=== PATIENT | female | born 1980 | race Caucasian/White ===

== ENCOUNTER 2016-07-13 16:15 | Observation (INO) | payer MEDICAID ==
[2016-07-13] MEDS ORDERED: HYDROmorphone 1 MG/ML Syringe IM ONE (16:32)
[2016-07-13] MEDS ORDERED: Ondansetron 4 MG Tab.DIS PO ONE (16:33)
--- NOTE | 2016-07-13 17:36 | EDM.PDOC ---
ED HPI GENERAL MEDICAL PROBLEM - General Chief Complaint: General Stated Complaint: R) flank pain 7 out of 10 Time Seen by Provider: 07/13/16 16:24 Source of Information: Reports: Patient History Limitations: Reports: No limitations - History of Present Illness INITIAL COMMENTS - FREE TEXT/NARRATIVE: Patient complaining of right flank pain. Pending lithotripsy next week on Friday at [place]. Was seen 06/26 for left low back pain and at that time noted to have 3cm left ovarian cyst but no obvious stone on CT. She is here complaining of kidney stone like pain. Unable to take NSAIDs due to upcoming lithotripsy. Tylenol not helping. No nausea/emesis. No UTI complaints. No fevers. No other complaints. Treatments REFRIGERATION PERSON: Reports: Acetaminophen Right Flank Pain Score (Numeric/FACES): 7 - Related Data Allergies Allergy/AdvReac Type Severity Reaction Status Date / Time amoxicillin Allergy Hives Verified 07/13/16 16:21 cephalexin [From Keflex] Allergy Hives Verified 07/13/16 16:21 erythromycin base Allergy Hives Verified 07/13/16 16:21 Penicillins Allergy Hives Verified 07/13/16 16:21 Home Meds: Home Meds Hydrochlorothiazide 25 mg PO BID 01/03/16 [History] Potassium Chloride [K-Tab ER] 10 meq PO DAILY 01/03/16 [History] Cyclobenzaprine [Flexeril] 10 mg PO BEDTIME PRN #15 tablet 03/02/16 [Rx] Gabapentin [Neurontin] 200 mg PO TID 06/26/16 [History] Ibuprofen [Motrin] 600 mg PO Q6HR PRN 06/26/16 [History] Melatonin 1 tab PO BEDTIME PRN 06/26/16 [History] Ketorolac [Toradol] 10 mg PO Q6H PRN #12 tablet 06/27/16 [Rx] Past Medical History HEENT History: Reports: Impaired vision Genitourinary History: Reports: Renal calculus Psychiatric History: Reports: Addiction, Anxiety, Depression - Past Surgical History Female Surgical History: Reports: Lithotripsy/ESWL, Tubal ligation Social & Family History - Tobacco Use Smoking Status *Q: Current Every Day Smoker Years of Tobacco use: 15 Packs/Tins Daily: 0.5 Used Tobacco, but Quit: No Second Hand Smoke Exposure: No - Caffeine Use Caffeine Use: Reports: None - Recreational Drug Use Recreational Drug Use: No ED ROS GENERAL - Review of Systems Review Of Systems: ROS reveals no pertinent complaints other than HPI. ED EXAM, GENERAL - Physical Exam Exam: See Below Exam Limited By: No limitations General Appearance: alert, WD/WN, moderate distress Eye Exam: bilateral eye: EOMI, PERRL Ears: normal external exam Nose: normal inspection Throat/Mouth: Normal inspection Head: atraumatic, normocephalic Neck: normal inspection, supple Respiratory/Chest: no respiratory distress, lungs clear, normal breath sounds, no accessory muscle use, chest non-tender Cardiovascular: no murmur, tachycardia GI/Abdominal: soft, non tender (Female) Exam: Deferred Rectal (Female) Exam: Deferred Back Exam: other (No obvious CVA pain or other tenderness with palpation) Extremities: normal inspection Neurological: alert, oriented, normal cognition, normal gait Course - Vital Signs Last Recorded V/S: Last Vital Signs Temp 36.7 C 07/13/16 16:35 Pulse 109 H 07/13/16 16:35 Resp 24 H 07/13/16 16:35 BP 143/104 H 07/13/16 16:35 Pulse Ox 94 L 07/13/16 16:35 - Orders/Labs/Meds Labs: Laboratory Tests 07/13/16 Range/Units 17:40 Specimen Type Urinblad Urine Color Yellow Urine Appearance Slightly cloudy Urine pH 6.0 (5.0-9.0) Ur Specific [place] >= 1.030 (1.005-1.030) Urine Protein Trace H (NEGATIVE) mg/dL Urine Glucose (UA) Negative (NEGATIVE) mg/dL Urine Ketones Negative (NEGATIVE) mg/dL Urine Occult Blood Large H (NEGATIVE) Urine Nitrite Negative (NEGATIVE) Urine Bilirubin Negative (NEGATIVE) Urine Urobilinogen 0.2 (0.2-1.0) E.U./dL Ur Leukocyte Esterase Negative (NEGATIVE) Urine RBC 5-10 H /HPF Urine WBC 0-5 /HPF Ur Epithelial Cells Moderate H /LPF Urine Bacteria Moderate H (NONE TO FEW) /HPF Urine Mucus Moderate H (NEGATIVE) /LPF Meds: Medications Discontinued Medications Generic Name Dose Route Start Last Admin Trade Name Freq PRN Reason Stop Dose Admin Hydromorphone HCl 1 mg 07/13/16 16:32 07/13/16 16:42 Dilaudid IM 07/13/16 16:33 1 mg ONETIME ONE Administration Ondansetron HCl 4 mg 07/13/16 16:33 07/13/16 16:42 Zofran Odt PO 07/13/16 16:34 4 mg ONETIME ONE Administration - Re-Assessments/Exams Free Text/Narrative Re-Assessment/Exam: 07/13/16 17:36 Patient received Dilaudid/Zofran. Pain significantly improved. Discussed admission for IV fluids/pain control. Patient would prefer to go home and try take home medication. Able to void. Sample sent for UA. Free Text/Narrative Re-Assessment/Exam: 07/13/16 18:18 UA showed no sign of UTI. Pain however started to return. Patient was ok with being admitted on observation for both IV hydration and pain management. Departure - Departure Time of Disposition: 18:19 Disposition: Refer to Observation Condition: good Clinical Impression: Renal colic on right side Referrals: Dotty Villaseñor PA-C [Primary Care Provider] - - Problem List & Annotations (1) Renal colic on right side SNOMED Code(s): 3224962 Code(s): N23 - UNSPECIFIED RENAL COLIC Status: Acute Priority: High Current Visit: Yes Annotation/Comment:: Long history of kidney stones. Scheduled for lithotripsy this coming Friday. (2) Hypertension SNOMED Code(s): 83055641 Code(s): I10 - ESSENTIAL (PRIMARY) HYPERTENSION Status: Chronic Priority : Low Current Visit: Yes - Problem List Review Problem List Initiated/Reviewed/Updated: Yes - Assessment/Plan Admission H&P: Please use this note as an admission H&P Assessment:: Right CVA pain in patient with history of kidney stones and scheduled lithotripsy this coming week. Plan: admit for IV hydration, pain control.
[2016-07-13] MEDS ORDERED: Sodium Chloride 0.9% 1,000 ML IV ONE (18:40)
[2016-07-13] MEDS: Ondansetron 4 MG/2 ML SDV IVPUSH PRN (19:00)
[2016-07-13] MEDS ORDERED: Tamsulosin 0.4 MG Cap.ER PO ONE (19:08)
[2016-07-13] MEDS: Morphine 2 MG/ML Syringe IVPUSH PRN ×2 (19:42→22:59)
[2016-07-13] MEDS: Sodium Chloride 0.9% 10 ML Syringe FLUSH PRN ×4 (19:42→23:05)
[2016-07-13] MEDS: Sodium Chloride 0.9% 1,000 ML IV SCH (20:12)
[2016-07-14] MEDS: Sodium Chloride 0.9% 1,000 ML IV SCH ×2 (04:07→12:16)
[2016-07-14] MEDS: Morphine 2 MG/ML Syringe IVPUSH PRN ×2 (05:45→11:38)
[2016-07-14] MEDS: Ondansetron 4 MG/2 ML SDV IVPUSH PRN ×2 (09:53→19:26)
[2016-07-14] MEDS: Acetaminophen/HYDROcodone 325-5 MG Tab PO PRN ×2 (09:53→15:21)
[2016-07-14] MEDS ORDERED: Tamsulosin 0.4 MG Cap.ER PO ONE (15:43)
--- NOTE | 2016-07-14 15:43 | PCM.PN ---
- General Info Date of Service: 07/14/16 Admission Dx/Problem (Free Text): Right flank pain due to persistent kidney stone issues. Subjective Update: Pain improves with MS, not good control when trying Micro. Functional Status: Reports: pain controlled Pain Score: 4 - Review of Systems General: Reports: no symptoms HEENT: Reports: no symptoms Pulmonary: Reports: no symptoms Cardiovascular: Reports: no symptoms Gastrointestinal: Reports: Nausea Genitourinary: Reports: flank pain. Denies: dysuria, frequency, burning, urgency, incontinence, hematuria Musculoskeletal: Reports: no symptoms Skin: Reports: no symptoms Neurological: Reports: no symptoms Psychiatric: Reports: no symptoms - Patient Data Vitals - most recent: Last Vital Signs Temp 36.7 C 07/14/16 12:00 Pulse 82 07/14/16 12:00 Resp 16 07/14/16 12:00 BP 118/79 07/14/16 12:00 Pulse Ox 99 07/14/16 12:00 Weight - most recent: 104.326 kg I&O - last 24 hours: Intake & Output 07/14/16 07/14/16 07/14/16 06:59 14:59 22:59 Intake Total 1300 Output Total 300 450 Balance 1000 -450 Med Orders - Current: Current Medications Morphine Sulfate (Morphine) 2 mg IVPUSH Q1H PRN PRN Reason: Pain (moderate 4-6) Last Admin: 07/14/16 11:38 Dose: 2 mg Ondansetron HCl (Zofran) 4 mg IVPUSH Q6H PRN PRN Reason: Nausea/Vomiting Last Admin: 07/14/16 09:53 Dose: 4 mg Sodium Chloride (Saline Flush) 10 ml FLUSH ASDIRECTED PRN PRN Reason: Keep Vein Open Last Admin: 07/13/16 23:05 Dose: 10 ml Discontinued Medications Acetaminophen/Hydrocodone Bitart (Micro 325-5 Mg) 1 tab PO Q4H PRN PRN Reason: Pain Last Admin: 07/14/16 15:21 Dose: 1 tab Hydromorphone HCl (Dilaudid) 1 mg IM ONETIME ONE Stop: 07/13/16 16:33 Last Admin: 07/13/16 16:42 Dose: 1 mg Sodium Chloride (Normal Saline) 1,000 mls @ 999 mls/hr IV .BOLUS ONE Stop: 07/13/16 19:40 Last Infusion: 07/13/16 20:12 Dose: Infused Sodium Chloride (Normal Saline) 1,000 mls @ 125 mls/hr IV ASDIRECTED ALEIDA Last Admin: 07/14/16 12:16 Dose: 125 mls/hr Ondansetron HCl (Zofran Odt) 4 mg PO ONETIME ONE Stop: 07/13/16 16:34 Last Admin: 07/13/16 16:42 Dose: 4 mg Tamsulosin HCl (Flomax) 0.4 mg PO ONETIME ONE Stop: 07/13/16 19:09 Last Admin: 07/13/16 19:42 Dose: 0.4 mg - Exam General: alert, oriented, cooperative, no acute distress HEENT: Pupils equal, Pupils reactive, EOMI, Mucous membr. moist/pink Neck: supple Lungs: Clear to auscultation, Normal respiratory effort Cardiovascular: regular rate, regular rhythm Abdomen: bowel sounds present, soft, no tenderness, no distension (Female) Exam: Deferred Back Exam: CVA tenderness (R) (mild) Extremities: other (No obvious edema but patient says she feels "puffy" from IV fluid) Peripheral Pulses: 2+: radial (L), radial (R) Skin: warm, dry, intact Neurological: no new focal deficit Psy/Mental Status: alert, normal affect, normal mood - Problem List & Annotations (1) Renal colic on right side SNOMED Code(s): 9570770 Code(s): N23 - UNSPECIFIED RENAL COLIC Status: Acute Priority: High Current Visit: Yes Annotation/Comment:: Long history of kidney stones. Scheduled for lithotripsy this coming Friday. (2) Hypertension SNOMED Code(s): 54212035 Code(s): I10 - ESSENTIAL (PRIMARY) HYPERTENSION Status: Chronic Priority : Low Current Visit: Yes Annotation/Comment:: BP currently well-controlled - Problem List Review Problem List Initiated/Reviewed/Updated: Yes - My Orders Last 24 Hours: My Active Orders 07/13/16 18:38 Patient Status [ADT] Routine Ambulate [RC] ASDIRECTED Ambulate [RC] PER UNIT ROUTINE May Shower [RC] ASDIRECTED Up ad [place] [RC] ASDIRECTED Vital Signs [RC] Q4HR DVT/VTE Prophylaxis Reflex [OM.PC] Routine Resuscitation Status Routine 07/13/16 18:40 Antiembolic Devices [RC] .Routine VTE/DVT Education [RC] PER UNIT ROUTINE Sodium Chloride 0.9% [Saline Flush] 10 ml FLUSH ASDIRECTED PRN Antiembolic Hose [OM.PC] Per Unit Routine Saline Lock Insert [OM.PC] Routine 07/13/16 18:41 Ondansetron [Zofran] 4 mg IVPUSH Q6H PRN 07/13/16 19:06 Morphine 2 mg IVPUSH Q1H PRN 07/14/16 15:24 Acetaminophen/oxyCODONE [Percocet 325-5 MG] 1 tab PO Q4H PRN 07/14/16 Breakfast Heart Healthy Diet [DIET] - Assessment Assessment:: Renal colic, overall improved but constant pain in right flank area still present. - Plan Plan:: Patient would like to be able to go home but pain not controlled with Micro. Will see if Percocet is more helpful. IV fluids discontinued. MS prn if pain is persistent. Consider calling Urology tomorrow morning if pain level is still not improved. Perhaps can move patient's lithotripsy from Friday to tomorrow. If pain improves and improvement can be maintained on PO meds, consider discharge home tomorrow with planned lithotripsy Friday.
[2016-07-14] MEDS: Acetaminophen/oxyCODONE 325-5 MG Tab PO PRN ×2 (19:19→23:19)
[2016-07-14] MEDS: Sodium Chloride 0.9% 10 ML Syringe FLUSH PRN (19:51)
[2016-07-15] MEDS: Acetaminophen/oxyCODONE 325-5 MG Tab PO PRN ×2 (04:40→08:51)
[2016-07-15 08:01] VITALS: BP 119/77
[2016-07-15] MEDS: Sodium Chloride 0.9% 10 ML Syringe FLUSH PRN (08:59)
[2016-07-15] MEDS: Ondansetron 4 MG/2 ML SDV IVPUSH PRN (08:59)
[2016-07-15 09:06] LABS: CHLORIDE,CL 102 mmol/L (98-107); SODIUM,NA 137 mmol/L (136-145)
--- NOTE | 2016-07-15 09:45 | PCM.DCSUM1 ---
Discharge Summary - Hospital Course HPI Initial Comments: See admission H&P Brief History: See admission H&P - Discharge Data Discharge Date: 07/15/16 Discharge Disposition: DC/Tfer to Acute Hospital 02 Condition: Good - Discharge Diagnosis/Problem(s) (1) Renal colic on right side SNOMED Code(s): 8579836 ICD Code: N23 - UNSPECIFIED RENAL COLIC Status: Acute Priority: High Current Visit: Yes Problem Details: Refractory colic as above. Long history of kidney stones with already scheduled lithotripsy as above. Telephone consultation at 09:[address] Forde, hospitalist at [facility], who does accept the patient for further treatment and evaluation and probable lithotripsy with no further treatment recommendations given. Private automobile transfer with patient to be driven to that facility secondary to recent narcotics during this hospitalization. She will be discharged with saline lock in place. Extensive precautions were given to the patient, who is in agreement with the treatment plan. (2) Nephrolithiasis SNOMED Code(s): 74263903 ICD Code: N20.0 - CALCULUS OF KIDNEY Status: Acute Current Visit: No Onset Date: ~06/26/16 Problem Details: Suspected kidney stone based on history and symptoms. Otherwise, as above. (3) Tobacco abuse counseling SNOMED Code(s): 988465341, 452870368, 590598039 ICD Code: Z71.6 - TOBACCO ABUSE COUNSELING Status: Chronic Priority: Medium Current Visit: Yes Problem Details: Tobacco cessation strongly encouraged with information to be provided at discharge/transfer (4) Mixed anxiety and depressive disorder SNOMED Code(s): 790252802 ICD Code: F41.8 - OTHER SPECIFIED ANXIETY DISORDERS Status: Chronic Priority: Medium Current Visit: Yes Problem Details: Stable by patient history (5) Hypertension SNOMED Code(s): 27519217 ICD Code: I10 - ESSENTIAL (PRIMARY) HYPERTENSION Status: Chronic Priority : Low Current Visit: Yes Problem Details: BP currently well-controlled, although occasionally elevated during this hospitalization secondary to colic. Qualifiers: Hypertension type: essential hypertension Qualified Code(s): I10 - Essential (primary) hypertension (6) Left ovarian cyst SNOMED Code(s): 11319992 ICD Code: N83.202 - UNSPECIFIED OVARIAN CYST, LEFT SIDE Status: Acute Priority: High Current Visit: No Onset Date: ~06/26/16 Problem Details: Noted on CT on 06/26/16 as above. No surrounding fluid. (7) Anemia SNOMED Code(s): 850050344 ICD Code: D64.9 - ANEMIA, UNSPECIFIED Status: Acute Priority: Medium Current Visit: Yes Onset Date: 07/15/16 Problem Details: Mild anemia today. Further workup depending on her clinical course Qualifiers: Anemia type: unspecified type Qualified Code(s): D64.9 - Anemia, unspecified - Patient Summary/Data Operative Procedure(s) Performed: None Complications: None Consults: None Labs Pending at D/C: None Recommended Follow-up Testing/Procedures: Planned lithotripsy Planned Operative Procedure(s) after DC: None Hospital Course: Patient was admitted to inpatient/acute care for pain control of refractory colic. She apparently had a CT scan of the abdomen and pelvis in this facility on 06/26/16 with a 3 cm left-sided ovarian cyst based on radiology report from [facility], however her colic is on the right side at this time. By patient history a lithotripsy had already been scheduled at [facility] on 07/16/16. She did apparently pass 2 small stones yesterday evening, although this was not seen either by the optical laboratory mechanic or nurse in the strainer and was not sent for further analysis. The patient is continuing to have 5/10 breakthrough colic, despite both IV and oral narcotic medications, including concomitant nausea and diaphoresis, with last episode earlier this morning. No recent history of other abdominal pain, heartburn, diarrhea, melena, gross hematochezia, or any food intolerance, including fatty foods, etc.. The patient also denies any recent fever, cough, wheezing, dyspnea , etc.. - Patient Instructions Diet: NPO Activity: As Tolerated Driving: Do Not Drive Showering/Bathing: May Shower Notify Provider of: Fever, Increased Pain, Nausea and/or Vomiting Other/Special Instructions: 1. Have someone drive you to [facility] for direct admission and further treatment and evaluation of your kidney stones. 2. Stop all tobacco use [facility] as directed/per provided information and consider contacting [employer], etc.. - Discharge Plan Home Medications: Home Meds Hydrochlorothiazide 25 mg PO BID 01/03/16 [History] Potassium Chloride [K-Tab ER] 10 meq PO DAILY 01/03/16 [History] Cyclobenzaprine [Flexeril] 10 mg PO BEDTIME PRN #15 tablet 03/02/16 [Rx] Gabapentin [Neurontin] 200 mg PO TID 06/26/16 [History] Ibuprofen [Motrin] 600 mg PO Q6HR PRN 06/26/16 [History] Melatonin 1 tab PO BEDTIME PRN 06/26/16 [History] Sodium Chloride 0.9% [Saline Flush] 10 ml FLUSH ASDIRECTED PRN #0 syringe [Rx] Patient Handouts: Ondansetron injection, Kidney Stones, [id number], Flank Pain, Lithotripsy, Morphine injection solution Forms: Interfacility Transfer EMTALA Referrals: Dotty Villaseñor PA-C [Primary Care Provider] - - Discharge Summary/Plan Comment DC Time >30 min.: Yes (Coordination of patient care) Discharge Summary/Plan Comment: As above. - General Info Date of Service: 07/15/16 Admission Dx/Problem (Free Text: 1. Refractory right-sided colic Functional Status: Reports: tolerating diet, ambulating, urinating. Denies: pain controlled (Breakthrough 5/10 sharp right-sided colic as above), new symptoms, incentive spirometry Numeric/FACES Score: 5 - Review of Systems General: Reports: no symptoms. Denies: fever, weakness, fatigue, chills, night sweats, appetite (Appetite good) HEENT: Reports: no symptoms. Denies: ear pain, eye pain, headaches, sinus congestion, sore throat, rhinitis, visual changes Pulmonary: Reports: no symptoms. Denies: shortness of breath, pleuritic chest pain, cough, wheezing Cardiovascular: Reports: no symptoms. Denies: chest pain, palpitations, dyspnea on exertion, orthopnea, PND, edema, lightheadedness Gastrointestinal: Denies: Abdominal pain, Constipation, Decreased appetite, Diarrhea, Difficulty swallowing, Flatus, Hematochezia, Melena, Nausea, Vomiting Genitourinary: Reports: flank pain (Colic as above). Denies: dysuria, frequency , burning, pain, urgency, incontinence, hematuria, retention Musculoskeletal: Reports: no symptoms. Denies: neck pain, shoulder pain, arm pain, back pain, leg pain Skin: Reports: no symptoms. Denies: pallor, diaphoresis, bruising, pruritis Neurological: Denies: no symptoms, confusion, dizziness, headache, numbness, paresthesia, tingling, weakness Psychiatric: Reports: no symptoms. Denies: confusion, depression, anxiety, agitation, hallucinations - Patient Data Vitals - Most Recent: Last Vital Signs Temp 37.0 C 07/15/16 07:54 Pulse 79 07/15/16 07:54 Resp 18 07/15/16 07:54 BP 119/77 07/15/16 07:54 Pulse Ox 98 07/15/16 07:54 Weight - Most Recent: 104.326 kg I&O - Last 24 hours: Intake & Output 07/14/16 07/15/16 07/15/16 22:59 06:59 14:59 Intake Total 320 400 480 Output Total 600 Balance 320 -200 480 Imaging Impressions - Last 24 hrs: None Lab Results - Last 24 hrs: Laboratory Results - last 24 hr 07/15/16 07/15/16 07/15/16 Range/Units 08:50 08:50 08:50 WBC 4.2 (4.0-10.2) K/uL RBC 4.10 (3.77-5.09) M/uL Hgb 11.3 L (11.7-15.5) g/dL Hct 33.9 L (34.0-46.0) % MCV 82.7 L (84.0-98.0) fL MCH 27.6 L (28.2-33.3) pg MCHC 33.3 (31.7-36.0) g/dL RDW 12.6 (11.2-14.1) % Plt Count 346 (150-350) K/uL Neut % (Auto) 51.6 (45.0-80.0) % Lymph % (Auto) 39.0 (10.0-50.0) % Blount % (Auto) 8.0 (2.0-14.0) % Eos % (Auto) 1.2 (0.0-5.0) % Baso % (Auto) 0.2 (0.0-2.0) % Neut # 2.14 (1.40-7.00) K/uL Lymph # 1.62 (0.50-3.50) K/uL Blount # 0.33 (0.00-1.00) K/uL Eos # 0.05 (0.00-0.50) K/uL Baso # 0.01 (0.00-0.20) K/uL Sodium 137 (136-145) mmol/L Potassium 4.1 (3.5-5.1) mmol/L Chloride 102 (98-107) mmol/L Carbon Dioxide 24.7 (21.0-32.0) mmol/L BUN 11 (7-18) mg/dL Creatinine 0.85 (0.51-1.17) mg/dL Est Cr Clr Drug Dosing 87.30 mL/min Estimated GFR (MDRD) > 60 mL/min Glucose 90 (74-106) mg/dL Uric Acid 4.7 (2.6-7.2) mg/dL Calcium 8.6 (8.5-10.1) mg/dL Total Bilirubin 0.2 (0.2-1.0) mg/dL AST 24 (15-37) U/L ALT 34 (12-78) U/L Alkaline Phosphatase 68 (46-116) IU/L Total Protein 7.2 (6.4-8.2) g/dL Albumin 3.4 (3.4-5.0) g/dL Laboratory Tests 07/13/16 07/15/16 07/15/16 Range/Units 17:40 08:50 08:50 WBC 4.2 (4.0-10.2) K/uL RBC 4.10 (3.77-5.09) M/uL Hgb 11.3 L (11.7-15.5) g/dL Hct 33.9 L (34.0-46.0) % MCV 82.7 L (84.0-98.0) fL MCH 27.6 L (28.2-33.3) pg MCHC 33.3 (31.7-36.0) g/dL RDW 12.6 (11.2-14.1) % Plt Count 346 (150-350) K/uL Neut % (Auto) 51.6 (45.0-80.0) % Lymph % (Auto) 39.0 (10.0-50.0) % Blount % (Auto) 8.0 (2.0-14.0) % Eos % (Auto) 1.2 (0.0-5.0) % Baso % (Auto) 0.2 (0.0-2.0) % Neut # 2.14 (1.40-7.00) K/uL Lymph # 1.62 (0.50-3.50) K/uL Blount # 0.33 (0.00-1.00) K/uL Eos # 0.05 (0.00-0.50) K/uL Baso # 0.01 (0.00-0.20) K/uL Sodium 137 (136-145) mmol/L Potassium 4.1 (3.5-5.1) mmol/L Chloride 102 (98-107) mmol/L Carbon Dioxide 24.7 (21.0-32.0) mmol/L BUN 11 (7-18) mg/dL Creatinine 0.85 (0.51-1.17) mg/dL Est Cr Clr Drug Dosing 87.30 mL/min Estimated GFR (MDRD) > 60 mL/min Glucose 90 (74-106) mg/dL Uric Acid (2.6-7.2) mg/dL Calcium 8.6 (8.5-10.1) mg/dL Total Bilirubin 0.2 (0.2-1.0) mg/dL AST 24 (15-37) U/L ALT 34 (12-78) U/L Alkaline Phosphatase 68 (46-116) IU/L Total Protein 7.2 (6.4-8.2) g/dL Albumin 3.4 (3.4-5.0) g/dL Specimen Type Urinblad Urine Color Yellow Urine Appearance Slightly cloudy Urine pH 6.0 (5.0-9.0) Ur Specific [place] >= 1.030 (1.005-1.030) Urine Protein Trace H (NEGATIVE) mg/dL Urine Glucose (UA) Negative (NEGATIVE) mg/dL Urine Ketones Negative (NEGATIVE) mg/dL Urine Occult Blood Large H (NEGATIVE) Urine Nitrite Negative (NEGATIVE) Urine Bilirubin Negative (NEGATIVE) Urine Urobilinogen 0.2 (0.2-1.0) E.U./dL Ur Leukocyte Esterase Negative (NEGATIVE) Urine RBC 5-10 H /HPF Urine WBC 0-5 /HPF Ur Epithelial Cells Moderate H /LPF Urine Bacteria Moderate H (NONE TO FEW) /HPF Urine Mucus Moderate H (NEGATIVE) /LPF 07/15/16 Range/Units 08:50 WBC (4.0-10.2) K/uL RBC (3.77-5.09) M/uL Hgb (11.7-15.5) g/dL Hct (34.0-46.0) % MCV (84.0-98.0) fL MCH (28.2-33.3) pg MCHC (31.7-36.0) g/dL RDW (11.2-14.1) % Plt Count (150-350) K/uL Neut % (Auto) (45.0-80.0) % Lymph % (Auto) (10.0-50.0) % Blount % (Auto) (2.0-14.0) % Eos % (Auto) (0.0-5.0) % Baso % (Auto) (0.0-2.0) % Neut # (1.40-7.00) K/uL Lymph # (0.50-3.50) K/uL Blount # (0.00-1.00) K/uL Eos # (0.00-0.50) K/uL Baso # (0.00-0.20) K/uL Sodium (136-145) mmol/L Potassium (3.5-5.1) mmol/L Chloride (98-107) mmol/L Carbon Dioxide (21.0-32.0) mmol/L BUN (7-18) mg/dL Creatinine (0.51-1.17) mg/dL Est Cr Clr Drug Dosing mL/min Estimated GFR (MDRD) mL/min Glucose (74-106) mg/dL Uric Acid 4.7 (2.6-7.2) mg/dL Calcium (8.5-10.1) mg/dL Total Bilirubin (0.2-1.0) mg/dL AST (15-37) U/L ALT (12-78) U/L Alkaline Phosphatase (46-116) IU/L Total Protein (6.4-8.2) g/dL Albumin (3.4-5.0) g/dL Specimen Type Urine Color Urine Appearance Urine pH (5.0-9.0) Ur Specific [place] (1.005-1.030) Urine Protein (NEGATIVE) mg/dL Urine Glucose (UA) (NEGATIVE) mg/dL Urine Ketones (NEGATIVE) mg/dL Urine Occult Blood (NEGATIVE) Urine Nitrite (NEGATIVE) Urine Bilirubin (NEGATIVE) Urine Urobilinogen (0.2-1.0) E.U./dL Ur Leukocyte Esterase (NEGATIVE) Urine RBC /HPF Urine WBC /HPF Ur Epithelial Cells /LPF Urine Bacteria (NONE TO FEW) /HPF Urine Mucus (NEGATIVE) /LPF STEVE Results - Last 24 hrs: None Med Orders - Current: Current Medications Morphine Sulfate (Morphine) 2 mg IVPUSH Q1H PRN PRN Reason: Pain (moderate 4-6) Last Admin: 07/14/16 11:38 Dose: 2 mg Ondansetron HCl (Zofran) 4 mg IVPUSH Q6H PRN PRN Reason: Nausea/Vomiting Last Admin: 07/15/16 08:59 Dose: 4 mg Oxycodone/Acetaminophen (Percocet 325-5 Mg) 1 tab PO Q4H PRN PRN Reason: Pain Last Admin: 07/15/16 08:51 Dose: 1 tab Sodium Chloride (Saline Flush) 10 ml FLUSH ASDIRECTED PRN PRN Reason: Keep Vein Open Last Admin: 07/15/16 08:59 Dose: 10 ml Discontinued Medications Acetaminophen/Hydrocodone Bitart ([place] 325-5 Mg) 1 tab PO Q4H PRN PRN Reason: Pain Last Admin: 07/14/16 15:21 Dose: 1 tab Hydromorphone HCl (Dilaudid) 1 mg IM ONETIME ONE Stop: 07/13/16 16:33 Last Admin: 07/13/16 16:42 Dose: 1 mg Sodium Chloride (Normal Saline) 1,000 mls @ 999 mls/hr IV .BOLUS ONE Stop: 07/13/16 19:40 Last Infusion: 07/13/16 20:12 Dose: Infused Sodium Chloride (Normal Saline) 1,000 mls @ 125 mls/hr IV ASDIRECTED ALEIDA Last Admin: 07/14/16 12:16 Dose: 125 mls/hr Ondansetron HCl (Zofran Odt) 4 mg PO ONETIME ONE Stop: 07/13/16 16:34 Last Admin: 07/13/16 16:42 Dose: 4 mg Tamsulosin HCl (Flomax) 0.4 mg PO ONETIME ONE Stop: 07/13/16 19:09 Last Admin: 07/13/16 19:42 Dose: 0.4 mg Tamsulosin HCl (Flomax) 0.4 mg PO ONETIME ONE Stop: 07/14/16 15:44 Last Admin: 07/14/16 16:16 Dose: 0.4 mg - Exam Quality Assessment: Reports: DVT prophylaxis. Denies: supplemental oxygen, central line/PICC, urine catheter, skin breakdown, restraints General: Reports: alert, oriented, cooperative, no acute distress HEENT: Reports: Pupils equal, Pupils reactive, EOMI, Mucous membr. moist/pink Neck: Reports: supple, trachea midline, no JVD, no thyromegaly. Denies: lymphadenopathy Lungs: Reports: Clear to auscultation, Normal respiratory effort. Denies: Rub Cardiovascular: Reports: regular rate, regular rhythm. Denies: gallops, rubs Abdomen: Reports: bowel sounds present, soft, no tenderness, no distension. Denies: guarding, CVA tenderness (Female) Exam: Deferred Rectal (Female) Exam: Deferred Back Exam: Reports: normal inspection, full range of motion. Denies: CVA tenderness (L), CVA tenderness (R), muscle spasm Extremities: Reports: no edema, normal pulses, no tenderness/swelling, no calf tenderness Skin: Reports: warm, dry, intact Neurological: Reports: no new focal deficit Psy/Mental Status: Reports: alert, normal affect, normal mood *Q Meaningful Use (DIS) - VTE *Q VTE Criteria *Q: - Stroke *Q Stroke Criteria *Q: - AMI *Q AMI Criteria *Q:
--- NOTE | 2016-07-17 12:11 | PCM.SN ---
- Free Text/Narrative Note: CORRECTION: Discharge Summary-Patient was actually in Observation rather than Inpatient Status during hospitalization from 07/13/16 thru 07/15/16.
== END 2016-07-15 10:52 ==
LOC: LL.ED 16:15 → LL.MS 18:00
PROVIDERS: ADMIT Emergency Medicine; ATTEND Emergency Medicine
DX: N23 Unspecified renal colic (principal); N20.0 Calculus of kidney; Z71.6 Tobacco abuse counseling; F41.8 Other specified anxiety disorders; I10 Essential (primary) hypertension; N83.202 Unspecified ovarian cyst, left side; D64.9 Anemia, unspecified; Z88.0 Allergy status to penicillin; Z88.1 Allergy status to other antibiotic agents; Z88.8 Allergy status to other drugs, medicaments and biological substances; Z79.899 Other long term (current) drug therapy; Z98.890 Other specified postprocedural states; Z98.51 Tubal ligation status; F17.210 Nicotine dependence, cigarettes, uncomplicated
CPT/HCPCS: 36415; 80053; 81001; 84550; 85025; 96361; 96372; 96374; 96375; 96376; 99284; A9270; G0378; J1170; J2270; J2405; J7030; J7050

== ENCOUNTER 2016-11-04 17:37 | Emergency (ER) | payer MEDICAID ==
[2016-11-04] MEDS ORDERED: Ketorolac 30 MG/ML SDV IVPUSH ONE (17:51)
[2016-11-04] MEDS ORDERED: Tamsulosin 0.4 MG Cap.ER PO ONE (17:51)
[2016-11-04] MEDS ORDERED: Famotidine 20 MG/2 ML SDV IVPUSH ONE (17:51)
[2016-11-04] MEDS ORDERED: Lactated Ringers 1,000 ML IV ONE (17:51)
[2016-11-04] MEDS ORDERED: HYDROmorphone 1 MG/ML Syringe IVPUSH ONE (17:54)
[2016-11-04] MEDS ORDERED: Ondansetron 4 MG/2 ML SDV IVPUSH ONE (17:54)
--- NOTE | 2016-11-04 17:55 | EDM.PDOC ---
ED HPI GENERAL MEDICAL PROBLEM - General Chief Complaint: Flank Pain Stated Complaint: kidney stones, Right Flank Pain Time Seen by Provider: 11/04/16 17:45 Source of Information: Reports: Patient, Old Records ([facility] EMR. No paper hospital chart available.) History Limitations: Reports: No Limitations - History of Present Illness INITIAL COMMENTS - FREE TEXT/NARRATIVE: The patient was brought to the emergency room via private automobile by her mother for evaluation of severe right-sided colic with symptoms typical of her previous attacks and symptoms starting at about 15:00 hours. She has had some mild gross hematuria, right CVA colic pain, and nausea with no emesis or other abdominal pain to this point. Patient did take 600 mg of ibuprofen at 15:30 hours this afternoon. Note that she does have a history of recurrent bilateral urolithiasis as below, including recent left-sided lithotripsy in June 2016. The patient also denies any recent fever, cough, wheezing, dyspnea, etc.. She rates her discomfort at 10/10. Patient did pass a small stone immediately prior to arrival and did bring this with her to this facility. She has been compliant with her "stone" diet Onset: Today, Sudden Onset Date: 11/04/16 Onset Time: 15:00 Duration: Constant, Intermittent Location: Reports: Abdomen (right CVA colic). Denies: Neck, Chest, Back, Pelvis , Lower Extremity, Left, Lower Extremity, Right, Radiates to Quality: Reports: Same as Previous Episode, Sharp, Stabbing Severity: Severe Improves with: Reports: None Worsens with: Reports: None Context: Reports: Other (As above) Associated Symptoms: Reports: Nausea/Vomiting. 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 Right Upper Posterior Abdomen Pain Score (Numeric/FACES): 10 (Right CVA) Right Flank Pain Score (Numeric/FACES): 5 - Related Data Allergies Allergy/AdvReac Type Severity Reaction Status Date / Time amoxicillin Allergy Hives Verified 11/04/16 19:03 cephalexin [From Keflex] Allergy Hives Verified 11/04/16 19:03 erythromycin base Allergy Hives Verified 11/04/16 19:03 Penicillins Allergy Hives Verified 11/04/16 19:03 Home Meds: Home Meds Hydrochlorothiazide 25 mg PO BID 01/03/16 [History] Potassium Chloride [K-Tab ER] 10 meq PO DAILY 01/03/16 [History] Cyclobenzaprine [Flexeril] 10 mg PO BEDTIME PRN #15 tablet 03/02/16 [Rx] Gabapentin [Neurontin] 200 mg PO TID 06/26/16 [History] Ibuprofen [Motrin] 600 mg PO Q6HR PRN 06/26/16 [History] Melatonin 1 tab PO BEDTIME PRN 06/26/16 [History] LORazepam [Ativan] 0.5 mg PO BID 11/04/16 [History] busPIRone [Buspar] 7.5 mg PO TID 11/04/16 [History] Past Medical History HEENT History: Reports: Impaired Vision, Other (See Below). Denies: Allergic Rhinitis, Cataract, Glaucoma, Hard of Hearing, Macular Degeneration, Otitis Media, Retinal Detachment Other HEENT History: Wears glasses Cardiovascular History: Reports: Hypertension, Other (See Below). Denies: Afib , Aneurysm, Arrhythmia, Blood Clots/VTE/DVT, CAD, Heart Murmur, High Cholesterol , GA, Syncope Other Cardiovascular History: Patient not taking medications for her hypertension with diuretic for her recurrent urolithiasis by her history, she does not know her cholesterol status Respiratory History: Reports: None. Denies: Asthma, COPD, PE, Pneumothorax Gastrointestinal History: Reports: Chronic Constipation. Denies: Celiac Disease , Cholelithiasis, Chronic Diarrhea, Gastritis, GERD, GI Bleed, Hepatitis, Hiatal Hernia, Inflammatory Bowel Disease, Irritable Bowel Syndrome, Jaundice, Pancreatitis, PUD Genitourinary History: Reports: Renal Calculus, Other (See Below). Denies: Acute Renal Failure, Chronic Renal Insuffiency, STD Other Genitourinary History: Recurrent bilateral urolithiasis since 2005 with history of mild right-sided hydronephrosis on 03/10/16 and recurrent lithotripsies as below NOC ANALYST History: Reports: Dysfunctional Uterine Bleeding, , Spontaneous . Denies: Endometriosis, PID : 3 Para: 2 (Deliveries 2 by secondary to failure to progress with SAB at 13 weeks gestation requiring D&C as below. Otherwise no problems during pregnancies or deliveries) LMP (Approximate): 1 Week Other OB/BYN History: Recurrent left-sided ovarian cyst, fibrocystic breast disease, dysmenorrhea Musculoskeletal History: Reports: Arthritis, Back Pain, Chronic, Fracture, Osteoarthritis, Other (See Below). Denies: Gout, Neck Pain, Chronic, Osteoporosis, RA, SLE Other Musculoskeletal History: Right wrist fracture at age 15 Neurological History: Reports: Neuropathy, Peripheral, Other (See Below). Denies: Brain Injury, Cerebral Aneurysms, Concussion, CVA, Headaches, Chronic, Head Trauma, Migraines, MS, Neuropathy, Diabetic, Parkinson's, Seizure, TIA Other Neuro History: Cauda equina syndrome with neurogenic bladder Psychiatric History: Reports: Addiction, Anxiety, Depression, Other (See Below) . Denies: Abuse, Victim of, ADD, ADHD, Dementia, Psych Hospitalization(s), PTSD , Suicide Attempt, Suicidal Ideation Other Psychiatric History: Narcotic use, chronic insomnia Endocrine/Metabolic History: Reports: Obesity/BMI 30+. Denies: Diabetes, Type I , Diabetes, Type II, Hypothyroidism, IDDM Hematologic History: Reports: None. Denies: Anemia, Blood Transfusion(s), Iron Deficiency Immunologic History: Reports: None. Denies: AIDS, HIV, SLE Oncologic (Cancer) History: Reports: Cervix, Other (See Below). Denies: Basal Cell Carcinoma, Hodgkin's Lymphoma, Leukemia, Malignant Melanoma, Non-Hodgkin's Lymphoma, Squamous Cell Carcinoma, Uterine Other Oncologic History: Multiple previous abnormal Pap smears of unknown type with resolution after cryotherapy 1999 Dermatologic History: Reports: Other (See Below). Denies: Eczema, Psoriasis Other Dermatologic History: Acne - Infectious Disease History Infectious Disease History: Reports: Chicken Pox, Shingles (Right upper back at age 11). Denies: C-Difficile, Measles, Meningitis, Mononucleosis, MRSA, Mumps, Pertussis (Whooping Cough), Rheumatic Fever, Rubella, Scarlet Fever, VRE - Past Surgical History Head Surgeries/Procedures: Reports: None HEENT Surgical History: Reports: Adenoidectomy, Tonsillectomy, Other (See Below) . Denies: Eye Surgery, Laser Surgery, LASIK, Myringotomy w Tube(s), Naso-Sinus Surgery, Oral Surgery Other HEENT Surgeries/Procedures: Tonsillectomy and adenoidectomy at age 16 Cardiovascular Surgical History: Reports: None. Denies: Varicose, Vascular Surgery Respiratory Surgical History: Reports: None. Denies: Thoracentesis GI Surgical History: Reports: Appendectomy, Other (See Below). Denies: Cholecystectomy, Hernia, Abdominal, Hernia, Inguinal, Hernia Repair/Other Other GI Surgeries/Procedures: Appendectomy at age 15 Female Surgical History: Reports: Section, Cervical Cryotherapy, D&C , Lithotripsy/ESWL, Tubal Ligation, Ureteral Stent, Other (See Below). Denies: Breast Biopsy, Endometrial Ablation, Hysterectomy Other Female Surgeries/Procedures: 2 as above, D&C secondary to SAB as above, bilateral tubal ligation in 2007, recurrent lithotripsies with last left-sided lithotripsy in June 2016 with 2 previous lithotripsies on the left side and also left ureteral stent placement in 2008 with subsequent removal, cervical cryotherapy in 1999 secondary to atypical Pap smears as above Endocrine Surgical History: Reports: None. Denies: Thyroid Biopsy Neurological Surgical History: Reports: None. Denies: C-Spine, Discectomy, Laminectomy, Lumbar Spine, Spinal Fusion, Vertebroplasty Musculoskeletal Surgical History: Reports: None. Denies: Amputation, Arthroscopic Procedure, Carpal Tunnel, Ganglion Cyst, Joint Replacement, ORIF, Shoulder Surgery Oncologic Surgical History: Reports: None. Denies: Biopsy of Breast Dermatological Surgical History: Reports: None - Past Imaging History Past Imaging History: Reports: CAT Scan (CT of the abdomen and pelvis with stone protocol on 06/27/16 positive for left-sided urolithiasis, CT of the lumbar spine on 03/10/16 with right-sided urolithiasis and mild hydronephrosis with additional osteoarthritic changes), Mammogram (Last mammogram on 06/03/16), Ultrasound (Left breast ultrasound on 06/03/16, pelvic ultrasound on 07/26/16) Social & Family History - Tobacco Use Smoking Status *Q: Current Every Day Smoker Tobacco Use Within Last Twelve Months: Cigarettes Years of Tobacco use: 18 Packs/Tins Daily: 0.5 Used Tobacco, but Quit: No Smoking Cessation Information Provided To Patient: Yes Second Hand Smoke Exposure: Yes Second Hand Smoke Education Provided: Yes - Caffeine Use Caffeine Use: Reports: None. Denies: Coffee, Energy Drinks, Soda, Tea - Alcohol Use Alcohol Use History: No Days Per Week of Alcohol Use: 0 (No previous DWIs, problems with alcohol abuse, etc.) Alcohol Use in Last Twelve Months: No - Recreational Drug Use Recreational Drug Use: No Drug Use in Last 12 Months: No Recreational Drug Type: Denies: Amphetamines (Speed), Cocaine, Heroin, Inhalants (Glues, Solvents, Aerosols), Marijuana/Hashish, Methamphetamine, Morphine - Living Situation & Occupation Living situation: Reports: Single, with Significant Other (And her 2 children from previous significant other relationships). 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 Denies: Fever, Chills, Weakness, Fatigue , Night Sweats, Decreased Appetite, Weight Loss, Weight Gain HEENT: Reports: No Symptoms. Denies: Ear Pain, Rhinitis, Sinus Problem, Throat Pain, Throat Swelling, Vertigo Respiratory: Reports: No Symptoms. Denies: Shortness of Breath, Wheezing, Pleuritic Chest Pain, Cough Cardiovascular: Reports: No Symptoms. Denies: Chest Pain, Blood Pressure Problem, Dyspnea on Exertion, Edema, Lightheadedness, Orthopnea, Palpitations, Syncope Endocrine: Reports: No Symptoms. Denies: Fatigue GI/Abdominal: Reports: Abdominal Pain (Left CVA), Nausea. Denies: Anorexia, Black Stool, Bloody Stool, Constipation, Diarrhea, Decreased Appetite, Distension, Flatus, Hematemesis, Hematochezia, Melena, Mucous in Stool, Stool Incontinence, Vomiting : Reports: Flank Pain, Hematuria, Pain. Denies: Frequency, Incontinence, Urgency, Urinary Retention Musculoskeletal: Reports: No Symptoms. Denies: Neck Pain, Shoulder Pain, Arm Pain, Back Pain, Leg Pain Skin: Reports: No Symptoms. Denies: Jaundice, Pallor, Diaphoresis, Wound Neurological: Reports: No Symptoms. Denies: Confusion, Dizziness, Headache, Numbness, Paresthesia, Seizure, Syncope, Tingling, Weakness Psychiatric: Reports: No Symptoms. Denies: Agitation, Anxiety, Confusion, Depression, Hallucinations Hematologic/Lymphatic: Reports: No Symptoms Immunologic: Reports: No Symptoms ED EXAM, GENERAL - Physical Exam Exam: See Below Exam Limited By: No Limitations General Appearance: Alert, WD/WN, Anxious (Moderate), Mild Distress (Secondary to colic) Head: Atraumatic, Normocephalic. No: Facial Swelling, Facial Tenderness, Sinus Tenderness Neck: Normal Inspection, Supple, Non-Tender, Full Range of Motion. No: Lymphadenopathy (L), Lymphadenopathy (R), Thyromegaly Respiratory/Chest: No Respiratory Distress, Lungs Clear, Normal Breath Sounds, No Accessory Muscle Use, Chest Non-Tender. No: Pleural Rub, Retractions Cardiovascular: Normal Peripheral Pulses, Regular Rate, Rhythm, No Edema, No Gallop, No JVD, No Murmur, No Rub. No: Gallop/S3, Gallop/S4, Friction Rub Peripheral Pulses: 4+: Radial (L), Radial (R) GI/Abdominal: Normal Bowel Sounds, Soft, No Organomegaly, No Distention, No Abnormal Bruit, No Mass, Pelvis Stable, Tender (Mild right CVA tenderness), Other (Obese). No: Guarding, Rebound (Female) Exam: Deferred Rectal (Female) Exam: Deferred Back Exam: Full Range of Motion, CVA Tenderness (R). No: Decreased Range of Motion, Muscle Spasm, Paraspinal Tenderness Extremities: Normal Inspection, Normal Range of Motion, Non-Tender, No Pedal Edema, Normal Capillary Refill. No: Latanya's Sign Neurological: Alert, Oriented, CN II-XII Intact, Normal Cognition, Normal Gait, No Motor/Sensory Deficits Psychiatric: Anxious (Mild to moderate), Depressed Mood (Mild with adequate eye contact) Skin Exam: Warm, Dry, Intact, Normal Color, No Rash. No: Cyanosis, Diaphoretic , Jaundice, Pallor, Wound/Incision Lymphatic: No Adenopathy Course - Vital Signs Last Recorded V/S: Last Vital Signs Temp 36.4 C 11/04/16 17:38 Pulse 72 11/04/16 19:03 Resp 18 11/04/16 19:03 BP 112/76 11/04/16 19:03 Pulse Ox 98 11/04/16 19:03 Vital Signs - 24 hr 11/04/16 11/04/16 17:38 19:03 Temperature [ 36.4 C Oral] Pulse, 103 H 72 Peripheral [ Right Pulse Oximetry] Respiratory 20 18 Rate Blood Pressure 143/89 H 112/76 [Right Upper Arm] O2 Sat by Pulse 100 98 Oximetry - Orders/Labs/Meds Orders: Active Orders 24 hr Category Date Time Status Peripheral IV Care [RC] . DIRECTED Care 11/04/16 17:51 Active Nothing per Oral Now Diet [DIET] Diet 11/04/16 Breakfast Active Abdomen Pelvis wo Cont [CT] Stat Exams 11/04/16 17:47 Taken CULTURE URINE [RM] Routine Lab 11/04/16 17:44 Received STONE ANALYSIS W/O IMAGE Stat Lab 11/04/16 17:44 Received Sodium Chloride 0.9% [Saline Flush] Med 11/04/16 17:51 Active 10 ml FLUSH ASDIRECTED PRN Obtain Past Medical Record [OM.PC] Urgent Oth 11/04/16 17:55 Active Peripheral IV Insertion Adult [OM.PC] Stat Oth 11/04/16 17:50 Ordered Medication Orders Sodium Chloride (Saline Flush) 10 ml FLUSH ASDIRECTED PRN PRN Reason: Keep Vein Open Last Admin: 11/04/16 18:14 Dose: 10 ml Admin: 11/04/16 18:05 Dose: 10 ml Labs: Laboratory Tests 11/04/16 11/04/16 11/04/16 Range/Units 17:44 18:00 18:00 WBC 7.1 (4.0-10.2) K/uL RBC 4.33 (3.77-5.09) M/uL Hgb 12.0 (11.7-15.5) g/dL Hct 35.4 (34.0-46.0) % MCV 81.8 L (84.0-98.0) fL MCH 27.7 L (28.2-33.3) pg MCHC 33.9 (31.7-36.0) g/dL RDW 13.4 (11.2-14.1) % Plt Count 424 H D (150-350) K/uL Neut % (Auto) 61.3 (45.0-80.0) % Lymph % (Auto) 32.2 (10.0-50.0) % [place] % (Auto) 5.7 (2.0-14.0) % Eos % (Auto) 0.7 (0.0-5.0) % Baso % (Auto) 0.1 (0.0-2.0) % Neut # (Auto) 4.37 (1.40-7.00) K/uL Lymph # (Auto) 2.30 (0.50-3.50) K/uL [place] # (Auto) 0.41 (0.00-1.00) K/uL Eos # (Auto) 0.05 (0.00-0.50) K/uL Baso # (Auto) 0.01 (0.00-0.20) K/uL PT (9.8-11.7) SEC INR APTT (23.5-30.0) SEC Sodium 140 (136-145) mmol/L Potassium 4.0 (3.5-5.1) mmol/L Chloride 108 H (98-107) mmol/L Carbon Dioxide 22.1 (21.0-32.0) mmol/L BUN 12 (7-18) mg/dL Creatinine 0.84 (0.51-1.17) mg/dL Est Cr Clr Drug Dosing TNP Estimated GFR (MDRD) > 60 mL/min Glucose 126 H (74-106) mg/dL Lactic Acid (0.4-2.0) mmol/L Uric Acid 4.7 (2.6-7.2) mg/dL Calcium 8.0 L (8.5-10.1) mg/dL Magnesium 1.7 L (1.8-2.4) mg/dL Total Bilirubin 0.2 (0.2-1.0) mg/dL AST 25 (15-37) U/L ALT 38 (12-78) U/L Alkaline Phosphatase 95 (46-116) IU/L Total Protein 7.6 (6.4-8.2) g/dL Albumin 3.7 (3.4-5.0) g/dL Amylase 38 (25-115) U/L Lipase 200 (73-393) U/L HCG, Qual (NEGATIVE) Specimen Type Urincc Urine Color Dark yellow Urine Appearance Cloudy Urine pH 6.0 (5.0-9.0) Ur Specific [place] 1.025 (1.005-1.030) Urine Protein 30 H (NEGATIVE) mg/dL Urine Glucose (UA) Negative (NEGATIVE) mg/dL Urine Ketones Negative (NEGATIVE) mg/dL Urine Occult Blood Large H (NEGATIVE) Urine Nitrite Negative (NEGATIVE) Urine Bilirubin Negative (NEGATIVE) Urine Urobilinogen 0.2 (0.2-1.0) E.U./dL Ur Leukocyte Esterase Negative (NEGATIVE) Urine RBC >100 H /HPF Urine WBC 0-5 /HPF Ur Epithelial Cells Few /LPF Urine Bacteria Few (NONE TO FEW) /HPF 11/04/16 11/04/16 11/04/16 Range/Units 18:00 18:00 18:00 WBC (4.0-10.2) K/uL RBC (3.77-5.09) M/uL Hgb (11.7-15.5) g/dL Hct (34.0-46.0) % MCV (84.0-98.0) fL MCH (28.2-33.3) pg MCHC (31.7-36.0) g/dL RDW (11.2-14.1) % Plt Count (150-350) K/uL Neut % (Auto) (45.0-80.0) % Lymph % (Auto) (10.0-50.0) % [place] % (Auto) (2.0-14.0) % Eos % (Auto) (0.0-5.0) % Baso % (Auto) (0.0-2.0) % Neut # (Auto) (1.40-7.00) K/uL Lymph # (Auto) (0.50-3.50) K/uL [place] # (Auto) (0.00-1.00) K/uL Eos # (Auto) (0.00-0.50) K/uL Baso # (Auto) (0.00-0.20) K/uL PT 9.9 (9.8-11.7) SEC INR 0.9 APTT 28.1 (23.5-30.0) SEC Sodium (136-145) mmol/L Potassium (3.5-5.1) mmol/L Chloride (98-107) mmol/L Carbon Dioxide (21.0-32.0) mmol/L BUN (7-18) mg/dL Creatinine (0.51-1.17) mg/dL Est Cr Clr Drug Dosing Estimated GFR (MDRD) mL/min Glucose (74-106) mg/dL Lactic Acid 1.4 (0.4-2.0) mmol/L Uric Acid (2.6-7.2) mg/dL Calcium (8.5-10.1) mg/dL Magnesium (1.8-2.4) mg/dL Total Bilirubin (0.2-1.0) mg/dL AST (15-37) U/L ALT (12-78) U/L Alkaline Phosphatase (46-116) IU/L Total Protein (6.4-8.2) g/dL Albumin (3.4-5.0) g/dL Amylase (25-115) U/L Lipase (73-393) U/L HCG, Qual Negative (NEGATIVE) Specimen Type Urine Color Urine Appearance Urine pH (5.0-9.0) Ur Specific [place] (1.005-1.030) Urine Protein (NEGATIVE) mg/dL Urine Glucose (UA) (NEGATIVE) mg/dL Urine Ketones (NEGATIVE) mg/dL Urine Occult Blood (NEGATIVE) Urine Nitrite (NEGATIVE) Urine Bilirubin (NEGATIVE) Urine Urobilinogen (0.2-1.0) E.U./dL Ur Leukocyte Esterase (NEGATIVE) Urine RBC /HPF Urine WBC /HPF Ur Epithelial Cells /LPF Urine Bacteria (NONE TO FEW) /HPF Urine culture set up for culture and sensitivity Provided urinary stone will be sent for analysis Meds: Medications Generic Name Dose Route Start Last Admin Trade Name Freq PRN Reason Stop Dose Admin Sodium Chloride 10 ml 11/04/16 17:51 11/04/16 18:14 Saline Flush FLUSH 10 ml ASDIRECTED PRN Administration Keep Vein Open Discontinued Medications Generic Name Dose Route Start Last Admin Trade Name Freq PRN Reason Stop Dose Admin Famotidine 40 mg 11/04/16 17:51 11/04/16 18:14 Pepcid IVPUSH 11/04/16 17:52 40 mg ONETIME ONE Administration Hydromorphone HCl 1 mg 11/04/16 17:54 11/04/16 18:04 Dilaudid IVPUSH 11/04/16 17:55 1 mg ONETIME ONE Administration Lactated Ringer's 1,000 mls @ 999 mls/hr 11/04/16 17:51 11/04/16 18:31 Ringers, Lactated IV 11/04/16 18:51 999 mls/hr .BOLUS ONE Administration Ketorolac Tromethamine 30 mg 11/04/16 17:51 11/04/16 18:10 Toradol IVPUSH 11/04/16 17:52 Not Given ONETIME ONE Meperidine HCl 50 mg 11/04/16 19:31 11/04/16 19:37 Demerol IM 11/04/16 19:32 50 mg ONETIME ONE Administration Ondansetron HCl 4 mg 11/04/16 17:54 11/04/16 18:07 Zofran IVPUSH 11/04/16 17:55 4 mg ONETIME ONE Administration Promethazine HCl 50 mg 11/04/16 19:32 11/04/16 19:37 Phenergan IM 11/04/16 19:33 50 mg ONETIME ONE Administration Tamsulosin HCl 0.4 mg 11/04/16 17:51 11/04/16 18:06 Flomax PO 11/04/16 17:52 0.4 mg ONETIME ONE Administration - Radiology Interpretation Free Text/Narrative:: Telephone consultation at 19:45 hours with the radiology department at [facility] with preliminary verbal report of noncontrast CT scan of the abdomen and pelvis using stone protocol. No evidence of ureteral stones, hydronephrosis, etc. with stable bilateral nephrolithiasis from previous evaluations CT Results Date: 11/04/16 CT Results Time: 19:45 Departure - Departure Time of Disposition: 20:15 Disposition: Home, Self-Care 01 Condition: Good Clinical Impression: Colic, urethral, due to calculus, Urolithiasis, Tobacco abuse counseling, Mixed anxiety depressive disorder, Hypomagnesemia Hypertension Qualifiers: Hypertension type: essential hypertension Qualified Code(s): I10 - Essential ( primary) hypertension - Discharge Information Instructions: Ondansetron injection, Promethazine injection, Meperidine injection, Hydromorphone injection, Kidney Stones, [id number], Famotidine injection, Flank Pain, [id number], Tamsulosin capsules Referrals: Dotty Villaseñor PA-C [Primary Care Provider] - Forms: ED Department Discharge, Return to Work/School Form Additional Instructions: 1. Followup with your regular provider in 7 days as directed with recommended repeat CBC, basic metabolic panel, magnesium level, UA, urine culture, and possible scheduling of renal ultrasound at that time depending on your clinical course. Discuss results of today's stone analysis at that time 2. Strain all urine and bring stone to your regular provider or this facility as directed for further stone analysis. 3. [place] diet including encouragement of oral fluids such as sports drinks, etc. for 24-48 hours as directed. Advance to regular diet as tolerated thereafter. 4. Work excuse- See Form 5. Tylenol 650 mg by mouth every 4 hours and/or OTC ibuprofen 2-3 tabs by mouth every 6 hours with food as directed./needed. 6. Stop all tobacco use RAMYA as directed/per provided information and consider contacting Quit LIne, etc.. 7. Otherwise follow-up with your equipment installation professional as already scheduled in one month with further instructions for your decreased calcium and magnesium levels at that time and/or add to her previous follow-up visit in 1 week with your regular provider as above 8. Sedation precautions with no driving, etc. for 18 hours because of emergency room medications. - Problem List & Annotations (1) Colic, urethral, due to calculus SNOMED Code(s): 7730230, 34130010 Code(s): N21.1 - CALCULUS IN URETHRA Status: Acute Priority: High Current Visit: Yes Onset Date: 11/04/16 Annotation/Comment:: The stone she brought in will be sent in for analysis with continuation of straining of all urine. Note CT scan results as above with no evidence of remaining right ureteral stone at this time. Close follow-up by her regular provider and equipment installation professional as per discharge instructions. Continue previous stone/ nephrolithiasis diet as before. Work excuse provided. No evidence of UTI despite hematuria with urine specimen set up for culture and sensitivity (2) Nephrolithiasis SNOMED Code(s): 32972065 Code(s): N20.0 - CALCULUS OF KIDNEY Status: Chronic Priority: Medium Current Visit: No Onset Date: ~06/26/16 Annotation/Comment:: History of recurrent bilateral urolithiasis as above. Patient closely followed by her equipment installation professional with follow-up appointment already scheduled in about one month by patient history (3) Hypertension SNOMED Code(s): 23077157 Code(s): I10 - ESSENTIAL (PRIMARY) HYPERTENSION Status: Chronic Priority : Medium Current Visit: Yes Annotation/Comment:: Blood pressures under good control in the emergency room in spite of colic pain.. No medical therapy to this point as above Qualifiers: Hypertension type: essential hypertension Qualified Code(s): I10 - Essential (primary) hypertension (4) Hypomagnesemia SNOMED Code(s): 889347974 Code(s): E83.42 - HYPOMAGNESEMIA Status: Acute Priority: Medium Current Visit: Yes Onset Date: 11/04/16 Annotation/Comment:: Observe for now secondary to her recurrent bilateral urolithiasis with further instructions from her equipment installation professional as per discharge instructions (5) Mixed anxiety depressive disorder SNOMED Code(s): 404644071 Code(s): F41.8 - OTHER SPECIFIED ANXIETY DISORDERS Status: Chronic Priority: Medium Current Visit: Yes Annotation/Comment:: Stable by patient history. Moderate control by today's evaluation with continued close follow-up by her regular providers. No narcotic use at this time (6) Tobacco abuse counseling SNOMED Code(s): 779794076, 889678902, 059073844 Code(s): Z71.6 - TOBACCO ABUSE COUNSELING Status: Chronic Priority: Medium Current Visit: Yes Annotation/Comment:: Tobacco cessation strongly encouraged with information provided (7) Hypertension SNOMED Code(s): 67727125 Code(s): I10 - ESSENTIAL (PRIMARY) HYPERTENSION Status: Chronic Priority : Low Current Visit: No Annotation/Comment:: BP currently well-controlled, although occasionally elevated during this hospitalization secondary to colic. Qualifiers: Hypertension type: essential hypertension Qualified Code(s): I10 - Essential (primary) hypertension (8) Mixed anxiety and depressive disorder SNOMED Code(s): 077720189 Code(s): F41.8 - OTHER SPECIFIED ANXIETY DISORDERS Status: Chronic Priority: Medium Current Visit: No Annotation/Comment:: Stable by patient history (9) Tobacco abuse counseling SNOMED Code(s): 057067144, 476231311, 485249193 Code(s): Z71.6 - TOBACCO ABUSE COUNSELING Status: Chronic Priority: Medium Current Visit: No Annotation/Comment:: Tobacco cessation strongly encouraged with information to be provided at discharge - Problem List Review Problem List Initiated/Reviewed/Updated: Yes - My Orders Last 24 Hours: My Active Orders 11/04/16 17:44 CULTURE URINE [RM] Routine STONE ANALYSIS W/O IMAGE Stat 11/04/16 17:47 Abdomen Pelvis wo Cont [CT] Stat 11/04/16 17:50 Peripheral IV Insertion Adult [OM.PC] Stat 11/04/16 17:51 Peripheral IV Care [RC] . DIRECTED Sodium Chloride 0.9% [Saline Flush] 10 ml FLUSH ASDIRECTED PRN 11/04/16 17:55 Obtain Past Medical Record [OM.PC] Urgent 11/04/16 Breakfast Nothing per Oral Now Diet [DIET] - Assessment/Plan Last 24 Hours: My Active Orders 11/04/16 17:44 CULTURE URINE [RM] Routine STONE ANALYSIS W/O IMAGE Stat 11/04/16 17:47 Abdomen Pelvis wo Cont [CT] Stat 11/04/16 17:50 Peripheral IV Insertion Adult [OM.PC] Stat 11/04/16 17:51 Peripheral IV Care [RC] . DIRECTED Sodium Chloride 0.9% [Saline Flush] 10 ml FLUSH ASDIRECTED PRN 11/04/16 17:55 Obtain Past Medical Record [OM.PC] Urgent 11/04/16 Breakfast Nothing per Oral Now Diet [DIET] Assessment:: As above Plan: As above. Extensive precautions were given to the patient, who is in agreement with the treatment plan. See Patient Instructions for further treatment and plan.
[2016-11-04] MEDS: Sodium Chloride 0.9% 10 ML Syringe FLUSH PRN ×2 (18:05→18:14)
[2016-11-04 18:36] LABS: CHLORIDE,CL 108 mmol/L (98-107); SODIUM,NA 140 mmol/L (136-145)
[2016-11-04 19:04] VITALS: BP 112/76
[2016-11-04] MEDS ORDERED: Meperidine PF 50 MG/ML Syringe IM ONE (19:31)
[2016-11-04] MEDS ORDERED: Promethazine 25 MG/ML SDV IM ONE (19:32)
== END 2016-11-04 20:15 | disposition home or self-care (01) ==
LOC: LL.ED 17:37
DX: N21.1 Calculus in urethra (principal); N20.0 Calculus of kidney; F41.8 Other specified anxiety disorders; E83.42 Hypomagnesemia; I10 Essential (primary) hypertension; E66.9 Obesity, unspecified; F17.210 Nicotine dependence, cigarettes, uncomplicated; R11.2 Nausea with vomiting, unspecified; Z88.0 Allergy status to penicillin; Z88.1 Allergy status to other antibiotic agents; Z79.899 Other long term (current) drug therapy; Z68.32 Body mass index [BMI] 32.0-32.9, adult; Z98.890 Other specified postprocedural states; Z96.22 Myringotomy tube(s) status; Z90.49 Acquired absence of other specified parts of digestive tract
CPT/HCPCS: 36415; 74176; 80053; 81001; 82150; 82365; 83605; 83690; 83735; 84550; 84703; 85025; 85610; 85730; 87086; 96361; 96372; 96374; 96375; 99284; A9270; J1170; J2175; J2405; J2550; J7050; J7120; S0028

== ENCOUNTER 2016-12-09 17:49 | Emergency (ER) | payer MEDICAID ==
[2016-12-09] MEDS ORDERED: Lactated Ringers 1,000 ML IV ONE (18:03)
[2016-12-09] MEDS ORDERED: Ondansetron 4 MG/2 ML SDV IVPUSH ONE (18:03)
[2016-12-09] MEDS ORDERED: Pantoprazole 40 MG Vial IVPUSH ONE (18:03)
[2016-12-09] MEDS ORDERED: Sodium Chloride 0.9% 10 ML Syringe FLUSH PRN (18:03)
[2016-12-09] MEDS ORDERED: Famotidine 20 MG/2 ML SDV IVPUSH ONE (18:03)
--- NOTE | 2016-12-09 18:03 | EDM.PDOC ---
ED HPI GENERAL MEDICAL PROBLEM - General Chief Complaint: General Stated Complaint: Kidney Stones Time Seen by Provider: 12/09/16 17:55 Source of Information: Reports: Patient, Family (Mother), Old Records ([facility] EMR. No paper hospital chart available.) History Limitations: Reports: No Limitations - History of Present Illness INITIAL COMMENTS - FREE TEXT/NARRATIVE: The patient was brought to the emergency room via private automobile by her mother for evaluation of severe left-sided 7-8/10 sharp colic type CVA tenderness with radiation to the left inguinal region. Symptoms have been associated with some mild nausea and chills, however no emesis to this point or history of fever. She did notice some increased urinary frequency, dysuria, and mild hematuria since onset of her symptoms at about 16:15 hours at work today. The patient has a known history of bilateral nephrolithiasis as below, including recent CT scan of the abdomen and pelvis on 11/04/16 in this facility. Patient did take 200 mg of ibuprofen at about 17:30 hours this afternoon. No recent history of other abdominal pain, heartburn, nausea, diarrhea, melena, gross hematochezia, or any food intolerance, including fatty foods, etc., although mild 2-3 loose stools during the last couple of days. The patient also denies any recent cough, wheezing, dyspnea, etc... Patient has had some problems with dysmenorrhea as below with apparent planned hysterectomy scheduled on 01/02 by her history Onset: Today, Sudden Onset Date: 12/09/16 Onset Time: 16:15 Duration: Constant, Getting Worse Location: Reports: Back, Radiates to (As above) Quality: Reports: Same as Previous Episode, Sharp Severity: Moderate Improves with: Reports: None Worsens with: Reports: None Context: Reports: Other (As above) Associated Symptoms: Reports: Fever/Chills, Nausea/Vomiting (No emesis). Denies : Confusion, Chest Pain, Cough, Diaphoresis, Headaches, Loss of Appetite, Malaise, Shortness of Breath Treatments MOUNTER CLARINETS: Reports: NSAIDS Left Flank Pain Score (Numeric/FACES): 8 - Related Data Allergies Allergy/AdvReac Type Severity Reaction Status Date / Time amoxicillin Allergy Hives Verified 12/09/16 17:51 cephalexin [From Keflex] Allergy Hives Verified 07/24/17 17:51 erythromycin base Allergy Hives Verified 12/09/16 17:51 Penicillins Allergy Hives Verified 12/09/16 17:51 Home Meds: Home Meds Hydrochlorothiazide 25 mg PO BID 01/03/16 [History] Potassium Chloride [K-Tab ER] 10 meq PO DAILY 01/03/16 [History] Cyclobenzaprine [Flexeril] 10 mg PO BEDTIME PRN #15 tablet 03/02/16 [Rx] Gabapentin [Neurontin] 200 mg PO TID PRN 06/26/16 [History] Ibuprofen [Motrin] 600 mg PO Q6HR PRN 06/26/16 [History] Melatonin 1 tab PO BEDTIME PRN 06/26/16 [History] busPIRone [Buspar] 7.5 mg PO TID 11/04/16 [History] traMADol [Ultram] 50 mg PO Q6H PRN #10 tablet 12/09/16 [Rx] Past Medical History HEENT History: Reports: Impaired Vision, Other (See Below). Denies: Allergic Rhinitis, Cataract, Glaucoma, Hard of Hearing, Macular Degeneration, Otitis Media, Retinal Detachment Other HEENT History: Wears glasses Cardiovascular History: Reports: Hypertension, Other (See Below). Denies: Afib , Aneurysm, Arrhythmia, Blood Clots/VTE/DVT, CAD, Heart Murmur, High Cholesterol , [place], Syncope Other Cardiovascular History: Patient not taking medications for her hypertension with diuretic for her recurrent urolithiasis by her history, she does not know her cholesterol status Respiratory History: Reports: Intubation, Previous. Denies: Asthma, COPD, Intubation, Difficult, PE, Pneumothorax Gastrointestinal History: Reports: Chronic Constipation. Denies: Celiac Disease , Cholelithiasis, Chronic Diarrhea, Gastritis, GERD, GI Bleed, Hepatitis, Hiatal Hernia, Inflammatory Bowel Disease, Irritable Bowel Syndrome, Jaundice, Pancreatitis, PUD Genitourinary History: Reports: Renal Calculus, Other (See Below). Denies: Acute Renal Failure, Chronic Renal Insuffiency, STD Other Genitourinary History: Recurrent bilateral urolithiasis since 2005 with history of mild right-sided hydronephrosis on 03/10/16 and recurrent lithotripsies as below G[employer]OX T[employer]ER History: Reports: Dysfunctional Uterine Bleeding, , Spontaneous . Denies: Endometriosis, PID : 3 Para: 2 (C-sections 2 secondary to failure to progress with additional SAB at 13 weeks gestation requiring D&C as below, otherwise no problems during her pregnancies or deliveries) LMP (Approximate): 2 Weeks Other OB/BYN History: Recurrent left-sided ovarian cyst, fibrocystic breast disease, dysmenorrhea Musculoskeletal History: Reports: Arthritis, Back Pain, Chronic, Fracture, Osteoarthritis, Other (See Below). Denies: Gout, Neck Pain, Chronic, Osteoporosis, RA, SLE Other Musculoskeletal History: Right wrist fracture at age 15 Neurological History: Reports: Neuropathy, Peripheral, Other (See Below). Denies: Brain Injury, Cerebral Aneurysms, Concussion, CVA, Headaches, Chronic, Head Trauma, Migraines, MS, Neuropathy, Diabetic, Parkinson's, Seizure, TIA Other Neuro History: Cauda equina syndrome with neurogenic bladder Psychiatric History: Reports: Addiction, Anxiety, Depression, Other (See Below) . Denies: Abuse, Victim of, ADD, ADHD, Dementia, Psych Hospitalization(s), PTSD , Suicide Attempt, Suicidal Ideation Other Psychiatric History: Narcotic use, chronic insomnia Endocrine/Metabolic History: Reports: Obesity/BMI 30+. Denies: Diabetes, Type I , Diabetes, Type II, Hypothyroidism, IDDM Hematologic History: Reports: None. Denies: Anemia, Blood Transfusion(s), Iron Deficiency Immunologic History: Reports: None. Denies: AIDS, HIV, SLE Oncologic (Cancer) History: Reports: Cervix, Other (See Below). Denies: Basal Cell Carcinoma, Hodgkin's Lymphoma, Leukemia, Malignant Melanoma, Non-Hodgkin's Lymphoma, Squamous Cell Carcinoma, Uterine Other Oncologic History: Multiple previous abnormal Pap smears of unknown type with resolution after cryotherapy 1999 Dermatologic History: Reports: Other (See Below). Denies: Eczema, Psoriasis Other Dermatologic History: Acne - Infectious Disease History Infectious Disease History: Reports: Chicken Pox, Shingles (Right upper back at age 11). Denies: C-Difficile, Measles, Meningitis, Mononucleosis, MRSA, Mumps, Pertussis (Whooping Cough), Rheumatic Fever, Rubella, Scarlet Fever, VRE - Past Surgical History Head Surgeries/Procedures: Reports: None HEENT Surgical History: Reports: Adenoidectomy, Tonsillectomy, Other (See Below) . Denies: Eye Surgery, Laser Surgery, LASIK, Myringotomy w Tube(s), Naso-Sinus Surgery, Oral Surgery Other HEENT Surgeries/Procedures: Tonsillectomy and adenoidectomy at age 16 Cardiovascular Surgical History: Reports: None. Denies: Varicose, Vascular Surgery Respiratory Surgical History: Reports: None. Denies: Thoracentesis GI Surgical History: Reports: Appendectomy, Other (See Below). Denies: Cholecystectomy, Hernia, Abdominal, Hernia, Inguinal, Hernia Repair/Other Other GI Surgeries/Procedures: Appendectomy at age 15 Female Surgical History: Reports: Section, Cervical Cryotherapy, D&C , Lithotripsy/ESWL, Tubal Ligation, Ureteral Stent, Other (See Below). Denies: Breast Biopsy, Endometrial Ablation, Hysterectomy Other Female Surgeries/Procedures: 2 as above, D&C secondary to SAB as above, bilateral tubal ligation in 2007, recurrent lithotripsies with last left-sided lithotripsy in June 2016 with 2 previous lithotripsies on the left side and also left ureteral stent placement in 2008 with subsequent removal, cervical cryotherapy in 1999 secondary to atypical Pap smears as above Endocrine Surgical History: Reports: None. Denies: Thyroid Biopsy Neurological Surgical History: Reports: None. Denies: C-Spine, Discectomy, Laminectomy, Lumbar Spine, Spinal Fusion, Vertebroplasty Musculoskeletal Surgical History: Reports: None. Denies: Amputation, Arthroscopic Procedure, Carpal Tunnel, Ganglion Cyst, Joint Replacement, ORIF, Shoulder Surgery Oncologic Surgical History: Reports: None. Denies: Biopsy of Breast Dermatological Surgical History: Reports: None - Past Imaging History Past Imaging History: Reports: CAT Scan (Last CT of the abdomen and pelvis with stone protocol on 11/04/16 with bilateral nephrolithiasis but no evidence of urolithiasis or hydronephrosis, previous CT scan of the abdomen and pelvis on 06/27/16 positive for left-sided urolithiasis, CT of the lumbar spine on 03/10/16 with right-sided urolithiasis and mild hydronephrosis with additional osteoarthritic changes), Mammogram (Last mammogram on 06/03/16), Ultrasound ( Left breast ultrasound on 06/03/16, pelvic ultrasound on 07/26/16) Social & Family History - Tobacco Use Smoking Status *Q: Current Every Day Smoker Years of Tobacco use: 18 (Started smoking at age 18) Packs/Tins Daily: 0.1 ( maximum use of one half pack per day) Used Tobacco, but Quit: No Smoking Cessation Information Provided To Patient: Yes Smoking Cessation Information Given Comment: Significant other smokes Second Hand Smoke Exposure: Yes Second Hand Smoke Education Provided: Yes - Caffeine Use Caffeine Use: Reports: None. Denies: Coffee, Energy Drinks, Soda, Tea - Alcohol Use Alcohol Use History: No Days Per Week of Alcohol Use: 0 (No previous DWIs, problems with alcohol abuse, etc.) Alcohol Use in Last Twelve Months: No - Recreational Drug Use Recreational Drug Use: No Drug Use in Last 12 Months: No Recreational Drug Type: Denies: Amphetamines (Speed), Heroin, Inhalants (Glues, Solvents, Aerosols), LSD (Acid), Marijuana/Hashish, Methamphetamine, Morphine - Living Situation & Occupation Living situation: Reports: Single, with Significant Other (And her 1 child from previous significant other relationships with another child not currently living with her). 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 Denies: Fever, Malaise, Weakness, Fatigue, Night Sweats, Diaphoresis, Decreased Appetite, Weight Loss, Weight Gain HEENT: Reports: No Symptoms. Denies: Dental Pain, Ear Pain, Glasses, Hearing Loss, Rhinitis, Sinus Problem, Throat Pain, Throat Swelling, Vertigo Respiratory: Reports: No Symptoms. Denies: Shortness of Breath, Wheezing, Pleuritic Chest Pain, Cough Cardiovascular: Reports: Lightheadedness. Denies: Chest Pain, Blood Pressure Problem, Dyspnea on Exertion, Edema, Orthopnea, Palpitations, Syncope Endocrine: Reports: No Symptoms. Denies: Fatigue GI/Abdominal: Reports: Abdominal Pain (Left CVA area), Nausea. Denies: Anorexia , Black Stool, Bloody Stool, Constipation, Diarrhea, Decreased Appetite, Difficulty Swallowing, Distension, Flatus, Hematemesis, Hematochezia, Melena, Mucous in Stool, Stool Incontinence, Vomiting : Reports: Dysuria, Flank Pain, Frequency, Hematuria, Pain (Dysmenorrhea), Urgency. Denies: Incontinence, Irregular Menses, Urinary Retention Musculoskeletal: Reports: No Symptoms. Denies: Neck Pain, Shoulder Pain, Arm Pain, Back Pain, Leg Pain Skin: Reports: No Symptoms. Denies: Jaundice, Pallor, Diaphoresis, Bruising, Pruritis, Rash, Wound Neurological: Reports: No Symptoms. Denies: Confusion, Dizziness, Headache, Numbness, Paresthesia, Tingling, Weakness Psychiatric: Reports: Anxiety (Moderate), Depression (Mild to moderate). Denies : Agitation, Confusion, Hallucinations Hematologic/Lymphatic: Reports: No Symptoms Immunologic: Reports: No Symptoms ED EXAM, GENERAL - Physical Exam Exam: See Below Exam Limited By: No Limitations General Appearance: Alert, WD/WN, Anxious (Moderate to severe), Mild Distress ( Secondary to colic) Head: Atraumatic, Normocephalic Neck: Normal Inspection, Supple, Non-Tender, Full Range of Motion. No: Lymphadenopathy (L), Lymphadenopathy (R), Thyromegaly Respiratory/Chest: No Respiratory Distress, Lungs Clear, Normal Breath Sounds, No Accessory Muscle Use, Chest Non-Tender. No: Pleural Rub, Retractions Cardiovascular: Normal Peripheral Pulses, Regular Rate, Rhythm, No Edema, No Gallop, No JVD, No Murmur, No Rub. No: Gallop/S3, Gallop/S4, Friction Rub Peripheral Pulses: 2+: Radial (L), Radial (R), Dorsalis Pedis (L), Dorsalis Pedis (R) GI/Abdominal: Normal Bowel Sounds, Soft, Non-Tender (To palpation with discomfort simply with colic only), No Organomegaly, No Distention, No Abnormal Bruit, No Mass, Pelvis Stable, Other (obese). No: Guarding (Female) Exam: Deferred Rectal (Female) Exam: Deferred Back Exam: Full Range of Motion, CVA Tenderness (L). No: Muscle Spasm, Paraspinal Tenderness, Vertebral Tenderness Extremities: Normal Inspection, Normal Range of Motion, Non-Tender, No Pedal Edema, Normal Capillary Refill. No: Pedal Edema, Latanya's Sign Neurological: Alert, Oriented, CN II-XII Intact, Normal Cognition, Normal Gait, Normal Reflexes (Negative Babinski's), No Motor/Sensory Deficits Psychiatric: Anxious (Moderate to severe), Depressed Mood (Moderate with adequate eye contact) Skin Exam: Warm, Dry, Intact, Normal Color, No Rash. No: Cyanosis, Diaphoretic , Ecchymosis, Jaundice, Petechiae, Wound/Incision Lymphatic: No Adenopathy Course - Vital Signs Last Recorded V/S: Last Vital Signs Temp 36.8 C 12/09/16 19:35 Pulse 66 12/09/16 20:06 Resp 14 12/09/16 20:06 BP 111/60 12/09/16 20:06 Pulse Ox 96 12/09/16 20:06 Vital Signs - 24 hr 12/09/16 12/09/16 12/09/16 17:58 19:35 20:06 Temperature [ 36.8 C Temporal] Pulse, 110 H 74 66 Peripheral [ Pulse Oximetry] Respiratory 16 18 14 Rate Blood Pressure 127/86 123/85 111/60 [Left Upper Arm ] O2 Sat by Pulse 99 99 96 Oximetry - Orders/Labs/Meds Orders: Active Orders 24 hr Category Date Time Status Cooling Warming Measures [RC] ASDIRECTED Care 12/09/16 18:35 Active Peripheral IV Care [RC] . DIRECTED Care 12/09/16 18:03 Active Nothing Per Oral Diet [DIET] Diet 12/09/16 Breakfast Active CULTURE URINE [RM] Stat Lab 12/09/16 19:26 Received H PYLORI STOOL ANTIGEN [MREF] Urgent Lab 12/09/16 18:03 Uncollected OCCULT BLOOD DIAGNOSTIC [OP] Stat Lab 12/09/16 18:03 Uncollected Sodium Chloride 0.9% [Saline Flush] Med 12/09/16 18:03 Active 10 ml FLUSH ASDIRECTED PRN Heat Therapy [OM.PC] Routine Oth 12/09/16 18:35 Ordered Obtain Past Medical Record [OM.PC] Urgent Oth 12/09/16 18:03 Active Peripheral IV Insertion Adult [OM.PC] Stat Oth 12/09/16 18:03 Ordered Resuscitation Status Stat Resus Stat 12/09/16 18:03 Ordered Medication Orders Sodium Chloride (Saline Flush) 10 ml FLUSH ASDIRECTED PRN PRN Reason: Keep Vein Open Last Admin: 12/09/16 18:21 Dose: 10 ml Labs: Laboratory Tests 12/09/16 12/09/16 12/09/16 Range/Units 18:20 18:20 18:20 WBC 9.0 (4.0-10.2) K/uL RBC 4.24 (3.77-5.09) M/uL Hgb 11.7 (11.7-15.5) g/dL Hct 34.7 (34.0-46.0) % MCV 81.8 L (84.0-98.0) fL MCH 27.6 L (28.2-33.3) pg MCHC 33.7 (31.7-36.0) g/dL RDW 13.5 (11.2-14.1) % Plt Count 445 H (150-350) K/uL Neut % (Auto) 60.9 (45.0-80.0) % Lymph % (Auto) 31.8 (10.0-50.0) % [place] % (Auto) 6.5 (2.0-14.0) % Eos % (Auto) 0.7 (0.0-5.0) % Baso % (Auto) 0.1 (0.0-2.0) % Neut # (Auto) 5.46 (1.40-7.00) K/uL Lymph # (Auto) 2.85 (0.50-3.50) K/uL [place] # (Auto) 0.58 (0.00-1.00) K/uL Eos # (Auto) 0.06 (0.00-0.50) K/uL Baso # (Auto) 0.01 (0.00-0.20) K/uL PT 10.0 (9.8-11.7) SEC INR 0.9 APTT 29.7 (23.5-30.0) SEC Sodium (136-145) mmol/L Potassium (3.5-5.1) mmol/L Chloride (98-107) mmol/L Carbon Dioxide (21.0-32.0) mmol/L BUN (7-18) mg/dL Creatinine (0.51-1.17) mg/dL Est Cr Clr Drug Dosing Estimated GFR (MDRD) mL/min Glucose (74-106) mg/dL Lactic Acid (0.4-2.0) mmol/L Uric Acid (2.6-7.2) mg/dL Calcium (8.5-10.1) mg/dL Magnesium (1.8-2.4) mg/dL Total Bilirubin (0.2-1.0) mg/dL AST (15-37) U/L ALT (12-78) U/L Alkaline Phosphatase (46-116) IU/L Total Protein (6.4-8.2) g/dL Albumin (3.4-5.0) g/dL Amylase 36 (25-115) U/L Lipase (73-393) U/L HCG, Qual (NEGATIVE) Specimen Type Urine Color Urine Appearance Urine pH (5.0-9.0) Ur Specific [place] (1.005-1.030) Urine Protein (NEGATIVE) mg/dL Urine Glucose (UA) (NEGATIVE) mg/dL Urine Ketones (NEGATIVE) mg/dL Urine Occult Blood (NEGATIVE) Urine Nitrite (NEGATIVE) Urine Bilirubin (NEGATIVE) Urine Urobilinogen (0.2-1.0) E.U./dL Ur Leukocyte Esterase (NEGATIVE) Urine RBC /HPF Urine WBC /HPF Ur Epithelial Cells /LPF Urine Bacteria (NONE TO FEW) /HPF 12/09/16 12/09/16 12/09/16 Range/Units 18:20 18:20 18:20 WBC (4.0-10.2) K/uL RBC (3.77-5.09) M/uL Hgb (11.7-15.5) g/dL Hct (34.0-46.0) % MCV (84.0-98.0) fL MCH (28.2-33.3) pg MCHC (31.7-36.0) g/dL RDW (11.2-14.1) % Plt Count (150-350) K/uL Neut % (Auto) (45.0-80.0) % Lymph % (Auto) (10.0-50.0) % [place] % (Auto) (2.0-14.0) % Eos % (Auto) (0.0-5.0) % Baso % (Auto) (0.0-2.0) % Neut # (Auto) (1.40-7.00) K/uL Lymph # (Auto) (0.50-3.50) K/uL [place] # (Auto) (0.00-1.00) K/uL Eos # (Auto) (0.00-0.50) K/uL Baso # (Auto) (0.00-0.20) K/uL PT (9.8-11.7) SEC INR APTT (23.5-30.0) SEC Sodium 139 (136-145) mmol/L Potassium 4.0 (3.5-5.1) mmol/L Chloride 103 (98-107) mmol/L Carbon Dioxide 24.1 (21.0-32.0) mmol/L BUN 15 (7-18) mg/dL Creatinine 0.96 (0.51-1.17) mg/dL Est Cr Clr Drug Dosing TNP Estimated GFR (MDRD) > 60 mL/min Glucose 107 H (74-106) mg/dL Lactic Acid 1.0 (0.4-2.0) mmol/L Uric Acid 5.2 (2.6-7.2) mg/dL Calcium 9.0 (8.5-10.1) mg/dL Magnesium 1.8 (1.8-2.4) mg/dL Total Bilirubin 0.1 L (0.2-1.0) mg/dL AST 25 (15-37) U/L ALT 46 (12-78) U/L Alkaline Phosphatase 105 (46-116) IU/L Total Protein 7.9 (6.4-8.2) g/dL Albumin 3.9 (3.4-5.0) g/dL Amylase (25-115) U/L Lipase 188 (73-393) U/L HCG, Qual Negative (NEGATIVE) Specimen Type Urine Color Urine Appearance Urine pH (5.0-9.0) Ur Specific [place] (1.005-1.030) Urine Protein (NEGATIVE) mg/dL Urine Glucose (UA) (NEGATIVE) mg/dL Urine Ketones (NEGATIVE) mg/dL Urine Occult Blood (NEGATIVE) Urine Nitrite (NEGATIVE) Urine Bilirubin (NEGATIVE) Urine Urobilinogen (0.2-1.0) E.U./dL Ur Leukocyte Esterase (NEGATIVE) Urine RBC /HPF Urine WBC /HPF Ur Epithelial Cells /LPF Urine Bacteria (NONE TO FEW) /HPF 12/09/16 Range/Units 19:26 WBC (4.0-10.2) K/uL RBC (3.77-5.09) M/uL Hgb (11.7-15.5) g/dL Hct (34.0-46.0) % MCV (84.0-98.0) fL MCH (28.2-33.3) pg MCHC (31.7-36.0) g/dL RDW (11.2-14.1) % Plt Count (150-350) K/uL Neut % (Auto) (45.0-80.0) % Lymph % (Auto) (10.0-50.0) % [place] % (Auto) (2.0-14.0) % Eos % (Auto) (0.0-5.0) % Baso % (Auto) (0.0-2.0) % Neut # (Auto) (1.40-7.00) K/uL Lymph # (Auto) (0.50-3.50) K/uL [place] # (Auto) (0.00-1.00) K/uL Eos # (Auto) (0.00-0.50) K/uL Baso # (Auto) (0.00-0.20) K/uL PT (9.8-11.7) SEC INR APTT (23.5-30.0) SEC Sodium (136-145) mmol/L Potassium (3.5-5.1) mmol/L Chloride (98-107) mmol/L Carbon Dioxide (21.0-32.0) mmol/L BUN (7-18) mg/dL Creatinine (0.51-1.17) mg/dL Est Cr Clr Drug Dosing Estimated GFR (MDRD) mL/min Glucose (74-106) mg/dL Lactic Acid (0.4-2.0) mmol/L Uric Acid (2.6-7.2) mg/dL Calcium (8.5-10.1) mg/dL Magnesium (1.8-2.4) mg/dL Total Bilirubin (0.2-1.0) mg/dL AST (15-37) U/L ALT (12-78) U/L Alkaline Phosphatase (46-116) IU/L Total Protein (6.4-8.2) g/dL Albumin (3.4-5.0) g/dL Amylase (25-115) U/L Lipase (73-393) U/L HCG, Qual (NEGATIVE) Specimen Type Urincc Urine Color Yellow Urine Appearance Slightly cloudy Urine pH 5.5 (5.0-9.0) Ur Specific [place] >= 1.030 (1.005-1.030) Urine Protein Negative (NEGATIVE) mg/dL Urine Glucose (UA) Negative (NEGATIVE) mg/dL Urine Ketones Negative (NEGATIVE) mg/dL Urine Occult Blood Large H (NEGATIVE) Urine Nitrite Negative (NEGATIVE) Urine Bilirubin Negative (NEGATIVE) Urine Urobilinogen 0.2 (0.2-1.0) E.U./dL Ur Leukocyte Esterase Negative (NEGATIVE) Urine RBC 75-100 H /HPF Urine WBC 0-5 /HPF Ur Epithelial Cells Moderate H /LPF Urine Bacteria Few (NONE TO FEW) /HPF Urine specimen set up for culture and sensitivity Meds: Medications Generic Name Dose Route Start Last Admin Trade Name Freq PRN Reason Stop Dose Admin Sodium Chloride 10 ml 12/09/16 18:03 12/09/16 18:21 Saline Flush FLUSH 10 ml ASDIRECTED PRN Administration Keep Vein Open Discontinued Medications Generic Name Dose Route Start Last Admin Trade Name Freq PRN Reason Stop Dose Admin Diazepam 2.5 mg 12/09/16 18:05 12/09/16 18:14 Valium IVPUSH 12/09/16 18:06 2.5 mg ONETIME ONE Administration Famotidine 40 mg 12/09/16 18:03 12/09/16 18:27 Pepcid IVPUSH 12/09/16 18:04 40 mg ONETIME ONE Administration Hydromorphone HCl 1 mg 12/09/16 18:05 12/09/16 18:16 Dilaudid IVPUSH 12/09/16 18:06 1 mg ONETIME ONE Administration Hydromorphone HCl 1 mg 12/09/16 19:34 12/09/16 19:38 Dilaudid IVPUSH 12/09/16 19:35 1 mg ONETIME ONE Administration Lactated Ringer's 1,000 mls @ 999 mls/hr 12/09/16 18:03 12/09/16 18:32 Ringers, Lactated IV 12/09/16 19:03 999 mls/hr .BOLUS ONE Administration Ketorolac Tromethamine 30 mg 12/09/16 18:04 12/09/16 18:23 Toradol IVPUSH 12/09/16 18:05 30 mg ONETIME ONE Administration Ondansetron HCl 4 mg 12/09/16 18:03 12/09/16 18:19 Zofran IVPUSH 12/09/16 18:04 4 mg ONETIME ONE Administration Pantoprazole Sodium 40 mg 12/09/16 18:03 12/09/16 18:28 Protonix Iv IVPUSH 12/09/16 18:04 40 mg ONETIME ONE Administration Tamsulosin HCl 0.4 mg 12/09/16 18:05 12/09/16 18:30 Flomax PO 12/09/16 18:06 0.4 mg ONETIME ONE Administration - Radiology Interpretation Free Text/Narrative:: None Departure - Departure Time of Disposition: 21:35 Disposition: Home, Self-Care 01 Condition: Good Clinical Impression: Mixed anxiety and depressive disorder, Hypertension, Nephrolithiasis, Tobacco abuse counseling, Osteoarthritis, Dysmenorrhea - Discharge Information Prescriptions: traMADol [Ultram] 50 mg PO Q6H PRN #10 tablet PRN Reason: Pain (Severe 7-10) Instructions: Renal Colic, [id number] Referrals: Dotty Villaseñor PA-C [Primary Care Provider] - Forms: ED Department Discharge, ED Return to Work/School Form Additional Instructions: 1. Follow up with your regular provider in 10-14 days as needed, if symptoms persist. 2. Tylenol 650 mg by mouth every 4 hours and/or OTC ibuprofen 2-3 tabs by mouth every 6 hours with food as directed./needed. Next dose of ibuprofen and 5 hours secondary to medications given in the emergency room 3. Sedation precautions with no driving, etc. for 18 hours because of emergency room medications. 4. Use Ultram with extreme discretion as discussed with sedation, nausea, confusion, addiction, etc. precautions 5. Bring a copy of your stone analysis from 11/04/16 to your medical economics consultant at time of the next visit 6. Strain all urine and bring stone to your regular provider or this facility as directed for further stone analysis. 7. [place] diet including encouragement of oral fluids such as sports drinks, etc. for 24-48 hours as directed. Advance to regular diet as tolerated thereafter. 8. Follow-up in this facility tomorrow for scheduled complete renal ultrasound for your kidney sounds. You must speak with me prior to leaving this facility with discussion of preliminary report at that time 9. Work excuse- See Form 10. Stop all tobacco use RAMYA as directed/per provided information and consider contacting Quit LIne, etc.. - Problem List & Annotations (1) Nephrolithiasis SNOMED Code(s): 83616183 Code(s): N20.0 - CALCULUS OF KIDNEY Status: Chronic Priority: Medium Current Visit: Yes Onset Date: ~06/26/16 Annotation/Comment:: History of recurrent bilateral urolithiasis as above with left-sided colic type symptoms today. Note history of right-sided colic on 11/04/16 with no evidence of acute urolithiasis or hydronephrosis during that evaluation in this facility. She has not notified her medical economics consultant concerning that ER visit, however does have an appointment with him scheduled for next month. Patient closely followed by her medical economics consultant by patient history. Various therapeutic options were discussed with the patient and her mother, who are in agreement with my suggestion of delaying further repeat CT scans at this time secondary to recent normal evaluation one month ago as above. Patient will follow-up in this facility tomorrow for a renal ultrasound with verbal report to be given to me prior to her leaving this facility. The patient was given a copy of the stone analysis from time of last emergency room evaluation on 11/04/16. There is some hematuria likely secondary to her nephrolithiasis with urine specimen set up for culture and sensitivity. No direct evidence of an acute UTI with antibiotic therapy depending on these results. Excellent pain control with medical therapy as above (2) Mixed anxiety depressive disorder SNOMED Code(s): 952327338 Code(s): F41.8 - OTHER SPECIFIED ANXIETY DISORDERS Status: Chronic Priority: Medium Current Visit: Yes Annotation/Comment:: Stable by patient history, although moderate control by today's evaluation with continued close follow-up by her regular providers. IV diazepam given in the emergency room with good results. Limited #10 Ultram tablets/emergency room prescription provided with no further narcotic use at this time secondary to a previous history of narcotic dependency. Also note current Neurontin and Flexeril therapy (3) Tobacco abuse counseling SNOMED Code(s): 632173253, 217260927, 508553724 Code(s): Z71.6 - TOBACCO ABUSE COUNSELING Status: Chronic Priority: Medium Current Visit: No Annotation/Comment:: Tobacco cessation strongly once again encouraged with information provided at discharge (4) Dysmenorrhea SNOMED Code(s): 669689980 Code(s): N94.6 - DYSMENORRHEA, UNSPECIFIED Status: Chronic Priority: Medium Current Visit: Yes Annotation/Comment:: Normal LMP 2 weeks ago by her history. Patient apparently has a hysterectomy scheduled on 01/02 secondary to dysmenorrhea (5) Osteoarthritis SNOMED Code(s): 096071647 Code(s): M19.90 - UNSPECIFIED OSTEOARTHRITIS, UNSPECIFIED SITE Status: Chronic Priority: Medium Current Visit: Yes Annotation/Comment:: Stable by history Qualifiers: Osteoarthritis location: multiple joints Osteoarthritis type: primary Qualified Code(s): M15.0 - Primary generalized (osteo)arthritis (6) Hypertension SNOMED Code(s): 42662579 Code(s): I10 - ESSENTIAL (PRIMARY) HYPERTENSION Status: Chronic Priority : Low Current Visit: No Annotation/Comment:: BP currently well-controlled with diuretic therapy, which she takes for her urolithiasis. Continue to observe closely with her regular provider. Qualifiers: Hypertension type: essential hypertension Qualified Code(s): I10 - Essential (primary) hypertension - Problem List Review Problem List Initiated/Reviewed/Updated: Yes - My Orders Last 24 Hours: My Active Orders 12/09/16 18:03 Peripheral IV Care [RC] . DIRECTED H PYLORI STOOL ANTIGEN [MREF] Urgent OCCULT BLOOD DIAGNOSTIC [OP] Stat Sodium Chloride 0.9% [Saline Flush] 10 ml FLUSH ASDIRECTED PRN Obtain Past Medical Record [OM.PC] Urgent Peripheral IV Insertion Adult [OM.PC] Stat Resuscitation Status Stat 12/09/16 18:35 Cooling Warming Measures [RC] ASDIRECTED Heat Therapy [OM.PC] Routine 12/09/16 19:26 CULTURE URINE [RM] Stat 12/09/16 Breakfast Nothing Per Oral Diet [DIET] - Assessment/Plan Last 24 Hours: My Active Orders 12/09/16 18:03 Peripheral IV Care [RC] . DIRECTED H PYLORI STOOL ANTIGEN [MREF] Urgent OCCULT BLOOD DIAGNOSTIC [OP] Stat Sodium Chloride 0.9% [Saline Flush] 10 ml FLUSH ASDIRECTED PRN Obtain Past Medical Record [OM.PC] Urgent Peripheral IV Insertion Adult [OM.PC] Stat Resuscitation Status Stat 12/09/16 18:35 Cooling Warming Measures [RC] ASDIRECTED Heat Therapy [OM.PC] Routine 12/09/16 19:26 CULTURE URINE [RM] Stat 12/09/16 Breakfast Nothing Per Oral Diet [DIET] Assessment:: As above Plan: As above. Extensive precautions were given to the patient and her mother, who are in agreement with the treatment plan. See Patient Instructions for further treatment and plan.
[2016-12-09] MEDS ORDERED: Ketorolac 30 MG/ML SDV IVPUSH ONE (18:04)
[2016-12-09] MEDS ORDERED: Tamsulosin 0.4 MG Cap.ER PO ONE (18:05)
[2016-12-09] MEDS ORDERED: HYDROmorphone 1 MG/ML Syringe IVPUSH ONE ×2 (18:05→19:34)
[2016-12-09 18:37] LABS: CHLORIDE,CL 103 mmol/L (98-107); SODIUM,NA 139 mmol/L (136-145)
[2016-12-09 20:07] VITALS: BP 111/60
== END 2016-12-09 20:35 | disposition home or self-care (01) ==
LOC: LL.ED 17:49
DX: N20.0 Calculus of kidney (principal); I10 Essential (primary) hypertension; F41.8 Other specified anxiety disorders; N94.6 Dysmenorrhea, unspecified; M19.90 Unspecified osteoarthritis, unspecified site; M06.9 Rheumatoid arthritis, unspecified; M32.9 Systemic lupus erythematosus, unspecified; E66.9 Obesity, unspecified; F17.210 Nicotine dependence, cigarettes, uncomplicated; Z88.1 Allergy status to other antibiotic agents; Z88.0 Allergy status to penicillin; Z79.899 Other long term (current) drug therapy; Z90.89 Acquired absence of other organs; Z98.51 Tubal ligation status; Z71.6 Tobacco abuse counseling; Z68.37 Body mass index [BMI] 37.0-37.9, adult
CPT/HCPCS: 36415; 80053; 81001; 82150; 83605; 83690; 83735; 84550; 84703; 85025; 85610; 85730; 87086; 96361; 96374; 96375; 96376; 99284; A9270; C9113; J1170; J1885; J2405; J3360; J7050; J7120; S0028

== ENCOUNTER 2017-02-11 19:17 | Emergency (ER) | payer MEDICAID ==
--- NOTE | 2017-02-11 19:34 | EDM.PDOC ---
ED HPI GENERAL MEDICAL PROBLEM - General Chief Complaint: Genitourinary Problem Stated Complaint: new incontinent and pain shooting down L) leg Time Seen by Provider: 02/11/17 19:25 Source of Information: Reports: Patient, Family (Mother), Old Records ([facility] EMR. No paper hospital chart available.) History Limitations: Reports: No Limitations - History of Present Illness INITIAL COMMENTS - FREE TEXT/NARRATIVE: The patient was brought to the emergency room via private automobile by her mother for evaluation of exacerbation of her chronic low back pain, including progressive left-sided sciatica and paresthesias to the foot region since this morning with additional episode of some urinary incontinence this evening. Patient did not take any NSAIDs or topical therapy today, however she did take 100 mg of Neurontin and 10 mg of Flexeril at 16:00 hours this afternoon. Her symptoms actually started about 4 days ago at work with no history of acute fall , injury, neurological deficits, etc. She does have a previous history of right- sided sciatica with left-sided symptoms at this time. The patient denies any chest pain/pressure, heart flutter, dizziness, orthostasis, orthopnea, diaphoresis, paresthesias, recent decreased exercise tolerance, or any other anginal-type symptoms. No recent history of abdominal pain, heartburn, nausea, diarrhea, melena, gross hematochezia, or any food intolerance, including fatty foods, etc.. The patient also denies any recent fever, cough, wheezing, dyspnea , etc.. No history of recent headaches, visual changes, diplopia, change in mental status, or other change in neurological status. She denies any gross hematuria, colic, or other UTI symptoms. She did go to work today with worsening symptoms since that time. Onset: Gradual Onset Date: 02/08/17 Onset Time: 10:30 Duration: Constant, Getting Worse Location: Reports: Back, Lower Extremity, Left, Radiates to (As above). 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: Other Medication(s) (As above) Lower Back Pain Score (Numeric/FACES): 6 - Related Data Allergies Allergy/AdvReac Type Severity Reaction Status Date / Time amoxicillin Allergy Hives Verified 02/11/17 19:35 cephalexin [From Keflex] Allergy Hives Verified 02/11/17 19:35 erythromycin base Allergy Hives Verified 02/11/17 19:35 Penicillins Allergy Hives Verified 02/11/17 19:35 Home Meds: Home Meds Hydrochlorothiazide 25 mg PO BID 01/03/16 [History] Potassium Chloride [K-Tab ER] 10 meq PO DAILY 01/03/16 [History] Gabapentin [Neurontin] 200 mg PO TID PRN 06/26/16 [History] Ibuprofen [Motrin] 600 mg PO Q6HR PRN 06/26/16 [History] Melatonin 1 tab PO BEDTIME PRN 06/26/16 [History] Cyclobenzaprine [Flexeril] 10 mg PO TID PRN #30 tablet 02/11/17 [Rx] Past Medical History HEENT History: Reports: Impaired Vision, Other (See Below). Denies: Allergic Rhinitis, Cataract, Glaucoma, Hard of Hearing, Macular Degeneration, Otitis Media, Retinal Detachment Other HEENT History: Wears glasses Cardiovascular History: Reports: Hypertension, Other (See Below). Denies: Afib , Aneurysm, Arrhythmia, Blood Clots/VTE/DVT, CAD, Heart Murmur, High Cholesterol , AK, Syncope Other Cardiovascular History: Patient not taking medications for her hypertension with diuretic for her recurrent urolithiasis by her history, she does not know her cholesterol status Respiratory History: Reports: Intubation, Previous. Denies: Asthma, COPD, Intubation, Difficult, PE, Pneumothorax Gastrointestinal History: Reports: Chronic Constipation. Denies: Celiac Disease , Cholelithiasis, Chronic Diarrhea, Gastritis, GERD, GI Bleed, Hepatitis, Hiatal Hernia, Inflammatory Bowel Disease, Irritable Bowel Syndrome, Jaundice, Pancreatitis, PUD Genitourinary History: Reports: Renal Calculus, Other (See Below). Denies: Acute Renal Failure, Chronic Renal Insuffiency, STD Other Genitourinary History: Spontaneous passage of last episode of urolithiasis in November 2016 with known moderate bilateral nephrolithiasis by ultrasound on 12/09/16, Recurrent bilateral urolithiasis since 2005 with history of mild right-sided hydronephrosis on 03/10/16 and recurrent lithotripsies as below FORENSIC MEDICAL EXAMINER History: Reports: Dysfunctional Uterine Bleeding, , Spontaneous . Denies: Endometriosis, PID : 3 Para: 2 (C-sections 2 secondary to failure to progress with additional SAB at 13 weeks gestation requiring D&C as below, otherwise no problems during her pregnancies or deliveries) LMP (Approximate): Menopausal (Surgical menopause as below) Other OB/BYN History: Recurrent left-sided ovarian cyst, fibrocystic breast disease, dysmenorrhea Musculoskeletal History: Reports: Arthritis, Back Pain, Chronic, Fracture, Osteoarthritis, Other (See Below). Denies: Gout, Neck Pain, Chronic, Osteoporosis, RA, SLE Other Musculoskeletal History: Right wrist fracture at age 15 Neurological History: Reports: Neuropathy, Peripheral, Other (See Below). Denies: Brain Injury, Cerebral Aneurysms, Concussion, CVA, Headaches, Chronic, Head Trauma, Migraines, MS, Neuropathy, Diabetic, Parkinson's, Seizure, TIA Other Neuro History: Cauda equina syndrome with neurogenic bladder Psychiatric History: Reports: Addiction, Anxiety, Depression, Other (See Below) . Denies: Abuse, Victim of, ADD, ADHD, Dementia, Psych Hospitalization(s), PTSD , Suicide Attempt, Suicidal Ideation Other Psychiatric History: Narcotic use, chronic insomnia Endocrine/Metabolic History: Reports: Obesity/BMI 30+. Denies: Diabetes, Type I , Diabetes, Type II, Hypothyroidism, IDDM Hematologic History: Reports: None. Denies: Anemia, Blood Transfusion(s), Iron Deficiency Immunologic History: Reports: None. Denies: AIDS, HIV, SLE Oncologic (Cancer) History: Reports: Cervix, Other (See Below). Denies: Basal Cell Carcinoma, Hodgkin's Lymphoma, Leukemia, Malignant Melanoma, Non-Hodgkin's Lymphoma, Squamous Cell Carcinoma, Uterine Other Oncologic History: Multiple previous abnormal Pap smears of unknown type with resolution after cryotherapy 1999 Dermatologic History: Reports: Other (See Below). Denies: Eczema, Psoriasis Other Dermatologic History: Acne - Infectious Disease History Infectious Disease History: Reports: Chicken Pox, Shingles (Right upper back at age 11). Denies: C-Difficile, Measles, Meningitis, Mononucleosis, MRSA, Mumps, Pertussis (Whooping Cough), Rheumatic Fever, Rubella, Scarlet Fever, VRE - Past Surgical History Head Surgeries/Procedures: Reports: None HEENT Surgical History: Reports: Adenoidectomy, Tonsillectomy, Other (See Below) . Denies: Eye Surgery, Laser Surgery, LASIK, Myringotomy w Tube(s), Naso-Sinus Surgery, Oral Surgery Other HEENT Surgeries/Procedures: Tonsillectomy and adenoidectomy at age 16 Cardiovascular Surgical History: Reports: None. Denies: Varicose, Vascular Surgery Respiratory Surgical History: Reports: None. Denies: Thoracentesis GI Surgical History: Reports: Appendectomy, Other (See Below). Denies: Cholecystectomy, Hernia, Abdominal, Hernia, Inguinal, Hernia Repair/Other Other GI Surgeries/Procedures: Appendectomy at age 15 Female Surgical History: Reports: Section, Cervical Cryotherapy, D&C , Hysterectomy, Lithotripsy/ESWL, Tubal Ligation, Ureteral Stent, Other (See Below). Denies: Breast Biopsy, Endometrial Ablation, Salpingo-Oophorectomy Other Female Surgeries/Procedures: Hysterectomy on 01/02/17 secondary to dysfunctional uterine bleeding, 2 as above, D&C secondary to SAB as above, bilateral tubal ligation in 2007, recurrent lithotripsies with last left- sided lithotripsy in June 2016 with 2 previous lithotripsies on the left side and also left ureteral stent placement in 2008 with subsequent removal, cervical cryotherapy in 1999 secondary to atypical Pap smears as above Endocrine Surgical History: Reports: None. Denies: Thyroid Biopsy Neurological Surgical History: Reports: None. Denies: C-Spine, Discectomy, Laminectomy, Lumbar Spine, Spinal Fusion, Vertebroplasty Musculoskeletal Surgical History: Reports: None. Denies: Amputation, Arthroscopic Procedure, Carpal Tunnel, Ganglion Cyst, Joint Replacement, ORIF, Shoulder Surgery Oncologic Surgical History: Reports: None. Denies: Biopsy of Breast Dermatological Surgical History: Reports: None - Past Imaging History Past Imaging History: Reports: CAT Scan (Last CT of the abdomen and pelvis with stone protocol on 11/04/16 with bilateral nephrolithiasis but no evidence of urolithiasis or hydronephrosis, previous CT scan of the abdomen and pelvis on 06/27/16 positive for left-sided urolithiasis, CT of the lumbar spine on 03/10/16 with right-sided urolithiasis and mild hydronephrosis with additional osteoarthritic changes), Mammogram (Last mammogram on 06/03/16), Ultrasound ( Renal ultrasound on 12/09/16, Left breast ultrasound on 06/03/16, pelvic ultrasound on 07/26/16) Social & Family History - Tobacco Use Smoking Status *Q: Current Every Day Smoker Years of Tobacco use: 18 (Started smoking at age 18) Packs/Tins Daily: 0.3 ( maximum use of one half pack per day) Used Tobacco, but Quit: Yes Smoking Cessation Information Provided To Patient: Yes Second Hand Smoke Exposure: Yes Source of Second Hand Smoke Exposure: Significant other smokes Second Hand Smoke Education Provided: Yes - Caffeine Use Caffeine Use: Reports: None. Denies: Coffee, Energy Drinks, Soda, Tea - Alcohol Use Alcohol Use History: No Days Per Week of Alcohol Use: 0 (No previous DWIs, problems with alcohol abuse, etc.) Alcohol Use in Last Twelve Months: No - Recreational Drug Use Recreational Drug Use: No Drug Use in Last 12 Months: No Recreational Drug Type: Denies: Amphetamines (Speed), Cocaine, Heroin, Inhalants (Glues, Solvents, Aerosols), LSD (Acid), Marijuana/Hashish, Methamphetamine, Morphine - Living Situation & Occupation Living situation: Reports: Single, with Significant Other (And her 1 child from previous significant other relationships with another child not currently living with her). 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 No: Lymphadenopathy (L), Lymphadenopathy (R), Thyromegaly Respiratory/Chest: No Respiratory Distress, Lungs Clear, Normal Breath Sounds, No Accessory Muscle Use, Chest Non-Tender. No: Pleural Rub, Retractions Cardiovascular: Normal Peripheral Pulses, Regular Rate, Rhythm, No Edema, No Gallop, No JVD, No Murmur, No Rub. No: Gallop/S3, Gallop/S4, Friction Rub GI/Abdominal: Normal Bowel Sounds, Soft, Non-Tender, No Organomegaly, No Distention, No Abnormal Bruit, No Mass, Pelvis Stable, Other (obese). No: Guarding (Female) Exam: Deferred Rectal (Female) Exam: Deferred Back Exam: Decreased Range of Motion (Secondary to low back pain), Muscle Spasm (Moderate in left lower SI region), Paraspinal Tenderness (Moderate localized palpation pain in left lower SI region as above). No: CVA Tenderness (L), CVA Tenderness (R), Vertebral Tenderness Extremities: Normal Inspection, Normal Range of Motion, Non-Tender, No Pedal Edema, Normal Capillary Refill. No: Pedal Edema, Latanya's Sign Neurological: Alert, Normal Mood/Affect, Normal Dorsiflexion, CN II-XII Intact, Normal Plantar Flexion, Normal Gait, Normal Reflexes, No Motor/Sensory Deficits , Oriented x 3 DTR - Lower Extremities: 3+: Knee (R), Knee (L), Ankle (R), Ankle (L) Psychiatric: Anxious (Moderate), Depressed Mood (Mild to moderate with adequate eye contact) Skin Exam: Warm, Dry, Intact, Normal Color, No Rash, Tattoo(s). No: Wound/ Incision Lymphatic: No Adenopathy Course - Vital Signs Last Recorded V/S: Last Vital Signs Temp 37.4 C 02/11/17 19:18 Pulse 84 02/11/17 19:37 Resp 24 H 02/11/17 19:37 BP 141/80 H 02/11/17 19:37 Pulse Ox 95 02/11/17 19:37 Vital Signs - 24 hr 02/11/17 02/11/17 02/11/17 19:18 19:37 19:52 Temperature [ 36.4 C Oral] Temperature [ 37.4 C Temporal] Pulse, 86 84 90 Peripheral [ Left Pulse Oximetry] Respiratory 24 H 24 H 20 Rate Blood Pressure 144/97 H 141/80 H 152/90 H [Left Lower Arm ] O2 Sat by Pulse 98 95 100 Oximetry - Orders/Labs/Meds Orders: Active Orders 24 hr Category Date Time Status Obtain Past Medical Record [OM.PC] Routine Oth 02/11/17 19:36 Active Labs: None Meds: Medications Discontinued Medications Generic Name Dose Route Start Last Admin Trade Name Freq PRN Reason Stop Dose Admin Diazepam 10 mg 02/11/17 19:35 02/11/17 19:40 Valium IM 02/11/17 19:36 10 mg ONETIME ONE Administration Ketorolac Tromethamine 60 mg 02/11/17 19:35 02/11/17 19:40 Toradol IM 02/11/17 19:36 60 mg ONETIME ONE Administration Methylprednisolone Acetate 80 mg 02/11/17 19:35 02/11/17 19:40 Depo-Medrol IM 02/11/17 19:36 80 mg ONETIME ONE Administration - Radiology Interpretation Free Text/Narrative:: None Departure - Departure Time of Disposition: 20:15 Disposition: Home, Self-Care 01 Condition: Good Clinical Impression: Mixed anxiety and depressive disorder, Nephrolithiasis, Tobacco abuse counseling, Cauda equina syndrome with neurogenic bladder Hypertension Qualifiers: Hypertension type: essential hypertension Qualified Code(s): I10 - Essential ( primary) hypertension Osteoarthritis Qualifiers: Osteoarthritis location: multiple joints Osteoarthritis type: primary Qualified Code(s): M15.0 - Primary generalized (osteo)arthritis Low back pain Qualifiers: Chronicity: acute Back pain laterality: left Sciatica presence: with sciatica Sciatica laterality: sciatica of left side Qualified Code(s): M54.42 - Lumbago with sciatica, left side - Discharge Information Referrals: Dotty Villaseñor PA-C [Primary Care Provider] - Forms: ED Department Discharge, ED Return to Work/School Form Additional Instructions: 1. Follow up with your regular provider in 10-14 days as needed, if symptoms persist. 2. Tylenol 650 mg by mouth every 4 hours and/or OTC ibuprofen 2-3 tabs by mouth every 6 hours with food as directed./needed with next dose of ibuprofen in 6 hours secondary to medications given in the emergency room. 3. BenGay or equivalent, heating pad, and/or ice packs as directed. 4. Work excuse- See Form 5. Compliance with ibuprofen and gabapentin when symptomatic as discussed and note increase of your as needed Flexeril/cyclobenzaprine to a 3 times a day basis when symptomatic with additional sedation precautions with this medication. Delay next dose of Flexeril for 8 hours secondary to medications given in the emergency room 6. Continue to observe your blood pressure closely through your regular provider with somewhat elevated blood pressures in the emergency room today likely secondary to your discomfort 7. Stop all tobacco use RAMYA as directed/per provided information and consider contacting Quit LIne, etc.. 8. Sedation precautions with no driving, etc. for 18 hours because of emergency room medications. - Problem List & Annotations (1) Low back pain SNOMED Code(s): 181337477 Code(s): M54.5 - LOW BACK PAIN Status: Acute Priority: High Onset Date : 02/08/17 Annotation/Comment:: Exacerbation of her chronic low back pain at work as above with no history of acute injury. Left-sided sciatica at this time with previous history of right-sided sciatica in the past. Despite paresthesias , etc. no significant neurological deficits based on my clinical exam. Continue to observe symptoms closely with further workup, etc. as below. Work excuse provided. Aggressive therapy in the emergency room as above with symptomatic relief as per discharge instructions. Patient has an adequate apply of Flexeril at home by her history Qualifiers: Chronicity: acute Back pain laterality: left Sciatica presence: with sciatica Sciatica laterality: sciatica of left side Qualified Code(s): M54.42 - Lumbago with sciatica, left side (2) Cauda equina syndrome with neurogenic bladder SNOMED Code(s): 301200589, 535774752 Code(s): G83.4 - CAUDA EQUINA SYNDROME Status: Chronic Priority: High Annotation/Comment:: Episode of urinary incontinence today with no other UTI symptoms, colic, gross hematuria, etc.. Based on today's physical exam significant exacerbation of her cauda equina syndrome likely not an issue at this time. Continue to observe closely by her regular providers with consideration of MRI of lumbar spine depending on her clinical course (3) Hypertension SNOMED Code(s): 92537277 Code(s): I10 - ESSENTIAL (PRIMARY) HYPERTENSION Status: Chronic Priority : Medium Annotation/Comment:: BP somewhat elevated in the emergency room secondary to her discomfort. Continue to observe closely with her regular provider. Qualifiers: Hypertension type: essential hypertension Qualified Code(s): I10 - Essential (primary) hypertension (4) Mixed anxiety depressive disorder SNOMED Code(s): 427369517 Code(s): F41.8 - OTHER SPECIFIED ANXIETY DISORDERS Status: Chronic Priority: Medium Annotation/Comment:: Stable by patient history, although moderate control by today's evaluation with continued close follow-up by her regular providers. IM diazepam given in the emergency room for relief of her back spasms. No further narcotic use at this time secondary to a previous history of narcotic dependency. Also note current Neurontin and Flexeril therapy (5) Osteoarthritis SNOMED Code(s): 025237652 Code(s): M19.90 - UNSPECIFIED OSTEOARTHRITIS, UNSPECIFIED SITE Status: Chronic Priority: Medium Annotation/Comment:: Otherwise Stable by history Qualifiers: Osteoarthritis location: multiple joints Osteoarthritis type: primary Qualified Code(s): M15.0 - Primary generalized (osteo)arthritis (6) Tobacco abuse counseling SNOMED Code(s): 485980752, 519363530, 528254695 Code(s): Z71.6 - TOBACCO ABUSE COUNSELING Status: Chronic Priority: Medium Annotation/Comment:: Tobacco cessation once again strongly encouraged with information provided at discharge - Problem List Review Problem List Initiated/Reviewed/Updated: Yes - My Orders Last 24 Hours: My Active Orders 02/11/17 19:36 Obtain Past Medical Record [OM.PC] Routine - Assessment/Plan Last 24 Hours: My Active Orders 02/11/17 19:36 Obtain Past Medical Record [OM.PC] Routine Assessment:: As above Plan: As above. Extensive precautions were given to the patient and her mother, who are in agreement with the treatment plan. See Patient Instructions for further treatment and plan.
[2017-02-11] MEDS ORDERED: methylPREDNISolone Acetate 80 MG/ML SDV IM ONE (19:35)
[2017-02-11] MEDS ORDERED: Ketorolac 60 MG/2 ML SDV IM ONE (19:35)
[2017-02-11 19:53] VITALS: BP 152/90
== END 2017-02-11 20:15 | disposition home or self-care (01) ==
LOC: LL.ED 19:17
DX: M54.42 Lumbago with sciatica, left side (principal); M15.0 Primary generalized (osteo)arthritis; F41.8 Other specified anxiety disorders; G83.4 Cauda equina syndrome; N20.0 Calculus of kidney; I10 Essential (primary) hypertension; F17.210 Nicotine dependence, cigarettes, uncomplicated; Z96.0 Presence of urogenital implants; Z98.890 Other specified postprocedural states; Z90.710 Acquired absence of both cervix and uterus; Z79.899 Other long term (current) drug therapy; Z88.0 Allergy status to penicillin; Z88.1 Allergy status to other antibiotic agents; Z71.6 Tobacco abuse counseling
CPT/HCPCS: 96372; 99283; J1040; J1885; J3360

== ENCOUNTER 2017-06-09 11:55 | Emergency (ER) | payer MEDICAID ==
[2017-06-09 12:00] VITALS: BP 132/72
[2017-06-09] MEDS ORDERED: Ondansetron 4 MG/2 ML SDV IVPUSH ONE (12:15)
[2017-06-09] MEDS ORDERED: metroNIDAZOLE/Normal Saline 500 MG in Premix Bag 1 BAG IV SCH (12:15)
[2017-06-09] MEDS ORDERED: Sodium Chloride 0.9% 10 ML Syringe FLUSH PRN (12:15)
[2017-06-09] MEDS ORDERED: Pantoprazole 40 MG Vial IVPUSH ONE (12:15)
--- NOTE | 2017-06-09 12:15 | EDM.PDOC ---
ED HPI GENERAL MEDICAL PROBLEM - General Chief Complaint: Abdominal Pain Stated Complaint: right upper abd pain Time Seen by Provider: 06/09/17 12:05 Source of Information: Reports: Patient, Family (Mother), Old Records ([facility] EMR. No paper hospital chart available.) History Limitations: Reports: No Limitations - History of Present Illness INITIAL COMMENTS - FREE TEXT/NARRATIVE: The patient was brought to the emergency room via private automobile by her mother for evaluation of sharp 6/10 right upper quadrant abdominal pain with symptoms starting at about 12:30 p.m. yesterday afternoon after eating at work. Symptoms have been been refractory to OTC ibuprofen with last dose of 600 mg at 19:30 hours yesterday evening. The patient did have some intermittent nausea and one episode of emesis yesterday evening with no emesis today and no history of known exposure to infection, food poisoning, etc. Note that symptoms worsened to 8/10 at about 11 AM this morning after she ate some lasagna since onset of symptoms. Patient did not take any other medications for her symptoms. No recent history of other abdominal pain, heartburn, diarrhea, melena, gross hematochezia, or any previous known food intolerance, including fatty foods, etc. with normal bowel movement yesterday. The patient denies any chest pain/ pressure, heart flutter, dizziness, orthostasis, orthopnea, diaphoresis, paresthesias, recent decreased exercise tolerance, or any other anginal-type symptoms. She denies any gross hematuria, colic, or other UTI symptoms. The patient also denies any recent fever, cough, wheezing, dyspnea, etc.. Onset: Today, Sudden Onset Date: 06/08/17 Onset Time: 12:30 Duration: Constant, Getting Worse Location: Reports: Abdomen. Denies: Head, Face, Neck, Chest, Back, Pelvis, Upper Extremity, Left, Upper Extremity, Right, Lower Extremity, Left, Lower Extremity, Right, Generalized, Radiates to Quality: Reports: Sharp, Stabbing. Denies: Ache, Burning, Dull, Pressure, Same as Previous Episode Severity: Severe Improves with: Reports: None Worsens with: Reports: None Context: Reports: Other (As above) Associated Symptoms: Reports: Nausea/Vomiting. Denies: Confusion, Chest Pain, Cough, Diaphoresis, Fever/Chills, Headaches, Loss of Appetite, Malaise, Seizure , Shortness of Breath, Syncope, Weakness Treatments DAYCARE PROVIDER: Reports: NSAIDS (As above) Right Upper Abdomen Pain Score (Numeric/FACES): 10 (8/10 constant, 10/10 by palpation) - Related Data Allergies Allergy/AdvReac Type Severity Reaction Status Date / Time amoxicillin Allergy Hives Verified 06/09/17 12:02 cephalexin [From Keflex] Allergy Hives Verified 06/09/17 12:02 erythromycin base Allergy Hives Verified 06/09/17 12:02 Penicillins Allergy Hives Verified 06/09/17 12:02 Home Meds: Home Meds Hydrochlorothiazide 25 mg PO BID 01/03/16 [History] Potassium Chloride [K-Tab ER] 10 meq PO DAILY 01/03/16 [History] Gabapentin [Neurontin] 200 mg PO TID PRN 06/26/16 [History] Ibuprofen [Motrin] 600 mg PO Q6HR PRN 06/26/16 [History] Melatonin 1 tab PO BEDTIME PRN 06/26/16 [History] Cyclobenzaprine [Flexeril] 10 mg PO TID PRN #30 tablet 02/11/17 [Rx] Ciprofloxacin HCl [Cipro] 500 mg PO BIDMEALS #20 tablet 06/09/17 [Rx] Metronidazole [IJP: metroNIDAZOLE] 500 mg PO .EVERY 8 HOURS #30 tab 06/09/17 [Rx ] Omeprazole 20 mg PO BIDAC #20 cap.sr 06/09/17 [Rx] traMADol [Ultram] 50 mg PO Q6H PRN #10 tab 06/09/17 [Rx] Past Medical History HEENT History: Reports: Impaired Vision, Other (See Below). Denies: Allergic Rhinitis, Cataract, Glaucoma, Hard of Hearing, Macular Degeneration, Retinal Detachment Other HEENT History: Wears glasses Cardiovascular History: Reports: Hypertension, Other (See Below). Denies: Afib , Aneurysm, Arrhythmia, Blood Clots/VTE/DVT, CAD, Heart Failure, Heart Murmur, High Cholesterol, NM, PVD, Syncope Other Cardiovascular History: Patient not taking medications for her hypertension with diuretic for her recurrent urolithiasis by her history, she does not know her cholesterol status Respiratory History: Reports: Intubation, Previous. Denies: Asthma, COPD, Intubation, Difficult, PE, Pneumothorax, Sleep Apnea Gastrointestinal History: Reports: Chronic Constipation. Denies: Bowel Obstruction, Celiac Disease, Cholelithiasis, Chronic Diarrhea, Colon Polyp, Fecal Incontinence, Gastritis, GERD, GI Bleed, Hepatitis, Hiatal Hernia, Inflammatory Bowel Disease, Irritable Bowel Syndrome, Jaundice, Pancreatitis, PUD Genitourinary History: Reports: Hydronephrosis, Renal Calculus, Other (See Below ). Denies: Acute Renal Failure, Chronic Renal Insuffiency, Retention, Urinary, STD, Urinary Incontinence, UTI, Recurrent Other Genitourinary History: Spontaneous passage of urinary stones with last episode of urolithiasis in November 2016 with known moderate bilateral nephrolithiasis by ultrasound since 12/09/16, Recurrent bilateral urolithiasis since 2005 with history of mild right-sided hydronephrosis on 03/10/16 and recurrent lithotripsies as below; neurogenic bladder as below INTERNATIONAL LOGISTICS COORDINATOR History: Reports: Dysfunctional Uterine Bleeding, , Spontaneous : 3 Para: 2 (C-sections 2 secondary to failure to progress with additional SAB at 13 weeks gestation requiring D&C as below; otherwise no problems during her pregnancies or deliveries) LMP (Approximate): Other (See Below) Other OB/BYN History: Recurrent left-sided ovarian cyst, fibrocystic breast disease, dysmenorrhea: Surgical menopause as below Musculoskeletal History: Reports: Arthritis, Back Pain, Chronic, Fracture, Osteoarthritis, Other (See Below). Denies: Amputation, Fibromyalgia, Gout, Neck Pain, Chronic, RA, SLE Other Musculoskeletal History: Right wrist fracture at age 15 Neurological History: Reports: Neuropathy, Peripheral, Other (See Below). Denies: Cerebral Aneurysms, Concussion, CVA, Headaches, Chronic, Head Trauma, Migraines, MS, Parkinson's, Seizure, TIA Other Neuro History: Cauda equina syndrome with neurogenic bladder Psychiatric History: Reports: Addiction, Anxiety, Depression, Other (See Below) . Denies: Abuse, Victim of, ADD, ADHD, Psych Hospitalization(s), PTSD, Suicide Attempt, Suicidal Ideation Other Psychiatric History: Chronic Narcotic use, chronic insomnia Endocrine/Metabolic History: Reports: Obesity/BMI 30+. Denies: Diabetes, Type I , Diabetes, Type II, Hypothyroidism, IDDM Hematologic History: Reports: None. Denies: Anemia, Blood Transfusion(s), Iron Deficiency Immunologic History: Reports: None. Denies: AIDS, HIV, SLE Oncologic (Cancer) History: Reports: Cervix, Other (See Below). Denies: Basal Cell Carcinoma, Bladder, Breast, Hodgkin's Lymphoma, Leukemia, Lymphoma, Malignant Melanoma, Non-Hodgkin's Lymphoma, Ovarian, Squamous Cell Carcinoma, Uterine Other Oncologic History: Multiple previous abnormal Pap smears of unknown type with resolution after cryotherapy 1999 Dermatologic History: Reports: Other (See Below). Denies: Eczema, Psoriasis Other Dermatologic History: Acne - Infectious Disease History Infectious Disease History: Reports: Chicken Pox, Shingles (Right upper back at age 11). Denies: C-Difficile, Measles, Meningitis, Mononucleosis, MRSA, Mumps, Pertussis (Whooping Cough), Rheumatic Fever, Rubella, Scarlet Fever, TB, VRE - Past Surgical History Head Surgeries/Procedures: Reports: None HEENT Surgical History: Reports: Adenoidectomy, Tonsillectomy, Other (See Below) . Denies: Cataract Surgery, Detached Retina, Eye Surgery, Laser Surgery, LASIK , Myringotomy w Tube(s), Naso-Sinus Surgery, Oral Surgery Other HEENT Surgeries/Procedures: Tonsillectomy and adenoidectomy at age 16 Cardiovascular Surgical History: Reports: None. Denies: Varicose Respiratory Surgical History: Reports: None. Denies: Thoracentesis GI Surgical History: Reports: Appendectomy, Other (See Below). Denies: Colonoscopy, EGD, Hernia, Abdominal, Hernia, Inguinal, Hernia Repair/Other Other GI Surgeries/Procedures: Appendectomy at age 15 Female Surgical History: Reports: Section, Cervical Cryotherapy, D&C , Hysterectomy, Lithotripsy/ESWL, Tubal Ligation, Ureteral Stent, Other (See Below). Denies: Breast Biopsy, Salpingo-Oophorectomy Other Female Surgeries/Procedures: Hysterectomy on 01/02/17 secondary to dysfunctional uterine bleeding, 2 as above, D&C secondary to SAB as above, bilateral tubal ligation in 2007, recurrent lithotripsies with last left- sided lithotripsy in June 2016 with 2 previous lithotripsies on the left side and also left ureteral stent placement in 2008 with subsequent removal, cervical cryotherapy in 1999 secondary to atypical Pap smears as above Endocrine Surgical History: Reports: None. Denies: Thyroid Biopsy Neurological Surgical History: Reports: None. Denies: C-Spine, Discectomy, Laminectomy, Lumbar Spine, Sacral Spine, Spinal Fusion, Vertebroplasty Musculoskeletal Surgical History: Reports: None. Denies: Arthroscopic Procedure , Carpal Tunnel, Ganglion Cyst, Joint Replacement, ORIF, Shoulder Surgery Oncologic Surgical History: Reports: None. Denies: Biopsy of Breast Dermatological Surgical History: Reports: None - Past Imaging History Past Imaging History: Reports: CAT Scan (Last CT of the abdomen and pelvis with stone protocol on 11/04/16 with bilateral nephrolithiasis but no evidence of urolithiasis or hydronephrosis, previous CT scan of the abdomen and pelvis on 06/27/16 positive for left-sided urolithiasis, CT of the lumbar spine on 03/10/16 with right-sided urolithiasis and mild hydronephrosis with additional osteoarthritic changes), Mammogram (Last mammogram on 06/03/16), Ultrasound ( Renal ultrasound on 12/09/16, Left breast ultrasound on 06/03/16, pelvic ultrasound on 07/26/16) Social & Family History - Tobacco Use Smoking Status *Q: Current Every Day Smoker Years of Tobacco use: 18 (Started smoking at age 18) Packs/Tins Daily: 0.3 ( maximum use of one half pack per day) Used Tobacco, but Quit: Yes Smoking Cessation Information Provided To Patient: Yes Second Hand Smoke Exposure: Yes Source of Second Hand Smoke Exposure: Significant other smokes Second Hand Smoke Education Provided: Yes - Caffeine Use Caffeine Use: Reports: None. Denies: Coffee, Energy Drinks, Soda, Tea - Alcohol Use Alcohol Use History: No Days Per Week of Alcohol Use: 0 (No previous DWIs, problems with alcohol abuse, etc.) Alcohol Use in Last Twelve Months: No - Recreational Drug Use Recreational Drug Use: No Drug Use in Last 12 Months: No Recreational Drug Type: Denies: Amphetamines (Speed), Cocaine, Heroin, Inhalants (Glues, Solvents, Aerosols), LSD (Acid), Marijuana/Hashish, Methamphetamine, Morphine - Living Situation & Occupation Living situation: Reports: Single, with Significant Other (And her 1 child from previous significant other relationships with another child not currently living with her). 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 ED EXAM, GI/ABD - Physical Exam Exam: See Below Exam Limited By: No Limitations General Appearance: Alert, WD/WN, No Apparent Distress, Anxious (Moderate) Head: Atraumatic, Normocephalic. No: Facial Swelling, Facial Tenderness Neck: Normal Inspection, Supple, Non-Tender, Full Range of Motion. No: Lymphadenopathy (L), Lymphadenopathy (R), Thyromegaly Respiratory/Chest: No Respiratory Distress, Lungs Clear, Normal Breath Sounds, No Accessory Muscle Use, Chest Non-Tender. No: Pleural Rub, Retractions Cardiovascular: Normal Peripheral Pulses, Regular Rate, Rhythm, No Edema, No Gallop, No JVD, No Murmur, No Rub. No: Gallop/S3, Gallop/S4, Friction Rub GI/Abdominal Exam: Normal Bowel Sounds, No Organomegaly, No Distention, No Abnormal Bruit, No Mass, Pelvis Stable, Guarding (Right upper quadrant), Tender (Moderate to severe palpation pain in the right upper quadrant). No: Rebound (Female) Exam: Deferred Rectal (Female) Exam: Deferred Back Exam: Normal Inspection, Full Range of Motion. No: CVA Tenderness (L), CVA Tenderness (R), Muscle Spasm, Paraspinal Tenderness, Vertebral Tenderness Extremities: Normal Inspection, Normal Range of Motion, Non-Tender, No Pedal Edema, Normal Capillary Refill. No: Pedal Edema, Latanya's Sign Neurological: Alert, Oriented, CN II-XII Intact, Normal Cognition, Normal Gait, Normal Reflexes (Negative Babinski's), No Motor/Sensory Deficits Psychiatric: Anxious (Moderate), Depressed Mood (Mild with adequate eye contact) Skin Exam: Warm, Dry, Intact, Normal Color, No Rash. No: Diaphoretic, Ecchymosis, Jaundice (No scleral icterus), Pallor, Petechiae, Wound/Incision Lymphatic: No Adenopathy Course - Vital Signs Last Recorded V/S: Last Vital Signs Temp 36.7 C 06/09/17 11:56 Pulse 77 06/09/17 11:56 Resp 18 06/09/17 11:56 BP 132/72 06/09/17 11:56 Pulse Ox Vital Signs - 24 hr 06/09/17 11:56 Temperature [ 36.7 C Oral] Pulse, 77 Peripheral [ Right Pulse Oximetry] Respiratory 18 Rate Blood Pressure 132/72 [Left Upper Arm ] - Orders/Labs/Meds Orders: Active Orders 24 hr Category Date Time Status Peripheral IV Care [RC] . DIRECTED Care 06/09/17 12:15 Active Nothing Per Oral Diet [DIET] Diet 06/09/17 Breakfast Active Abdomen Comp [US] Stat Exams 06/09/17 12:17 Taken Abdomen Series w Chest 1V [CR] Stat Exams 06/09/17 12:15 Taken CULTURE BLOOD [BC] Stat Lab 06/09/17 12:29 Received CULTURE BLOOD [BC] Stat Lab 06/09/17 12:33 Received CULTURE URINE [RM] Stat Lab 06/09/17 12:15 Uncollected H PYLORI STOOL ANTIGEN [MREF] Urgent Lab 06/09/17 12:15 Uncollected OCCULT BLOOD DIAGNOSTIC [OP] Stat Lab 06/09/17 12:15 Uncollected UA W/MICROSCOPIC [URIN] Urgent Lab 06/09/17 12:15 Uncollected Sodium Chloride 0.9% [Saline Flush] Med 06/09/17 12:15 Active 10 ml FLUSH ASDIRECTED PRN metroNIDAZOLE/Normal Saline [Flagyl 500 MG in NS 100 ML Med 06/09/17 12:15 Active ] 500 mg Premix Bag 1 bag IV Q8H Blood Culture x2 Reflex Set [OM.PC] Urgent Oth 06/09/17 12:15 Ordered Obtain Past Medical Record [OM.PC] Urgent Oth 06/09/17 12:15 Active Peripheral IV Insertion Adult [OM.PC] Stat Oth 06/09/17 12:15 Ordered Resuscitation Status Stat Resus Stat 06/09/17 12:15 Ordered Medication Orders Metronidazole 500 mg/ Premix 100 mls @ 100 mls/hr IV Q8H ALEIDA Last Admin: 06/09/17 12:59 Dose: 100 mls/hr Sodium Chloride (Saline Flush) 10 ml FLUSH ASDIRECTED PRN PRN Reason: Keep Vein Open Labs: Laboratory Tests 06/09/17 06/09/17 06/09/17 Range/Units 12:20 12:20 12:20 WBC 6.2 (4.0-10.2) K/uL RBC 4.13 (3.77-5.09) M/uL Hgb 11.5 L (11.7-15.5) g/dL Hct 34.6 (34.0-46.0) % MCV 83.8 L (84.0-98.0) fL MCH 27.8 L (28.2-33.3) pg MCHC 33.2 (31.7-36.0) g/dL RDW 14.2 H (11.2-14.1) % Plt Count 355 H D (150-350) K/uL Neut % (Auto) 63.8 (45.0-80.0) % Lymph % (Auto) 28.1 (10.0-50.0) % Marin % (Auto) 7.3 (2.0-14.0) % Eos % (Auto) 0.6 (0.0-5.0) % Baso % (Auto) 0.2 (0.0-2.0) % Neut # (Auto) 3.93 (1.40-7.00) K/uL Lymph # (Auto) 1.73 (0.50-3.50) K/uL Marin # (Auto) 0.45 (0.00-1.00) K/uL Eos # (Auto) 0.04 (0.00-0.50) K/uL Baso # (Auto) 0.01 (0.00-0.20) K/uL PT (9.8-11.7) SEC INR APTT (22.1-29.8) SEC Sodium 140 (136-145) mmol/L Potassium 3.9 (3.5-5.1) mmol/L Chloride 105 (98-107) mmol/L Carbon Dioxide 26.0 (21.0-32.0) mmol/L BUN 20 H (7-18) mg/dL Creatinine 1.13 (0.51-1.17) mg/dL Est Cr Clr Drug Dosing 65.05 mL/min Estimated GFR (MDRD) 55 mL/min Glucose 97 (74-106) mg/dL Lactic Acid (0.4-2.0) mmol/L Uric Acid 3.8 (2.6-7.2) mg/dL Calcium 8.8 (8.5-10.1) mg/dL Magnesium 1.9 (1.8-2.4) mg/dL Total Bilirubin 0.2 (0.2-1.0) mg/dL AST 21 (15-37) U/L ALT 39 (12-78) U/L Alkaline Phosphatase 73 (46-116) IU/L Total Protein 6.8 (6.4-8.2) g/dL Albumin 3.4 (3.4-5.0) g/dL Amylase 28 (25-115) U/L Lipase 133 (73-393) U/L 06/09/17 06/09/17 Range/Units 12:33 12:33 WBC (4.0-10.2) K/uL RBC (3.77-5.09) M/uL Hgb (11.7-15.5) g/dL Hct (34.0-46.0) % MCV (84.0-98.0) fL MCH (28.2-33.3) pg MCHC (31.7-36.0) g/dL RDW (11.2-14.1) % Plt Count (150-350) K/uL Neut % (Auto) (45.0-80.0) % Lymph % (Auto) (10.0-50.0) % Marin % (Auto) (2.0-14.0) % Eos % (Auto) (0.0-5.0) % Baso % (Auto) (0.0-2.0) % Neut # (Auto) (1.40-7.00) K/uL Lymph # (Auto) (0.50-3.50) K/uL Marin # (Auto) (0.00-1.00) K/uL Eos # (Auto) (0.00-0.50) K/uL Baso # (Auto) (0.00-0.20) K/uL PT 10.0 (9.8-11.7) SEC INR 0.9 APTT 28.0 (22.1-29.8) SEC Sodium (136-145) mmol/L Potassium (3.5-5.1) mmol/L Chloride (98-107) mmol/L Carbon Dioxide (21.0-32.0) mmol/L BUN (7-18) mg/dL Creatinine (0.51-1.17) mg/dL Est Cr Clr Drug Dosing mL/min Estimated GFR (MDRD) mL/min Glucose (74-106) mg/dL Lactic Acid 1.3 (0.4-2.0) mmol/L Uric Acid (2.6-7.2) mg/dL Calcium (8.5-10.1) mg/dL Magnesium (1.8-2.4) mg/dL Total Bilirubin (0.2-1.0) mg/dL AST (15-37) U/L ALT (12-78) U/L Alkaline Phosphatase (46-116) IU/L Total Protein (6.4-8.2) g/dL Albumin (3.4-5.0) g/dL Amylase (25-115) U/L Lipase (73-393) U/L Blood cultures 2 collected Urine specimen could not be collected Meds: Medications Generic Name Dose Route Start Last Admin Trade Name Alfonsoq PRN Reason Stop Dose Admin Metronidazole 500 mg/ Premix 100 mls @ 100 mls/hr 06/09/17 12:15 06/09/17 12: 59 IV 100 mls/hr Q8H ALEIDA Administration Sodium Chloride 10 ml 06/09/17 12:15 Saline Flush FLUSH ASDIRECTED PRN Keep Vein Open Discontinued Medications Generic Name Dose Route Start Last Admin Trade Name Alessandro PRN Reason Stop Dose Admin Famotidine 40 mg 06/09/17 12:15 06/09/17 12:42 Pepcid IVPUSH 06/09/17 12:16 40 mg ONETIME ONE Administration Fentanyl 50 mcg 06/09/17 12:36 06/09/17 12:46 Sublimaze IVPUSH 06/09/17 12:37 50 mcg ONETIME ONE Administration Fentanyl 50 mcg 06/09/17 13:15 06/09/17 13:19 Sublimaze IVPUSH 06/09/17 13:16 50 mcg ONETIME ONE Administration Fentanyl 50 mcg 06/09/17 14:40 06/09/17 14:53 Sublimaze IVPUSH 06/09/17 14:41 50 mcg ONETIME ONE Administration Ciprofloxacin/Dextrose 200 mg/ 100 mls @ 100 mls/hr 06/09/17 20:00 Premix IV Q12HR ALEIDA Ondansetron HCl 4 mg 06/09/17 12:15 06/09/17 12:26 Zofran IVPUSH 06/09/17 12:16 4 mg ONETIME ONE Administration Pantoprazole Sodium 40 mg 06/09/17 12:15 06/09/17 12:25 Protonix Iv IVPUSH 06/09/17 12:16 40 mg ONETIME ONE Administration - Radiology Interpretation Free Text/Narrative:: Acute abdominal x-rays showed evidence of large amounts of stool with nonspecific bowel gaseous pattern but no intra-abdominal calcifications, free air, fluid levels, ileus, obstruction, pulmonary infiltrates, cardiomegaly, CHF , or pneumothorax. Moderate scoliosis noted Verbal report at 14:05 hours from lyssa Thakkar tech at [facility], of complete abdominal ultrasound conducted in this facility. Some evidence of moderate gallbladder wall inflammation, edema, and fluid, however no gallbladder sludge, cholelithiasis, or hepatic duct dilatation. Stable bilateral nephrolithiasis Departure - Departure Time of Disposition: 16:29 Disposition: DC/Tfer to Acute Hospital 02 Condition: Fair Clinical Impression: Cholecystitis, Tobacco abuse counseling, Mixed anxiety and depressive disorder Anemia Qualifiers: Anemia type: unspecified type Qualified Code(s): D64.9 - Anemia, unspecified Hypertension Qualifiers: Hypertension type: essential hypertension Qualified Code(s): I10 - Essential ( primary) hypertension Osteoarthritis Qualifiers: Osteoarthritis location: multiple joints Osteoarthritis type: primary Qualified Code(s): M15.0 - Primary generalized (osteo)arthritis - Discharge Information Prescriptions: Ciprofloxacin HCl [Cipro] 500 mg PO BIDMEALS #20 tablet Metronidazole [IJP: metroNIDAZOLE] 500 mg PO .EVERY 8 HOURS #30 tab Omeprazole 20 mg PO BIDAC #20 cap.sr traMADol [Ultram] 50 mg PO Q6H PRN #10 tab PRN Reason: Pain (Severe 7-10) Instructions: Heart-Healthy Eating Plan, [id number], Abdominal Pain, Adult, [id number], Low-Fat Diet for Pancreatitis or Gallbladder Conditions, Cholecystitis, [id number] Referrals: Dotty Villaesñor PA-C [Primary Care Provider] - Forms: ED Department Discharge, Interfacility Transfer EMTALA Additional Instructions: 1. Have someone drive you to [facility] for direct admission for evaluation of possible gallbladder surgery, etc. 2. STRICT nothing to eat or drink until otherwise directed by your [place] physicians - Problem List & Annotations (1) Cholecystitis SNOMED Code(s): 97640847 Code(s): K81.9 - CHOLECYSTITIS, UNSPECIFIED Status: Acute Priority: High Current Visit: Yes Onset Date: ~06/08/17 Annotation/Comment:: Initial significant improvement of patient's symptoms with aggressive IV fentanyl therapy as above. Telephone consultation at 15:00 hours with her regular provider, Dotty Martinez PA-C, at [facility] in [place], who agrees to follow the patient RAMYA in her office for preoperative history and physical and set up of probable surgical consultation and/or laparoscopic cholecystectomy for later this week. Secondary to recurrent abdominal complaints , however, the patient and her mother requested transfer to [facility] in [place]. Subsequent telephone consultation at 15:[address] Bynum, hospitalist at [facility] in [place], who does agree to accept the patient for direct admission, etc., with no further treatment recommendations given. He is aware of private automobile transfer. Note that high-dose IV Pepcid, IV Protonix, and additional IV Flagyl therapy were given in the emergency room. IV Cipro therapy was canceled secondary to initial plans for outpatient oral Cipro , Flagyl, etc. treatment. Note no fever, leukocytosis, etc. (2) Nephrolithiasis SNOMED Code(s): 53973015 Code(s): N20.0 - CALCULUS OF KIDNEY Status: Chronic Priority: Medium Current Visit: No Onset Date: ~06/26/16 Annotation/Comment:: Stable by history with no current colic or other UTI symptoms. Urine specimen could not be obtained. Symptoms are not typical of her previous colic attacks. Note previous history of recurrent bilateral urolithiasis as above with left-sided colic type symptoms today. Note history of right-sided colic on 11/04/16 with no evidence of acute urolithiasis or hydronephrosis during that evaluation in this facility. (3) Tobacco abuse counseling SNOMED Code(s): 800977108, 125089488 Code(s): Z71.6 - TOBACCO ABUSE COUNSELING Status: Chronic Priority: Medium Current Visit: No Annotation/Comment:: Tobacco cessation once again strongly encouraged with information provided at discharge (4) Mixed anxiety and depressive disorder SNOMED Code(s): 763267276 Code(s): F41.8 - OTHER SPECIFIED ANXIETY DISORDERS Status: Chronic Priority: Medium Current Visit: No Annotation/Comment:: Stable by patient history although under somewhat poor control today based on today's evaluation. Continue to observe closely by her regular providers (5) Anemia SNOMED Code(s): 081380027 Code(s): D64.9 - ANEMIA, UNSPECIFIED Status: Chronic Priority: Medium Current Visit: Yes Onset Date: 07/15/16 Annotation/Comment:: Mild persistent microcytic anemia today. Further workup depending on her clinical course Qualifiers: Anemia type: other cause Other causes of anemia: other cause, not classified Qualified Code(s): D64.89 - Other specified anemias (6) Hypertension SNOMED Code(s): 31325327 Code(s): I10 - ESSENTIAL (PRIMARY) HYPERTENSION Status: Chronic Priority : Medium Current Visit: Yes Annotation/Comment:: Blood pressures under good control in the emergency room in spite of abdominal pain. No medical therapy to this point as above Qualifiers: Hypertension type: essential hypertension Qualified Code(s): I10 - Essential (primary) hypertension (7) Osteoarthritis SNOMED Code(s): 479892447 Code(s): M19.90 - UNSPECIFIED OSTEOARTHRITIS, UNSPECIFIED SITE Status: Chronic Priority: Medium Current Visit: Yes Annotation/Comment:: Otherwise Stable by history Qualifiers: Osteoarthritis location: multiple joints Osteoarthritis type: primary Qualified Code(s): M15.0 - Primary generalized (osteo)arthritis - Problem List Review Problem List Initiated/Reviewed/Updated: Yes - My Orders Last 24 Hours: My Active Orders 06/09/17 12:15 Peripheral IV Care [RC] . DIRECTED Abdomen Series w Chest 1V [CR] Stat CULTURE URINE [RM] Stat H PYLORI STOOL ANTIGEN [MREF] Urgent OCCULT BLOOD DIAGNOSTIC [OP] Stat UA W/MICROSCOPIC [URIN] Urgent Sodium Chloride 0.9% [Saline Flush] 10 ml FLUSH ASDIRECTED PRN metroNIDAZOLE/Normal Saline [Flagyl 500 MG in NS 100 ML] 500 mg Premix Bag 1 bag IV Q8H Blood Culture x2 Reflex Set [OM.PC] Urgent Obtain Past Medical Record [OM.PC] Urgent Peripheral IV Insertion Adult [OM.PC] Stat Resuscitation Status Stat 06/09/17 12:17 Abdomen Comp [US] Stat 06/09/17 12:29 CULTURE BLOOD [BC] Stat 06/09/17 12:33 CULTURE BLOOD [BC] Stat 06/09/17 Breakfast Nothing Per Oral Diet [DIET] - Assessment/Plan Last 24 Hours: My Active Orders 06/09/17 12:15 Peripheral IV Care [RC] . DIRECTED Abdomen Series w Chest 1V [CR] Stat CULTURE URINE [RM] Stat H PYLORI STOOL ANTIGEN [MREF] Urgent OCCULT BLOOD DIAGNOSTIC [OP] Stat UA W/MICROSCOPIC [URIN] Urgent Sodium Chloride 0.9% [Saline Flush] 10 ml FLUSH ASDIRECTED PRN metroNIDAZOLE/Normal Saline [Flagyl 500 MG in NS 100 ML] 500 mg Premix Bag 1 bag IV Q8H Blood Culture x2 Reflex Set [OM.PC] Urgent Obtain Past Medical Record [OM.PC] Urgent Peripheral IV Insertion Adult [OM.PC] Stat Resuscitation Status Stat 06/09/17 12:17 Abdomen Comp [US] Stat 06/09/17 12:29 CULTURE BLOOD [BC] Stat 06/09/17 12:33 CULTURE BLOOD [BC] Stat 06/09/17 Breakfast Nothing Per Oral Diet [DIET] Assessment:: As above Plan: As above. Extensive precautions were given to the patient and her mother, who are in agreement with the treatment plan. See Patient Instructions for further treatment and plan.
[2017-06-09] MEDS: Famotidine 20 MG/2 ML SDV IVPUSH ONE ×2 (12:26→12:42)
[2017-06-09] MEDS ORDERED: fentaNYL 100 MCG/2 ML SDV IVPUSH ONE ×3 (12:36→14:40)
[2017-06-09] MEDS ORDERED: Ciprofloxacin in D5W 200 MG in Premix Bag 1 BAG IV SCH ×2 (20:00)
== END 2017-06-09 16:29 ==
LOC: LL.ED 11:55
DX: K81.9 Cholecystitis, unspecified (principal); F41.8 Other specified anxiety disorders; D64.9 Anemia, unspecified; M15.0 Primary generalized (osteo)arthritis; I10 Essential (primary) hypertension; F17.210 Nicotine dependence, cigarettes, uncomplicated; Z88.1 Allergy status to other antibiotic agents; Z88.0 Allergy status to penicillin; Z79.899 Other long term (current) drug therapy
CPT/HCPCS: 36415; 74022; 76700; 80053; 82150; 83605; 83690; 83735; 84550; 85025; 85610; 85730; 87040; 96365; 96375; 96376; 99285; C9113; J2405; J3010; S0028

== ENCOUNTER 2017-08-21 14:52 | Emergency (ER) | payer MEDICAID ==
[2017-08-21] MEDS: Ketorolac 60 MG/2 ML SDV IM ONE (15:24)
[2017-08-21 15:29] LABS: CHLORIDE,CL 105 mmol/L (98-107); SODIUM,NA 140 mmol/L (136-145)
[2017-08-21] MEDS ORDERED: Sodium Chloride 0.9% 10 ML Syringe FLUSH PRN (15:41)
[2017-08-21] MEDS ORDERED: Ondansetron 4 MG/2 ML SDV IVPUSH ONE (15:41)
[2017-08-21] MEDS ORDERED: Sodium Chloride 0.9% 1,000 ML IV ONE (15:42)
--- NOTE | 2017-08-21 16:01 | EDM.PDOC ---
ED HPI GENERAL MEDICAL PROBLEM - General Chief Complaint: Genitourinary Problem Stated Complaint: kidney stone Time Seen by Provider: 08/21/17 15:24 Source of Information: Reports: Patient History Limitations: Reports: No Limitations - History of Present Illness INITIAL COMMENTS - FREE TEXT/NARRATIVE: Patient brought in for evaluation of two day history right sided flank pain. Has a very long history of recurrent kidney stones. Feels this is likely a kidney stone issue. Mild nausea present, also has noted hematuria. Chilled at times but no fever. Feels constipated. No emesis. Denies other changes on ROS. Has taken Ibuprofen. Not really helpful. Multiple other chronic medical conditions including obesity, smoking, HTN, anxiety/depression, chronic back pain. Recent gallbladder removal two months ago. Has had hysterectomy. Seen at local [place] clinic yesterday. Had US study (given history of frequent bouts of stones, frequent CT scans are avoided) and was placed on Cipro "just in case" per patient, although she does not remember being diagnosed with actual UTI. Also started yesterday on an "anxiety medication" that she can take "every 6 hours if needed". States she has taken two of them so far. 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 ANALYST: Reports: Other (see below) Other 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 ANALYST: nausea medication Back Pain Score (Numeric/FACES): 10 - Related Data Allergies Allergy/AdvReac Type Severity Reaction Status Date / Time amoxicillin Allergy Hives Verified 08/21/17 15:10 cephalexin [From Keflex] Allergy Hives Verified 08/21/17 15:10 erythromycin base Allergy Hives Verified 08/21/17 15:10 Penicillins Allergy Hives Verified 08/21/17 15:10 Home Meds: Home Meds Hydrochlorothiazide 25 mg PO BID 01/03/16 [History] Potassium Chloride [K-Tab ER] 10 meq PO DAILY 01/03/16 [History] Ibuprofen [Motrin] 600 mg PO Q6HR PRN 06/26/16 [History] Melatonin 1 tab PO BEDTIME PRN 06/26/16 [History] Cyclobenzaprine [Flexeril] 10 mg PO TID PRN #30 tablet 02/11/17 [Rx] Ciprofloxacin HCl [Cipro] 500 mg PO BIDMEALS #20 tablet 06/09/17 [Rx] Acetaminophen/oxyCODONE [Percocet 325-5 MG] 1 each PO Q6H PRN #12 tab 08/21/17 [ Rx] Ketorolac Tromethamine [IMW: Ketorolac Tromethamine] 10 mg PO Q6HR PRN #12 tab 08/21/17 [Rx] LORazepam 0.5 mg PO QID PRN 08/21/17 [History] Magnesium Citrate 1 bottle PO ASDIRECTED #2 solution 08/21/17 [Rx] Past Medical History HEENT History: Reports: Impaired Vision, Other (See Below) Other HEENT History: Wears glasses Cardiovascular History: Reports: Hypertension, Other (See Below) Other Cardiovascular History: Patient not taking medications for her hypertension with diuretic for her recurrent urolithiasis by her history, she does not know her cholesterol status Respiratory History: Reports: Intubation, Previous Gastrointestinal History: Reports: Chronic Constipation Genitourinary History: Reports: Hydronephrosis, Renal Calculus, Other (See Below ) Other Genitourinary History: Spontaneous passage of urinary stones with last episode of urolithiasis in November 2016 with known moderate bilateral nephrolithiasis by ultrasound since 12/09/16, Recurrent bilateral urolithiasis since 2005 with history of mild right-sided hydronephrosis on 03/10/16 and recurrent lithotripsies as below; neurogenic bladder as below DEPORTATION OFFICER History: Reports: Dysfunctional Uterine Bleeding, , Spontaneous Other OB/BYN History: Recurrent left-sided ovarian cyst, fibrocystic breast disease, dysmenorrhea: Surgical menopause as below Musculoskeletal History: Reports: Arthritis, Back Pain, Chronic, Fracture, Osteoarthritis, Other (See Below) Other Musculoskeletal History: Right wrist fracture at age 15 Neurological History: Reports: Neuropathy, Peripheral, Other (See Below) Other Neuro History: Cauda equina syndrome with neurogenic bladder Psychiatric History: Reports: Addiction, Anxiety, Depression, Other (See Below) Other Psychiatric History: Chronic Narcotic use, chronic insomnia Endocrine/Metabolic History: Reports: Obesity/BMI 30+ Hematologic History: Reports: None Immunologic History: Reports: None Oncologic (Cancer) History: Reports: Cervix, Other (See Below) Other Oncologic History: Multiple previous abnormal Pap smears of unknown type with resolution after cryotherapy 1999 Dermatologic History: Reports: Other (See Below) Other Dermatologic History: Acne - Infectious Disease History Infectious Disease History: Reports: Chicken Pox, Shingles - Past Surgical History Head Surgeries/Procedures: Reports: None HEENT Surgical History: Reports: Adenoidectomy, Tonsillectomy, Other (See Below) Other HEENT Surgeries/Procedures: Tonsillectomy and adenoidectomy at age 16 Cardiovascular Surgical History: Reports: None Respiratory Surgical History: Reports: None GI Surgical History: Reports: Appendectomy, Cholecystectomy, Other (See Below) Other GI Surgeries/Procedures: Appendectomy at age 15, Female Surgical History: Reports: Section, Cervical Cryotherapy, D&C , Hysterectomy, Lithotripsy/ESWL, Tubal Ligation, Ureteral Stent, Other (See Below) Other Female Surgeries/Procedures: Hysterectomy on 01/02/17 secondary to dysfunctional uterine bleeding, 2 as above, D&C secondary to SAB as above, bilateral tubal ligation in 2007, recurrent lithotripsies with last left- sided lithotripsy in June 2016 with 2 previous lithotripsies on the left side and also left ureteral stent placement in 2008 with subsequent removal, cervical cryotherapy in 1999 secondary to atypical Pap smears as above Endocrine Surgical History: Reports: None Neurological Surgical History: Reports: None Musculoskeletal Surgical History: Reports: None Oncologic Surgical History: Reports: None Dermatological Surgical History: Reports: None - Past Imaging History Past Imaging History: Reports: CAT Scan (Last CT of the abdomen and pelvis with stone protocol on 11/04/16 with bilateral nephrolithiasis but no evidence of urolithiasis or hydronephrosis, previous CT scan of the abdomen and pelvis on 06/27/16 positive for left-sided urolithiasis, CT of the lumbar spine on 03/10/16 with right-sided urolithiasis and mild hydronephrosis with additional osteoarthritic changes), Mammogram (Last mammogram on 06/03/16), Ultrasound ( Renal ultrasound on 12/09/16, Left breast ultrasound on 06/03/16, pelvic ultrasound on 07/26/16) Social & Family History - Tobacco Use Smoking Status *Q: Current Every Day Smoker Years of Tobacco use: 18 Packs/Tins Daily: 0.3 Used Tobacco, but Quit: No Second Hand Smoke Exposure: Yes - Caffeine Use Caffeine Use: Reports: None - Alcohol Use Days Per Week of Alcohol Use: 0 (No previous DWIs, problems with alcohol abuse, etc.) - Recreational Drug Use Recreational Drug Use: No Drug Use in Last 12 Months: No - Living Situation & Occupation Living situation: Reports: Single, with Significant Other (And her 1 child from previous significant other relationships with another child not currently living with her). 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 Denies: Fever, Weakness, Fatigue, Diaphoresis , Decreased Appetite, Weight Loss, Weight Gain HEENT: Reports: No Symptoms Respiratory: Reports: No Symptoms Cardiovascular: Reports: No Symptoms GI/Abdominal: Reports: Abdominal Pain (right sided), Constipation, Nausea. Denies: Diarrhea, Hematemesis, Hematochezia, Vomiting : Reports: Flank Pain, Hematuria. Denies: Incontinence Musculoskeletal: Reports: No Symptoms (no acute changes in chronic baseline pain ) Skin: Reports: No Symptoms Neurological: Reports: No Symptoms Psychiatric: Reports: No Symptoms Hematologic/Lymphatic: Reports: No Symptoms ED EXAM, RENAL/ - Physical Exam Exam: See Below Exam Limited By: No Limitations General Appearance: Alert, Anxious, Mild Distress, Obese Eye Exam: Bilateral Eye: EOMI, PERRL Ears: Normal External Exam Nose: No: Nasal Deformity, Nasal Swelling, Nasal Drainage Throat/Mouth: Normal Inspection, Normal Lips, Normal Voice, No Airway Compromise Head: Atraumatic, Normocephalic Neck: Normal Inspection, Supple, Non-Tender, Full Range of Motion Respiratory/Chest: No Respiratory Distress, Lungs Clear, Normal Breath Sounds, No Accessory Muscle Use, Chest Non-Tender Cardiovascular: Normal Peripheral Pulses, Regular Rate, Rhythm, No Edema, No Murmur GI/Abdominal: Soft (obese), No Distention, Tender (mild tenderness right mid abdomen). No: Guarding, Rigid, Rebound (Female) Exam: Deferred Rectal (Female) Exam: Deferred Back Exam: CVA Tenderness (R). No: CVA Tenderness (L) Extremities: Normal Inspection, Non-Tender, No Pedal Edema, Normal Capillary Refill Neurological: Alert, Oriented, Normal Cognition, No Motor/Sensory Deficits Psychiatric: Anxious Skin Exam: Warm, Dry, Intact, Normal Color Course - Vital Signs Last Recorded V/S: Last Vital Signs Temp 36.7 C 08/21/17 15:03 Pulse 76 08/21/17 16:00 Resp 18 08/21/17 16:00 BP 135/76 08/21/17 16:00 Pulse Ox 98 08/21/17 16:00 - Orders/Labs/Meds Orders: Active Orders 24 hr Category Date Time Status Abdomen Pelvis wo Cont [CT] Stat Exams 08/21/17 15:40 Taken UA W/MICROSCOPIC [URIN] Stat Lab 08/21/17 15:03 Ordered Sodium Chloride 0.9% [Saline Flush] Med 08/21/17 15:41 Active 10 ml FLUSH ASDIRECTED PRN Saline Lock Insert [OM.PC] Routine Oth 08/21/17 15:41 Ordered Medication Orders Sodium Chloride (Saline Flush) 10 ml FLUSH ASDIRECTED PRN PRN Reason: Keep Vein Open Labs: Laboratory Tests 08/21/17 08/21/17 08/21/17 Range/Units 15:03 15:15 15:15 WBC 5.5 (4.0-10.2) K/uL RBC 4.18 (3.77-5.09) M/uL Hgb 11.8 (11.7-15.5) g/dL Hct 34.9 (34.0-46.0) % MCV 83.5 L (84.0-98.0) fL MCH 28.2 (28.2-33.3) pg MCHC 33.8 (31.7-36.0) g/dL RDW 13.9 (11.2-14.1) % Plt Count 399 H (150-350) K/uL Neut % (Auto) 56.0 (45.0-80.0) % Lymph % (Auto) 36.2 (10.0-50.0) % [place] % (Auto) 6.7 (2.0-14.0) % Eos % (Auto) 0.9 (0.0-5.0) % Baso % (Auto) 0.2 (0.0-2.0) % Neut # (Auto) 3.08 (1.40-7.00) K/uL Lymph # (Auto) 1.99 (0.50-3.50) K/uL [place] # (Auto) 0.37 (0.00-1.00) K/uL Eos # (Auto) 0.05 (0.00-0.50) K/uL Baso # (Auto) 0.01 (0.00-0.20) K/uL Sodium 140 (136-145) mmol/L Potassium 3.9 (3.5-5.1) mmol/L Chloride 105 (98-107) mmol/L Carbon Dioxide 24.6 (21.0-32.0) mmol/L BUN 16 (7-18) mg/dL Creatinine 0.93 (0.51-1.17) mg/dL Est Cr Clr Drug Dosing TNP Estimated GFR (MDRD) > 60 mL/min Glucose 96 (74-106) mg/dL Calcium 8.6 (8.5-10.1) mg/dL Specimen Type Urincc Urine Color [place] Urine Appearance Clear Urine pH 6.5 (5.0-9.0) Ur Specific [place] 1.025 (1.005-1.030) Urine Protein 30 H (NEGATIVE) mg/dL Urine Glucose (UA) Negative (NEGATIVE) mg/dL Urine Ketones Negative (NEGATIVE) mg/dL Urine Occult Blood Large H (NEGATIVE) Urine Nitrite Negative (NEGATIVE) Urine Bilirubin Negative (NEGATIVE) Urine Urobilinogen 0.2 (0.2-1.0) E.U./dL Ur Leukocyte Esterase Negative (NEGATIVE) Urine RBC >100 H /HPF Urine WBC 0-5 /HPF Ur Epithelial Cells Moderate H /LPF Urine Bacteria Few (NONE TO FEW) /HPF Meds: Medications Generic Name Dose Route Start Last Admin Trade Name Freq PRN Reason Stop Dose Admin Sodium Chloride 10 ml 08/21/17 15:41 Saline Flush FLUSH ASDIRECTED PRN Keep Vein Open Discontinued Medications Generic Name Dose Route Start Last Admin Trade Name Freq PRN Reason Stop Dose Admin Sodium Chloride 1,000 mls @ 999 mls/hr 08/21/17 15:42 Normal Saline IV 08/21/17 16:42 .BOLUS ONE Ketorolac Tromethamine 60 mg 08/21/17 15:10 08/21/17 15:24 Toradol IM 08/21/17 15:11 60 mg ONETIME ONE Administration Ondansetron HCl 4 mg 08/21/17 15:41 Zofran IVPUSH 08/21/17 15:42 ONETIME ONE Oxycodone/Acetaminophen 2 tab 08/21/17 16:06 08/21/17 16:17 Percocet 325-5 Mg PO 08/21/17 16:07 2 tab ONETIME ONE Administration Tamsulosin HCl 0.4 mg 08/21/17 15:33 08/21/17 16:18 Flomax PO 08/21/17 15:34 0.4 mg ONETIME ONE Administration - Radiology Interpretation Free Text/Narrative:: No obvious stones noted in ureter. Patient does have stones noted within both kidneys. No hydro. No evidence of acute abdomen. Does have stool throughout the colon. CT Results Date: 08/21/17 CT Results Time: 05:25 - Re-Assessments/Exams Free Text/Narrative Re-Assessment/Exam: Patient given Toradol IM in ER. CT ordered to look for stones or other abnormalities given her recent surgery. Patient has not had a scan since last October. Pain improved with Toradol. She did however request additional pain medication. PO Percocet ordered. Patient has history of narcotic abuse/dependency. IV and IM narcotics were avoided due to this and fact that pain had improved with Toradol. Possible admission to observation for IV fluids and pain management discussed. Patient wanted to think about that as she wished to go home. Flomax given after UA confirmed hematuria. Patient recognized that medication and volunteered info that she had a "bunch" of that at home from her other doctors and was told to take it for a week if she had stone symptoms. She had not, however, taken any during the last two days when she developed stone symptoms. CBC/Chem overall unremarkable. Suspect constipation present given CT scan and patient self-report of constipation and this may be contributing to abdominal pain complaint. CT scan did not show obvious stone in ureter. However given the hematuria, cannot rule out small stone in ureter that could be missed by scan. Patient decided that she wished to go home. She would like to work tomorrow. Small Rx for Toradol as well as Percocet given. Patient made aware that avoidance of excess narcotics is important given her history and she appeared agreeable. Will have her continue to see if she passes a stone. Will also have her treat with Mag Citrate to help with constipation and see if promoting a bowel movement will improve her pain. She is to follow up with [facility] and is to follow up at the ER if she has sudden worsening problems. Departure - Departure Time of Disposition: 16:55 Disposition: Home, Self-Care 01 Condition: Good Clinical Impression: Nephrolithiasis, Right flank pain Constipation Qualifiers: Constipation type: unspecified constipation type Qualified Code(s): K59.00 - Constipation, unspecified Hematuria Qualifiers: Hematuria type: unspecified type Qualified Code(s): R31.9 - Hematuria, unspecified - Discharge Information Prescriptions: Ketorolac Tromethamine [IMW: Ketorolac Tromethamine] 10 mg PO Q6HR PRN #12 tab PRN Reason: Pain Acetaminophen/oxyCODONE [Percocet 325-5 MG] 1 each PO Q6H PRN #12 tab PRN Reason: Pain Magnesium Citrate 1 bottle PO ASDIRECTED #2 solution Instructions: Constipation, Adult, [id number] Referrals: PCP,Unknown [Primary Care Provider] - Forms: ED Department Discharge Additional Instructions: Take medications as prescribed, including your Flomax that you have at home. Drink plenty of water. Staff will contact you once we have official Radiology report concerning if stones are present and size of stones. You may need to be referred to Urology if you have a large stone that is not likely to pass on its own. Otherwise you are to follow up as needed with [facility]. Follow up in ER as needed if you have more severe problems. - My Orders Last 24 Hours: My Active Orders 08/21/17 15:03 UA W/MICROSCOPIC [URIN] Stat 08/21/17 15:40 Abdomen Pelvis wo Cont [CT] Stat 08/21/17 15:41 Sodium Chloride 0.9% [Saline Flush] 10 ml FLUSH ASDIRECTED PRN Saline Lock Insert [OM.PC] Routine - Assessment/Plan Last 24 Hours: My Active Orders 08/21/17 15:03 UA W/MICROSCOPIC [URIN] Stat 08/21/17 15:40 Abdomen Pelvis wo Cont [CT] Stat 08/21/17 15:41 Sodium Chloride 0.9% [Saline Flush] 10 ml FLUSH ASDIRECTED PRN Saline Lock Insert [OM.PC] Routine
[2017-08-21 16:03] VITALS: BP 135/76
[2017-08-21] MEDS: Acetaminophen/oxyCODONE 325-5 MG Tab PO ONE (16:17)
[2017-08-21] MEDS: Tamsulosin 0.4 MG Cap.ER PO ONE (16:18)
== END 2017-08-21 17:20 | disposition home or self-care (01) ==
LOC: LL.ED 14:52
DX: N20.0 Calculus of kidney (principal); K59.00 Constipation, unspecified; R31.9 Hematuria, unspecified; E66.9 Obesity, unspecified; I10 Essential (primary) hypertension; F17.210 Nicotine dependence, cigarettes, uncomplicated; Z88.1 Allergy status to other antibiotic agents; Z88.0 Allergy status to penicillin; Z88.8 Allergy status to other drugs, medicaments and biological substances; Z79.899 Other long term (current) drug therapy
CPT/HCPCS: 36415; 74176; 80048; 81001; 85025; 96372; 99284; A9270-GY; J1885

== ENCOUNTER 2017-10-25 15:52 | Emergency (ER) | payer MEDICAID ==
[2017-10-25] MEDS: Ketorolac 60 MG/2 ML SDV IM ONE (16:02)
[2017-10-25] MEDS ORDERED: Sodium Chloride 0.9% 10 ML Syringe FLUSH PRN (16:18)
[2017-10-25] MEDS: Tamsulosin 0.4 MG Cap.ER PO ONE (16:18)
--- NOTE | 2017-10-25 16:18 | EDM.PDOC ---
ED HPI GENERAL MEDICAL PROBLEM - General Chief Complaint: General Stated Complaint: R FLANK PAIN Time Seen by Provider: 10/25/17 16:00 Source of Information: Reports: Patient History Limitations: Reports: No Limitations - History of Present Illness INITIAL COMMENTS - FREE TEXT/NARRATIVE: patient is a 37-year-old female with long history of multiple nephrlithiasis has had multiple Scan. Patientpresentsright flank painrating radiating down just a similar episodes in the past at this time her urine is positive for RBCs and gross blood Onset: Today Duration: Hour(s):, Intermittent Location: Reports: Abdomen Quality: Reports: Burning (with urination and sharp) Severity: Severe Improves with: Reports: Movement Worsens with: Reports: Rest Right Flank Pain Score (Numeric/FACES): 7 - Related Data Allergies Allergy/AdvReac Type Severity Reaction Status Date / Time amoxicillin Allergy Hives Verified 10/25/17 15:59 cephalexin [From Keflex] Allergy Hives Verified 10/25/17 15:59 erythromycin base Allergy Hives Verified 10/25/17 15:59 Penicillins Allergy Hives Verified 10/25/17 15:59 Home Meds: Home Meds Hydrochlorothiazide 25 mg PO BID 01/03/16 [History] Potassium Chloride [K-Tab ER] 10 meq PO DAILY 01/03/16 [History] Ibuprofen [Motrin] 600 mg PO Q6HR PRN 06/26/16 [History] Melatonin 2 tab PO BEDTIME PRN 06/26/16 [History] Past Medical History HEENT History: Reports: Impaired Vision, Other (See Below) Other HEENT History: Wears glasses Cardiovascular History: Reports: Hypertension, Other (See Below) Other Cardiovascular History: Patient not taking medications for her hypertension with diuretic for her recurrent urolithiasis by her history, she does not know her cholesterol status Respiratory History: Reports: Intubation, Previous Gastrointestinal History: Reports: Chronic Constipation Genitourinary History: Reports: Hydronephrosis, Renal Calculus, Other (See Below ) Other Genitourinary History: Spontaneous passage of urinary stones with last episode of urolithiasis in November 2016 with known moderate bilateral nephrolithiasis by ultrasound since 12/09/16, Recurrent bilateral urolithiasis since 2005 with history of mild right-sided hydronephrosis on 03/10/16 and recurrent lithotripsies as below; neurogenic bladder as below ELDERLY COMPANION History: Reports: Dysfunctional Uterine Bleeding, , Spontaneous Other OB/BYN History: Recurrent left-sided ovarian cyst, fibrocystic breast disease, dysmenorrhea: Surgical menopause as below Musculoskeletal History: Reports: Arthritis, Back Pain, Chronic, Fracture, Osteoarthritis, Other (See Below) Other Musculoskeletal History: Right wrist fracture at age 15 Neurological History: Reports: Neuropathy, Peripheral, Other (See Below) Other Neuro History: Cauda equina syndrome with neurogenic bladder Psychiatric History: Reports: Addiction, Anxiety, Depression, Other (See Below) Other Psychiatric History: Chronic Narcotic use, chronic insomnia Endocrine/Metabolic History: Reports: Obesity/BMI 30+ Hematologic History: Reports: None Immunologic History: Reports: None Oncologic (Cancer) History: Reports: Cervix, Other (See Below) Other Oncologic History: Multiple previous abnormal Pap smears of unknown type with resolution after cryotherapy 1999 Dermatologic History: Reports: Other (See Below) Other Dermatologic History: Acne - Infectious Disease History Infectious Disease History: Reports: Chicken Pox, Shingles - Past Surgical History Head Surgeries/Procedures: Reports: None HEENT Surgical History: Reports: Adenoidectomy, Tonsillectomy, Other (See Below) Other HEENT Surgeries/Procedures: Tonsillectomy and adenoidectomy at age 16 Cardiovascular Surgical History: Reports: None Respiratory Surgical History: Reports: None GI Surgical History: Reports: Appendectomy, Cholecystectomy, Other (See Below) Other GI Surgeries/Procedures: Appendectomy at age 15, Female Surgical History: Reports: Section, Cervical Cryotherapy, D&C , Hysterectomy, Lithotripsy/ESWL, Tubal Ligation, Ureteral Stent, Other (See Below) Other Female Surgeries/Procedures: Hysterectomy on 01/02/17 secondary to dysfunctional uterine bleeding, 2 as above, D&C secondary to SAB as above, bilateral tubal ligation in 2007, recurrent lithotripsies with last left- sided lithotripsy in June 2016 with 2 previous lithotripsies on the left side and also left ureteral stent placement in 2008 with subsequent removal, cervical cryotherapy in 1999 secondary to atypical Pap smears as above Endocrine Surgical History: Reports: None Neurological Surgical History: Reports: None Musculoskeletal Surgical History: Reports: None Oncologic Surgical History: Reports: None Dermatological Surgical History: Reports: None - Past Imaging History Past Imaging History: Reports: CAT Scan (Last CT of the abdomen and pelvis with stone protocol on 11/04/16 with bilateral nephrolithiasis but no evidence of urolithiasis or hydronephrosis, previous CT scan of the abdomen and pelvis on 06/27/16 positive for left-sided urolithiasis, CT of the lumbar spine on 03/10/16 with right-sided urolithiasis and mild hydronephrosis with additional osteoarthritic changes), Mammogram (Last mammogram on 06/03/16), Ultrasound ( Renal ultrasound on 12/09/16, Left breast ultrasound on 06/03/16, pelvic ultrasound on 07/26/16) Social & Family History - Caffeine Use Caffeine Use: Reports: None - Living Situation & Occupation Living situation: Reports: Single, with Significant Other (And her 1 child from previous significant other relationships with another child not currently living with her). 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[place]) ED ROS GENERAL - Review of Systems Review Of Systems: See Below ED EXAM, GENERAL - Physical Exam Exam: See Below Exam Limited By: No Limitations General Appearance: Alert, WD/WN, Severe Distress Ears: Normal External Exam, Normal Canal, Hearing Grossly Normal, Normal TMs Nose: Normal Inspection, Normal Mucosa, No Blood Throat/Mouth: Normal Inspection, Normal Lips, Normal Teeth, Normal Gums, Normal Oropharynx, Normal Voice, No Airway Compromise Head: Atraumatic, Normocephalic Neck: Normal Inspection, Supple, Non-Tender, Full Range of Motion Respiratory/Chest: No Respiratory Distress, Lungs Clear, Normal Breath Sounds, No Accessory Muscle Use, Chest Non-Tender Cardiovascular: Normal Peripheral Pulses, Regular Rate, Rhythm, No Edema, No Gallop, No JVD, No Murmur, No Rub GI/Abdominal: Normal Bowel Sounds, Soft, Non-Tender, No Organomegaly, No Distention, No Abnormal Bruit, No Mass, Tender, Other (right flank pain CVA tenderness to palpation) (Female) Exam: Deferred Rectal (Female) Exam: Deferred Back Exam: Normal Inspection, Full Range of Motion, NT Extremities: Normal Inspection, Normal Range of Motion, Non-Tender, Normal Capillary Refill, No Pedal Edema Neurological: Alert Psychiatric: Normal Affect, Normal Mood Skin Exam: Warm, Dry, Intact, Normal Color, No Rash Course - Vital Signs Last Recorded V/S: Last Vital Signs Temp 97.6 F 10/25/17 15:53 Pulse 68 10/25/17 16:51 Resp 16 10/25/17 16:51 BP 133/92 H 10/25/17 16:51 Pulse Ox 100 10/25/17 16:51 - Orders/Labs/Meds Orders: Active Orders 24 hr Category Date Time Status Abdomen 1V Upright [CR] Stat Exams 10/25/17 16:24 Taken UA W/MICROSCOPIC [URIN] Stat Lab 10/25/17 16:08 Ordered Sodium Chloride 0.9% [Saline Flush] Med 10/25/17 16:18 Active 10 ml FLUSH ASDIRECTED PRN Saline Lock Insert [OM.PC] Stat Oth 10/25/17 16:18 Ordered Medication Orders Sodium Chloride (Saline Flush) 10 ml FLUSH ASDIRECTED PRN PRN Reason: Keep Vein Open Labs: Laboratory Tests 10/25/17 Range/Units 16:08 Specimen Type Urincc Urine Color [place] Urine Appearance Slightly cloudy Urine pH 7.0 (5.0-9.0) Ur Specific [place] 1.015 (1.005-1.030) Urine Protein Negative (NEGATIVE) mg/dL Urine Glucose (UA) Negative (NEGATIVE) mg/dL Urine Ketones Negative (NEGATIVE) mg/dL Urine Occult Blood Large H (NEGATIVE) Urine Nitrite Negative (NEGATIVE) Urine Bilirubin Negative (NEGATIVE) Urine Urobilinogen 0.2 (0.2-1.0) E.U./dL Ur Leukocyte Esterase Negative (NEGATIVE) Urine RBC >100 H /HPF Urine WBC 0-5 /HPF Ur Epithelial Cells Moderate H /LPF Urine Bacteria Rare (NONE TO FEW) /HPF Meds: Medications Generic Name Dose Route Start Last Admin Trade Name Freq PRN Reason Stop Dose Admin Sodium Chloride 10 ml 10/25/17 16:18 Saline Flush FLUSH ASDIRECTED PRN Keep Vein Open Discontinued Medications Generic Name Dose Route Start Last Admin Trade Name Freq PRN Reason Stop Dose Admin Hydromorphone HCl 1 mg 10/25/17 16:19 10/25/17 16:27 Dilaudid IVPUSH 10/25/17 16:20 1 mg ONETIME ONE Administration Ketorolac Tromethamine 60 mg 10/25/17 15:59 10/25/17 16:02 Toradol IM 10/25/17 16:00 60 mg ONETIME ONE Administration Ondansetron HCl 4 mg 10/25/17 16:25 Zofran IVPUSH 10/25/17 16:26 ONETIME ONE Promethazine HCl 25 mg 10/25/17 16:32 10/25/17 16:35 Phenergan IM 10/25/17 16:33 25 mg ONETIME ONE Administration Tamsulosin HCl 0.4 mg 10/25/17 16:13 10/25/17 16:18 Flomax PO 10/25/17 16:14 0.4 mg ONETIME ONE Administration Departure - Departure Time of Disposition: 16:53 Disposition: Home, Self-Care 01 Condition: Fair Clinical Impression: Nephrolithiasis, Renal colic on right side, Right flank pain - Discharge Information Instructions: Kidney Stones, [id number] Referrals: Dotty Villaseñor PA-C [Primary Care Provider] - Forms: ED Department Discharge Care Plan Goals: atient given Toradol IV with very little in improvement within half an houra second dose ofDilaudid was givenpatient was given Flomax 0.4 by mouth stat a KUB will be obtained patient will be sent home on Toradol by mouth and Flomax which she already has at home follow up with primary if no improvement CAT scan was not obtained secondary to mono exposure from previous CAT scan and the fact that symptoms are consistent with previous CAT scans and findings - My Orders Last 24 Hours: My Active Orders 10/25/17 16:08 UA W/MICROSCOPIC [URIN] Stat 10/25/17 16:18 Sodium Chloride 0.9% [Saline Flush] 10 ml FLUSH ASDIRECTED PRN Saline Lock Insert [OM.PC] Stat 10/25/17 16:24 Abdomen 1V Upright [CR] Stat - Assessment/Plan Last 24 Hours: My Active Orders 10/25/17 16:08 UA W/MICROSCOPIC [URIN] Stat 10/25/17 16:18 Sodium Chloride 0.9% [Saline Flush] 10 ml FLUSH ASDIRECTED PRN Saline Lock Insert [OM.PC] Stat 10/25/17 16:24 Abdomen 1V Upright [CR] Stat
[2017-10-25] MEDS: HYDROmorphone 1 MG/ML Syringe IVPUSH ONE (16:27)
[2017-10-25] MEDS: Promethazine 25 MG/ML SDV IM ONE (16:35)
[2017-10-25 17:02] VITALS: BP 129/91
[2017-10-25] MEDS: Ondansetron 4 MG/2 ML SDV IVPUSH ONE (17:36)
== END 2017-10-25 17:17 | disposition home or self-care (01) ==
LOC: LL.ED 15:52
DX: N20.0 Calculus of kidney (principal); I10 Essential (primary) hypertension; F41.9 Anxiety disorder, unspecified; F32.9 Major depressive disorder, single episode, unspecified; Z88.0 Allergy status to penicillin; Z88.1 Allergy status to other antibiotic agents; Z79.899 Other long term (current) drug therapy; E66.9 Obesity, unspecified
CPT/HCPCS: 74018; 81001; 96372; 96374; 99284; A9270-GY; J1170; J1885; J2550

== ENCOUNTER 2018-10-08 10:45 | Observation (INO) | payer SELFPAY ==
[2018-10-08] MEDS ORDERED: Metoprolol Tartrate 5 MG/5 ML SDV IVPUSH ONE (10:54)
[2018-10-08] MEDS ORDERED: Famotidine 20 MG/2 ML SDV IVPUSH ONE (10:54)
[2018-10-08] MEDS ORDERED: Ticagrelor 90 MG Tab PO ONE (10:54)
[2018-10-08] MEDS ORDERED: Aspirin 81 MG Tab.Chew CHEW ONE (10:54)
--- NOTE | 2018-10-08 10:54 | EDM.PDOC ---
ED HPI GENERAL MEDICAL PROBLEM - General Chief Complaint: Chest Pain Stated Complaint: chest pain Time Seen by Provider: 10/08/18 10:53 Source of Information: Reports: Patient, Family (Mother), Old Records ([facility] EMR. No paper hospital chart available.) History Limitations: Reports: No Limitations - History of Present Illness INITIAL COMMENTS - FREE TEXT/NARRATIVE: The patient was brought to the emergency room via private automobile by her mother for evaluation of 4r/10 retrosternal chest pressure with radiation to her left neck, and left arm with left arm paresthesias, dizziness, and near syncope. Her symptoms did start at about 20:00 hours yesterday evening with patient taking 400 mg of Advil, one baby aspirin, 3 Rolaid tablets, and 5 mg of melatonin at 21:00 hours. She was climbing the steps at the [employer] in [place] at about 10:45 AM this morning with sudden return of the above symptoms. She has not taken any further medications today for her above symptoms. The patient denies any heart flutter, orthopnea, diaphoresis, recent decreased exercise tolerance, or any other anginal-type symptoms. No recent history of abdominal pain,nausea, diarrhea, melena, gross hematochezia, or any food intolerance, including fatty foods, etc. although she did have some mild heartburn type symptoms with her above symptoms yesterday evening as above. Note that the patient did have a normal bowel movement yesterday. She denies any gross hematuria, colic, or other UTI symptoms. The patient also denies any recent fever, cough, wheezing, dyspnea, etc.. She also complains of some radiation into the interscapular region bilaterally at this time. Onset: Gradual Onset Date: 10/07/18 Onset Time: 20:00 Duration: Getting Worse, Intermittent Location: Reports: Neck, Chest, Back, Upper Extremity, Left, Radiates to (As above). Denies: Head, Face, Abdomen, Upper Extremity, Right Quality: Reports: Pressure. Denies: Same as Previous Episode Severity: Moderate Improves with: Reports: None Worsens with: Reports: None Context: Reports: Other (As above). Denies: Sick Contact, Trauma Associated Symptoms: Reports: Cough, Syncope (Near-syncope as above). 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: Other Medication(s) (As above) Middle Chest Pain Score (Numeric/FACES): 4 - Related Data Allergies Allergy/AdvReac Type Severity Reaction Status Date / Time amoxicillin Allergy Hives Verified 10/08/18 10:52 cephalexin [From Keflex] Allergy Hives Verified 10/08/18 10:52 erythromycin base Allergy Hives Verified 10/08/18 10:52 Penicillins Allergy Hives Verified 10/08/18 10:52 Home Meds: Home Meds Hydrochlorothiazide 25 mg PO BID 01/03/16 [History] Potassium Chloride [K-Tab ER] 10 meq PO DAILY 01/03/16 [History] Ibuprofen [Motrin] 600 mg PO Q6HR PRN 06/26/16 [History] Tamsulosin HCl [Flomax] 1 tab PO ASDIRECTED PRN 03/04/18 [History] Melatonin 5 mg PO BEDTIME 06/20/18 [History] Aspirin 81 mg PO ONETIME 10/08/18 [History] Calcium Carb/Magnesium Hydrox [Rolaids Chewable Tablet] 3 tab PO ONETIME [History] Past Medical History HEENT History: Reports: Impaired Vision, Macular Degeneration, Otitis Media, Other (See Below). Denies: Allergic Rhinitis, Cataract, Glaucoma, Hard of Hearing, Retinal Detachment Other HEENT History: Wears glasses. History of recurrent bilateral otitis media. Cardiovascular History: Reports: Hypertension, Other (See Below). Denies: Afib , Aneurysm, Arrhythmia, Blood Clots/VTE/DVT, CAD, Heart Failure, Heart Murmur, GA, PVD, Syncope Other Cardiovascular History: Patient not taking medications for her hypertension with diuretic for her recurrent urolithiasis by her history, she does not know her cholesterol status Respiratory History: Reports: Intubation, Previous. Denies: Asthma, Bronchitis , Recurrent, COPD, Intubation, Difficult, PE, Pneumonia, Recurrent, Pneumothorax , Sleep Apnea, TB Gastrointestinal History: Reports: Cholelithiasis, Chronic Constipation, GERD. Denies: Celiac Disease, Chronic Diarrhea, Colon Polyp, Fecal Incontinence, Gastritis, GI Bleed, Hepatitis, Irritable Bowel Syndrome, Jaundice, Pancreatitis , PUD Genitourinary History: Reports: Hydronephrosis, Renal Calculus, Other (See Below ). Denies: STD, Urinary Incontinence, UTI, Recurrent Other Genitourinary History: Known moderate bilateral nephrolithiasis and recurrent urolithiasis by CT scans and ultrasounds as below. Spontaneous passage of multiple urinary stones with previous left-sided episodes on 06/20/18 and 03/04/18 with right-sided colic on 10/25/17 and 08/21/17. Recurrent bilateral urolithiasis since 2005 with history of mild right-sided hydronephrosis on 03/10 and recurrent lithotripsies as below; neurogenic bladder as below PAIN MANAGEMENT NURSE History: Reports: Dysfunctional Uterine Bleeding, Fibroids, , Spontaneous : 3 Para: 2 LMP (Approximate): Other (See Below) Other PAIN MANAGEMENT NURSE History: Recurrent left-sided ovarian cyst, fibrocystic breast disease, dysmenorrhea: Surgical menopause as below. Musculoskeletal History: Reports: Arthritis, Back Pain, Chronic, Fracture, Osteoarthritis, Other (See Below). Denies: Gout, Neck Pain, Chronic, RA, SLE Other Musculoskeletal History: Right wrist fracture at age 15 Neurological History: Reports: Neuropathy, Peripheral, Other (See Below). Denies: Cerebral Aneurysms, CVA, Headaches, Chronic, Head Trauma, Migraines, MS , Parkinson's, Seizure, TIA, Vertigo Other Neuro History: Cauda equina syndrome with neurogenic bladder Psychiatric History: Reports: Addiction, Anxiety, Depression, Other (See Below) . Denies: Abuse, Victim of, ADD, ADHD, Psych Hospitalization(s), Suicide Attempt, Suicidal Ideation Other Psychiatric History: Chronic Narcotic use, chronic insomnia Endocrine/Metabolic History: Reports: Obesity/BMI 30+, Other (See Below). Denies: Diabetes, Gestational, Diabetes, Type I, Diabetes, Type II, Diabetes Mellitus, Type 3c, Hypothyroidism, IDDM Other Endocrine/Metabolic History: Hypomagnesemia. Hematologic History: Reports: None. Denies: Anemia, Blood Transfusion(s), Iron Deficiency Immunologic History: Reports: None. Denies: AIDS, HIV, SLE Oncologic (Cancer) History: Reports: Cervix, Other (See Below). Denies: Basal Cell Carcinoma, Breast, Hodgkin's Lymphoma, Leukemia, Lymphoma, Non-Hodgkin's Lymphoma, Ovarian, Squamous Cell Carcinoma, Uterine Other Oncologic History: Multiple previous abnormal Pap smears of unknown type with resolution after cryotherapy 1999 Dermatologic History: Reports: Other (See Below). Denies: Eczema, Psoriasis Other Dermatologic History: Acne - Infectious Disease History Infectious Disease History: Reports: Chicken Pox, Shingles (Right Upper back at age 11.). Denies: C-Difficile, Measles, Meningitis, Mononucleosis, MRSA, Mumps, Pertussis (Whooping Cough), Rubella, Scarlet Fever, TB, VRE - Past Surgical History Head Surgeries/Procedures: Reports: None HEENT Surgical History: Reports: Adenoidectomy, Myringotomy w Tube(s), Oral Surgery, Tonsillectomy, Other (See Below). Denies: Cataract Surgery, Eye Surgery, Laser Surgery, LASIK, Naso-Sinus Surgery Other HEENT Surgeries/Procedures: Tonsillectomy and adenoidectomy at age 16. My wisdom 2 additional teeth extractions. Bilateral PE tubes child. Cardiovascular Surgical History: Reports: None. Denies: Varicose Respiratory Surgical History: Reports: None. Denies: Thoracentesis GI Surgical History: Reports: Appendectomy, Cholecystectomy, Other (See Below). Denies: Colonoscopy, EGD, Hernia, Inguinal, Hernia Repair/Other, Polypectomy Other GI Surgeries/Procedures: Laparoscopic cholecystectomy on 06/10/17. Appendectomy at age 15. Female Surgical History: Reports: Section, Cervical Cryotherapy, Cystoscopy, D&C, Hysterectomy, Lithotripsy/ESWL, Tubal Ligation, Ureteral Stent , Other (See Below). Denies: Breast Biopsy, Oophorectomy, Salpingo-Oophorectomy Other Female Surgeries/Procedures: Hysterectomy on 01/02/17 secondary to dysfunctional uterine bleeding, 2 at full-term secondary to failure to progress. D&C secondary to SAB in first trimester. bilateral tubal ligation in 2007, recurrent lithotripsies with last left-sided lithotripsy in June 2016 with 2 previous lithotripsies on the left side and also left ureteral stent placement in 2008 with subsequent removal, cervical cryotherapy in 1999 secondary to atypical Pap smears as above Endocrine Surgical History: Reports: None. Denies: Thyroid Biopsy Neurological Surgical History: Reports: None. Denies: C-Spine, Discectomy, Laminectomy, Lumbar Spine, Sacral Spine, Scoliosis, Thoracic Spine, Vertebroplasty Musculoskeletal Surgical History: Reports: None. Denies: Carpal Tunnel, Ganglion Cyst, Joint Replacement, ORIF, Shoulder Surgery Oncologic Surgical History: Reports: None Dermatological Surgical History: Reports: None - Past Imaging History Past Imaging History: Reports: CAT Scan (Last CT of the abdomen and pelvis with contrast on 08/21/[address] scan of the abdomen and pelvis stone protocol on 11/04/16 with bilateral nephrolithiasis but no evidence of urolithiasis or hydronephrosis, previous CT scan of the abdomen and pelvis on 06/27/16 positive for left-sided urolithiasis, CT of the lumbar spine on 03/10/16 with right-sided urolithiasis and mild hydronephrosis with additional osteoarthritic changes), HIDA Scan (06/09/17), Mammogram (Last mammogram on ), Ultrasound (Abdominal ultrasound on 06/09/17. Renal ultrasound 12/09/16, Left breast ultrasound on 06/03/16, pelvic ultrasound on 07/26/16) Social & Family History - Family History HEENT: Reports: Macular Degeneration, Other (See Below). Denies: Glaucoma, Retinal Detachment Other HEENT Family History: Macular Degeneration in mother, maternal aunt, and maternal grandmother. Cardiac: Reports: Afib, Other (See Below). Denies: Aneurysm, Blood Clots/VTE/ DVT, CAD, Heart Failure, Heart Murmur, High Cholesterol, Hypertension, GA, Syncope Other Cardiac Family History: Maternal aunt with atrial fibrillation. Paternal grandfather, mother, and maternal aunt with hypertension. Maternal grandfather with hyperlipidemia. Respiratory: Reports: COPD, Other (See Below). Denies: Asthma, PE, Pneumothorax , Sleep Apnea Other Respiratory Family Hisory: Maternal grandfather with COPD and history of tobacco use and well-being. GI: Reports: GERD, Hepatitis, Other (See Below). Denies: Celiac Disease, Cholelithiasis, Colon Polyps, GI bleed, Irritable Bowel Syndrome, Pancreatitis, PUD Other GI Family History: Father with hepatitis C as below. Paternal uncle with H. pylori infection. : Reports: Renal Calculus, Other (See Below). Denies: Renal Disease/ Insufficiency Other Family History: Father and brother with urolithiasis. OBGYN: Reports: None. Denies: Endometriosis, Recurrent Spontaneous Musculoskeletal: Reports: Arthritis, RA, Other (See Below). Denies: Gout, SLE Other Musculoskeletal Family History: Maternal aunt with rheumatoid arthritis. Neurological: Reports: CVA, MS, Other (See Below). Denies: Alzheimers Disease, Cerebral Aneurysms, Dementia, Migraines, Parkinson's, Seizure, TIA Other Neurological Family History: Paternal Grandfather with fatal CVA in his early 60s. Paternal aunts 2 with MS. Psychiatric: Reports: Anxiety, Depression, Other (See Below). Denies: Abuse, Victim of, ADD, ADHD, Psych Hospitalization(s), PTSD, Suicide Attempt Other Psychiatric Family History: Father with anxiety depression disorder and alcohol abuse. Mother with anxiety depression disorder. Endocrine/Metabolic: Reports: Diabetes, type II, IDDM, Other (See Below). Denies: Diabetes, Gestational, Diabetes, Type I, Hypothyroidism Other Endocrine/Metabolic Family History: Maternal grandmother with IDDM. Parents with AODM. Hematologic: Reports: None. Denies: Anemia, SLE Immunologic: Reports: None. Denies: AIDS, HIV, SLE Dermatologic: Reports: None. Denies: Eczema, Psoriasis Oncologic: Reports: Liver, Lung, Metastatic, Other (See Below). Denies: Breast , Cervix, Colon, Lymphoma, Non-Hodgkin's Lymphoma, Skin, Uterine Other Oncologic Family History: Father with fatal liver cancer hepatitis C likely secondary to alcohol abuse at age 53. Maternal grandmother with fatal pancreatic cancer at age 63. Paternal grandmother fatal lung cancer at age 66 with history of tobacco use. Metastatic disease in all the above cancers. Maternal aunt with unknown type of bone marrow cancer at age 57. - Tobacco Use Smoking Status *Q: Current Every Day Smoker Tobacco Use Within Last Twelve Months: Cigarettes Years of Tobacco use: 20 Packs/Tins Daily: 0.4 Packs/Tins Daily Comment: Started smoking at age 20 with maximum use of one half pack per day. Used Tobacco, but Quit: No Smoking Cessation Information Provided To Patient: Yes Second Hand Smoke Exposure: Yes Source of Second Hand Smoke Exposure: Significant other Second Hand Smoke Education Provided: Yes - Caffeine Use Caffeine Use: Reports: None. Denies: Coffee, Energy Drinks, Soda, Tea - Alcohol Use Alcohol Use History: No Days Per Week of Alcohol Use: 0 Number of Drinks Per Day: 0 Number of Drinks Per Day Comment: No previous DWIs, problems with alcohol abuse , etc. Total Drinks Per Week: 0 Alcohol Use in Last Twelve Months: No - Recreational Drug Use Recreational Drug Use: No Drug Use in Last 12 Months: No Recreational Drug Type: Denies: Amphetamines (Speed), Cocaine, Heroin, Inhalants (Glues, Solvents, Aerosols), LSD (Acid), Marijuana/Hashish, Methamphetamine, Morphine, Oxycodone - Living Situation & Occupation Living situation: Reports: Single, with Significant Other (And her 1 child from previous significant other relationships with another child not currently living with her). 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 ED EXAM, GENERAL - Physical Exam Exam: See Below Exam Limited By: No Limitations General Appearance: Alert, WD/WN, No Apparent Distress, Anxious (Moderate) Eye Exam: Bilateral Eye: EOMI, Normal Inspection (No nystagmus. Patient wearing glasses.), PERRL Ears: Normal External Exam, Normal Canal, Hearing Grossly Normal, Normal TMs ( Although moderate bilateral scarring consistent with previous recurrent otitis media.) Nose: Normal Inspection, Normal Mucosa, No Blood Throat/Mouth: Normal Lips, Normal Gums, Normal Oropharynx, Normal Voice, No Airway Compromise. No: Normal Teeth (Multiple missing teeth and caries with no acute drainage or abscesses), Dysphagia, Perioral Cyanosis Head: Atraumatic, Normocephalic. No: Facial Swelling, Facial Tenderness, Sinus Tenderness Neck: Normal Inspection, Supple, Non-Tender, Full Range of Motion. No: Carotid Bruit, Lymphadenopathy (L), Lymphadenopathy (R), Thyromegaly Respiratory/Chest: No Respiratory Distress, Lungs Clear, Normal Breath Sounds, No Accessory Muscle Use, Chest Non-Tender. No: Pleural Rub, Retractions Cardiovascular: Normal Peripheral Pulses, Regular Rate, Rhythm, No Edema, No Gallop, No JVD, No Murmur, No Rub. No: Gallop/S3, Gallop/S4, Friction Rub Peripheral Pulses: 2+: Radial (L), Radial (R), Dorsalis Pedis (L), Dorsalis Pedis (R) GI/Abdominal: Normal Bowel Sounds, Soft, Non-Tender, No Organomegaly, No Distention, No Abnormal Bruit, No Mass, Other (obese). No: Guarding (Female) Exam: Deferred Rectal (Female) Exam: Deferred Back Exam: Normal Inspection, Full Range of Motion. No: CVA Tenderness (L), CVA Tenderness (R), Muscle Spasm Extremities: Normal Inspection, Normal Range of Motion, Non-Tender, No Pedal Edema, Normal Capillary Refill. No: Latanya's Sign Neurological: Alert, Oriented, CN II-XII Intact, Normal Cognition, Normal Gait, Normal Reflexes, No Motor/Sensory Deficits Psychiatric: Anxious (Moderate), Depressed Mood (Mild) Skin Exam: Warm, Dry, Intact, Normal Color, No Rash. No: Diaphoretic, Ecchymosis, Petechiae, Wound/Incision Lymphatic: No Adenopathy EKG INTERPRETATION EKG Date: 10/08/18 Time: 11:00 Rhythm: NSR Rate (Beats/Min): 71 [place]: Normal (Neutral cardiac axis) P-Wave: Present QRS: Normal (0.08 seconds) ST-T: Normal QT: Normal SC/PQ Interval: 0.15 seconds with pulmonary hypertension by EKG Comparison: NA - No Prior EKG EKG Interpretation Comments: 1. No acute ischemic changes 2. Pulmonary hypertension by EKG Course - Vital Signs Last Recorded V/S: Last Vital Signs Temp 36.4 C 10/08/18 10:45 Pulse 65 10/08/18 11:50 Resp 17 10/08/18 11:50 BP 115/73 10/08/18 11:50 Pulse Ox 100 10/08/18 11:50 Vital Signs - 24 hr 10/08/18 10/08/18 10/08/18 10:45 10:54 11:05 Temperature [ 36.4 C Temporal] Pulse, 79 Peripheral Pulse, 78 68 77 Peripheral [ Pulse Oximetry] Respiratory 14 16 19 Rate Blood Pressure 131/75 Blood Pressure 131/75 127/70 134/86 [Right Upper Arm] O2 Sat by Pulse 100 100 100 Oximetry 10/08/18 10/08/18 11:20 11:50 Temperature [ Temporal] Pulse, Peripheral Pulse, 64 65 Peripheral [ Pulse Oximetry] Respiratory 15 17 Rate Blood Pressure Blood Pressure 122/67 115/73 [Right Upper Arm] O2 Sat by Pulse 100 100 Oximetry - Orders/Labs/Meds Orders: Active Orders 24 hr Category Date Time Status Cardiac Monitoring [RC] . DIRECTED Care 10/08/18 10:54 Active EKG Documentation Completion [RC] ASDIRECTED Care 10/08/18 10:54 Active Oxygen Therapy, ED [RC] PRN Care 10/08/18 10:54 Active Peripheral IV Care [RC] . DIRECTED Care 10/08/18 10:54 Active Pulse Oximetry [RC] CONTINUOUS Care 10/08/18 10:54 Active Up With Assistance [RC] PFP Care 10/08/18 10:54 Active Vital Signs [RC] PFP Care 10/08/18 10:54 Active Nothing per Oral Now Diet [DIET] Diet 10/08/18 Breakfast Active Chest 1V Frontal [CR] Stat Exams 10/08/18 10:54 Taken Sodium Chloride 0.9% [Saline Flush] Med 10/08/18 10:54 Active 10 ml FLUSH ASDIRECTED PRN Obtain Past Medical Record [OM.PC] Urgent Oth 10/08/18 10:54 Active Peripheral IV Insertion Adult [OM.PC] Stat Oth 10/08/18 10:54 Ordered Resuscitation Status Stat Resus Stat 10/08/18 10:54 Ordered Medication Orders Sodium Chloride (Saline Flush) 10 ml FLUSH ASDIRECTED PRN PRN Reason: Keep Vein Open Last Admin: 10/08/18 11:06 Dose: 10 ml Labs: Laboratory Tests 10/08/18 10/08/18 10/08/18 Range/Units 11:00 11:00 11:00 WBC 7.1 (4.0-10.2) K/uL RBC 4.28 (3.77-5.09) M/uL Hgb 12.6 (11.7-15.5) g/dL Hct 36.7 (34.0-46.0) % MCV 85.7 (84.0-98.0) fL MCH 29.4 (28.2-33.3) pg MCHC 34.3 (31.7-36.0) g/dL RDW 12.8 (11.2-14.1) % Plt Count 399 H (150-350) K/uL Neut % (Auto) 57.3 (45.0-80.0) % Lymph % (Auto) 34.6 (10.0-50.0) % [place] % (Auto) 7.2 (2.0-14.0) % Eos % (Auto) 0.8 (0.0-5.0) % Baso % (Auto) 0.1 (0.0-2.0) % Neut # (Auto) 4.06 (1.40-7.00) K/uL Lymph # (Auto) 2.46 (0.50-3.50) K/uL [place] # (Auto) 0.51 (0.00-1.00) K/uL Eos # (Auto) 0.06 (0.00-0.50) K/uL Baso # (Auto) 0.01 (0.00-0.20) K/uL PT 9.8 (9.5-12.0) SEC INR 0.9 APTT 30.6 (21.0-31.3) SEC D-Dimer, Quantitative 106 (0-400) ng/mL Sodium (136-145) mmol/L Potassium (3.5-5.1) mmol/L Chloride (98-107) mmol/L Carbon Dioxide (21.0-32.0) mmol/L BUN (7-18) mg/dL Creatinine (0.51-1.17) mg/dL Est Cr Clr Drug Dosing mL/min Estimated GFR (MDRD) mL/min Glucose (74-106) mg/dL Lactic Acid (0.4-2.0) mmol/L Uric Acid (2.6-7.2) mg/dL Calcium (8.5-10.1) mg/dL Magnesium (1.8-2.4) mg/dL Total Bilirubin (0.2-1.0) mg/dL AST (15-37) U/L ALT (12-78) U/L Alkaline Phosphatase (46-116) IU/L Creatine Kinase (26-308) U/L Creatine Kinase Index (0.0-2.5) % CK-MB (CK-2) (0.00-3.60) ng/mL Troponin I (0.000-0.056) ng/mL NT-Pro-B Natriuret Pep (0-125) pg/mL Total Protein (6.4-8.2) g/dL Albumin (3.4-5.0) g/dL TSH, Ultra Sensitive (0.358-3.740) mIU/mL 10/08/18 10/08/18 Range/Units 11:00 11:00 WBC (4.0-10.2) K/uL RBC (3.77-5.09) M/uL Hgb (11.7-15.5) g/dL Hct (34.0-46.0) % MCV (84.0-98.0) fL MCH (28.2-33.3) pg MCHC (31.7-36.0) g/dL RDW (11.2-14.1) % Plt Count (150-350) K/uL Neut % (Auto) (45.0-80.0) % Lymph % (Auto) (10.0-50.0) % [place] % (Auto) (2.0-14.0) % Eos % (Auto) (0.0-5.0) % Baso % (Auto) (0.0-2.0) % Neut # (Auto) (1.40-7.00) K/uL Lymph # (Auto) (0.50-3.50) K/uL [place] # (Auto) (0.00-1.00) K/uL Eos # (Auto) (0.00-0.50) K/uL Baso # (Auto) (0.00-0.20) K/uL PT (9.5-12.0) SEC INR APTT (21.0-31.3) SEC D-Dimer, Quantitative (0-400) ng/mL Sodium 138 (136-145) mmol/L Potassium 4.0 (3.5-5.1) mmol/L Chloride 106 (98-107) mmol/L Carbon Dioxide 19.8 L (21.0-32.0) mmol/L BUN 11 (7-18) mg/dL Creatinine 0.83 (0.51-1.17) mg/dL Est Cr Clr Drug Dosing 87.72 mL/min Estimated GFR (MDRD) > 60 mL/min Glucose 120 H (74-106) mg/dL Lactic Acid 1.3 (0.4-2.0) mmol/L Uric Acid 4.6 (2.6-7.2) mg/dL Calcium 8.3 L (8.5-10.1) mg/dL Magnesium 1.6 L (1.8-2.4) mg/dL Total Bilirubin 0.2 (0.2-1.0) mg/dL AST 18 (15-37) U/L ALT 40 (12-78) U/L Alkaline Phosphatase 68 (46-116) IU/L Creatine Kinase 77 (26-308) U/L Creatine Kinase Index 1.2 (0.0-2.5) % CK-MB (CK-2) 0.90 (0.00-3.60) ng/mL Troponin I 0.000 (0.000-0.056) ng/mL NT-Pro-B Natriuret Pep 229 H (0-125) pg/mL Total Protein 6.8 (6.4-8.2) g/dL Albumin 3.4 (3.4-5.0) g/dL TSH, Ultra Sensitive 0.867 (0.358-3.740) mIU/mL Meds: Medications Generic Name Dose Route Start Last Admin Trade Name Freq PRN Reason Stop Dose Admin Sodium Chloride 10 ml 10/08/18 10:54 10/08/18 11:06 Saline Flush FLUSH 10 ml ASDIRECTED PRN Administration Keep Vein Open Discontinued Medications Generic Name Dose Route Start Last Admin Trade Name Freq PRN Reason Stop Dose Admin Al Hydroxide/Mg Hydroxide 30 ml 10/08/18 11:53 10/08/18 12:00 Gi Cocktail PO 10/08/18 11:54 30 ml ONETIME ONE Administration Aspirin 324 mg 10/08/18 10:54 10/08/18 11:01 Aspirin CHEW 10/08/18 10:55 324 mg ONETIME ONE Administration Famotidine 40 mg 10/08/18 10:54 10/08/18 11:01 Pepcid IVPUSH 10/08/18 10:55 40 mg ONETIME ONE Administration Lorazepam 1 mg 10/08/18 11:52 10/08/18 12:00 Ativan IVPUSH 10/08/18 11:53 1 mg ONETIME ONE Administration Metoprolol Tartrate 2.5 mg 10/08/18 10:54 10/08/18 11:05 Lopressor IVPUSH 10/08/18 10:55 2.5 mg ONETIME ONE Administration Ticagrelor 180 mg 10/08/18 10:54 10/08/18 11:04 Brilinta PO 10/08/18 10:55 180 mg ONETIME ONE Administration - Radiology Interpretation Free Text/Narrative:: court recording monitor shows normal sinus rhythm with heart rate in the 60s to 70s with no ectopy or arrhythmia. Chest x-ray, portable, shows evidence of borderline left atrial enlargement with no significant cardiomegaly, CHF, pulmonary infiltrates, pneumothorax, etc. Borderline pulmonary obstructive disease. Departure - Departure Time of Disposition: 12:05 Disposition: Refer to Observation Condition: Good Clinical Impression: Peptic reflux disease, Hypomagnesemia, Mixed anxiety and depressive disorder, Recurrent kidney stones, Tobacco abuse counseling, Caries Chest pain Qualifiers: Chest pain type: unspecified Qualified Code(s): R07.9 - Chest pain, unspecified Hypertension Qualifiers: Hypertension type: essential hypertension Qualified Code(s): I10 - Essential ( primary) hypertension Osteoarthritis Qualifiers: Osteoarthritis location: multiple joints Osteoarthritis type: primary Qualified Code(s): M15.0 - Primary generalized (osteo)arthritis - Problem List & Annotations (1) Chest pain SNOMED Code(s): 49630235 Code(s): R07.9 - CHEST PAIN, UNSPECIFIED Status: Acute Priority: High Current Visit: Yes Onset Date: 10/07/18 Annotation/Comment:: Chest pain initiated immediately upon patient's arrival to the emergency room. Aggressive treatment as above. Cardiology consultation depending on her clinical course. Initiate standard rule out GA orders. Cardiolite stress test should be conducted with me next week with results to be provided to her regular provider , Dotty Martinez PA-C, at [facility] in [place]. Maida banks physician assumes care in the a.m. Qualifiers: Chest pain type: unspecified Qualified Code(s): R07.9 - Chest pain, unspecified (2) Caries SNOMED Code(s): 79538993 Code(s): K02.9 - DENTAL CARIES, UNSPECIFIED Status: Chronic Priority: Medium Current Visit: Yes Annotation/Comment:: She should follow-up with her dentist RAMYA once her cardiac status has stabilized and has been determined. (3) Hypomagnesemia SNOMED Code(s): 514319152 Code(s): E83.42 - HYPOMAGNESEMIA Status: Chronic Priority: Medium Current Visit: Yes Onset Date: 11/04/16 Annotation/Comment:: Initiate magnesium oxide therapy with close follow-up by her regular provider at discharge (4) Peptic reflux disease SNOMED Code(s): 593609769 Code(s): K21.9 - GASTRO-ESOPHAGEAL REFLUX DISEASE WITHOUT ESOPHAGITIS Status: Chronic Priority: Medium Current Visit: Yes Annotation/Comment:: High-dose IV Pepcid given in the emergency room. Further GI workup depending on her clinical course once her cardiac status has been determined. Patient may benefit from EGD. Attempt to obtain stool specimen for H. pylori antigen. (5) Hypertension SNOMED Code(s): 53335783 Code(s): I10 - ESSENTIAL (PRIMARY) HYPERTENSION Status: Chronic Priority : Medium Current Visit: Yes Annotation/Comment:: Blood pressures under good control in the emergency room with continued close observation at discharge. Qualifiers: Hypertension type: essential hypertension Qualified Code(s): I10 - Essential (primary) hypertension (6) Mixed anxiety depressive disorder SNOMED Code(s): 354277498 Code(s): F41.8 - OTHER SPECIFIED ANXIETY DISORDERS Status: Chronic Priority: Medium Current Visit: Yes Annotation/Comment:: Strong anxiety component to patient's symptoms. Stable by patient history, although moderate control by today's evaluation with continued close follow-up by her regular providers. IV Ativan given in the emergency room for relief of her symptoms. No further narcotic use at this time secondary to a previous history of narcotic dependency. (7) Osteoarthritis SNOMED Code(s): 804004168 Code(s): M19.90 - UNSPECIFIED OSTEOARTHRITIS, UNSPECIFIED SITE Status: Chronic Priority: Medium Current Visit: Yes Annotation/Comment:: Otherwise Stable by history Qualifiers: Osteoarthritis location: multiple joints Osteoarthritis type: primary Qualified Code(s): M15.0 - Primary generalized (osteo)arthritis (8) Recurrent kidney stones SNOMED Code(s): 32260641, 12117369 Code(s): N20.0 - CALCULUS OF KIDNEY Status: Chronic Priority: High Current Visit: Yes Annotation/Comment:: History of multiple stones over patient's lifetime as above with no current UTI or colic type symptoms. (9) Tobacco abuse counseling SNOMED Code(s): 161447452, 706018361, 586833845 Code(s): Z71.6 - TOBACCO ABUSE COUNSELING Status: Chronic Priority: Medium Current Visit: Yes Annotation/Comment:: Tobacco cessation once again strongly encouraged with information provided to be once again provided at discharge - Problem List Review Problem List Initiated/Reviewed/Updated: Yes - My Orders Last 24 Hours: My Active Orders 10/08/18 10:54 Cardiac Monitoring [RC] . DIRECTED EKG Documentation Completion [RC] ASDIRECTED Oxygen Therapy, ED [RC] PRN Peripheral IV Care [RC] . DIRECTED Pulse Oximetry [RC] CONTINUOUS Up With Assistance [RC] PFP Vital Signs [RC] PFP Chest 1V Frontal [CR] Stat Sodium Chloride 0.9% [Saline Flush] 10 ml FLUSH ASDIRECTED PRN Obtain Past Medical Record [OM.PC] Urgent Peripheral IV Insertion Adult [OM.PC] Stat Resuscitation Status Stat 10/08/18 Breakfast Nothing per Oral Now Diet [DIET] - Assessment/Plan Admission H&P: Please use this note as an admission H&P Last 24 Hours: My Active Orders 10/08/18 10:54 Cardiac Monitoring [RC] . DIRECTED EKG Documentation Completion [RC] ASDIRECTED Oxygen Therapy, ED [RC] PRN Peripheral IV Care [RC] . DIRECTED Pulse Oximetry [RC] CONTINUOUS Up With Assistance [RC] PFP Vital Signs [RC] PFP Chest 1V Frontal [CR] Stat Sodium Chloride 0.9% [Saline Flush] 10 ml FLUSH ASDIRECTED PRN Obtain Past Medical Record [OM.PC] Urgent Peripheral IV Insertion Adult [OM.PC] Stat Resuscitation Status Stat 10/08/18 Breakfast Nothing per Oral Now Diet [DIET] Assessment:: As above Plan: As above. Extensive precautions were given to the patient and her mother, who are in agreement with the treatment plan. The patient's condition is stable enough for observation status and general supervision.
[2018-10-08] MEDS: Sodium Chloride 0.9% 10 ML Syringe FLUSH PRN ×2 (11:06→16:20)
[2018-10-08 11:28] LABS: CHLORIDE,CL 106 mmol/L (98-107); SODIUM,NA 138 mmol/L (136-145)
[2018-10-08] MEDS ORDERED: LORazepam 2 MG/ML SDV IVPUSH ONE (11:52)
[2018-10-08] MEDS ORDERED: GI Cocktail Oral Solution 30 ML PO ONE (11:53)
[2018-10-08] MEDS ORDERED: Temazepam 15 MG Cap PO PRN (12:39)
[2018-10-08] MEDS ORDERED: Sodium Chloride 0.9% 10 ML Syringe FLUSH PRN (12:39)
[2018-10-08] MEDS ORDERED: Promethazine 25 MG/ML SDV IM ONE (12:42)
[2018-10-08] MEDS ORDERED: Meperidine PF 50 MG/ML Amp IM ONE (12:43)
[2018-10-08] MEDS ORDERED: Acetaminophen 325 MG Tab PO PRN (13:00)
[2018-10-08] MEDS: Metoclopramide 10 MG/2 ML SDV IVPUSH SCH ×3 (13:09→20:53)
[2018-10-08] MEDS: Hydrochlorothiazide 25 MG Tab PO SCH (17:21)
[2018-10-08] MEDS ORDERED: Melatonin 3 MG Tab PO SCH (20:00)
[2018-10-09 06:31] VITALS: BP 100/62
[2018-10-09 07:34] LABS: HEMOGLOBIN A1C 5.5 % (4.3-5.7)
[2018-10-09 07:41] LABS: CHLORIDE,CL 104 mmol/L (98-107); SODIUM,NA 138 mmol/L (136-145)
[2018-10-09] MEDS ORDERED: Potassium Chloride 10 MEQ Tab.ER PO SCH (08:00)
[2018-10-09] MEDS ORDERED: Magnesium Oxide 400 MG Tab PO SCH (08:00)
[2018-10-09] MEDS: Hydrochlorothiazide 25 MG Tab PO SCH (08:33)
[2018-10-09] MEDS: Metoclopramide 10 MG/2 ML SDV IVPUSH SCH (08:33)
--- NOTE | 2018-10-09 11:27 | PCM.DCSUM1 ---
Discharge Summary - Hospital Course Brief History: Admitted for further evaluation of chest pain/serial labs. Diagnosis: Stroke: No - Discharge Data Discharge Date: 10/09/18 Discharge Disposition: Home, Self-Care 01 Condition: Good - Discharge Diagnosis/Problem(s) (1) Chest pain SNOMED Code(s): 02087481 ICD Code: R07.9 - CHEST PAIN, UNSPECIFIED Status: Acute Priority: High Current Visit: Yes Onset Date: 10/07/18 Problem Details: Chest pain initiated immediately upon patient's arrival to the emergency room. Chest pain resolved. Unremarkable telemetry and serial troponins. Suspect pain likley GI in nature. Cardiolite stress recommended for next week with results to be provided to her regular provider, HONG Hughes. This will allow to more fully rule out cardiac component to initial pain complaint. Qualifiers: Chest pain type: unspecified Qualified Code(s): R07.9 - Chest pain, unspecified (2) Peptic reflux disease SNOMED Code(s): 558711592 ICD Code: K21.9 - GASTRO-ESOPHAGEAL REFLUX DISEASE WITHOUT ESOPHAGITIS Status: Chronic Priority: Medium Current Visit: Yes Problem Details: High- dose IV Pepcid given in the emergency room. Further GI workup may be useful as suspect initial pain complaint likely had GI component. Patient may benefit from EGD. Order for stool specimen for H. pylori antigen. (3) Caries SNOMED Code(s): 89306061 ICD Code: K02.9 - DENTAL CARIES, UNSPECIFIED Status: Chronic Priority: Medium Current Visit: Yes Problem Details: She should follow-up with her dentist RAMYA (4) Hypertension SNOMED Code(s): 09609455 ICD Code: I10 - ESSENTIAL (PRIMARY) HYPERTENSION Status: Chronic Priority : Medium Current Visit: Yes Problem Details: Blood pressures under good control in the emergency room with continued close observation at discharge. Qualifiers: Hypertension type: essential hypertension Qualified Code(s): I10 - Essential (primary) hypertension (5) Hypomagnesemia SNOMED Code(s): 510125743 ICD Code: E83.42 - HYPOMAGNESEMIA Status: Chronic Priority: Medium Current Visit: Yes Onset Date: 11/04/16 Problem Details: Initiate magnesium oxide therapy with close follow-up by her regular provider at discharge (6) Mixed anxiety depressive disorder SNOMED Code(s): 690644875 ICD Code: F41.8 - OTHER SPECIFIED ANXIETY DISORDERS Status: Chronic Priority: Medium Current Visit: Yes Problem Details: Strong anxiety component to patient's symptoms. Stable by patient history, although moderate control by today's evaluation with continued close follow-up by her regular providers. IV Ativan given in the emergency room for relief of her symptoms. No further narcotic use at this time secondary to a previous history of narcotic dependency. (7) Osteoarthritis SNOMED Code(s): 702466247 ICD Code: M19.90 - UNSPECIFIED OSTEOARTHRITIS, UNSPECIFIED SITE Status: Chronic Priority: Medium Current Visit: Yes Problem Details: Otherwise Stable by history Qualifiers: Osteoarthritis location: multiple joints Osteoarthritis type: primary Qualified Code(s): M15.0 - Primary generalized (osteo)arthritis (8) Recurrent kidney stones SNOMED Code(s): 84816450, 60583257 ICD Code: N20.0 - CALCULUS OF KIDNEY Status: Chronic Priority: High Current Visit: Yes Problem Details: History of multiple stones over patient's lifetime as above with no current UTI or colic type symptoms. (9) Tobacco abuse counseling SNOMED Code(s): 337816462, 772701782, 712734681 ICD Code: Z71.6 - TOBACCO ABUSE COUNSELING Status: Chronic Priority: Medium Current Visit: Yes Problem Details: Tobacco cessation once again strongly encouraged with information provided to be once again provided at discharge - Patient Summary/Data Recommended Follow-up Testing/Procedures: Cardiolite stress test next week. Follow up with your clinic for full results. Recheck Magnesium in 2-3 weeks at your clinic Hospital Course: Unremarkable hospital course. Pain pain-free. Serial labs/telemetry/EKG unremarkable for cardiac component to presenting complaint. Would like to be discharged home. Discussed differential diagnosis during rounding. Suspect GI cause of initial pain complaint, with anxiety contributing. May need further GI evaluation. Recommend Cardiolite stress test to be conducted next week to further rule out cardiac disease. Lifestyle changes for diet/smoking also discussed. To follow up for magnesium recheck in several weeks. - Patient Instructions Diet: Heart Healthy Diet (Recommend dietary changes as discussed during discharge. ) Activity: As Tolerated Driving: May Drive Today Showering/Bathing: May Shower Other/Special Instructions: Dietary changes as discussed strongly recommended. Follow up with your primary clinic in several weeks for recheck of magnesium. You can also discuss your stress test results if you are able to complete that. Take your Magnesium daily! Follow up as needed if you re-develop problems. - Discharge Plan *PRESCRIPTION DRUG MONITORING PROGRAM REVIEWED*: Not Applicable *COPY OF PRESCRIPTION DRUG MONITORING REPORT IN PATIENT BERYL: Not Applicable Prescriptions/Med Rec: Magnesium Oxide 400 mg PO DAILY #90 tablet Home Medications: Home Meds Hydrochlorothiazide 25 mg PO BID 01/03/16 [History] Potassium Chloride [K-Tab ER] 10 meq PO DAILY 01/03/16 [History] Ibuprofen [Motrin] 600 mg PO Q6HR PRN 06/26/16 [History] Tamsulosin HCl [Flomax] 1 tab PO ASDIRECTED PRN 03/04/18 [History] Melatonin 5 mg PO BEDTIME 06/20/18 [History] Aspirin 81 mg PO ONETIME 10/08/18 [History] Calcium Carb/Magnesium Hydrox [Rolaids Chewable Tablet] 3 tab PO ONETIME [History] Magnesium Oxide 400 mg PO DAILY #90 tablet 10/09/18 [Rx] Patient Handouts: Hypomagnesemia, Nonspecific Chest Pain, Fvmn-[id number], Steps to Quit Smoking Forms: ED Department Discharge Referrals: Dtoty Villaseñor PA-C [Primary Care Provider] - - Discharge Summary/Plan Comment DC Time >30 min.: No - General Info Date of Service: 10/09/18 Admission Dx/Problem (Free Text: chest pain Subjective Update: Patient feels like usual self today. Pain-free. Functional Status: Reports: Pain Controlled, Tolerating Diet, Ambulating, Urinating. Denies: New Symptoms - Review of Systems General: Reports: No Symptoms HEENT: Reports: No Symptoms Pulmonary: Reports: No Symptoms Cardiovascular: Reports: No Symptoms. Denies: Chest Pain Gastrointestinal: Reports: No Symptoms Genitourinary: Reports: No Symptoms Musculoskeletal: Reports: No Symptoms Skin: Reports: No Symptoms Neurological: Reports: No Symptoms Psychiatric: Reports: No Symptoms - Patient Data Vitals - Most Recent: Last Vital Signs Temp 36.7 C 10/09/18 06:30 Pulse 62 10/09/18 04:00 Resp 15 10/09/18 06:30 BP 100/62 10/09/18 06:30 Pulse Ox 99 10/09/18 06:30 Weight - Most Recent: 98.248 kg I&O - Last 24 hours: Intake & Output 10/08/18 10/09/18 10/09/18 22:59 06:59 14:59 Intake Total 720 Output Total 400 900 Balance 320 -900 Lab Results - Last 24 hrs: Laboratory Results - last 24 hr 10/08/18 10/08/18 10/08/18 Range/Units 11:00 11:00 11:00 WBC (4.0-10.2) K/uL RBC (3.77-5.09) M/uL Hgb (11.7-15.5) g/dL Hct (34.0-46.0) % MCV (84.0-98.0) fL MCH (28.2-33.3) pg MCHC (31.7-36.0) g/dL RDW (11.2-14.1) % Plt Count (150-350) K/uL Neut % (Auto) (45.0-80.0) % Lymph % (Auto) (10.0-50.0) % Ritchie % (Auto) (2.0-14.0) % Eos % (Auto) (0.0-5.0) % Baso % (Auto) (0.0-2.0) % Neut # (Auto) (1.40-7.00) K/uL Lymph # (Auto) (0.50-3.50) K/uL Ritchie # (Auto) (0.00-1.00) K/uL Eos # (Auto) (0.00-0.50) K/uL Baso # (Auto) (0.00-0.20) K/uL D-Dimer, Quantitative 106 (0-400) ng/mL Sodium 138 (136-145) mmol/L Potassium 4.0 (3.5-5.1) mmol/L Chloride 106 (98-107) mmol/L Carbon Dioxide 19.8 L (21.0-32.0) mmol/L BUN 11 (7-18) mg/dL Creatinine 0.83 (0.51-1.17) mg/dL Est Cr Clr Drug Dosing 87.72 mL/min Estimated GFR (MDRD) > 60 mL/min Glucose 120 H (74-106) mg/dL Hemoglobin A1c (4.3-5.7) % Lactic Acid 1.3 (0.4-2.0) mmol/L Uric Acid 4.6 (2.6-7.2) mg/dL Calcium 8.3 L (8.5-10.1) mg/dL Magnesium 1.6 L (1.8-2.4) mg/dL Total Bilirubin 0.2 (0.2-1.0) mg/dL AST 18 (15-37) U/L ALT 40 (12-78) U/L Alkaline Phosphatase 68 (46-116) IU/L Creatine Kinase 77 (26-308) U/L Creatine Kinase Index 1.2 (0.0-2.5) % CK-MB (CK-2) 0.90 (0.00-3.60) ng/mL Troponin I 0.000 (0.000-0.056) ng/mL NT-Pro-B Natriuret Pep 229 H (0-125) pg/mL Total Protein 6.8 (6.4-8.2) g/dL Albumin 3.4 (3.4-5.0) g/dL Triglycerides (30-150) mg/dL Cholesterol (100-200) mg/dL LDL Cholesterol, Calc (0-100) mg/dL HDL Cholesterol (40-60) mg/dL TSH, Ultra Sensitive 0.867 (0.358-3.740) mIU/mL 10/08/18 10/08/18 10/09/18 Range/Units 15:28 21:40 07:00 WBC 6.1 (4.0-10.2) K/uL RBC 4.31 (3.77-5.09) M/uL Hgb 12.5 (11.7-15.5) g/dL Hct 36.9 (34.0-46.0) % MCV 85.6 (84.0-98.0) fL MCH 29.0 (28.2-33.3) pg MCHC 33.9 (31.7-36.0) g/dL RDW 12.6 (11.2-14.1) % Plt Count 371 H (150-350) K/uL Neut % (Auto) 58.3 (45.0-80.0) % Lymph % (Auto) 32.7 (10.0-50.0) % Ritchie % (Auto) 7.8 (2.0-14.0) % Eos % (Auto) 1.0 (0.0-5.0) % Baso % (Auto) 0.2 (0.0-2.0) % Neut # (Auto) 3.53 (1.40-7.00) K/uL Lymph # (Auto) 1.98 (0.50-3.50) K/uL Ritchie # (Auto) 0.47 (0.00-1.00) K/uL Eos # (Auto) 0.06 (0.00-0.50) K/uL Baso # (Auto) 0.01 (0.00-0.20) K/uL D-Dimer, Quantitative (0-400) ng/mL Sodium (136-145) mmol/L Potassium (3.5-5.1) mmol/L Chloride (98-107) mmol/L Carbon Dioxide (21.0-32.0) mmol/L BUN (7-18) mg/dL Creatinine (0.51-1.17) mg/dL Est Cr Clr Drug Dosing mL/min Estimated GFR (MDRD) mL/min Glucose (74-106) mg/dL Hemoglobin A1c (4.3-5.7) % Lactic Acid (0.4-2.0) mmol/L Uric Acid (2.6-7.2) mg/dL Calcium (8.5-10.1) mg/dL Magnesium (1.8-2.4) mg/dL Total Bilirubin (0.2-1.0) mg/dL AST (15-37) U/L ALT (12-78) U/L Alkaline Phosphatase (46-116) IU/L Creatine Kinase 74 67 (26-308) U/L Creatine Kinase Index 1.1 1.0 (0.0-2.5) % CK-MB (CK-2) 0.80 0.70 (0.00-3.60) ng/mL Troponin I 0.000 0.000 (0.000-0.056) ng/mL NT-Pro-B Natriuret Pep (0-125) pg/mL Total Protein (6.4-8.2) g/dL Albumin (3.4-5.0) g/dL Triglycerides (30-150) mg/dL Cholesterol (100-200) mg/dL LDL Cholesterol, Calc (0-100) mg/dL HDL Cholesterol (40-60) mg/dL TSH, Ultra Sensitive (0.358-3.740) mIU/mL 10/09/18 10/09/18 Range/Units 07:00 07:00 WBC (4.0-10.2) K/uL RBC (3.77-5.09) M/uL Hgb (11.7-15.5) g/dL Hct (34.0-46.0) % MCV (84.0-98.0) fL MCH (28.2-33.3) pg MCHC (31.7-36.0) g/dL RDW (11.2-14.1) % Plt Count (150-350) K/uL Neut % (Auto) (45.0-80.0) % Lymph % (Auto) (10.0-50.0) % Ritchie % (Auto) (2.0-14.0) % Eos % (Auto) (0.0-5.0) % Baso % (Auto) (0.0-2.0) % Neut # (Auto) (1.40-7.00) K/uL Lymph # (Auto) (0.50-3.50) K/uL Ritchie # (Auto) (0.00-1.00) K/uL Eos # (Auto) (0.00-0.50) K/uL Baso # (Auto) (0.00-0.20) K/uL D-Dimer, Quantitative (0-400) ng/mL Sodium 138 (136-145) mmol/L Potassium 4.3 (3.5-5.1) mmol/L Chloride 104 (98-107) mmol/L Carbon Dioxide 24.4 (21.0-32.0) mmol/L BUN 15 (7-18) mg/dL Creatinine 0.91 (0.51-1.17) mg/dL Est Cr Clr Drug Dosing 80.01 mL/min Estimated GFR (MDRD) > 60 mL/min Glucose 97 (74-106) mg/dL Hemoglobin A1c 5.5 (4.3-5.7) % Lactic Acid (0.4-2.0) mmol/L Uric Acid (2.6-7.2) mg/dL Calcium 8.6 (8.5-10.1) mg/dL Magnesium (1.8-2.4) mg/dL Total Bilirubin 0.2 (0.2-1.0) mg/dL AST 14 L (15-37) U/L ALT 36 (12-78) U/L Alkaline Phosphatase 65 (46-116) IU/L Creatine Kinase 57 (26-308) U/L Creatine Kinase Index 0.9 (0.0-2.5) % CK-MB (CK-2) 0.50 (0.00-3.60) ng/mL Troponin I 0.000 (0.000-0.056) ng/mL NT-Pro-B Natriuret Pep (0-125) pg/mL Total Protein 6.8 (6.4-8.2) g/dL Albumin 3.2 L (3.4-5.0) g/dL Triglycerides 94 (30-150) mg/dL Cholesterol 137 (100-200) mg/dL LDL Cholesterol, Calc 85 (0-100) mg/dL HDL Cholesterol 33 L (40-60) mg/dL TSH, Ultra Sensitive (0.358-3.740) mIU/mL Med Orders - Current: Current Medications Acetaminophen (Tylenol) 650 mg PO Q4H PRN PRN Reason: Pain Last Admin: 10/09/18 06:24 Dose: 650 mg Hydrochlorothiazide (Hydrochlorothiazide) 25 mg PO BID [facility] Last Admin: 10/09/18 08:33 Dose: 25 mg Magnesium Oxide (Magnesium Oxide) 400 mg PO DAILY [facility] Last Admin: 10/09/18 08:33 Dose: 400 mg Melatonin (Melatonin) 6 mg PO BEDTIME [facility] Last Admin: 10/08/18 20:53 Dose: 6 mg Potassium Chloride (Klor-Con 10) 10 meq PO DAILY [facility] Last Admin: 10/09/18 08:33 Dose: 10 meq Sodium Chloride (Saline Flush) 10 ml FLUSH ASDIRECTED PRN PRN Reason: Keep Vein Open Last Admin: 10/08/18 16:20 Dose: 10 ml Sodium Chloride (Saline Flush) 10 ml FLUSH Q12HR PRN PRN Reason: Keep Vein Open Last Admin: 10/08/18 20:54 Dose: 10 ml Temazepam (Restoril) 15 mg PO BEDTIME PRN PRN Reason: Insomnia Discontinued Medications Al Hydroxide/Mg Hydroxide (Gi Cocktail) 30 ml PO ONETIME ONE Stop: 10/08/18 11:54 Last Admin: 10/08/18 12:00 Dose: 30 ml Aspirin (Aspirin) 324 mg CHEW ONETIME ONE Stop: 10/08/18 10:55 Last Admin: 10/08/18 11:01 Dose: 324 mg Famotidine (Pepcid) 40 mg IVPUSH ONETIME ONE Stop: 10/08/18 10:55 Last Admin: 10/08/18 11:01 Dose: 40 mg Magnesium Sulfate/Dextrose (Magnesium Sulfate In D5w 100 Premix) 100 mls @ 100 mls/hr IV ONETIME ONE Stop: 10/08/18 13:44 Last Admin: 10/08/18 13:09 Dose: 100 mls/hr Lorazepam (Ativan) 1 mg IVPUSH ONETIME ONE Stop: 10/08/18 11:53 Last Admin: 10/08/18 12:00 Dose: 1 mg Meperidine HCl (Demerol) 50 mg IM ONETIME ONE Stop: 10/08/18 12:44 Last Admin: 10/08/18 13:02 Dose: 50 mg Metoclopramide HCl (Reglan) 10 mg IVPUSH QID ALEIDA Last Admin: 10/09/18 08:33 Dose: 10 mg Metoprolol Tartrate (Lopressor) 2.5 mg IVPUSH ONETIME ONE Stop: 10/08/18 10:55 Last Admin: 10/08/18 11:05 Dose: 2.5 mg Promethazine HCl (Phenergan) 50 mg IM ONETIME ONE Stop: 10/08/18 12:43 Last Admin: 10/08/18 13:03 Dose: 50 mg Ticagrelor (Brilinta) 180 mg PO ONETIME ONE Stop: 10/08/18 10:55 Last Admin: 10/08/18 11:04 Dose: 180 mg - Exam General: Reports: Alert, Oriented, Cooperative, No Acute Distress HEENT: Reports: Pupils Equal, Pupils Reactive, EOMI, Mucous Membr. Moist/[place] Neck: Reports: Supple Lungs: Reports: Clear to Auscultation, Normal Respiratory Effort Cardiovascular: Reports: Regular Rate, Regular Rhythm GI/Abdominal Exam: Soft, Non-Tender (Female) Exam: Deferred Rectal (Female) Exam: Deferred Back Exam: Denies: CVA Tenderness (L), CVA Tenderness (R), Muscle Spasm Extremities: Non-Tender, Normal Capillary Refill Skin: Reports: Warm, Dry Neurological: Reports: No New Focal Deficit Psy/Mental Status: Reports: Alert, Normal Affect, Normal Mood EKG INTERPRETATION EKG Date: 10/09/18 Time: 07:21 Rhythm: NSR Rate (Beats/Min): 61 [place]: Normal P-Wave: Present QRS: Normal ST-T: Normal QT: Normal Comparison: No Change
== END 2018-10-09 13:02 | disposition home or self-care (01) ==
LOC: LL.ED 10:45 → LL.MS 12:00
PROVIDERS: ADMIT Family Medicine; ATTEND Emergency Medicine
DX: R07.9 Chest pain, unspecified (principal); K21.9 Gastro-esophageal reflux disease without esophagitis; I10 Essential (primary) hypertension; E83.42 Hypomagnesemia; F41.8 Other specified anxiety disorders; M15.0 Primary generalized (osteo)arthritis; N20.0 Calculus of kidney; K02.9 Dental caries, unspecified; F17.210 Nicotine dependence, cigarettes, uncomplicated; E66.9 Obesity, unspecified; Z68.34 Body mass index [BMI] 34.0-34.9, adult; Z88.1 Allergy status to other antibiotic agents; Z88.0 Allergy status to penicillin; Z79.82 Long term (current) use of aspirin; Z79.899 Other long term (current) drug therapy; Z98.890 Other specified postprocedural states
CPT/HCPCS: 36415; 71045; 80053; 80061; 82550; 82553; 83036; 83605; 83735; 83880; 84443; 84484; 84550; 85025; 85379; 85610; 85730; 93005; 96365; 96372; 96374; 96375; 96376; 99285-25; A9270-GY; G0378; J2060; J2175; J2550; J2765; J3475; J3490

== ENCOUNTER 2019-07-09 15:41 | Emergency (ER) | payer SELFPAY ==
[2019-07-09 15:49] VITALS: BP 140/81; PULSE 88
[2019-07-09] MEDS ORDERED: Ketorolac 30 MG/ML SDV IVPUSH ONE (15:58)
[2019-07-09] MEDS ORDERED: Sodium Chloride 0.9% 10 ML Syringe FLUSH PRN (15:58)
[2019-07-09] MEDS ORDERED: Sodium Chloride 0.9% 1,000 ML IV ONE (15:58)
[2019-07-09 16:22] LABS: CHLORIDE,CL 107 mmol/L (98-107); SODIUM,NA 142 mmol/L (136-145)
[2019-07-09] MEDS ORDERED: Tamsulosin 0.4 MG Cap.ER PO ONE (16:27)
--- NOTE | 2019-07-09 16:31 | EDM.PDOC ---
ED HPI GENERAL MEDICAL PROBLEM - General Chief Complaint: General Stated Complaint: right flank pain Time Seen by Provider: 07/09/19 15:46 Source of Information: Reports: Patient History Limitations: Reports: No Limitations - History of Present Illness INITIAL COMMENTS - FREE TEXT/NARRATIVE: 5 day history of right sided flank pain. Long history of kidney stones. Hot/ cold sensation today. Few times with nausea/emesis. No bowel changes. No other pain complaints. Some hematuria yesterday and day before. Feels like her usual kidney stone pain. No new changes. Has been using OTC ibuprofen/tylenol. right flank Pain Score (Numeric/FACES): 7 - Related Data Allergies Allergy/AdvReac Type Severity Reaction Status Date / Time amoxicillin Allergy Hives Verified 07/09/19 15:49 cephalexin [From Keflex] Allergy Hives Verified 07/09/19 15:49 erythromycin base Allergy Hives Verified 07/09/19 15:49 Penicillins Allergy Hives Verified 07/09/19 15:49 Home Meds: Home Meds Hydrochlorothiazide 25 mg PO BID 01/03/16 [History] Potassium Chloride [K-Tab ER] 10 meq PO DAILY 01/03/16 [History] Ibuprofen [Motrin] 600 mg PO Q6HR PRN 06/26/16 [History] Magnesium Oxide 400 mg PO DAILY #90 tablet 10/09/18 [Rx] Acetaminophen [Tylenol] 650 mg PO Q6HR PRN 07/09/19 [History] Ketorolac [Toradol] 10 mg PO Q6H PRN #26 tab 07/09/19 [Rx] Ondansetron [Zofran ODT] 4 mg PO Q6H PRN #10 tab.dis 07/09/19 [Rx] Tamsulosin HCl [Flomax] 0.4 mg PO BID PRN #20 cap.er.24h 07/09/19 [Rx] oxyCODONE HCl/Acetaminophen [Oxycodone-Acetaminophen 5-325] 1 each PO Q6H PRN # 10 tablet 07/09/19 [Rx] Past Medical History HEENT History: Reports: Impaired Vision, Macular Degeneration, Otitis Media, Other (See Below). Denies: Allergic Rhinitis, Cataract, Glaucoma, Hard of Hearing, Retinal Detachment Other HEENT History: Wears glasses. History of recurrent bilateral otitis media. Cardiovascular History: Reports: Hypertension, Other (See Below). Denies: Afib , Aneurysm, Arrhythmia, Blood Clots/VTE/DVT, CAD, Heart Failure, Heart Murmur, NE, PVD, Syncope Other Cardiovascular History: Patient not taking medications for her hypertension with diuretic for her recurrent urolithiasis by her history, she does not know her cholesterol status Respiratory History: Reports: Intubation, Previous. Denies: Asthma, Bronchitis , Recurrent, COPD, Intubation, Difficult, PE, Pneumonia, Recurrent, Pneumothorax , Sleep Apnea, TB Gastrointestinal History: Reports: Cholelithiasis, Chronic Constipation, GERD. Denies: Celiac Disease, Chronic Diarrhea, Colon Polyp, Fecal Incontinence, Gastritis, GI Bleed, Hepatitis, Irritable Bowel Syndrome, Jaundice, Pancreatitis , PUD Genitourinary History: Reports: Hydronephrosis, Renal Calculus, Other (See Below ). Denies: STD, Urinary Incontinence, UTI, Recurrent Other Genitourinary History: Known moderate bilateral nephrolithiasis and recurrent urolithiasis by CT scans and ultrasounds as below. Spontaneous passage of multiple urinary stones with previous left-sided episodes on 06/20/18 and 03/04/18 with right-sided colic on 10/25/17 and 08/21/17. Recurrent bilateral urolithiasis since 2005 with history of mild right-sided hydronephrosis on 03/10 and recurrent lithotripsies as below; neurogenic bladder as below STREET ENGINEER History: Reports: Dysfunctional Uterine Bleeding, Fibroids, , Spontaneous Other STREET ENGINEER History: Recurrent left-sided ovarian cyst, fibrocystic breast disease, dysmenorrhea: Surgical menopause as below. Musculoskeletal History: Reports: Arthritis, Back Pain, Chronic, Fracture, Osteoarthritis, Other (See Below). Denies: Gout, Neck Pain, Chronic, RA, SLE Other Musculoskeletal History: Right wrist fracture at age 15 Neurological History: Reports: Neuropathy, Peripheral, Other (See Below). Denies: Cerebral Aneurysms, CVA, Headaches, Chronic, Head Trauma, Migraines, MS , Parkinson's, Seizure, TIA, Vertigo Other Neuro History: Cauda equina syndrome with neurogenic bladder Psychiatric History: Reports: Addiction, Anxiety, Depression, Other (See Below) . Denies: Abuse, Victim of, ADD, ADHD, Psych Hospitalization(s), Suicide Attempt, Suicidal Ideation Other Psychiatric History: Chronic Narcotic use, chronic insomnia Endocrine/Metabolic History: Reports: Obesity/BMI 30+, Other (See Below). Denies: Diabetes, Gestational, Diabetes, Type I, Diabetes, Type II, Diabetes Mellitus, Type 3c, Hypothyroidism, IDDM Other Endocrine/Metabolic History: Hypomagnesemia. Hematologic History: Reports: None. Denies: Anemia, Blood Transfusion(s), Iron Deficiency Immunologic History: Reports: None. Denies: AIDS, HIV, SLE Oncologic (Cancer) History: Reports: Cervix, Other (See Below). Denies: Basal Cell Carcinoma, Breast, Hodgkin's Lymphoma, Leukemia, Lymphoma, Non-Hodgkin's Lymphoma, Ovarian, Squamous Cell Carcinoma, Uterine Other Oncologic History: Multiple previous abnormal Pap smears of unknown type with resolution after cryotherapy 1999 Dermatologic History: Reports: Other (See Below). Denies: Eczema, Psoriasis Other Dermatologic History: Acne - Infectious Disease History Infectious Disease History: Reports: Chicken Pox, Shingles (Right Upper back at age 11.). Denies: C-Difficile, Measles, Meningitis, Mononucleosis, MRSA, Mumps, Pertussis (Whooping Cough), Rubella, Scarlet Fever, TB, VRE - Past Surgical History Head Surgeries/Procedures: Reports: None HEENT Surgical History: Reports: Adenoidectomy, Myringotomy w Tube(s), Oral Surgery, Tonsillectomy, Other (See Below). Denies: Cataract Surgery, Eye Surgery, Laser Surgery, LASIK, Naso-Sinus Surgery Other HEENT Surgeries/Procedures: Tonsillectomy and adenoidectomy at age 16. My wisdom 2 additional teeth extractions. Bilateral PE tubes child. Cardiovascular Surgical History: Reports: None. Denies: Varicose Respiratory Surgical History: Reports: None. Denies: Thoracentesis GI Surgical History: Reports: Appendectomy, Cholecystectomy, Other (See Below). Denies: Colonoscopy, EGD, Hernia, Inguinal, Hernia Repair/Other, Polypectomy Other GI Surgeries/Procedures: Laparoscopic cholecystectomy on 06/10/17. Appendectomy at age 15. Female Surgical History: Reports: Section, Cervical Cryotherapy, Cystoscopy, D&C, Hysterectomy, Lithotripsy/ESWL, Tubal Ligation, Ureteral Stent , Other (See Below). Denies: Breast Biopsy, Oophorectomy, Salpingo-Oophorectomy Other Female Surgeries/Procedures: Hysterectomy on 01/02/17 secondary to dysfunctional uterine bleeding, 2 at full-term secondary to failure to progress. D&C secondary to SAB in first trimester. bilateral tubal ligation in 2007, recurrent lithotripsies with last left-sided lithotripsy in June 2016 with 2 previous lithotripsies on the left side and also left ureteral stent placement in 2008 with subsequent removal, cervical cryotherapy in 1999 secondary to atypical Pap smears as above Endocrine Surgical History: Reports: None. Denies: Thyroid Biopsy Neurological Surgical History: Reports: None. Denies: C-Spine, Discectomy, Laminectomy, Lumbar Spine, Sacral Spine, Scoliosis, Thoracic Spine, Vertebroplasty Musculoskeletal Surgical History: Reports: None. Denies: Carpal Tunnel, Ganglion Cyst, Joint Replacement, ORIF, Shoulder Surgery Oncologic Surgical History: Reports: None Dermatological Surgical History: Reports: None - Past Imaging History Past Imaging History: Reports: CAT Scan (Last CT of the abdomen and pelvis with contrast on 08/21/[address] scan of the abdomen and pelvis stone protocol on 11/04/16 with bilateral nephrolithiasis but no evidence of urolithiasis or hydronephrosis, previous CT scan of the abdomen and pelvis on 06/27/16 positive for left-sided urolithiasis, CT of the lumbar spine on 03/10/16 with right-sided urolithiasis and mild hydronephrosis with additional osteoarthritic changes), HIDA Scan (06/09/17), Mammogram (Last mammogram on ), Ultrasound (Abdominal ultrasound on 06/09/17. Renal ultrasound 12/09/16, Left breast ultrasound on 06/03/16, pelvic ultrasound on 07/26/16) Social & Family History - Family History HEENT: Reports: Macular Degeneration, Other (See Below). Denies: Glaucoma, Retinal Detachment Other HEENT Family History: Macular Degeneration in mother, maternal aunt, and maternal grandmother. Cardiac: Reports: Afib, Other (See Below). Denies: Aneurysm, Blood Clots/VTE/ DVT, CAD, Heart Failure, Heart Murmur, High Cholesterol, Hypertension, NE, Syncope Other Cardiac Family History: Maternal aunt with atrial fibrillation. Paternal grandfather, mother, and maternal aunt with hypertension. Maternal grandfather with hyperlipidemia. Respiratory: Reports: COPD, Other (See Below). Denies: Asthma, PE, Pneumothorax , Sleep Apnea Other Respiratory Family Hisory: Maternal grandfather with COPD and history of tobacco use and well-being. GI: Reports: GERD, Hepatitis, Other (See Below). Denies: Celiac Disease, Cholelithiasis, Colon Polyps, GI bleed, Irritable Bowel Syndrome, Pancreatitis, PUD Other GI Family History: Father with hepatitis C as below. Paternal uncle with H. pylori infection. : Reports: Renal Calculus, Other (See Below). Denies: Renal Disease/ Insufficiency Other Family History: Father and brother with urolithiasis. OBGYN: Reports: None. Denies: Endometriosis, Recurrent Spontaneous Musculoskeletal: Reports: Arthritis, RA, Other (See Below). Denies: Gout, SLE Other Musculoskeletal Family History: Maternal aunt with rheumatoid arthritis. Neurological: Reports: CVA, MS, Other (See Below). Denies: Alzheimers Disease, Cerebral Aneurysms, Dementia, Migraines, Parkinson's, Seizure, TIA Other Neurological Family History: Paternal Grandfather with fatal CVA in his early 60s. Paternal aunts 2 with MS. Psychiatric: Reports: Anxiety, Depression, Other (See Below). Denies: Abuse, Victim of, ADD, ADHD, Psych Hospitalization(s), PTSD, Suicide Attempt Other Psychiatric Family History: Father with anxiety depression disorder and alcohol abuse. Mother with anxiety depression disorder. Endocrine/Metabolic: Reports: Diabetes, type II, IDDM, Other (See Below). Denies: Diabetes, Gestational, Diabetes, Type I, Hypothyroidism Other Endocrine/Metabolic Family History: Maternal grandmother with IDDM. Parents with AODM. Hematologic: Reports: None. Denies: Anemia, SLE Immunologic: Reports: None. Denies: AIDS, HIV, SLE Dermatologic: Reports: None. Denies: Eczema, Psoriasis Oncologic: Reports: Liver, Lung, Metastatic, Other (See Below). Denies: Breast , Cervix, Colon, Lymphoma, Non-Hodgkin's Lymphoma, Skin, Uterine Other Oncologic Family History: Father with fatal liver cancer hepatitis C likely secondary to alcohol abuse at age 53. Maternal grandmother with fatal pancreatic cancer at age 63. Paternal grandmother fatal lung cancer at age 66 with history of tobacco use. Metastatic disease in all the above cancers. Maternal aunt with unknown type of bone marrow cancer at age 57. - Tobacco Use Smoking Status *Q: Current Every Day Smoker - Caffeine Use Caffeine Use: Reports: None. Denies: Coffee, Energy Drinks, Soda, Tea - Living Situation & Occupation Living situation: Reports: Single, with Significant Other (And her 1 child from previous significant other relationships with another child not currently living with her). 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 Denies: Fever (no measured fever), Malaise, Night Sweats, Diaphoresis, Weight Loss, Weight Gain HEENT: Reports: Glasses, Other (left upper tooth is painful at times/sees dentist next week) Respiratory: Reports: No Symptoms Cardiovascular: Reports: No Symptoms GI/Abdominal: Reports: Nausea, Vomiting. Denies: Abdominal Pain, Constipation, Diarrhea, Hematemesis : Reports: Flank Pain, Hematuria. Denies: Urinary Retention Musculoskeletal: Reports: No Symptoms Skin: Reports: No Symptoms Neurological: Reports: No Symptoms Psychiatric: Reports: No Symptoms Hematologic/Lymphatic: Reports: No Symptoms ED EXAM, GENERAL - Physical Exam Exam: See Below Exam Limited By: No Limitations General Appearance: Alert, Mild Distress, Obese Eye Exam: Bilateral Eye: EOMI, PERRL Ears: Hearing Grossly Normal Throat/Mouth: Normal Voice, No Airway Compromise, Other (poor dentition, some missing teeth. No swelling of gums/drainage noted. ) Head: Atraumatic, Normocephalic Neck: Supple, Non-Tender, Full Range of Motion Respiratory/Chest: No Respiratory Distress, Lungs Clear, Normal Breath Sounds, No Accessory Muscle Use Cardiovascular: Regular Rate, Rhythm, No Murmur GI/Abdominal: Normal Bowel Sounds, Soft, Non-Tender, No Distention (Female) Exam: Deferred Rectal (Female) Exam: Deferred Back Exam: CVA Tenderness (R). No: CVA Tenderness (L) Extremities: Normal Range of Motion, Normal Capillary Refill Neurological: Alert, Oriented, Normal Cognition, Normal Gait, No Motor/Sensory Deficits Psychiatric: Normal Affect, Normal Mood Skin Exam: Warm, Dry, Intact, Normal Color Course - Vital Signs Last Recorded V/S: Last Vital Signs Temp 2.4 C L 07/09/19 15:43 Pulse 88 07/09/19 15:43 Resp 20 07/09/19 15:43 BP 140/81 07/09/19 15:43 Pulse Ox 100 07/09/19 15:43 - Orders/Labs/Meds Orders: Active Orders 24 hr Category Date Time Status Sodium Chloride 0.9% [Saline Flush] Med 07/09/19 15:58 Ordered 10 ml FLUSH ASDIRECTED PRN Saline Lock Insert [OM.PC] Routine Oth 07/09/19 15:58 Ordered Medication Orders Sodium Chloride (Saline Flush) 10 ml FLUSH ASDIRECTED PRN PRN Reason: Keep Vein Open Labs: Laboratory Tests 07/09/19 07/09/19 07/09/19 Range/Units 15:54 15:54 16:00 WBC 6.4 (4.0-10.2) K/uL RBC 4.18 (3.77-5.09) M/uL Hgb 12.2 (11.7-15.5) g/dL Hct 35.5 (34.0-46.0) % MCV 84.9 (84.0-98.0) fL MCH 29.2 (28.2-33.3) pg MCHC 34.4 (31.7-36.0) g/dL RDW 13.5 (11.2-14.1) % Plt Count 375 H (150-350) K/uL Neut % (Auto) 64.3 (45.0-80.0) % Lymph % (Auto) 28.1 (10.0-50.0) % Park % (Auto) 6.6 (2.0-14.0) % Eos % (Auto) 0.8 (0.0-5.0) % Baso % (Auto) 0.2 (0.0-2.0) % Neut # (Auto) 4.12 (1.40-7.00) K/uL Lymph # (Auto) 1.80 (0.50-3.50) K/uL Park # (Auto) 0.42 (0.00-1.00) K/uL Eos # (Auto) 0.05 (0.00-0.50) K/uL Baso # (Auto) 0.01 (0.00-0.20) K/uL Sodium (136-145) mmol/L Potassium (3.5-5.1) mmol/L Chloride (98-107) mmol/L Carbon Dioxide (21.0-32.0) mmol/L BUN (7-18) mg/dL Creatinine (0.51-1.17) mg/dL Est Cr Clr Drug Dosing mL/min Estimated GFR (MDRD) mL/min Glucose (74-106) mg/dL Lactic Acid (0.4-2.0) mmol/L Calcium (8.5-10.1) mg/dL Total Bilirubin (0.2-1.0) mg/dL AST (15-37) U/L ALT (12-78) U/L Alkaline Phosphatase (46-116) IU/L Total Protein (6.4-8.2) g/dL Albumin (3.4-5.0) g/dL Specimen Type Urinblad Urine Color Yellow Urine Appearance Clear Urine pH 6.0 (5.0-9.0) Ur Specific [place] 1.020 (1.005-1.030) Urine Protein Negative (NEGATIVE) mg/dL Urine Glucose (UA) Negative (NEGATIVE) mg/dL Urine Ketones Negative (NEGATIVE) mg/dL Urine Occult Blood Moderate H (NEGATIVE) Urine Nitrite Negative (NEGATIVE) Urine Bilirubin Negative (NEGATIVE) Urine Urobilinogen 0.2 (0.2-1.0) E.U./dL Ur Leukocyte Esterase Negative (NEGATIVE) Urine RBC 10-20 H /HPF Urine WBC 0-5 /HPF Ur Epithelial Cells Many H /LPF Urine Bacteria Moderate H (NONE TO FEW) /HPF Urinalysis Comment Urine HCG, Qual Negative 07/09/19 07/09/19 Range/Units 16:00 16:00 WBC (4.0-10.2) K/uL RBC (3.77-5.09) M/uL Hgb (11.7-15.5) g/dL Hct (34.0-46.0) % MCV (84.0-98.0) fL MCH (28.2-33.3) pg MCHC (31.7-36.0) g/dL RDW (11.2-14.1) % Plt Count (150-350) K/uL Neut % (Auto) (45.0-80.0) % Lymph % (Auto) (10.0-50.0) % Park % (Auto) (2.0-14.0) % Eos % (Auto) (0.0-5.0) % Baso % (Auto) (0.0-2.0) % Neut # (Auto) (1.40-7.00) K/uL Lymph # (Auto) (0.50-3.50) K/uL Park # (Auto) (0.00-1.00) K/uL Eos # (Auto) (0.00-0.50) K/uL Baso # (Auto) (0.00-0.20) K/uL Sodium 142 (136-145) mmol/L Potassium 3.7 (3.5-5.1) mmol/L Chloride 107 (98-107) mmol/L Carbon Dioxide 22.3 (21.0-32.0) mmol/L BUN 14 (7-18) mg/dL Creatinine 0.74 (0.51-1.17) mg/dL Est Cr Clr Drug Dosing 97.44 mL/min Estimated GFR (MDRD) > 60 mL/min Glucose 116 H (74-106) mg/dL Lactic Acid 1.4 (0.4-2.0) mmol/L Calcium 8.3 L (8.5-10.1) mg/dL Total Bilirubin 0.2 (0.2-1.0) mg/dL AST 78 H (15-37) U/L ALT 145 H (12-78) U/L Alkaline Phosphatase 96 (46-116) IU/L Total Protein 6.8 (6.4-8.2) g/dL Albumin 3.4 (3.4-5.0) g/dL Specimen Type Urine Color Urine Appearance Urine pH (5.0-9.0) Ur Specific [place] (1.005-1.030) Urine Protein (NEGATIVE) mg/dL Urine Glucose (UA) (NEGATIVE) mg/dL Urine Ketones (NEGATIVE) mg/dL Urine Occult Blood (NEGATIVE) Urine Nitrite (NEGATIVE) Urine Bilirubin (NEGATIVE) Urine Urobilinogen (0.2-1.0) E.U./dL Ur Leukocyte Esterase (NEGATIVE) Urine RBC /HPF Urine WBC /HPF Ur Epithelial Cells /LPF Urine Bacteria (NONE TO FEW) /HPF Urinalysis Comment Urine HCG, Qual Meds: Medications Generic Name Dose Route Start Last Admin Trade Name Alessandro PRN Reason Stop Dose Admin Sodium Chloride 10 ml 07/09/19 15:58 Saline Flush FLUSH ASDIRECTED PRN Keep Vein Open Discontinued Medications Generic Name Dose Route Start Last Admin Trade Name Alessandro PRN Reason Stop Dose Admin Sodium Chloride 1,000 mls @ 999 mls/hr 07/09/19 15:58 07/09/19 16:10 Normal Saline IV 07/09/19 16:58 999 mls/hr .BOLUS ONE Administration Ketorolac Tromethamine 30 mg 07/09/19 15:58 07/09/19 16:07 Toradol IVPUSH 07/09/19 15:59 30 mg ONETIME ONE Administration Tamsulosin HCl 0.4 mg 07/09/19 16:27 07/09/19 16:34 Flomax PO 07/09/19 16:28 0.4 mg ONETIME ONE Administration - Re-Assessments/Exams Free Text/Narrative Re-Assessment/Exam: 07/09/19 17:16 Patient declined xray/CT due to cost. Also declined hepatitis panel when enzyme elevation discussed. Did receive one liter of NS IV and had good pain relief with Toradol IV. Flomax given. UA showed small amount RBC. No evidence of UTI. WBC normal. Conservative treatment per patient's request. Rx for 10 Tylenol/Oxy, 16 Toradol, in addition to Flomax and Zofran sent to [facility]. Precautions reviewed. To follow up as needed if symptoms worsen. To follow up and consider CT if has not passed a stone/had pain resolve within next week. Departure - Departure Time of Disposition: 17:15 Disposition: Home, Self-Care 01 Condition: Good Clinical Impression: Right flank pain, History of renal stone, Elevated LFTs - Discharge Information *PRESCRIPTION DRUG MONITORING PROGRAM REVIEWED*: Yes *COPY OF PRESCRIPTION DRUG MONITORING REPORT IN PATIENT BERYL: No (No narcotics since 2017) Prescriptions: Ketorolac [Toradol] 10 mg PO Q6H PRN #26 tab PRN Reason: Pain oxyCODONE HCl/Acetaminophen [Oxycodone-Acetaminophen 5-325] 1 each PO Q6H PRN # 10 tablet PRN Reason: Pain Tamsulosin HCl [Flomax] 0.4 mg PO BID PRN #20 cap.er.24h PRN Reason: Kidney stone symptoms Referrals: PCP,None [Primary Care Provider] - Forms: ED Department Discharge Additional Instructions: Take Toradol tabs one every 6-8 hours to help with pain. Do not take ibuprofen or Aleve while using Toradol. Take 1 of the pain pills every 6 hours as needed to help with increased pain. OK to take one regular Tylenol with these pills. Otherwise avoid using extra Tylenol. Take the Flomax one every 12 hours to help with urination If you cannot pass the stone by the end of next week it is highly recommended to get a CT as discussed to make sure your kidneys look ok and that stone is not stuck. Follow up for recheck if you have sudden worsening. Follow up with your clinic to recheck your liver and see if the AST and ALT improved. Sepsis Event Note - Evaluation Sepsis Screening Result: No Definite Risk - Focused Exam Vital Signs: Vital Signs Temp Pulse Resp BP Pulse Ox 07/09/19 15:43 2.4 C L 88 20 140/81 100 Date Exam was Performed: 07/09/19 Time Exam was Performed: 17:03 - My Orders Last 24 Hours: My Active Orders 07/09/19 15:58 Sodium Chloride 0.9% [Saline Flush] 10 ml FLUSH ASDIRECTED PRN Saline Lock Insert [OM.PC] Routine - Assessment/Plan Last 24 Hours: My Active Orders 07/09/19 15:58 Sodium Chloride 0.9% [Saline Flush] 10 ml FLUSH ASDIRECTED PRN Saline Lock Insert [OM.PC] Routine
== END 2019-07-09 17:10 | disposition home or self-care (01) ==
LOC: LL.ED 15:41
DX: R10.9 Unspecified abdominal pain (principal); R79.89 Other specified abnormal findings of blood chemistry; I10 Essential (primary) hypertension; I25.2 Old myocardial infarction; E11.9 Type 2 diabetes mellitus without complications; F17.200 Nicotine dependence, unspecified, uncomplicated; Z88.1 Allergy status to other antibiotic agents; Z88.0 Allergy status to penicillin; Z79.899 Other long term (current) drug therapy
CPT/HCPCS: 36415; 80053; 81001; 81025; 83605; 85025; 96361; 96374; 99284-25; A9270-GY; J1885; J7030

== ENCOUNTER 2019-11-12 08:34 | Emergency (ER) | payer OTHER, MEDICAID ==
[2019-11-12] MEDS ORDERED: Sodium Chloride 0.9% 10 ML Syringe FLUSH PRN ×2 (08:48→09:05)
--- NOTE | 2019-11-12 08:48 | EDM.PDOC ---
ED HPI GENERAL MEDICAL PROBLEM - General Chief Complaint: Chest Pain Stated Complaint: chest pain Time Seen by Provider: 11/12/19 08:48 Source of Information: Reports: Patient, Old Records ([facility] EMR. No paper hospital chart available.) History Limitations: Reports: No Limitations - History of Present Illness INITIAL COMMENTS - FREE TEXT/NARRATIVE: The patient was brought to the emergency room via private automobile by her mother for evaluation of 12/26 retrosternal and left-sided chest pressure with radiation to the left shoulder and left arm with symptoms associated with some moderate dyspnea and diaphoresis with these symptoms waking her up at about 07:30 a.m. this morning. The patient did take 325 mg of uncoated aspirin at that time with no improvement of her symptoms. Her symptoms are similar to previous episode and evaluation this facility on 10/08/18. The patient denies any heart flutter, dizziness, orthostasis, orthopnea, paresthesias, recent decreased exercise tolerance, or any other anginal-type symptoms. Note, however, the patient has had intermittent episodes of some nonspecific chest pain with activity during the last few months. No recent history of abdominal pain, heartburn, nausea, diarrhea, melena, gross hematochezia, or any food intolerance, including fatty foods, etc.. She denies any gross hematuria, colic, or other UTI symptoms. The patient also denies any recent fever, cough, wheezing, etc.. Onset: Today, Sudden Onset Date: 11/12/19 Onset Time: 07:30 Duration: Constant, Getting Worse Location: Reports: Chest, Upper Extremity, Left, Radiates to (As above). Denies: Head, Face, Neck, Abdomen, Back, Pelvis, Upper Extremity, Right Quality: Reports: Pressure, Same as Previous Episode Severity: Moderate Improves with: Reports: None Worsens with: Reports: None Context: Reports: Other (As above). Denies: Sick Contact, Trauma Associated Symptoms: Reports: Shortness of Breath. 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 Left Chest Pain Score (Numeric/FACES): 8 - Related Data Allergies Allergy/AdvReac Type Severity Reaction Status Date / Time amoxicillin Allergy Hives Verified 11/12/19 08:41 cephalexin [From Keflex] Allergy Hives Verified 11/12/19 08:41 erythromycin base Allergy Hives Verified 11/12/19 08:41 morphine Allergy Hives Verified 11/12/19 08:41 Penicillins Allergy Hives Verified 11/12/19 08:41 Home Meds: Home Meds Hydrochlorothiazide 25 mg PO BID 01/03/16 [History] Potassium Chloride [K-Tab ER] 10 meq PO DAILY 01/03/16 [History] Ibuprofen [Motrin] 600 mg PO Q6HR PRN 06/26/16 [History] Magnesium Oxide 400 mg PO DAILY #90 tablet 10/09/18 [Rx] Acetaminophen [Tylenol] 650 mg PO Q6HR PRN 07/09/19 [History] Tamsulosin HCl [Flomax] 0.4 mg PO BID PRN #20 cap.er.24h 07/09/19 [Rx] Past Medical History HEENT History: Reports: Impaired Vision, Macular Degeneration, Otitis Media, Other (See Below). Denies: Allergic Rhinitis, Cataract, Glaucoma, Hard of Hearing, Retinal Detachment Other HEENT History: Wears glasses. History of recurrent bilateral otitis media. Cardiovascular History: Reports: High Cholesterol, Hypertension, Other (See Below). Denies: Afib, Aneurysm, Arrhythmia, Blood Clots/VTE/DVT, CAD, Cardiomyopathy, Heart Failure, Heart Murmur, DC, PVD, Syncope Other Cardiovascular History: Dyslipidemia currently diet controlled. Respiratory History: Reports: Intubation, Previous. Denies: Asthma, Bronchitis, Recurrent, COPD, Intubation, Difficult, PE, Pneumonia, Recurrent, Pneumothorax, Sleep Apnea, TB Gastrointestinal History: Reports: Cholelithiasis, Chronic Constipation, GERD. Denies: Celiac Disease, Chronic Diarrhea, Fecal Incontinence, Gastritis, GI Bleed, Hepatitis, Hiatal Hernia, Irritable Bowel Syndrome, Jaundice, Pancreatitis, PUD Genitourinary History: Reports: Hydronephrosis, Renal Calculus, Other (See Below). Denies: Acute Renal Failure, Chronic Renal Insuffiency, Pyelonephritis, Retention, Urinary, STD, Urinary Incontinence, UTI, Recurrent Other Genitourinary History: Known moderate bilateral nephrolithiasis and recurrent urolithiasis by CT scans and ultrasounds as below. Spontaneous passage of multiple urinary stones with previous left-sided episodes on 06/20/18 and 03/04/18 with right-sided colic on 10/25/17 and 08/21/17. Recurrent bilateral urolithiasis since 2005 with history of mild right-sided hydronephrosis on 07/12/19, 03/10/16 and recurrent lithotripsies as below; neurogenic bladder as below CASE LINER History: Reports: Dysfunctional Uterine Bleeding, Fibroids, Polycystic Ovaries, , Spontaneous . Denies: Endometriosis, Prolapsed Uterus, Therapeutic : 3 Para: 2 LMP (Approximate): Other (See Below) Other CASE LINER History: Recurrent left-sided ovarian cyst, fibrocystic breast disease, dysmenorrhea: Surgical menopause as below. Musculoskeletal History: Reports: Arthritis, Back Pain, Chronic, Fracture, O steoarthritis, Other (See Below). Denies: Amputation, Gout, Neck Pain, Chronic, Osteoporosis, RA, SLE Other Musculoskeletal History: Right wrist fracture at age 15 Neurological History: Reports: Neuropathy, Peripheral, Other (See Below). Denies: Cerebral Aneurysms, Concussion, CVA, Headaches, Chronic, Head Trauma, Migraines, MS, Parkinson's, Seizure, TIA Other Neuro History: Cauda equina syndrome with neurogenic bladder Psychiatric History: Reports: Addiction, Anxiety, Depression, Other (See Below). Denies: Abuse, Victim of, ADD, ADHD, Psych Hospitalization(s), PTSD, Suicide Attempt, Suicidal Ideation Other Psychiatric History: Chronic Narcotic use, chronic insomnia Endocrine/Metabolic History: Reports: Obesity/BMI 30+, Other (See Below). Denies: Diabetes, Gestational, Diabetes, Type I, Diabetes, Type II, Diabetes Mellitus, Type 3c, Hypothyroidism, IDDM Other Endocrine/Metabolic History: Hypomagnesemia. Hematologic History: Reports: Other (See Below). Denies: Anemia, Blood Transfu gamaliel(s) Other Hematologic History: Mild thrombocytosis. Immunologic History: Reports: None. Denies: AIDS, HIV, SLE Oncologic (Cancer) History: Reports: Cervix, Other (See Below). Denies: Basal Cell Carcinoma, Breast, Colon, Hodgkin's Lymphoma, Leukemia, Lymphoma, Malignant Melanoma, Non-Hodgkin's Lymphoma, Ovarian, Squamous Cell Carcinoma, Uterine Other Oncologic History: Multiple previous abnormal Pap smears of unknown type with resolution after cryotherapy 1999 Dermatologic History: Reports: Other (See Below). Denies: Eczema, Psoriasis Other Dermatologic History: Acne - Infectious Disease History Infectious Disease History: Reports: Chicken Pox, Shingles (Right upper back at age 11). Denies: C-Difficile, Measles, Meningitis, Mononucleosis, MRSA, Mumps, Pertussis (Whooping Cough), Rheumatic Fever, Rubella, Scarlet Fever, TB, VRE - Past Surgical History Head Surgeries/Procedures: Reports: None HEENT Surgical History: Reports: Adenoidectomy, Myringotomy w Tube(s), Oral Surgery, Tonsillectomy, Other (See Below). Denies: Cataract Surgery, Eye Surgery, Laser Surgery, LASIK, Naso-Sinus Surgery Other HEENT Surgeries/Procedures: Tonsillectomy and adenoidectomy at age 16. [place] teeth extraction 2 with additional teeth extractions. Bilateral PE tubes child. Cardiovascular Surgical History: Reports: None. Denies: Varicose Respiratory Surgical History: Reports: None. Denies: Thoracentesis GI Surgical History: Reports: Appendectomy, Cholecystectomy, Other (See Below). Denies: Colonoscopy, EGD, Hernia, Abdominal, Hernia, Inguinal, Hernia Repair/Other Other GI Surgeries/Procedures: Laparoscopic cholecystectomy on 06/10/17. Appendectomy at age 15. Female Surgical History: Reports: Section, Cervical Cryotherapy, Cystoscopy, D&C, Hysterectomy, Lithotripsy/ESWL, Tubal Ligation, Ureteral Stent, Other (See Below) Other Female Surgeries/Procedures: Hysterectomy on 01/02/17 secondary to dysfunctional uterine bleeding, 2 at full-term secondary to failure to progress. D&C secondary to SAB in first trimester. bilateral tubal ligation in 2007, recurrent lithotripsies with last left-sided lithotripsy in June 2016 with 2 previous lithotripsies on the left side and also left ureteral stent placement in 2008 with subsequent removal, cervical cryotherapy in 1999 secondary to atypical Pap smears as above Endocrine Surgical History: Reports: None. Denies: Thyroid Biopsy Neurological Surgical History: Reports: None. Denies: C-Spine, Discectomy, Laminectomy, Lumbar Spine, Sacral Spine, Spinal Fusion, Thoracic Spine, Vertebroplasty Musculoskeletal Surgical History: Reports: None. Denies: Arthroscopic Procedure, Carpal Tunnel, Ganglion Cyst, Joint Replacement, ORIF, Shoulder Surgery Oncologic Surgical History: Reports: None Dermatological Surgical History: Reports: None - Past Imaging History Past Imaging History: Reports: CAT Scan (Last CT of the abdomen and pelvis with contrast on 07/12/19 with previous evaluations on 08/21/17, CT scan of the abdomen and pelvis stone protocol on 11/04/16 with bilateral nephrolithiasis but no evidence of urolithiasis or hydronephrosis, previous CT scan of the abdomen and pelvis on 06/27/16 positive for left-sided urolithiasis, CT of the lumbar spine on 03/10/16 with right-sided urolithiasis and mild hydronephrosis with additional osteoarthritic changes), HIDA Scan (06/09/17), Mammogram (Last mammogram on 06/03/16), Ultrasound (Abdominal ultrasound on 06/09/17. Renal ultrasound 12/09/16, Left breast ultrasound on 06/03/16, pelvic ultrasound on 07/26/16) Social & Family History - Family History HEENT: Reports: Macular Degeneration, Other (See Below). Denies: Glaucoma Other HEENT Family History: Macular Degeneration in mother, maternal aunt, and maternal grandmother. Cardiac: Reports: Afib, High Cholesterol, Hypertension, Other (See Below). Denies: Aneurysm, Arrhythmia, Blood Clots/VTE/DVT, Bypass, CAD, Cardiomyopathy, Heart Failure, Heart Murmur, DC, PVD/COD, Syncope Other Cardiac Family History: Maternal aunt with atrial fibrillation. Paternal grandfather, mother, and maternal aunt with hypertension. Maternal grandfather with hyperlipidemia. Respiratory: Reports: COPD, Other (See Below). Denies: Asthma, PE, Pneumothorax, Sleep Apnea Other Respiratory Family Hisory: Maternal grandfather with COPD and history of tobacco use GI: Reports: GERD, Hepatitis, Other (See Below). Denies: Celiac Disease, Cholelithiasis, Colon Polyps, GI bleed, Inflammatory Bowel Disease, Irritable Bowel Syndrome, PUD Other GI Family History: Father with hepatitis C as below. Paternal uncle with H. pylori infection. : Reports: Renal Calculus, Other (See Below). Denies: Renal Disease/Insufficiency Other Family History: Father and brother with urolithiasis. OBGYN: Reports: None. Denies: Endometriosis, Recurrent Spontaneous Musculoskeletal: Reports: Arthritis, RA, Other (See Below). Denies: Gout Other Musculoskeletal Family History: Maternal aunt with rheumatoid arthritis. Neurological: Reports: CVA, MS, Other (See Below). Denies: Alzheimers Disease, Cerebral Aneurysms, Dementia, Migraines, Parkinson's, Seizure, TIA Other Neurological Family History: Paternal Grandfather with fatal CVA in his early 60s. Paternal aunts 2 with MS. Psychiatric: Reports: Anxiety, Depression, Other (See Below). Denies: Abuse, Victim of, ADD, ADHD, Psych Hospitalization(s), PTSD, Suicide Attempt Other Psychiatric Family History: Father with anxiety depression disorder and alcohol abuse. Mother with anxiety depression disorder. Endocrine/Metabolic: Reports: Diabetes, type II, IDDM, Other (See Below). Denies: Diabetes, Gestational, Diabetes, Type I, Diabetes Mellitus, Type 3c, Hypothyroidism Other Endocrine/Metabolic Family History: Maternal grandmother with IDDM. Parents with AODM. Hematologic: Reports: None. Denies: Anemia, SLE Immunologic: Reports: None. Denies: AIDS, HIV, SLE Dermatologic: Reports: None. Denies: Eczema, Psoriasis Oncologic: Reports: Liver, Lung, Metastatic, Pancreatic, Other (See Below). Denies: Breast, Cervix, Colon, Hodgkin's Lymphoma, Leukemia, Lymphoma, Non- Hodgkin's Lymphoma, Ovarian, Uterine Other Oncologic Family History: Father with fatal liver cancer hepatitis C likely secondary to alcohol abuse at age 53. Maternal grandmother with fatal pancreatic cancer at age 63. Paternal grandmother fatal lung cancer at age 66 with history of tobacco use. Metastatic disease in all the above cancers. Maternal aunt with unknown type of bone marrow cancer at age 57. - Tobacco Use Smoking Status *Q: Current Every Day Smoker Tobacco Use Within Last Twelve Months: Cigarettes Years of Tobacco use: 19 Packs/Tins Daily: 0.5 Packs/Tins Daily Comment: Started smoking at age 20 Used Tobacco, but Quit: No Smoking Cessation Information Provided To Patient: Yes (By accepting providers) Second Hand Smoke Exposure: Yes Source of Second Hand Smoke Exposure: Significant other Second Hand Smoke Education Provided: No - Caffeine Use Caffeine Use: Reports: None. Denies: Coffee, Energy Drinks, Soda, Tea Other Caffeine Use: very rarely - Alcohol Use Alcohol Use History: No Days Per Week of Alcohol Use: 0 Number of Drinks Per Day: 0 Number of Drinks Per Day Comment: No previous DWIs, problems with alcohol abuse, etc. Total Drinks Per Week: 0 Alcohol Use in Last Twelve Months: No - Recreational Drug Use Recreational Drug Use: No Drug Use in Last 12 Months: No Recreational Drug Type: Denies: Amphetamines (Speed), Cocaine, Fentanyl, Heroin, Inhalants (Glues, Solvents, Aerosols), LSD (Acid), Marijuana/Hashish, Methamphetamine, Morphine, Oxycodone - Living Situation & Occupation Living situation: Reports: Single, with Significant Other (And her 1 child from previous significant other relationships with another child not currently living with her). 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 ED EXAM, GENERAL - Physical Exam Exam: See Below Exam Limited By: No Limitations General Appearance: Alert, WD/WN, No Apparent Distress, Anxious (Mild) Eye Exam: Bilateral Eye: EOMI, Normal Inspection (No nystagmus. Patient is wearing glasses.), PERRL Ears: Normal External Exam, Normal Canal, Hearing Grossly Normal, Normal TMs Nose: Normal Inspection, Normal Mucosa, No Blood Throat/Mouth: Normal Lips, Normal Gums, Normal Oropharynx, Normal Voice, No Airway Compromise. No: Normal Teeth (Multiple missing teeth and caries uppers and lowers), Dysphagia, Perioral Cyanosis Head: Atraumatic, Normocephalic. No: Facial Swelling, Facial Tenderness, Sinus Tenderness Neck: Normal Inspection, Supple, Non-Tender, Full Range of Motion. No: Carotid Bruit, Lymphadenopathy (L), Lymphadenopathy (R), Thyromegaly Respiratory/Chest: No Respiratory Distress, Lungs Clear, Normal Breath Sounds, No Accessory Muscle Use, Chest Non-Tender. No: Pleural Rub, Retractions Cardiovascular: Normal Peripheral Pulses, Regular Rate, Rhythm, No Edema, No Gallop, No JVD, No Murmur, No Rub. No: Gallop/S3, Gallop/S4, Friction Rub Peripheral Pulses: 2+: Radial (L), Radial (R), Dorsalis Pedis (L), Dorsalis Pedis (R) GI/Abdominal: Normal Bowel Sounds, Soft, Non-Tender, No Organomegaly, No Distention, No Abnormal Bruit, No Mass, Pelvis Stable. No: Guarding (Female) Exam: Deferred Rectal (Female) Exam: Deferred Back Exam: Normal Inspection, Full Range of Motion. No: CVA Tenderness (L), CVA Tenderness (R), Muscle Spasm Extremities: Normal Inspection, Normal Range of Motion, Non-Tender, No Pedal Edema, Normal Capillary Refill. No: Latanya's Sign Neurological: Alert, Oriented, CN II-XII Intact, Normal Cognition, Normal Gait, Normal Reflexes (Negative Babinski's), No Motor/Sensory Deficits Psychiatric: Anxious (Mild). No: Depressed Mood Skin Exam: Warm, Dry, Intact, Normal Color, No Rash, Stud(s), Tattoo(s). No: Diaphoretic, Wound/Incision Lymphatic: No Adenopathy EKG INTERPRETATION EKG Date: 11/12/19 Time: 08:38 Rhythm: NSR Rate (Beats/Min): 64 [place]: Normal (Neutral, which is a change from previous left cardiac axis) P-Wave: Present QRS: Normal (0.09 seconds with mild repolarization changes) ST-T: Other (New T wave inversions in leads 3 and aVF with additional nonspecific ST changes in leads V1V3) QT: Prolonged (466/480 ms) IA/PQ Interval: 0.16 seconds with mild poor R-wave progression Comparison: Change From Previous EKG (As above since 10/08/18) EKG Interpretation Comments: 1. Inferior wall cardiac ischemia with possible developing anterior wall component 2. Prolonged QT Note repeat EKG at 10:04 hour showed resolution of previous ST changes with no evidence of acute ischemia. Course - Vital Signs Last Recorded V/S: Last Vital Signs Temp 35.7 C L 11/12/19 08:38 Pulse 69 11/12/19 10:13 Resp 18 11/12/19 10:13 BP 141/94 H 11/12/19 10:13 Pulse Ox 100 11/12/19 10:13 Vital Signs - 24 hr 11/12/19 11/12/19 11/12/19 08:38 08:43 08:53 Temperature [ 35.7 C L Temporal] Pulse, 65 Peripheral Pulse, 68 65 Peripheral [ Pulse Oximetry] Respiratory 16 16 Rate Blood Pressure 140/49 L Blood Pressure 134/85 140/94 H [Right Arm] O2 Sat by Pulse 100 100 Oximetry 11/12/19 11/12/19 11/12/19 08:58 09:01 09:06 Temperature [ Temporal] Pulse, 78 Peripheral Pulse, 72 69 Peripheral [ Pulse Oximetry] Respiratory 20 16 Rate Blood Pressure 140/90 129/77 Blood Pressure 129/77 112/69 [Right Arm] O2 Sat by Pulse 100 100 Oximetry 11/12/19 11/12/19 11/12/19 09:30 09:43 09:58 Temperature [ Temporal] Pulse, Peripheral Pulse, 70 72 69 Peripheral [ Pulse Oximetry] Respiratory 16 14 18 Rate Blood Pressure Blood Pressure 137/101 H 132/97 H 138/98 H [Right Arm] O2 Sat by Pulse 100 100 100 Oximetry 11/12/19 10:13 Temperature [ Temporal] Pulse, Peripheral Pulse, 69 Peripheral [ Pulse Oximetry] Respiratory 18 Rate Blood Pressure Blood Pressure 141/94 H [Right Arm] O2 Sat by Pulse 100 Oximetry - Orders/Labs/Meds Orders: Active Orders 24 hr Category Date Time Status Cardiac Monitoring [RC] . DIRECTED Care 11/12/19 08:48 Active EKG Documentation Completion [RC] ASDIRECTED Care 11/12/19 08:48 Active EKG Documentation Completion [RC] ASDIRECTED Care 11/12/19 10:01 Ordered Oxygen Therapy, ED [RC] PRN Care 11/12/19 08:48 Active Peripheral IV Care [RC] . DIRECTED Care 11/12/19 08:48 Active Peripheral IV Care [RC] . DIRECTED Care 11/12/19 09:05 Ordered Pulse Oximetry [RC] CONTINUOUS Care 11/12/19 08:48 Active Up With Assistance [RC] PFP Care 11/12/19 08:48 Active Vital Signs [RC] PFP Care 11/12/19 08:48 Active Nothing per Oral Now Diet [DIET] Diet 11/12/19 Breakfast Active Chest 1V Frontal [CR] Stat Exams 11/12/19 08:48 Ordered Heparin Sodium/0.45% NaCl [Heparin 25,000 Units in 1/2 Med 11/12/19 09:15 Ordered NS 500 ML] 500 ml IV TITRATE Sodium Chloride 0.9% [Normal Saline] 1,000 ml Med 11/12/19 09:15 Ordered IV ASDIRECTED Sodium Chloride 0.9% [Saline Flush] Med 11/12/19 08:48 Active 10 ml FLUSH ASDIRECTED PRN Sodium Chloride 0.9% [Saline Flush] Med 11/12/19 09:05 Ordered 10 ml FLUSH ASDIRECTED PRN Obtain Past Medical Record [OM.PC] Urgent Oth 11/12/19 08:48 Active Peripheral IV Insertion Adult [OM.PC] Stat Oth 11/12/19 08:48 Ordered Peripheral IV Insertion Adult [OM.PC] Stat Oth 11/12/19 09:05 Ordered Resuscitation Status Stat Resus Stat 11/12/19 08:48 Ordered Medication Orders Heparin Sodium/Sodium Chloride (Heparin 25,000 Units In 1/2 Ns 500 Ml) 500 mls @ 19.051 mls/hr IV TITRATE ALEIDA; Protocol Last Admin: 11/12/19 09:24 Dose: 10 units/kg/hr, 19.051 mls/hr Documented by: KP Cosigned by: CRISTINO Sodium Chloride (Normal Saline) 1,000 mls @ 30 mls/hr IV ASDIRECTED ALEIDA Last Admin: 11/12/19 09:24 Dose: 30 mls/hr Documented by: KP Sodium Chloride (Saline Flush) 10 ml FLUSH ASDIRECTED PRN PRN Reason: Keep Vein Open Sodium Chloride (Saline Flush) 10 ml FLUSH ASDIRECTED PRN PRN Reason: Keep Vein Open Labs: Laboratory Tests 11/12/19 11/12/19 11/12/19 Range/Units 08:53 08:53 08:53 WBC 5.8 (4.0-10.2) K/uL RBC 4.23 (3.77-5.09) M/uL Hgb 12.1 (11.7-15.5) g/dL Hct 35.9 (34.0-46.0) % MCV 84.9 (84.0-98.0) fL MCH 28.6 (28.2-33.3) pg MCHC 33.7 (31.7-36.0) g/dL RDW 12.9 (11.2-14.1) % Plt Count 393 H (150-350) K/uL Neut % (Auto) 54.0 (45.0-80.0) % Lymph % (Auto) 35.8 (10.0-50.0) % [place] % (Auto) 9.0 (2.0-14.0) % Eos % (Auto) 0.9 (0.0-5.0) % Baso % (Auto) 0.3 (0.0-2.0) % Neut # (Auto) 3.14 (1.40-7.00) K/uL Lymph # (Auto) 2.08 (0.50-3.50) K/uL [place] # (Auto) 0.52 (0.00-1.00) K/uL Eos # (Auto) 0.05 (0.00-0.50) K/uL Baso # (Auto) 0.02 (0.00-0.20) K/uL PT 9.7 (9.5-12.0) SEC INR 1.0 APTT 26.9 (24.5-32.8) SEC D-Dimer, Quantitative < 100 (0-400) ng/mL Sodium (136-145) mmol/L Potassium (3.5-5.1) mmol/L Chloride (98-107) mmol/L Carbon Dioxide (21.0-32.0) mmol/L BUN (7-18) mg/dL Creatinine (0.51-1.17) mg/dL Est Cr Clr Drug Dosing mL/min Estimated GFR (MDRD) mL/min Glucose (74-106) mg/dL Lactic Acid (0.4-2.0) mmol/L Uric Acid (2.6-7.2) mg/dL Calcium (8.5-10.1) mg/dL Magnesium (1.8-2.4) mg/dL Total Bilirubin (0.2-1.0) mg/dL AST (15-37) U/L ALT (12-78) U/L Alkaline Phosphatase (46-116) IU/L Creatine Kinase (26-308) U/L Creatine Kinase Index (0.0-2.5) % CK-MB (CK-2) (0.00-3.60) ng/mL Troponin I (0.000-0.056) ng/mL NT-Pro-B Natriuret Pep (0-125) pg/mL Total Protein (6.4-8.2) g/dL Albumin (3.4-5.0) g/dL TSH, Ultra Sensitive (0.358-3.740) mIU/mL 11/12/19 11/12/19 Range/Units 08:53 08:53 WBC (4.0-10.2) K/uL RBC (3.77-5.09) M/uL Hgb (11.7-15.5) g/dL Hct (34.0-46.0) % MCV (84.0-98.0) fL MCH (28.2-33.3) pg MCHC (31.7-36.0) g/dL RDW (11.2-14.1) % Plt Count (150-350) K/uL Neut % (Auto) (45.0-80.0) % Lymph % (Auto) (10.0-50.0) % [place] % (Auto) (2.0-14.0) % Eos % (Auto) (0.0-5.0) % Baso % (Auto) (0.0-2.0) % Neut # (Auto) (1.40-7.00) K/uL Lymph # (Auto) (0.50-3.50) K/uL [place] # (Auto) (0.00-1.00) K/uL Eos # (Auto) (0.00-0.50) K/uL Baso # (Auto) (0.00-0.20) K/uL PT (9.5-12.0) SEC INR APTT (24.5-32.8) SEC D-Dimer, Quantitative (0-400) ng/mL Sodium 139 (136-145) mmol/L Potassium 3.8 (3.5-5.1) mmol/L Chloride 104 (98-107) mmol/L Carbon Dioxide 25.2 (21.0-32.0) mmol/L BUN 20 H (7-18) mg/dL Creatinine 0.98 (0.51-1.17) mg/dL Est Cr Clr Drug Dosing 73.58 mL/min Estimated GFR (MDRD) > 60 mL/min Glucose 97 (74-106) mg/dL Lactic Acid 0.8 (0.4-2.0) mmol/L Uric Acid 4.7 (2.6-7.2) mg/dL Calcium 8.7 (8.5-10.1) mg/dL Magnesium 1.9 (1.8-2.4) mg/dL Total Bilirubin 0.3 (0.2-1.0) mg/dL AST 23 (15-37) U/L ALT 44 (12-78) U/L Alkaline Phosphatase 66 (46-116) IU/L Creatine Kinase 157 (26-308) U/L Creatine Kinase Index 1.1 (0.0-2.5) % CK-MB (CK-2) 1.80 (0.00-3.60) ng/mL Troponin I 0.003 (0.000-0.056) ng/mL NT-Pro-B Natriuret Pep 24 (0-125) pg/mL Total Protein 7.0 (6.4-8.2) g/dL Albumin 3.5 (3.4-5.0) g/dL TSH, Ultra Sensitive 1.706 (0.358-3.740) mIU/mL Meds: Medications Generic Name Dose Route Start Last Admin Trade Name Freq PRN Reason Stop Dose Admin Heparin Sodium/Sodium Chloride 500 mls @ 19.051 mls/hr 11/12/19 09:15 11/12/19 09:24 Heparin 25,000 Units In /2 Ns 500 Ml IV 10 units/kg/hr TITRATE ALEIDA 19.051 mls/hr Administration Protocol 10 UNITS/KG/HR Sodium Chloride 1,000 mls @ 30 mls/hr 11/12/19 09:15 11/12/19 09:24 Normal Saline IV 30 mls/hr ASDIRECTED ALEIDA Administration Sodium Chloride 10 ml 11/12/19 08:48 Saline Flush FLUSH ASDIRECTED PRN Keep Vein Open Sodium Chloride 10 ml 11/12/19 09:05 Saline Flush FLUSH ASDIRECTED PRN Keep Vein Open Discontinued Medications Generic Name Dose Route Start Last Admin Trade Name Freq PRN Reason Stop Dose Admin Famotidine 40 mg 11/12/19 08:48 11/12/19 08:52 Pepcid IVPUSH 11/12/19 08:49 40 mg ONETIME ONE Administration Heparin Sodium (Porcine) 4,000 units 11/12/19 09:05 11/12/19 09:15 Heparin Sodium IVPUSH 11/12/19 09:06 4,000 units ONETIME ONE Administration Lorazepam 0.5 mg 11/12/19 09:54 11/12/19 10:00 Ativan IVPUSH 11/12/19 09:55 0.5 mg ONETIME ONE Administration Metoprolol Tartrate 2.5 mg 11/12/19 08:48 11/12/19 08:53 Lopressor IVPUSH 11/12/19 08:49 Not Given ONETIME ONE Metoprolol Tartrate 2.5 mg 11/12/19 09:03 11/12/19 09:06 Lopressor IVPUSH 11/12/19 09:04 2.5 mg ONETIME ONE Administration Morphine Sulfate 2 mg 11/12/19 09:54 11/12/19 10:02 Morphine IVPUSH 11/12/19 09:55 2 mg ONETIME ONE Administration Morphine Sulfate 2 mg 11/12/19 10:18 Morphine IVPUSH 11/12/19 10:19 ONETIME ONE Nitroglycerin 0.4 mg 11/12/19 08:54 11/12/19 09:01 Nitrostat SL 11/12/19 08:55 0.4 mg ONETIME ONE Administration Nitroglycerin 0.5 gm 11/12/19 10:03 11/12/19 10:11 Nitro-Bid 2% TOP 11/12/19 10:04 0.5 gm ONETIME ONE Administration Ondansetron HCl 4 mg 11/12/19 09:54 11/12/19 10:00 Zofran IVPUSH 11/12/19 09:55 4 mg ONETIME ONE Administration Ticagrelor 180 mg 11/12/19 08:48 11/12/19 08:56 Brilinta PO 11/12/19 08:49 180 mg ONETIME ONE Administration - Radiology Interpretation Free Text/Narrative:: threat monitoring analyst initially showed normal sinus rhythm in the 60s with subsequent development of recurrent ventricular tachycardia with maximum 17 beat run and possible threatening torsades. Maximum brief tachycardia in the 160s by monitor, which was observed by this provider. Subsequent improvement to heart rate in the 60-70s with no further additional arrhythmia noted. Chest X-ray, portable, shows moderate cardiomegaly with possible mild centralized CHF with no pulmonary infiltrates, pneumothorax, etc.. Departure - Departure Time of Disposition: 10:25 Disposition: DC/Tfer to [facility] 02 Reason for Transfer *Q: Other (Cardiology consultation) Condition: Fair Clinical Impression: Chest pain, Tobacco abuse counseling, Hypertension, Hypomagnesemia, Caries, Peptic reflux disease, Mixed anxiety depressive disorder, Ventricular tachycardia (paroxysmal) Referrals: Dotty Villaseñor PA-C [Primary Care Provider] - Forms: ED Department Discharge, Interfacility Transfer [facility] Sepsis Event Note (ED) - Evaluation Sepsis Screening Result: No Definite Risk - Focused Exam Vital Signs: Vital Signs Temp Pulse Pulse Resp BP BP Pulse Ox 11/12/19 10:13 69 18 141/94 H 100 11/12/19 09:58 69 18 138/98 H 100 11/12/19 09:43 72 14 132/97 H 100 11/12/19 09:30 70 16 137/101 H 100 11/12/19 09:06 78 69 16 129/77 112/69 100 11/12/19 09:01 140/90 11/12/19 08:58 72 20 129/77 100 11/12/19 08:53 65 140/49 L 11/12/19 08:43 65 16 140/94 H 100 11/12/19 08:38 35.7 C L 68 16 134/85 100 - Problem List & Annotations (1) Chest pain SNOMED Code(s): 82607090 Code(s): R07.9 - CHEST PAIN, UNSPECIFIED Status: Acute Priority: High Onset Date: 10/07/18 Annotation/Comment:: Telephone consultation at 09:31 hours with [facility] in [place] and then again at 09:[address] Cyr, hospitalist, and Dr. Magaña, boiler house operator at [facility], who are requesting that the patient be initially evaluated in the emergency room with cardiology consultation at that time. No further treatment recommendations given, including no further antiarrhythmic medication such as amiodarone at this time. They did agree to contact the emergency room for me with Dr. Smith , ER physician, apparently accepting the patient. Chest pain protocol initiated immediately upon patient's arrival to the emergency room. Chest pain resolved after aggressive medical therapy, including Brilinta, sodium heparin per non-STEMI protocol, and low-dose IV Lopressor. She did already take aspirin shortly prior to arrival to this facility as above. Note that the patient never did have the recommended follow-up cardiac workup after her similar episode last year with negative workup for acute DC in this facility on . Chest pain did recur with 34/10 retrosternal chest pressure with IV morphine and IV Zofran given. Secondary to unstable angina initial plans to start a nitroglycerin infusion, however difficulty getting IV access. Nitro- paste therapy was started. EKG was repeated prior to patient's transfer and showed resolution of previous ischemic changes. Clinical exam and vital signs were stable at time of transfer, however she still complained of variable retrosternal chest pressure. Strong anxiety component. Ambulance transfer with under trimmer accompaniment with the under trimmer counseled on additional medications in route, including possible repeat sublingual nitroglycerin tablet, IV morphine and/or IV Ativan, low-dose IV Lopressor, etc. depending on her clinical course. Last oral intake was 23:30 hours this past evening. Note that patient has tolerated IV morphine in the past with only minimal nonspecific local reaction. No complications from IV morphine administration today. Qualifiers: Chest pain type: unspecified Qualified Code(s): R07.9 - Chest pain, unspecified (2) Ventricular tachycardia (paroxysmal) SNOMED Code(s): 97699246 Code(s): I47.2 - VENTRICULAR TACHYCARDIA Status: Acute Priority: High Onset Date: 11/12/19 Annotation/Comment:: Overall good response to IV Lopressor and questionable threatening torsades, however note normal magnesium level today despite previous history of hypomagnesemia. Note despite significant runs and tachycardia as above no loss of consciousness, etc. with the above episodes. (3) Caries SNOMED Code(s): 02342277 Code(s): K02.9 - DENTAL CARIES, UNSPECIFIED Status: Chronic Priority: Medium Annotation/Comment:: She was once again advised to follow-up with her dentist RAMYA after her cardiac status has stabilized. (4) Hypertension SNOMED Code(s): 65358736 Code(s): I10 - ESSENTIAL (PRIMARY) HYPERTENSION Status: Chronic Priority: Medium Annotation/Comment:: Blood pressures under good control in the emergency room with continued close observation by accepting and regular providers. Qualifiers: Hypertension type: essential hypertension Qualified Code(s): I10 - Essential (primary) hypertension (5) Mixed anxiety depressive disorder SNOMED Code(s): 798197738 Code(s): F41.8 - OTHER SPECIFIED ANXIETY DISORDERS Status: Chronic Priority: Medium Annotation/Comment:: Stable by patient history in the recent past, however low-dose IV Ativan was required in the emergency room. (6) Peptic reflux disease SNOMED Code(s): 188203992 Code(s): K21.9 - GASTRO-ESOPHAGEAL REFLUX DISEASE WITHOUT ESOPHAGITIS Status: Chronic Priority: Medium Annotation/Comment:: High-dose IV Pepcid given in the emergency room as GI prophylaxis. Otherwise previously stable by history. (7) Tobacco abuse counseling SNOMED Code(s): 550570568, 382540355, 808831608 Code(s): Z71.6 - TOBACCO ABUSE COUNSELING Status: Chronic Priority: Medium Annotation/Comment:: Tobacco cessation once again strongly encouraged with information to be provided once again at discharge by accepting providers. - Problem List Review Problem List Initiated/Reviewed/Updated: Yes - My Orders Last 24 Hours: My Active Orders 11/12/19 Breakfast Nothing per Oral Now Diet [DIET] 11/12/19 08:48 Cardiac Monitoring [RC] . DIRECTED EKG Documentation Completion [RC] ASDIRECTED Oxygen Therapy, ED [RC] PRN Peripheral IV Care [RC] . DIRECTED Pulse Oximetry [RC] CONTINUOUS Up With Assistance [RC] PFP Vital Signs [RC] PFP Chest 1V Frontal [CR] Stat Sodium Chloride 0.9% [Saline Flush] 10 ml FLUSH ASDIRECTED PRN Obtain Past Medical Record [OM.PC] Urgent Peripheral IV Insertion Adult [OM.PC] Stat Resuscitation Status Stat 11/12/19 09:05 Peripheral IV Care [RC] . DIRECTED Sodium Chloride 0.9% [Saline Flush] 10 ml FLUSH ASDIRECTED PRN Peripheral IV Insertion Adult [OM.PC] Stat 11/12/19 09:15 Heparin Sodium/0.45% NaCl [Heparin 25,000 Units in 1/2 NS 500 ML] 500 ml IV TITRATE Sodium Chloride 0.9% [Normal Saline] 1,000 ml IV ASDIRECTED 11/12/19 10:01 EKG Documentation Completion [RC] ASDIRECTED - Assessment/Plan Last 24 Hours: My Active Orders 11/12/19 Breakfast Nothing per Oral Now Diet [DIET] 11/12/19 08:48 Cardiac Monitoring [RC] . DIRECTED EKG Documentation Completion [RC] ASDIRECTED Oxygen Therapy, ED [RC] PRN Peripheral IV Care [RC] . DIRECTED Pulse Oximetry [RC] CONTINUOUS Up With Assistance [RC] PFP Vital Signs [RC] PFP Chest 1V Frontal [CR] Stat Sodium Chloride 0.9% [Saline Flush] 10 ml FLUSH ASDIRECTED PRN Obtain Past Medical Record [OM.PC] Urgent Peripheral IV Insertion Adult [OM.PC] Stat Resuscitation Status Stat 11/12/19 09:05 Peripheral IV Care [RC] . DIRECTED Sodium Chloride 0.9% [Saline Flush] 10 ml FLUSH ASDIRECTED PRN Peripheral IV Insertion Adult [OM.PC] Stat 11/12/19 09:15 Heparin Sodium/0.45% NaCl [Heparin 25,000 Units in 1/2 NS 500 ML] 500 ml IV TITRATE Sodium Chloride 0.9% [Normal Saline] 1,000 ml IV ASDIRECTED 11/12/19 10:01 EKG Documentation Completion [RC] ASDIRECTED Assessment:: As above Plan: As above. Extensive precautions were given to the patient, mother, and significant other who are in agreement with the treatment plan. Ambulance transfer to [facility] in [place] with under trimmer accompaniment as above.
[2019-11-12] MEDS: Famotidine 20 MG/2 ML SDV IVPUSH ONE (08:52)
[2019-11-12] MEDS: Metoprolol Tartrate 5 MG/5 ML SDV IVPUSH ONE ×2 (08:53→09:06)
[2019-11-12] MEDS: Ticagrelor 90 MG Tab PO ONE (08:56)
[2019-11-12] MEDS: Nitroglycerin 0.4 MG Tab.SL SL ONE (09:01)
[2019-11-12] MEDS: Heparin Sodium 5,000 Units/ML Vial IVPUSH ONE (09:15)
[2019-11-12 09:18] LABS: CHLORIDE,CL 104 mmol/L (98-107); SODIUM,NA 139 mmol/L (136-145)
[2019-11-12 09:19] LABS: PTT,PARTIAL THROMBOPLSTIN TIME 26.9 SEC (24.5-32.8)
[2019-11-12] MEDS: Sodium Chloride 0.9% 1,000 ML IV SCH (09:24)
[2019-11-12] MEDS: Heparin Sodium/0.45% NaCl 500 ML IV SCH (09:24)
[2019-11-12] MEDS: Ondansetron 4 MG/2 ML SDV IVPUSH ONE (10:00)
[2019-11-12] MEDS: LORazepam 2 MG/ML SDV IVPUSH ONE (10:00)
[2019-11-12] MEDS: Morphine 2 MG/ML Syringe IVPUSH ONE ×2 (10:00→10:02)
[2019-11-12] MEDS: Nitroglycerin 2% Oint 1 GM UD Packet TOP ONE (10:11)
[2019-11-12 10:57] VITALS: BP 141/94; PULSE 69
== END 2019-11-12 10:20 ==
LOC: LL.ED 08:34
DX: F41.8 Other specified anxiety disorders (principal); I47.2 Ventricular tachycardia; K21.9 Gastro-esophageal reflux disease without esophagitis; E83.42 Hypomagnesemia; Z71.6 Tobacco abuse counseling; K02.9 Dental caries, unspecified; I10 Essential (primary) hypertension; E66.9 Obesity, unspecified; F17.210 Nicotine dependence, cigarettes, uncomplicated; Z68.33 Body mass index [BMI] 33.0-33.9, adult; Z88.1 Allergy status to other antibiotic agents; Z88.0 Allergy status to penicillin; Z88.5 Allergy status to narcotic agent; Z79.899 Other long term (current) drug therapy
CPT/HCPCS: 36415; 71045; 80053; 82550; 82553; 83605; 83735; 83880; 84443; 84484; 84550; 85025; 85379; 85610; 85730; 93005; 93010; 96365; 96375; 99284; 99285-25; A9270-GY; J1644; J2060; J2270; J2405; J3490; J7030

== ENCOUNTER 2019-11-14 16:32 | Emergency (ER) | payer OTHER, SELFPAY ==
[2019-11-14] MEDS ORDERED: Nitroglycerin 0.4 MG Tab.SL ONE (16:50)
[2019-11-14] MEDS ORDERED: Sodium Chloride 0.9% 10 ML Syringe FLUSH PRN (16:51)
[2019-11-14] MEDS ORDERED: Nitroglycerin 0.4 MG Tab.SL SL PRN (16:52)
[2019-11-14] MEDS ORDERED: LORazepam 2 MG/ML SDV IVPUSH ONE (17:09)
[2019-11-14] MEDS ORDERED: Ondansetron 4 MG/2 ML SDV IVPUSH ONE (17:09)
[2019-11-14] MEDS ORDERED: Morphine 2 MG/ML SYRINGE IVPUSH ONE (17:15)
--- NOTE | 2019-11-14 17:25 | EDM.PDOC ---
ED HPI GENERAL MEDICAL PROBLEM - General Chief Complaint: Chest Pain Stated Complaint: chest pain Time Seen by Provider: 11/14/19 16:51 Source of Information: Reports: Patient, EMS, Family History Limitations: Reports: No Limitations - History of Present Illness INITIAL COMMENTS - FREE TEXT/NARRATIVE: Patient comes to ER after having episode at home where she became dizzy walking down stairs. Ultimately laid down on floor. Reports central/left sided chest pain, SOB, diaphoresis. EMS dispatched. Given one nitro by EMS which helped improve pain. Unable to get IV access. Also reports an earlier episode of similar chest pain around 9-9:30 this morning which resolved after she took a nitro. Was seen here 11/11 and felt to have a non-stemi, transferred to [facility] where she had stent placed. Discharged home yesterday. Reports this is first day she has tried to quit smoking. Has been having anxiety issues since admission to [facility]. Her mother gave her one Clonazepam last night for the anxiety. Patient denies taking any more today. Patient is acting unusual compared to normal baseline. Acting/speaking like she is under the influence of some sort of substance. De nies ETOH or other drug use. - Related Data Allergies Allergy/AdvReac Type Severity Reaction Status Date / Time amoxicillin Allergy Hives Verified 11/14/19 17:57 cephalexin [From Keflex] Allergy Hives Verified 11/14/19 17:57 erythromycin base Allergy Hives Verified 11/14/19 17:57 fluoxetine [From Prozac] Allergy Dizziness Verified 11/14/19 17:57 Penicillins Allergy Hives Verified 11/14/19 17:57 Home Meds: Home Meds Hydrochlorothiazide 25 mg PO BID 01/03/16 [History] Potassium Chloride [K-Tab ER] 10 meq PO DAILY 01/03/16 [History] Acetaminophen [Tylenol] 650 mg PO Q6HR PRN 07/09/19 [History] Aspirin 81 mg PO DAILY 11/14/19 [History] Melatonin 6 mg PO BEDTIME PRN 11/14/19 [History] Nitroglycerin [Nitrostat] 0.4 mg SL ASDIRECTED PRN 11/14/19 [History] Ticagrelor [Brilinta] 90 mg PO BID 11/14/19 [History] atorvaSTATin [Lipitor] 40 mg PO DAILY 11/14/19 [History] Past Medical History HEENT History: Reports: Impaired Vision, Macular Degeneration, Otitis Media, Other (See Below). Denies: Allergic Rhinitis, Cataract, Glaucoma, Hard of Hearing, Retinal Detachment Other HEENT History: Wears glasses. History of recurrent bilateral otitis media. Cardiovascular History: Reports: High Cholesterol, Hypertension, Other (See Below). Denies: Afib, Aneurysm, Arrhythmia, Blood Clots/VTE/DVT, CAD, Cardiomyopathy, Heart Failure, Heart Murmur, VA, PVD, Syncope Other Cardiovascular History: Dyslipidemia currently diet controlled. Respiratory History: Reports: Intubation, Previous. Denies: Asthma, Bronchitis, Recurrent, COPD, Intubation, Difficult, PE, Pneumonia, Recurrent, Pneumothorax, Sleep Apnea, TB Gastrointestinal History: Reports: Cholelithiasis, Chronic Constipation, GERD. Denies: Celiac Disease, Chronic Diarrhea, Fecal Incontinence, Gastritis, GI Bleed, Hepatitis, Hiatal Hernia, Irritable Bowel Syndrome, Jaundice, Pancreatitis, PUD Genitourinary History: Reports: Hydronephrosis, Renal Calculus, Other (See Below). Denies: Acute Renal Failure, Chronic Renal Insuffiency, Pyelonephritis, Retention, Urinary, STD, Urinary Incontinence, UTI, Recurrent Other Genitourinary History: Known moderate bilateral nephrolithiasis and recurrent urolithiasis by CT scans and ultrasounds as below. Spontaneous passage of multiple urinary stones with previous left-sided episodes on 06/20/18 and 03/04/18 with right-sided colic on 10/25/17 and 08/21/17. Recurrent bilateral urolithiasis since 2005 with history of mild right-sided hydronephrosis on 07/12/19, 03/10/16 and recurrent lithotripsies as below; neurogenic bladder as below CARDIO TECH History: Reports: Dysfunctional Uterine Bleeding, Fibroids, Polycystic Ovaries, , Spontaneous . Denies: Endometriosis, Prolapsed Uterus, Therapeutic Other CARDIO TECH History: Recurrent left-sided ovarian cyst, fibrocystic breast disease, dysmenorrhea: Surgical menopause as below. Musculoskeletal History: Reports: Arthritis, Back Pain, Chronic, Fracture, Osteoarthritis, Other (See Below). Denies: Amputation, Gout, Neck Pain, Chronic, Osteoporosis, RA, SLE Other Musculoskeletal History: Right wrist fracture at age 15 Neurological History: Reports: Neuropathy, Peripheral, Other (See Below). Denies: Cerebral Aneurysms, Concussion, CVA, Headaches, Chronic, Head Trauma, Migraines, MS, Parkinson's, Seizure, TIA Other Neuro History: Cauda equina syndrome with neurogenic bladder Psychiatric History: Reports: Addiction, Anxiety, Depression, Other (See Below). Denies: Abuse, Victim of, ADD, ADHD, Psych Hospitalization(s), PTSD, Suicide Attempt, Suicidal Ideation Other Psychiatric History: Chronic Narcotic use, chronic insomnia Endocrine/Metabolic History: Reports: Obesity/BMI 30+, Other (See Below). Denies: Diabetes, Gestational, Diabetes, Type I, Diabetes, Type II, Diabetes Mellitus, Type 3c, Hypothyroidism, IDDM Other Endocrine/Metabolic History: Hypomagnesemia. Hematologic History: Reports: Other (See Below). Denies: Anemia, Blood Transfusion(s) Other Hematologic History: Mild thrombocytosis. Immunologic History: Reports: None. Denies: AIDS, HIV, SLE Oncologic (Cancer) History: Reports: Cervix, Other (See Below). Denies: Basal Cell Carcinoma, Breast, Colon, Hodgkin's Lymphoma, Leukemia, Lymphoma, Malignant Melanoma, Non-Hodgkin's Lymphoma, Ovarian, Squamous Cell Carcinoma, Uterine Other Oncologic History: Multiple previous abnormal Pap smears of unknown type with resolution after cryotherapy 1999 Dermatologic History: Reports: Other (See Below). Denies: Eczema, Psoriasis Other Dermatologic History: Acne - Infectious Disease History Infectious Disease History: Reports: Chicken Pox, Shingles (Right upper back at age 11). Denies: C-Difficile, Measles, Meningitis, Mononucleosis, MRSA, Mumps, Pertussis (Whooping Cough), Rheumatic Fever, Rubella, Scarlet Fever, TB, VRE - Past Surgical History Head Surgeries/Procedures: Reports: None HEENT Surgical History: Reports: Adenoidectomy, Myringotomy w Tube(s), Oral Surgery, Tonsillectomy, Other (See Below). Denies: Cataract Surgery, Eye Surgery, Laser Surgery, LASIK, Naso-Sinus Surgery Other HEENT Surgeries/Procedures: Tonsillectomy and adenoidectomy at age 16. [place] teeth extraction 2 with additional teeth extractions. Bilateral PE tubes child. Cardiovascular Surgical History: Reports: None. Denies: Varicose Respiratory Surgical History: Reports: None. Denies: Thoracentesis GI Surgical History: Reports: Appendectomy, Cholecystectomy, Other (See Below). Denies: Colonoscopy, EGD, Hernia, Abdominal, Hernia, Inguinal, Hernia Repair/Other Other GI Surgeries/Procedures: Laparoscopic cholecystectomy on 06/10/17. Appendectomy at age 15. Female Surgical History: Reports: Section, Cervical Cryotherapy, Cystoscopy, D&C, Hysterectomy, Lithotripsy/ESWL, Tubal Ligation, Ureteral Stent, Other (See Below) Other Female Surgeries/Procedures: Hysterectomy on 01/02/17 secondary to dysfunctional uterine bleeding, 2 at full-term secondary to failure to progress. D&C secondary to SAB in first trimester. bilateral tubal ligation in 2007, recurrent lithotripsies with last left-sided lithotripsy in June 2016 with 2 previous lithotripsies on the left side and also left ureteral stent placement in 2008 with subsequent removal, cervical cryotherapy in 1999 secondary to atypical Pap smears as above Endocrine Surgical History: Reports: None. Denies: Thyroid Biopsy Neurological Surgical History: Reports: None. Denies: C-Spine, Discectomy, Laminectomy, Lumbar Spine, Sacral Spine, Spinal Fusion, Thoracic Spine, Vertebroplasty Musculoskeletal Surgical History: Reports: None. Denies: Arthroscopic Procedure, Carpal Tunnel, Ganglion Cyst, Joint Replacement, ORIF, Shoulder Surgery Oncologic Surgical History: Reports: None Dermatological Surgical History: Reports: None - Past Imaging History Past Imaging History: Reports: CAT Scan (Last CT of the abdomen and pelvis with contrast on 07/12/19 with previous evaluations on 08/21/17, CT scan of the abdomen and pelvis stone protocol on 11/04/16 with bilateral nephrolithiasis but no evidence of urolithiasis or hydronephrosis, previous CT scan of the abdomen and pelvis on 06/27/16 positive for left-sided urolithiasis, CT of the lumbar spine on 03/10/16 with right-sided urolithiasis and mild hydronephrosis with additional osteoarthritic changes), HIDA Scan (06/09/17), Mammogram (Last mammogram on 06/03/16), Ultrasound (Abdominal ultrasound on 06/09/17. Renal ultrasound 12/09/16, Left breast ultrasound on 06/03/16, pelvic ultrasound on 07/26/16) Social & Family History - Family History HEENT: Reports: Macular Degeneration, Other (See Below). Denies: Glaucoma Other HEENT Family History: Macular Degeneration in mother, maternal aunt, and maternal grandmother. Cardiac: Reports: Afib, High Cholesterol, Hypertension, Other (See Below). Denies: Aneurysm, Arrhythmia, Blood Clots/VTE/DVT, Bypass, CAD, Cardiomyopathy, Heart Failure, Heart Murmur, VA, PVD/COD, Syncope Other Cardiac Family History: Maternal aunt with atrial fibrillation. Paternal grandfather, mother, and maternal aunt with hypertension. Maternal grandfather with hyperlipidemia. Respiratory: Reports: COPD, Other (See Below). Denies: Asthma, PE, Pneumothorax, Sleep Apnea Other Respiratory Family Hisory: Maternal grandfather with COPD and history of tobacco use GI: Reports: GERD, Hepatitis, Other (See Below). Denies: Celiac Disease, Cholelithiasis, Colon Polyps, GI bleed, Inflammatory Bowel Disease, Irritable Bowel Syndrome, PUD Other GI Family History: Father with hepatitis C as below. Paternal uncle with H. pylori infection. : Reports: Renal Calculus, Other (See Below). Denies: Renal Disease/Insufficiency Other Family History: Father and brother with urolithiasis. OBGYN: Reports: None. Denies: Endometriosis, Recurrent Spontaneous Musculoskeletal: Reports: Arthritis, RA, Other (See Below). Denies: Gout Other Musculoskeletal Family History: Maternal aunt with rheumatoid arthritis. Neurological: Reports: CVA, MS, Other (See Below). Denies: Alzheimers Disease, Cerebral Aneurysms, Dementia, Migraines, Parkinson's, Seizure, TIA Other Neurological Family History: Paternal Grandfather with fatal CVA in his early 60s. Paternal aunts 2 with MS. Psychiatric: Reports: Anxiety, Depression, Other (See Below). Denies: Abuse, Victim of, ADD, ADHD, Psych Hospitalization(s), PTSD, Suicide Attempt Other Psychiatric Family History: Father with anxiety depression disorder and alcohol abuse. Mother with anxiety depression disorder. Endocrine/Metabolic: Reports: Diabetes, type II, IDDM, Other (See Below). Denies: Diabetes, Gestational, Diabetes, Type I, Diabetes Mellitus, Type 3c, Hypothyroidism Other Endocrine/Metabolic Family History: Maternal grandmother with IDDM. Parents with AODM. Hematologic: Reports: None. Denies: Anemia, SLE Immunologic: Reports: None. Denies: AIDS, HIV, SLE Dermatologic: Reports: None. Denies: Eczema, Psoriasis Oncologic: Reports: Liver, Lung, Metastatic, Pancreatic, Other (See Below). Denies: Breast, Cervix, Colon, Hodgkin's Lymphoma, Leukemia, Lymphoma, Non- Hodgkin's Lymphoma, Ovarian, Uterine Other Oncologic Family History: Father with fatal liver cancer hepatitis C likely secondary to alcohol abuse at age 53. Maternal grandmother with fatal pancreatic cancer at age 63. Paternal grandmother fatal lung cancer at age 66 with history of tobacco use. Metastatic disease in all the above cancers. Maternal aunt with unknown type of bone marrow cancer at age 57. - Tobacco Use Smoking Status *Q: Current Every Day Smoker (trying to stop smoking starting today) - Caffeine Use Caffeine Use: Reports: None. Denies: Coffee, Energy Drinks, Soda, Tea Other Caffeine Use: very rarely - Recreational Drug Use Recreational Drug Use: Yes Drug Use in Last 12 Months: Yes Recreational Drug Type: Reports: Marijuana/Hashish, Methamphetamine Recreational Drug Use Comment: Says she has used meth only "a couple of times" recently after being clean for unknown amount of time. Patient's mom reports that patient lost custody of her children in the past and did spend time in [facility] due to meth use. - Living Situation & Occupation Living situation: Reports: Single, with Significant Other (And her 1 child from previous significant other relationships with another child not currently living with her). 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 Denies: Wheezing, Pleuritic Chest Pain, Cough, Sputum, Hemoptysis Cardiovascular: Reports: Chest Pain, Lightheadedness. Denies: Blood Pressure Problem, Dyspnea on Exertion, Edema, Palpitations, Syncope GI/Abdominal: Reports: Nausea. Denies: Abdominal Pain, Constipation, Diarrhea, Hematochezia, Melena, Vomiting : Reports: No Symptoms Musculoskeletal: Reports: No Symptoms Skin: Reports: No Symptoms Neurological: Reports: Dizziness Psychiatric: Reports: No Symptoms ED EXAM, GENERAL - Physical Exam Exam: See Below Exam Limited By: No Limitations General Appearance: Alert, Anxious, Obese Eye Exam: Bilateral Eye: EOMI, PERRL Ears: Normal External Exam, Hearing Grossly Normal Nose: No: Nasal Deformity, Nasal Swelling, Nasal Drainage Throat/Mouth: Normal Lips, Normal Voice, No Airway Compromise Head: Atraumatic, Normocephalic Neck: Supple, Non-Tender, Full Range of Motion Respiratory/Chest: No Respiratory Distress, Lungs Clear, Normal Breath Sounds, No Accessory Muscle Use, Chest Non-Tender Cardiovascular: Normal Peripheral Pulses, Regular Rate, Rhythm, No Edema, No Murmur GI/Abdominal: Normal Bowel Sounds, Soft, Non-Tender, No Distention (Female) Exam: Deferred Rectal (Female) Exam: Deferred Back Exam: No: CVA Tenderness (L), CVA Tenderness (R), Muscle Spasm Extremities: Normal Range of Motion, Non-Tender, No Pedal Edema, Normal Capillary Refill Neurological: Alert, Oriented, CN II-XII Intact, Inattentive, Slow to Respond. No: Sensory/Motor Deficit Psychiatric: Anxious, Tearful Skin Exam: Warm, Dry, Intact, Normal Color EKG INTERPRETATION EKG Date: 11/14/19 Time: 16:39 Rhythm: NSR Rate (Beats/Min): 66 Erick: Normal P-Wave: Present QRS: Normal ST-T: Normal QT: Normal Comparison: No Change (Overall similar to last EKG performed 4 days ago in ER) Course - Orders/Labs/Meds Orders: Active Orders 24 hr Category Date Time Status EKG Documentation Completion [RC] ASDIRECTED Care 11/14/19 16:52 Ordered Chest 1V Frontal [CR] Stat Exams 11/14/19 16:51 Ordered Nitroglycerin [Nitrostat] Med 11/14/19 16:52 Ordered 0.4 mg SL Q5M PRN Sodium Chloride 0.9% [Normal Saline] 1,000 ml Med 11/14/19 17:30 Active IV ASDIRECTED Sodium Chloride 0.9% [Saline Flush] Med 11/14/19 16:51 Ordered 10 ml FLUSH ASDIRECTED PRN Saline Lock Insert [OM.PC] Stat Oth 11/14/19 16:51 Ordered Medication Orders Sodium Chloride (Normal Saline) 1,000 mls @ 999 mls/hr IV ASDIRECTED ALEIDA Nitroglycerin (Nitrostat) 0.4 mg SL Q5M PRN PRN Reason: Chest Pain Sodium Chloride (Saline Flush) 10 ml FLUSH ASDIRECTED PRN PRN Reason: Keep Vein Open Labs: Laboratory Tests 11/14/19 11/14/19 11/14/19 Range/Units 16:55 16:55 16:55 WBC (4.0-10.2) K/uL RBC (3.77-5.09) M/uL Hgb (11.7-15.5) g/dL Hct (34.0-46.0) % MCV (84.0-98.0) fL MCH (28.2-33.3) pg MCHC (31.7-36.0) g/dL RDW (11.2-14.1) % Plt Count (150-350) K/uL Neut % (Auto) (45.0-80.0) % Lymph % (Auto) (10.0-50.0) % [place] % (Auto) (2.0-14.0) % Eos % (Auto) (0.0-5.0) % Baso % (Auto) (0.0-2.0) % Neut # (Auto) (1.40-7.00) K/uL Lymph # (Auto) (0.50-3.50) K/uL [place] # (Auto) (0.00-1.00) K/uL Eos # (Auto) (0.00-0.50) K/uL Baso # (Auto) (0.00-0.20) K/uL PT 9.4 L (9.5-12.0) SEC INR 0.9 D-Dimer, Quantitative < 100 (0-400) ng/mL Sodium (136-145) mmol/L Potassium (3.5-5.1) mmol/L Chloride (98-107) mmol/L Carbon Dioxide (21.0-32.0) mmol/L BUN (7-18) mg/dL Creatinine (0.51-1.17) mg/dL Est Cr Clr Drug Dosing Estimated GFR (MDRD) mL/min Glucose (74-106) mg/dL Lactic Acid (0.4-2.0) mmol/L Calcium (8.5-10.1) mg/dL Magnesium 2.0 (1.8-2.4) mg/dL Total Bilirubin (0.2-1.0) mg/dL AST (15-37) U/L ALT (12-78) U/L Alkaline Phosphatase (46-116) IU/L Troponin I 0.700 H* (0.000-0.056) ng/mL NT-Pro-B Natriuret Pep 383 H (0-125) pg/mL Total Protein (6.4-8.2) g/dL Albumin (3.4-5.0) g/dL Specimen Type Urine Color Urine Appearance Urine pH (5.0-9.0) Ur Specific [place] (1.005-1.030) Urine Protein (NEGATIVE) mg/dL Urine Glucose (UA) (NEGATIVE) mg/dL Urine Ketones (NEGATIVE) mg/dL Urine Occult Blood (NEGATIVE) Urine Nitrite (NEGATIVE) Urine Bilirubin (NEGATIVE) Urine Urobilinogen (0.2-1.0) E.U./dL Ur Leukocyte Esterase (NEGATIVE) Urine RBC /HPF Urine WBC /HPF Urine Bacteria (NONE TO FEW) /HPF Urine Opiates Screen (NEGATIVE) Ur Buprenorphine Scrn (NEGATIVE) Ur Oxycodone Screen (NEGATIVE) Ur EDDP (Meth Metab) (NEGATIVE) Ur Barbiturates Screen (NEGATIVE) Ur Tricyclics Screen (NEGATIVE) Ur Amphetamine Screen (NEGATIVE) U Methamphetamines Scrn (NEGATIVE) Urine MDMA Screen (NEGATIVE) U Benzodiazepines Scrn (NEGATIVE) U Cocaine Metab Screen (NEGATIVE) U Marijuana (THC) Screen (NEGATIVE) Ethyl Alcohol 0.003 (0.000-0.080) g/dL 11/14/19 11/14/19 11/14/19 Range/Units 16:55 16:55 16:55 WBC 6.0 (4.0-10.2) K/uL RBC 4.14 (3.77-5.09) M/uL Hgb 12.0 (11.7-15.5) g/dL Hct 35.4 (34.0-46.0) % MCV 85.5 (84.0-98.0) fL MCH 29.0 (28.2-33.3) pg MCHC 33.9 (31.7-36.0) g/dL RDW 12.4 (11.2-14.1) % Plt Count 358 H (150-350) K/uL Neut % (Auto) 65.0 (45.0-80.0) % Lymph % (Auto) 28.5 (10.0-50.0) % [place] % (Auto) 5.8 (2.0-14.0) % Eos % (Auto) 0.5 (0.0-5.0) % Baso % (Auto) 0.2 (0.0-2.0) % Neut # (Auto) 3.89 (1.40-7.00) K/uL Lymph # (Auto) 1.71 (0.50-3.50) K/uL [place] # (Auto) 0.35 (0.00-1.00) K/uL Eos # (Auto) 0.03 (0.00-0.50) K/uL Baso # (Auto) 0.01 (0.00-0.20) K/uL PT (9.5-12.0) SEC INR D-Dimer, Quantitative (0-400) ng/mL Sodium 139 (136-145) mmol/L Potassium 4.2 (3.5-5.1) mmol/L Chloride 106 (98-107) mmol/L Carbon Dioxide 24.3 (21.0-32.0) mmol/L BUN 18 (7-18) mg/dL Creatinine 0.93 (0.51-1.17) mg/dL Est Cr Clr Drug Dosing TNP Estimated GFR (MDRD) > 60 mL/min Glucose 100 (74-106) mg/dL Lactic Acid 1.0 (0.4-2.0) mmol/L Calcium 8.7 (8.5-10.1) mg/dL Magnesium (1.8-2.4) mg/dL Total Bilirubin 0.2 (0.2-1.0) mg/dL AST 39 H (15-37) U/L ALT 56 (12-78) U/L Alkaline Phosphatase 100 (46-116) IU/L Troponin I (0.000-0.056) ng/mL NT-Pro-B Natriuret Pep (0-125) pg/mL Total Protein 7.0 (6.4-8.2) g/dL Albumin 3.3 L (3.4-5.0) g/dL Specimen Type Urine Color Urine Appearance Urine pH (5.0-9.0) Ur Specific [place] (1.005-1.030) Urine Protein (NEGATIVE) mg/dL Urine Glucose (UA) (NEGATIVE) mg/dL Urine Ketones (NEGATIVE) mg/dL Urine Occult Blood (NEGATIVE) Urine Nitrite (NEGATIVE) Urine Bilirubin (NEGATIVE) Urine Urobilinogen (0.2-1.0) E.U./dL Ur Leukocyte Esterase (NEGATIVE) Urine RBC /HPF Urine WBC /HPF Urine Bacteria (NONE TO FEW) /HPF Urine Opiates Screen (NEGATIVE) Ur Buprenorphine Scrn (NEGATIVE) Ur Oxycodone Screen (NEGATIVE) Ur EDDP (Meth Metab) (NEGATIVE) Ur Barbiturates Screen (NEGATIVE) Ur Tricyclics Screen (NEGATIVE) Ur Amphetamine Screen (NEGATIVE) U Methamphetamines Scrn (NEGATIVE) Urine MDMA Screen (NEGATIVE) U Benzodiazepines Scrn (NEGATIVE) U Cocaine Metab Screen (NEGATIVE) U Marijuana (THC) Screen (NEGATIVE) Ethyl Alcohol (0.000-0.080) g/dL 11/14/19 11/14/19 Range/Units 17:14 17:14 WBC (4.0-10.2) K/uL RBC (3.77-5.09) M/uL Hgb (11.7-15.5) g/dL Hct (34.0-46.0) % MCV (84.0-98.0) fL MCH (28.2-33.3) pg MCHC (31.7-36.0) g/dL RDW (11.2-14.1) % Plt Count (150-350) K/uL Neut % (Auto) (45.0-80.0) % Lymph % (Auto) (10.0-50.0) % [place] % (Auto) (2.0-14.0) % Eos % (Auto) (0.0-5.0) % Baso % (Auto) (0.0-2.0) % Neut # (Auto) (1.40-7.00) K/uL Lymph # (Auto) (0.50-3.50) K/uL [place] # (Auto) (0.00-1.00) K/uL Eos # (Auto) (0.00-0.50) K/uL Baso # (Auto) (0.00-0.20) K/uL PT (9.5-12.0) SEC INR D-Dimer, Quantitative (0-400) ng/mL Sodium (136-145) mmol/L Potassium (3.5-5.1) mmol/L Chloride (98-107) mmol/L Carbon Dioxide (21.0-32.0) mmol/L BUN (7-18) mg/dL Creatinine (0.51-1.17) mg/dL Est Cr Clr Drug Dosing Estimated GFR (MDRD) mL/min Glucose (74-106) mg/dL Lactic Acid (0.4-2.0) mmol/L Calcium (8.5-10.1) mg/dL Magnesium (1.8-2.4) mg/dL Total Bilirubin (0.2-1.0) mg/dL AST (15-37) U/L ALT (12-78) U/L Alkaline Phosphatase (46-116) IU/L Troponin I (0.000-0.056) ng/mL NT-Pro-B Natriuret Pep (0-125) pg/mL Total Protein (6.4-8.2) g/dL Albumin (3.4-5.0) g/dL Specimen Type Urinfol Urine Color Yellow Urine Appearance Slightly cloudy Urine pH 7.0 (5.0-9.0) Ur Specific [place] 1.025 (1.005-1.030) Urine Protein Negative (NEGATIVE) mg/dL Urine Glucose (UA) Negative (NEGATIVE) mg/dL Urine Ketones Negative (NEGATIVE) mg/dL Urine Occult Blood Large H (NEGATIVE) Urine Nitrite Negative (NEGATIVE) Urine Bilirubin Negative (NEGATIVE) Urine Urobilinogen 0.2 (0.2-1.0) E.U./dL Ur Leukocyte Esterase Negative (NEGATIVE) Urine RBC 10-20 H /HPF Urine WBC Not seen /HPF Urine Bacteria Not seen (NONE TO FEW) /HPF Urine Opiates Screen Negative (NEGATIVE) Ur Buprenorphine Scrn Negative (NEGATIVE) Ur Oxycodone Screen Negative (NEGATIVE) Ur EDDP (Meth Metab) Negative (NEGATIVE) Ur Barbiturates Screen Negative (NEGATIVE) Ur Tricyclics Screen Negative (NEGATIVE) Ur Amphetamine Screen Positive H (NEGATIVE) U Methamphetamines Scrn Positive H (NEGATIVE) Urine MDMA Screen Negative (NEGATIVE) U Benzodiazepines Scrn Positive H (NEGATIVE) U Cocaine Metab Screen Negative (NEGATIVE) U Marijuana (THC) Screen Negative (NEGATIVE) Ethyl Alcohol (0.000-0.080) g/dL Meds: Medications Generic Name Dose Route Start Last Admin Trade Name Freq PRN Reason Stop Dose Admin Sodium Chloride 1,000 mls @ 999 mls/hr 11/14/19 17:30 Normal Saline IV ASDIRECTED ALEIDA Nitroglycerin 0.4 mg 11/14/19 16:52 Nitrostat SL Q5M PRN Chest Pain Sodium Chloride 10 ml 11/14/19 16:51 Saline Flush FLUSH ASDIRECTED PRN Keep Vein Open Discontinued Medications Generic Name Dose Route Start Last Admin Trade Name Freq PRN Reason Stop Dose Admin Lorazepam 0.5 mg 11/14/19 17:09 11/14/19 18:10 Ativan IVPUSH 11/14/19 17:10 Not Given ONETIME ONE Morphine Sulfate 2 mg 11/14/19 17:15 11/14/19 18:09 Morphine IVPUSH 11/14/19 17:16 Not Given ONETIME ONE Nitroglycerin Confirm 11/14/19 16:50 11/14/19 18:09 Nitrostat Administered 11/14/19 16:51 Not Given Dose 0.4 mg .ROUTE .STK-MED ONE Nitroglycerin 0.4 mg 11/14/19 18:09 Nitrostat SL 11/14/19 18:10 ONETIME ONE Ondansetron HCl 4 mg 11/14/19 17:09 11/14/19 18:10 Zofran IVPUSH 11/14/19 17:10 Not Given ONETIME ONE - Radiology Interpretation Free Text/Narrative:: Chest xray compared to one from 4 days ago. No acute changes noted. Poor inspiration. - Re-Assessments/Exams Free Text/Narrative Re-Assessment/Exam: 11/14/19 18:16 Patient's pain down to a 5 upon arrival after Nitro. EKG/Chest film overall unremarkable. Patient is well known to ER. Not quite acting like usual self as noted in HPI. Noted to be slow to respond to voice, not make eye contact during conversation, slurring words a bit. Her mother says patient was not acting like this last night. Difficult IV start. Multiple potential sites already used during recent hospitalization. Able to obtain lab samples once IV established. IV NS started after mild hypotension after an additional Nitro given to patient. Pain came down to a 4. Once urine obtained for drug screen, dose of MS given for pain. Pain level decreased to a 2. Troponin elevated at 0.7 Drug screen + for Benzos and Meth. Patient did get a Clonazepam from her mother last night. She did admit to using meth a few times recently. Call placed to [facility] to review patient and arrange transfer given her recent stent/nonstemi. Both from Cardiology and , Hospitalist were in on phone call. did not recommend any additional intervention/medications. Patient is on Eliquis. accepted patient for transfer to [facility] for further monitoring. Possible repeat angiography in AM. They did say that pt was + for Meth and THC when drug screen performed there on . Patient will be transferred by EMS to their facility. Suspect based on behavior that patient used Meth again today. She remained stable and overall comfortable during stay in ER. Departure - Departure Time of Disposition: 18:24 Disposition: DC/Tfer to Acute Hospital 02 Condition: Good Clinical Impression: Methamphetamine abuse Chest pain Qualifiers: Chest pain type: unspecified Qualified Code(s): R07.9 - Chest pain, unspecified - Discharge Information *PRESCRIPTION DRUG MONITORING PROGRAM REVIEWED*: Not Applicable *COPY OF PRESCRIPTION DRUG MONITORING REPORT IN PATIENT BERYL: Not Applicable Referrals: Dotty Villaseñor PA-C [Primary Care Provider] - Forms: ED Department Discharge - My Orders Last 24 Hours: My Active Orders 11/14/19 16:51 Chest 1V Frontal [CR] Stat Sodium Chloride 0.9% [Saline Flush] 10 ml FLUSH ASDIRECTED PRN Saline Lock Insert [OM.PC] Stat 11/14/19 16:52 EKG Documentation Completion [RC] ASDIRECTED Nitroglycerin [Nitrostat] 0.4 mg SL Q5M PRN 11/14/19 17:30 Sodium Chloride 0.9% [Normal Saline] 1,000 ml IV ASDIRECTED - Assessment/Plan Last 24 Hours: My Active Orders 11/14/19 16:51 Chest 1V Frontal [CR] Stat Sodium Chloride 0.9% [Saline Flush] 10 ml FLUSH ASDIRECTED PRN Saline Lock Insert [OM.PC] Stat 11/14/19 16:52 EKG Documentation Completion [RC] ASDIRECTED Nitroglycerin [Nitrostat] 0.4 mg SL Q5M PRN 11/14/19 17:30 Sodium Chloride 0.9% [Normal Saline] 1,000 ml IV ASDIRECTED
[2019-11-14] MEDS ORDERED: Sodium Chloride 0.9% 1,000 ML IV SCH (17:30)
[2019-11-14 17:32] LABS: BARBITURATE SCREEN,URINE NEGATIVE (NEGATIVE); EDDP,URINE SCREEN NEGATIVE (NEGATIVE); TCA SCREEN,URINE NEGATIVE (NEGATIVE); THC SCREEN,URINE 50 NG/ML NEGATIVE (NEGATIVE)
[2019-11-14 17:41] LABS: CHLORIDE,CL 106 mmol/L (98-107); SODIUM,NA 139 mmol/L (136-145)
[2019-11-14 17:46] LABS: BENZODIAZEPINES SCREEN,URINE POSITIVE (NEGATIVE)
[2019-11-14] MEDS ORDERED: Nitroglycerin 0.4 MG Tab.SL SL ONE (18:09)
[2019-11-14] MEDS ORDERED: Sodium Chloride 0.9% 500 ML IV SCH (18:30)
[2019-11-14 18:49] VITALS: BP 114/58; PULSE 55
== END 2019-11-14 18:40 ==
LOC: LL.ED 16:32
DX: R07.9 Chest pain, unspecified (principal); F15.10 Other stimulant abuse, uncomplicated; I10 Essential (primary) hypertension; E78.5 Hyperlipidemia, unspecified; M19.90 Unspecified osteoarthritis, unspecified site; F41.9 Anxiety disorder, unspecified; E66.9 Obesity, unspecified; F17.200 Nicotine dependence, unspecified, uncomplicated; Z88.1 Allergy status to other antibiotic agents; Z88.0 Allergy status to penicillin; Z88.8 Allergy status to other drugs, medicaments and biological substances; Z79.82 Long term (current) use of aspirin; Z79.899 Other long term (current) drug therapy
CPT/HCPCS: 36415; 51702; 71045; 80053; 80305; 80307; 81001; 83605; 83735; 83880; 84484; 85025; 85379; 85610; 93005; 93010; 99284; 99285; A9270; J2270; J2405; J7030; J7040

== ENCOUNTER 2019-11-26 12:14 | Emergency (ER) | payer MEDICAID, OTHER ==
--- NOTE | 2019-11-26 12:29 | EDM.PDOC ---
ED HPI GENERAL MEDICAL PROBLEM - General Chief Complaint: Chest Pain Stated Complaint: CP Time Seen by Provider: 11/26/19 12:25 Source of Information: Reports: Patient, Family (Mother), Old Records ([facility] EMR. No paper hospital chart available.), Other ([facility]) History Limitations: Reports: No Limitations - History of Present Illness INITIAL COMMENTS - FREE TEXT/NARRATIVE: The patient was brought to the emergency room via private automobile for evaluation of 11/25 sharp left-sided chest pain with radiation to the left shoulder and left arm similar to previous symptoms prior to her OK. Note that patient was sitting down at home with sudden onset of the symptoms at 10:30 a.m. this morning. The patient did take 2 sublingual nitroglycerin tablets with no improvement of her symptoms with that therapy. The patient denies any chest pressure, heart flutter, orthostasis, orthopnea, diaphoresis, paresthesias, recent decreased exercise tolerance, or any other anginal-type symptoms, although some mild dizziness with onset of the above symptoms. No recent history of abdominal pain, heartburn, nausea, diarrhea, melena, gross hematochezia, or any food intolerance, including fatty foods, etc. with normal bowel movement at 9:30 a.m. She denies any gross hematuria, colic, or other UTI symptoms. The patient also denies any recent fever, cough, wheezing, dyspnea, etc.. The patient did take her morning medications including a baby aspirin and 90 mg of Brilinta at 8 AM this morning. Onset: Today, Sudden Onset Date: 11/26/19 Onset Time: 10:30 Duration: Constant Location: Reports: Chest, Upper Extremity, Left, Radiates to (As above). Denies: Head, Face, Neck, Abdomen, Back, Pelvis, Upper Extremity, Right Quality: Reports: Same as Previous Episode, Sharp Severity: Moderate Improves with: Reports: None Worsens with: Reports: None Context: Reports: Other (As above). Denies: Sick Contact, Trauma Associated Symptoms: Reports: Chest Pain. 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: Nitroglycerin, Other Medication(s) (As above) Chest Pain Score (Numeric/FACES): 7 - Related Data Allergies Allergy/AdvReac Type Severity Reaction Status Date / Time amoxicillin Allergy Hives Verified 11/26/19 12:22 cephalexin [From Keflex] Allergy Hives Verified 11/26/19 12:22 erythromycin base Allergy Hives Verified 11/26/19 12:22 fluoxetine [From Prozac] Allergy Dizziness Verified 11/26/19 12:22 Penicillins Allergy Hives Verified 11/26/19 12:22 Home Meds: Home Meds Hydrochlorothiazide 25 mg PO BID 01/03/16 [History] Potassium Chloride [K-Tab ER] 10 meq PO DAILY 01/03/16 [History] Acetaminophen [Tylenol] 650 mg PO Q6HR PRN 07/09/19 [History] Aspirin 81 mg PO DAILY 11/14/19 [History] Melatonin 6 mg PO BEDTIME PRN 11/14/19 [History] Nitroglycerin [Nitrostat] 0.4 mg SL ASDIRECTED PRN 11/14/19 [History] Ticagrelor [Brilinta] 90 mg PO BID 11/14/19 [History] atorvaSTATin [Lipitor] 40 mg PO DAILY 11/14/19 [History] Escitalopram Oxalate [Lexapro] 10 mg PO DAILY 11/26/19 [History] Famotidine [Pepcid] 20 mg PO BID #60 tab 11/26/19 [Rx] LORazepam [Ativan] 0.5 mg PO BID PRN 11/26/19 [History] Past Medical History HEENT History: Reports: Impaired Vision, Macular Degeneration, Otitis Media, Other (See Below). Denies: Allergic Rhinitis, Cataract, Glaucoma, Hard of Hearing, Retinal Detachment Other HEENT History: Wears glasses. History of recurrent bilateral otitis media. Cardiovascular History: Reports: Arrhythmia, CAD, High Cholesterol, Hypertension, OK, PTCA, Stents, Other (See Below). Denies: Afib, Aneurysm, Blood Clots/VTE/DVT, Cardiomyopathy, Heart Failure, Heart Murmur, Pacemaker, PVD, Syncope Other Cardiovascular History: Acute non-STEMI on 11/12/19 with secondary brief runs of ventricular tachycardia. 90% stenosis of the diagonal of the LAD with 30% stenosis of the right coronary artery by heart catheterization. Short IL interval. Dyslipidemia currently diet controlled. Respiratory History: Reports: Intubation, Previous, Pulmonary Fibrosis, Other (See Below). Denies: Asthma, Bronchitis, Recurrent, COPD, Intubation, Difficult, PE, Pneumonia, Recurrent, Pneumothorax, Sleep Apnea, TB Other Respiratory History: Possible pulmonary fibrosis by chest x-ray with no current therapy. Gastrointestinal History: Reports: Cholelithiasis, Chronic Constipation, GERD. Denies: Celiac Disease, Chronic Diarrhea, Fecal Incontinence, Gastritis, GI Bleed, Hepatitis, Hiatal Hernia, Irritable Bowel Syndrome, Jaundice, Pancreatitis, PUD Genitourinary History: Reports: Hydronephrosis, Renal Calculus, Other (See Below). Denies: Acute Renal Failure, Chronic Renal Insuffiency, Pyelonephritis, Retention, Urinary, STD, Urinary Incontinence, UTI, Recurrent Other Genitourinary History: Known moderate bilateral nephrolithiasis and recurrent urolithiasis by CT scans and ultrasounds as below. Spontaneous passage of multiple urinary stones with previous left-sided episodes on 11/15/19, 06/20/18 and 03/04/18 with right-sided colic on 10/25/17 and 08/21/17. Recurrent b ilateral urolithiasis since 2005 with history of mild right-sided hydronephrosis on 07/12/19, 03/10/16 and recurrent lithotripsies as below; neurogenic bladder as below; CRITICAL CARE NURSE SPECIALIST History: Reports: Dysfunctional Uterine Bleeding, Fibroids, Polycystic Ovaries, , Spontaneous . Denies: Endometriosis, Prolapsed Uterus, Therapeutic : 3 Para: 2 LMP (Approximate): Other (See Below) Other CRITICAL CARE NURSE SPECIALIST History: Recurrent left-sided ovarian cyst, fibrocystic breast disease, dysmenorrhea: Surgical menopause as below. Full term without complications during pregnancies or deliveries. SAB in first trimester requiring D&C as below. Musculoskeletal History: Reports: Arthritis, Back Pain, Chronic, Fracture, Osteoarthritis, Other (See Below). Denies: Amputation, Gout, Neck Pain, Chronic, Osteoporosis, RA, SLE Other Musculoskeletal History: Right wrist fracture at age 15 Neurological History: Reports: Neuropathy, Peripheral, Other (See Below). Denies: Cerebral Aneurysms, Concussion, CVA, Headaches, Chronic, Head Trauma, Migraines, MS, Parkinson's, Seizure, TIA Other Neuro History: Cauda equina syndrome with neurogenic bladder Psychiatric History: Reports: Addiction, Anxiety, Depression, Other (See Below). Denies: Abuse, Victim of, ADD, ADHD, Psych Hospitalization(s), PTSD, Suicide Attempt, Suicidal Ideation Other Psychiatric History: Illicit drug use as below. Chronic Narcotic use, chronic insomnia. Endocrine/Metabolic History: Reports: Obesity/BMI 30+, Other (See Below). Denies: Diabetes, Gestational, Diabetes, Type I, Diabetes, Type II, Diabetes Mellitus, Type 3c, Hypothyroidism, IDDM Other Endocrine/Metabolic History: Hypomagnesemia. Hematologic History: Reports: Other (See Below). Denies: Anemia, Blood Transfusion(s) Other Hematologic History: Mild thrombocytosis. Immunologic History: Reports: None. Denies: AIDS, HIV, SLE Oncologic (Cancer) History: Reports: Cervix, Other (See Below). Denies: Basal Cell Carcinoma, Breast, Colon, Hodgkin's Lymphoma, Leukemia, Lymphoma, Malignant Melanoma, Non-Hodgkin's Lymphoma, Ovarian, Squamous Cell Carcinoma, Uterine Other Oncologic History: Multiple previous abnormal Pap smears of unknown type with resolution after cryotherapy 1999 Dermatologic History: Reports: Other (See Below). Denies: Eczema, Psoriasis Other Dermatologic History: Acne - Infectious Disease History Infectious Disease History: Reports: Chicken Pox, Shingles (Right upper back at age 11). Denies: C-Difficile, Measles, Meningitis, Mononucleosis, MRSA, Mumps, Pertussis (Whooping Cough), Rheumatic Fever, Rubella, Scarlet Fever, TB, VRE - Past Surgical History Head Surgeries/Procedures: Reports: None HEENT Surgical History: Reports: Adenoidectomy, Myringotomy w Tube(s), Oral Surgery, Tonsillectomy, Other (See Below). Denies: Cataract Surgery, Eye Surgery, Laser Surgery, LASIK, Naso-Sinus Surgery Other HEENT Surgeries/Procedures: Tonsillectomy and adenoidectomy at age 16. Temple teeth extraction 2 with additional teeth extractions. Bilateral PE tubes child. Cardiovascular Surgical History: Reports: None, Coronary Artery Stent, Percutaneous Transluminal Angioplasty, Other (See Below). Denies: Varicose Other Cardiovascular Surgeries/Procedures: PTCA/stent 1 of the first agonal of the LAD on 11/12/19. Respiratory Surgical History: Reports: None. Denies: Thoracentesis GI Surgical History: Reports: Appendectomy, Cholecystectomy, Other (See Below). Denies: Colonoscopy, EGD, Hernia, Abdominal, Hernia, Inguinal, Hernia Repair/Other Other GI Surgeries/Procedures: Laparoscopic cholecystectomy on 06/10/17. Appendectomy at age 15. Female Surgical History: Reports: Section, Cervical Cryotherapy, Cystoscopy, D&C, Hysterectomy, Lithotripsy/ESWL, Tubal Ligation, Ureteral Stent, Other (See Below) Other Female Surgeries/Procedures: Hysterectomy on 01/02/17 secondary to dysfunctional uterine bleeding, 2 at full-term secondary to failure to progress. D&C secondary to SAB in first trimester. bilateral tubal ligation in 2007, recurrent lithotripsies with last left-sided lithotripsy in June 2016 with 2 previous lithotripsies on the left side and also left ureteral stent placement in 2008 with subsequent removal, cervical cryotherapy in 1999 secondary to atypical Pap smears as above Endocrine Surgical History: Reports: None. Denies: Thyroid Biopsy Neurological Surgical History: Reports: None. Denies: C-Spine, Discectomy, Laminectomy, Lumbar Spine, Sacral Spine, Spinal Fusion, Thoracic Spine, Vertebroplasty Musculoskeletal Surgical History: Reports: None. Denies: Arthroscopic Procedure, Carpal Tunnel, Ganglion Cyst, Joint Replacement, ORIF, Shoulder Surgery Oncologic Surgical History: Reports: None Dermatological Surgical History: Reports: None - Past Imaging History Past Imaging History: Reports: Angiography (Heart catheterization on 11/12/19 with ejection fraction of 55% and findings as above.), Cardiac Echo (11/12/19), CAT Scan (Last CT of the abdomen and pelvis with contrast on 07/12/19 with previous evaluations on 08/21/17, and 06/27/16. CT scan of the abdomen and pelvis stone protocol on 11/14/19, 11/04/16 and 03/10/16 with bilateral nephrolithiasis but no evidence of urolithiasis or hydronephrosis, previous CT scan of the abdomen and pelvis on 06/27/16 positive for left-sided urolithiasis, CT of the lumbar spine on 03/10/16 with right-sided urolithiasis and mild hydronephrosis with additional osteoarthritic changes), HIDA Scan (06/09/17), Mammogram (Last mammogram on 06/03/16), MRI (MRI of the lumbar spine on 02/12/17 and 03/10/16.), Ultrasound (Abdominal ultrasound on 06/09/17. Renal ultrasound on 08/20/17 and 12/09/16. Left Renal ultrasound on 10/27/17. Left breast ultrasound on 06/03/16, pelvic ultrasound on 07/26/16) Social & Family History - Family History HEENT: Reports: Macular Degeneration, Other (See Below). Denies: Glaucoma Other HEENT Family History: Macular Degeneration in mother, maternal aunt, and m aternal grandmother. Cardiac: Reports: Afib, High Cholesterol, Hypertension, Other (See Below). Denies: Aneurysm, Arrhythmia, Blood Clots/VTE/DVT, Bypass, CAD, Cardiomyopathy, Heart Failure, Heart Murmur, OK, PVD/COD, Syncope Other Cardiac Family History: Maternal aunt with atrial fibrillation. Paternal grandfather, mother, and maternal aunt with hypertension. Maternal grandfather with hyperlipidemia. Respiratory: Reports: COPD, Other (See Below). Denies: Asthma, PE, Pneumothorax, Sleep Apnea Other Respiratory Family Hisory: Maternal grandfather with COPD and history of tobacco use GI: Reports: GERD, Hepatitis, Other (See Below). Denies: Celiac Disease, Cholelithiasis, Colon Polyps, GI bleed, Inflammatory Bowel Disease, Irritable Bowel Syndrome, PUD Other GI Family History: Father with hepatitis C as below. Paternal uncle with H. pylori infection. : Reports: Renal Calculus, Other (See Below). Denies: Renal Disease/Insufficiency Other Family History: Father and brother with urolithiasis. OBGYN: Reports: None. Denies: Endometriosis, Recurrent Spontaneous Musculoskeletal: Reports: Arthritis, RA, Other (See Below). Denies: Gout Other Musculoskeletal Family History: Maternal aunt with rheumatoid arthritis. Neurological: Reports: CVA, MS, Other (See Below). Denies: Alzheimers Disease, Cerebral Aneurysms, Dementia, Migraines, Parkinson's, Seizure, TIA Other Neurological Family History: Paternal Grandfather with fatal CVA in his early 60s. Paternal aunts 2 with MS. Psychiatric: Reports: Anxiety, Depression, Other (See Below). Denies: Abuse, Victim of, ADD, ADHD, Psych Hospitalization(s), PTSD, Suicide Attempt Other Psychiatric Family History: Father with anxiety depression disorder and alcohol abuse. Mother with anxiety depression disorder. Endocrine/Metabolic: Reports: Diabetes, type II, IDDM, Other (See Below). Denies: Diabetes, Gestational, Diabetes, Type I, Diabetes Mellitus, Type 3c, Hypothyroidism Other Endocrine/Metabolic Family History: Maternal grandmother with IDDM. Parents with AODM. Hematologic: Reports: None. Denies: Anemia, SLE Immunologic: Reports: None. Denies: AIDS, HIV, SLE Dermatologic: Reports: None. Denies: Eczema, Psoriasis Oncologic: Reports: Liver, Lung, Metastatic, Pancreatic, Other (See Below). Denies: Breast, Cervix, Colon, Hodgkin's Lymphoma, Leukemia, Lymphoma, Non- Hodgkin's Lymphoma, Ovarian, Uterine Other Oncologic Family History: Father with fatal liver cancer and hepatitis C likely secondary to alcohol abuse at age 53. Maternal grandmother with fatal pancreatic cancer at age 63. Paternal grandmother fatal lung cancer at age 66 with history of tobacco use. Metastatic disease in all the above cancers. Maternal aunt with unknown type of bone marrow cancer at age 57. - Tobacco Use Smoking Status *Q: Former Smoker Tobacco Use Within Last Twelve Months: Cigarettes Years of Tobacco use: 19 Packs/Tins Daily: 0.5 Used Tobacco, but Quit: Yes Month/Year Tobacco Last Used: 11/12/19 after OK. Started smoking at age 20 Smoking Cessation Information Provided To Patient: No Second Hand Smoke Exposure: Yes Source of Second Hand Smoke Exposure: Significant other Second Hand Smoke Education Provided: No (Recently given) - Caffeine Use Caffeine Use: Reports: None. Denies: Coffee, Energy Drinks, Soda, Tea Other Caffeine Use: very rarely - Alcohol Use Alcohol Use History: No Days Per Week of Alcohol Use: 0 Number of Drinks Per Day: 0 Total Drinks Per Week: 0 Alcohol Use in Last Twelve Months: No - Recreational Drug Use Recreational Drug Use: Yes Drug Use in Last 12 Months: Yes Recreational Drug Type: Reports: Amphetamines (Speed) (Last use 3 weeks ago), Methamphetamine (As above). Denies: Heroin, Inhalants (Glues, Solvents, Aerosols), LSD (Acid), Marijuana/Hashish, Oxycodone - Living Situation & Occupation Living situation: Reports: Single, with Significant Other (And her 1 child from previous significant other relationships with another child not currently living with her). 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 ED EXAM, GENERAL - Physical Exam Exam: See Below Exam Limited By: No Limitations General Appearance: Alert, WD/WN, No Apparent Distress, Anxious (Mild) Eye Exam: Bilateral Eye: EOMI, Normal Inspection (No nystagmus. Patient wearing glasses.), PERRL Ears: Normal External Exam, Normal Canal, Hearing Grossly Normal, Normal TMs Nose: Normal Inspection, Normal Mucosa, No Blood Throat/Mouth: Normal Lips, Normal Gums, Normal Oropharynx, Normal Voice, No Airway Compromise. No: Normal Teeth (Multiple missing teeth. Caries with broken teeth into the gumline 2 in the left lower premolar region and 1 in the right upper premolar region), Dysphagia, Inflammation, Perioral Cyanosis Head: Atraumatic, Normocephalic. No: Facial Swelling, Facial Tenderness, Sinus Tenderness Neck: Normal Inspection, Supple, Non-Tender, Full Range of Motion. No: Carotid Bruit, Lymphadenopathy (L), Lymphadenopathy (R), Thyromegaly Respiratory/Chest: No Respiratory Distress, Lungs Clear, Normal Breath Sounds, No Accessory Muscle Use, Chest Non-Tender. No: Pleural Rub, Retractions Cardiovascular: Normal Peripheral Pulses, Regular Rate, Rhythm, No Edema, No Gallop, No JVD, No Murmur, No Rub. No: Gallop/S3, Gallop/S4, Friction Rub Peripheral Pulses: 2+: Radial (L), Radial (R), Dorsalis Pedis (L), Dorsalis Pedis (R) GI/Abdominal: Normal Bowel Sounds, Soft, Non-Tender, No Organomegaly, No Distention, No Abnormal Bruit, No Mass, Pelvis Stable, Other (obese). No: Guarding (Female) Exam: Deferred Rectal (Female) Exam: Deferred Back Exam: Normal Inspection, Full Range of Motion. No: CVA Tenderness (L), CVA Tenderness (R), Muscle Spasm Extremities: Normal Inspection, Normal Range of Motion, Non-Tender, No Pedal Edema, Normal Capillary Refill. No: Latanya's Sign Neurological: Alert, Oriented, CN II-XII Intact, Normal Cognition, Normal Gait, Normal Reflexes (Negative Babinski's), No Motor/Sensory Deficits Psychiatric: Anxious (Mild), Depressed Mood (Mild) Skin Exam: Warm, Dry, Intact, Normal Color, No Rash, Tattoo(s) (Multiple). No: Diaphoretic, Wound/Incision Lymphatic: No Adenopathy EKG INTERPRETATION EKG Date: 11/26/19 Time: 12:16 Rhythm: NSR Rate (Beats/Min): 71 [place]: Normal (Neutral) P-Wave: Present QRS: Normal (0.08 seconds with repolarization changes) ST-T: Other (Stable ST depression in lead aVL.) QT: Normal IL/PQ Interval: 0.15 seconds representing a stable borderline short IL interval with pulmonary hypertension by EKG Comparison: No Change (Last EKG at [facility] on 11/15/19 and EKG in this facility on 11/14/19.) EKG Interpretation Comments: 1. No acute ischemic changes 2. Borderline short IL interval 3. Repolarization changes 4. Pulmonary hypertension by EKG Course - Vital Signs Last Recorded V/S: Last Vital Signs Temp 36.3 C 11/26/19 12:15 Pulse 73 11/26/19 13:26 Resp 20 11/26/19 13:26 BP 119/72 11/26/19 13:26 Pulse Ox 99 11/26/19 13:26 Vital Signs - 24 hr 11/26/19 11/26/19 11/26/19 12:15 12:29 12:40 Temperature [ 36.3 C Temporal] Pulse, 77 74 72 Peripheral [ Left Pulse Oximetry] Respiratory 20 16 20 Rate Blood Pressure 115/60 114/64 114/64 [Left Upper Arm ] O2 Sat by Pulse 98 100 99 Oximetry O2 Sat by Pulse 100 Oximetry [Room Air] 11/26/19 11/26/19 11/26/19 12:56 13:11 13:26 Temperature [ Temporal] Pulse, 71 73 73 Peripheral [ Left Pulse Oximetry] Respiratory 23 H 20 20 Rate Blood Pressure 116/70 124/78 119/72 [Left Upper Arm ] O2 Sat by Pulse 99 100 99 Oximetry O2 Sat by Pulse Oximetry [Room Air] - Orders/Labs/Meds Orders: Active Orders 24 hr Category Date Time Status Chest 1V Frontal [CR] Stat Exams 11/26/19 12:29 Taken Obtain Past Medical Record [OM.PC] Urgent Oth 11/26/19 12:29 Active Peripheral IV Insertion Adult [OM.PC] Stat Oth 11/26/19 12:29 Ordered Resuscitation Status Stat Resus Stat 11/26/19 12:29 Ordered Labs: Laboratory Tests 11/26/19 11/26/19 11/26/19 Range/Units 12:25 12:25 12:25 WBC 5.7 (4.0-10.2) K/uL RBC 4.31 (3.77-5.09) M/uL Hgb 12.2 (11.7-15.5) g/dL Hct 37.1 (34.0-46.0) % MCV 86.1 (84.0-98.0) fL MCH 28.3 (28.2-33.3) pg MCHC 32.9 (31.7-36.0) g/dL RDW 12.8 (11.2-14.1) % Plt Count 376 H (150-350) K/uL Neut % (Auto) 59.2 (45.0-80.0) % Lymph % (Auto) 31.2 (10.0-50.0) % [place] % (Auto) 8.3 (2.0-14.0) % Eos % (Auto) 1.1 (0.0-5.0) % Baso % (Auto) 0.2 (0.0-2.0) % Neut # (Auto) 3.37 (1.40-7.00) K/uL Lymph # (Auto) 1.77 (0.50-3.50) K/uL [place] # (Auto) 0.47 (0.00-1.00) K/uL Eos # (Auto) 0.06 (0.00-0.50) K/uL Baso # (Auto) 0.01 (0.00-0.20) K/uL PT 9.5 (9.5-12.0) SEC INR 0.9 APTT 26.8 (24.5-32.8) SEC D-Dimer, Quantitative < 100 (0-400) ng/mL Sodium (136-145) mmol/L Potassium (3.5-5.1) mmol/L Chloride (98-107) mmol/L Carbon Dioxide (21.0-32.0) mmol/L BUN (7-18) mg/dL Creatinine (0.51-1.17) mg/dL Est Cr Clr Drug Dosing mL/min Estimated GFR (MDRD) mL/min Glucose (74-106) mg/dL Lactic Acid (0.4-2.0) mmol/L Uric Acid (2.6-7.2) mg/dL Calcium (8.5-10.1) mg/dL Magnesium (1.8-2.4) mg/dL Total Bilirubin (0.2-1.0) mg/dL AST (15-37) U/L ALT (12-78) U/L Alkaline Phosphatase (46-116) IU/L Creatine Kinase (26-308) U/L Creatine Kinase Index (0.0-2.5) % CK-MB (CK-2) (0.00-3.60) ng/mL Troponin I (0.000-0.056) ng/mL NT-Pro-B Natriuret Pep (0-125) pg/mL Total Protein (6.4-8.2) g/dL Albumin (3.4-5.0) g/dL TSH, Ultra Sensitive (0.358-3.740) mIU/mL 11/26/19 11/26/19 Range/Units 12:25 12:25 WBC (4.0-10.2) K/uL RBC (3.77-5.09) M/uL Hgb (11.7-15.5) g/dL Hct (34.0-46.0) % MCV (84.0-98.0) fL MCH (28.2-33.3) pg MCHC (31.7-36.0) g/dL RDW (11.2-14.1) % Plt Count (150-350) K/uL Neut % (Auto) (45.0-80.0) % Lymph % (Auto) (10.0-50.0) % [place] % (Auto) (2.0-14.0) % Eos % (Auto) (0.0-5.0) % Baso % (Auto) (0.0-2.0) % Neut # (Auto) (1.40-7.00) K/uL Lymph # (Auto) (0.50-3.50) K/uL [place] # (Auto) (0.00-1.00) K/uL Eos # (Auto) (0.00-0.50) K/uL Baso # (Auto) (0.00-0.20) K/uL PT (9.5-12.0) SEC INR APTT (24.5-32.8) SEC D-Dimer, Quantitative (0-400) ng/mL Sodium 139 (136-145) mmol/L Potassium 4.2 (3.5-5.1) mmol/L Chloride 107 (98-107) mmol/L Carbon Dioxide 24.1 (21.0-32.0) mmol/L BUN 12 (7-18) mg/dL Creatinine 0.94 (0.51-1.17) mg/dL Est Cr Clr Drug Dosing 76.71 mL/min Estimated GFR (MDRD) > 60 mL/min Glucose 97 (74-106) mg/dL Lactic Acid 2.0 (0.4-2.0) mmol/L Uric Acid 4.3 (2.6-7.2) mg/dL Calcium 8.3 L (8.5-10.1) mg/dL Magnesium 2.0 (1.8-2.4) mg/dL Total Bilirubin 0.1 L (0.2-1.0) mg/dL AST 29 (15-37) U/L ALT 46 (12-78) U/L Alkaline Phosphatase 86 (46-116) IU/L Creatine Kinase 61 (26-308) U/L Creatine Kinase Index 1.0 (0.0-2.5) % CK-MB (CK-2) 0.60 (0.00-3.60) ng/mL Troponin I 0.000 (0.000-0.056) ng/mL NT-Pro-B Natriuret Pep 260 H (0-125) pg/mL Total Protein 7.0 (6.4-8.2) g/dL Albumin 3.4 (3.4-5.0) g/dL TSH, Ultra Sensitive 1.435 (0.358-3.740) mIU/mL Meds: Medications Discontinued Medications Generic Name Dose Route Start Last Admin Trade Name Freq PRN Reason Stop Dose Admin Aspirin 243 mg 11/26/19 12:29 11/26/19 12:49 Aspirin CHEW 11/26/19 12:30 243 mg ONETIME ONE Administration Famotidine 40 mg 11/26/19 12:29 11/26/19 12:49 Pepcid IVPUSH 11/26/19 12:30 40 mg ONETIME ONE Administration Sodium Chloride 10 ml 11/26/19 12:29 11/26/19 12:49 Saline Flush FLUSH 10 ml ASDIRECTED PRN Administration Keep Vein Open Ticagrelor 90 mg 11/26/19 12:29 11/26/19 12:49 Brilinta PO 11/26/19 12:30 90 mg ONETIME ONE Administration - Radiology Interpretation Free Text/Narrative:: desk monitor shows normal sinus rhythm with heart rate in the 60-70s with no ectopy or arrhythmia Chest x-ray, portable, shows evidence of borderline cardiomegaly with possible mild pulmonary obstructive disease and pulmonary fibrosis with additional questionable granulomatosis but no CHF, pulmonary infiltrates, pneumothorax, etc. Departure - Departure Time of Disposition: 13:51 Disposition: Home, Self-Care 01 Condition: Good Clinical Impression: Caries, Peptic reflux disease, Tobacco abuse counseling, Mixed anxiety depressive disorder, Hypocalcemia, Thrombocytosis, Illicit drug use, continuous Chest pain Qualifiers: Chest pain type: unspecified Qualified Code(s): R07.9 - Chest pain, unspecified Osteoarthritis Qualifiers: Osteoarthritis location: multiple joints Osteoarthritis type: primary Qualified Code(s): M15.0 - Primary generalized (osteo)arthritis Hypertension Qualifiers: Hypertension type: essential hypertension Qualified Code(s): I10 - Essential (primary) hypertension Prescriptions: Famotidine [Pepcid] 20 mg PO BID #60 tab Instructions: Heartburn, [id number], Diet and Dental Disease Referrals: Biju Luo MD [Primary Care Provider] - Forms: ED Department Discharge, ED Return to Work/School Form Additional Instructions: 1. Follow-up with your regular provider in 3 days for reevaluation and recommended PT CBC, comprehensive metabolic panel, CK, CK-MB, troponin I, BNP, and EKG 2. At the above follow-up visit scheduled collection of stool specimens for Hemoccult 3 and H. pylori stool antigen with consideration of further workup including possible EGD, etc. once your heart status has stabilized. 3. 50% maximum exercise restriction until your cardiac status has been clarified. Have your regular provider attempt to admit you into our cardiac rehabilitation program RAMYA as discussed. 4. Work excuse- See Form 5. [place] diet including encouragement of oral fluids such as sports drinks, etc. for 24-48 hours as directed. Advance to heart healthy diet as tolerated thereafter. 6. Congratulations about stopping smoking, alcohol use, and methamphetamine use 7. Immediately after this visit verify that your cellular telephone's voicemail has been activated and is empty. Also verify that your home telephone's answering machine is operating properly and has space to receive messages. Note that it is sometimes necessary for us to be able to contact you at a later date to discuss your medical care. 8. Please remember that we are ALWAYS here for you and want to answer any questions you may have. Feel free to call the hospital any time and we call you back RAMYA. Sepsis Event Note (ED) - Evaluation Sepsis Screening Result: No Definite Risk - Focused Exam Vital Signs: Vital Signs Temp Pulse Resp BP Pulse Ox Pulse Ox 11/26/19 13:26 73 20 119/72 99 11/26/19 13:11 73 20 124/78 100 11/26/19 12:56 71 23 H 116/70 99 11/26/19 12:40 72 20 114/64 99 11/26/19 12:29 74 16 114/64 100 100 11/26/19 12:15 36.3 C 77 20 115/60 98 - Problem List & Annotations (1) Chest pain SNOMED Code(s): 43898033 Code(s): R07.9 - CHEST PAIN, UNSPECIFIED Status: Acute Priority: High Onset Date: 10/07/18 Annotation/Comment:: Symptoms related to her GERD with symptoms resolved at time of discharge with medical therapy as above. Note similar symptoms to her previous PTCA/stent on 11/13 with no further workup necessary per podiatrist assistant at [facility] after transfer to their facility at that time. She was strongly advised to begin cardiac rehabilitation program in this facility. Qualifiers: Chest pain type: unspecified Qualified Code(s): R07.9 - Chest pain, unspecified (2) Peptic reflux disease SNOMED Code(s): 841657139 Code(s): K21.9 - GASTRO-ESOPHAGEAL REFLUX DISEASE WITHOUT ESOPHAGITIS Status: Chronic Priority: Medium Annotation/Comment:: High-dose IV Pepcid given in the emergency room excellent results as above. Consider further GI workup depending on her clinical course. (3) Hypertension SNOMED Code(s): 53753651 Code(s): I10 - ESSENTIAL (PRIMARY) HYPERTENSION Status: Chronic Priority: Medium Annotation/Comment:: Blood pressures under good control in the emergency room with continued close observation by regular providers. Qualifiers: Hypertension type: essential hypertension Qualified Code(s): I10 - Essential (primary) hypertension (4) Mixed anxiety depressive disorder SNOMED Code(s): 089687063 Code(s): F41.8 - OTHER SPECIFIED ANXIETY DISORDERS Status: Chronic Priority: Medium Annotation/Comment:: Stable by patient history in the recent past, however moderate control based on today's exam. Note history of methamphetamine use. (5) Osteoarthritis SNOMED Code(s): 971528874 Code(s): M19.90 - UNSPECIFIED OSTEOARTHRITIS, UNSPECIFIED SITE Status: Chronic Priority: Medium Annotation/Comment:: Otherwise Stable by history Qualifiers: Osteoarthritis location: multiple joints Osteoarthritis type: primary (6) Illicit drug use, continuous SNOMED Code(s): 729972899 Code(s): F19.90 - OTHER PSYCHOACTIVE SUBSTANCE USE, UNSPECIFIED, UNCOMPLICATED Status: Chronic Priority: High Annotation/Comment:: Cessation of illicit drug use strongly encouraged. She was congratulated about stopping smoking. (7) Caries SNOMED Code(s): 41216674 Code(s): K02.9 - DENTAL CARIES, UNSPECIFIED Status: Chronic Priority: Medium Annotation/Comment:: She was once again advised to follow-up with her dentist RAMYA after her cardiac status has stabilized. - Problem List Review Problem List Initiated/Reviewed/Updated: Yes - My Orders Last 24 Hours: My Active Orders 11/26/19 12:29 Chest 1V Frontal [CR] Stat Obtain Past Medical Record [OM.PC] Urgent Peripheral IV Insertion Adult [OM.PC] Stat Resuscitation Status Stat - Assessment/Plan Last 24 Hours: My Active Orders 11/26/19 12:29 Chest 1V Frontal [CR] Stat Obtain Past Medical Record [OM.PC] Urgent Peripheral IV Insertion Adult [OM.PC] Stat Resuscitation Status Stat Assessment:: As above Plan: As above. Extensive precautions were given to the patient and her mother, who are in agreement with the treatment plan. See Patient Instructions for further treatment and plan.
[2019-11-26] MEDS: Famotidine 20 MG/2 ML SDV IVPUSH ONE (12:49)
[2019-11-26] MEDS: Sodium Chloride 0.9% 10 ML Syringe FLUSH PRN (12:49)
[2019-11-26] MEDS: Ticagrelor 90 MG Tab PO ONE (12:49)
[2019-11-26] MEDS: Aspirin 81 MG Tab.Chew CHEW ONE (12:49)
[2019-11-26 12:50] LABS: PTT,PARTIAL THROMBOPLSTIN TIME 26.8 SEC (24.5-32.8)
[2019-11-26 13:13] LABS: CHLORIDE,CL 107 mmol/L (98-107); SODIUM,NA 139 mmol/L (136-145)
[2019-11-26 17:55] VITALS: BP 119/72; PULSE 73
== END 2019-11-26 13:54 | disposition home or self-care (01) ==
LOC: LL.ED 12:14
DX: R07.9 Chest pain, unspecified (principal); K02.9 Dental caries, unspecified; K27.9 Peptic ulcer, site unspecified, unspecified as acute or chronic, without hemorrhage or perforation; F41.8 Other specified anxiety disorders; M89.49 Other hypertrophic osteoarthropathy, multiple sites; I10 Essential (primary) hypertension; E83.51 Hypocalcemia; D47.3 Essential (hemorrhagic) thrombocythemia; F19.90 Other psychoactive substance use, unspecified, uncomplicated; I25.10 Atherosclerotic heart disease of native coronary artery without angina pectoris; E78.00 Pure hypercholesterolemia, unspecified; I25.2 Old myocardial infarction; Z87.891 Personal history of nicotine dependence; E66.9 Obesity, unspecified; Z71.6 Tobacco abuse counseling; Z68.32 Body mass index [BMI] 32.0-32.9, adult; Z88.1 Allergy status to other antibiotic agents; Z88.0 Allergy status to penicillin; Z88.8 Allergy status to other drugs, medicaments and biological substances; Z79.82 Long term (current) use of aspirin; Z79.899 Other long term (current) drug therapy
CPT/HCPCS: 36415; 71045; 80053; 82550; 82553; 83605; 83735; 83880; 84443; 84484; 84550; 85025; 85379; 85610; 85730; 93005; 96374; 99285; A9270; J3490

== ENCOUNTER 2020-04-12 11:50 | Emergency (ER) | payer MEDICAID ==
[2020-04-12] MEDS: Aspirin 81 MG Tab.Chew PO ONE (12:10)
[2020-04-12] MEDS: Nitroglycerin 0.4 MG Tab.SL SL ONE (12:11)
[2020-04-12 12:23] LABS: CHLORIDE,CL 102 mmol/L (98-107); SODIUM,NA 137 mmol/L (136-145)
[2020-04-12] MEDS: Ondansetron 4 MG/2 ML SDV IVPUSH ONE (12:30)
[2020-04-12] MEDS: Sodium Chloride 0.9% 10 ML Syringe FLUSH PRN (12:31)
[2020-04-12] MEDS: Nitroglycerin/D5W 25 MG/250 ML BOTTLE IV SCH (12:36)
[2020-04-12] MEDS: Ondansetron 4 MG/2 ML SDV ONE (12:55)
[2020-04-12] MEDS: Morphine 2 MG/ML SYRINGE IVPUSH ONE (13:17)
--- NOTE | 2020-04-12 13:27 | EDM.PDOC ---
ED HPI GENERAL MEDICAL PROBLEM - General Chief Complaint: Chest Pain Stated Complaint: chest pain Time Seen by Provider: 04/12/20 11:53 Source of Information: Reports: Patient History Limitations: Reports: No Limitations - History of Present Illness INITIAL COMMENTS - FREE TEXT/NARRATIVE: Pt with 4 day hx/o of left chest pain Pain extends out left arm and into shoulder Has not taken any NTG Has been intermittent for past 7-10 days but continuous now Pain began at rest Has hx/o CAD with stent and TX in 11/05 Onset: Gradual Duration: Day(s):, Getting Worse Location: Reports: Chest Quality: Reports: Ache Context: Reports: Other (CAD) Treatments EMERGENCY NURSE: Reports: EKG Left Chest Pain Score (Numeric/FACES): 5 - Related Data Allergies Allergy/AdvReac Type Severity Reaction Status Date / Time amoxicillin Allergy Hives Verified 04/12/20 11:51 cephalexin [From Keflex] Allergy Hives Verified 04/12/20 11:51 erythromycin base Allergy Hives Verified 04/12/20 11:51 fluoxetine [From Prozac] Allergy Dizziness Verified 04/12/20 11:51 Penicillins Allergy Hives Verified 04/12/20 11:51 Home Meds: Home Meds Hydrochlorothiazide 25 mg PO BID 01/03/16 [History] Potassium Chloride [K-Tab ER] 10 meq PO DAILY 01/03/16 [History] Acetaminophen [Tylenol] 650 mg PO Q6HR PRN 07/09/19 [History] Aspirin 81 mg PO DAILY 11/14/19 [History] Melatonin 6 mg PO BEDTIME PRN 11/14/19 [History] Nitroglycerin [Nitrostat] 0.4 mg SL ASDIRECTED PRN 11/14/19 [History] Ticagrelor [Brilinta] 90 mg PO BID 11/14/19 [History] atorvaSTATin [Lipitor] 40 mg PO DAILY 11/14/19 [History] Escitalopram Oxalate [Lexapro] 10 mg PO DAILY 11/26/19 [History] Famotidine [Pepcid] 20 mg PO BID #60 tab 11/26/19 [Rx] LORazepam [Ativan] 0.5 mg PO BID PRN 11/26/19 [History] Past Medical History HEENT History: Reports: Impaired Vision, Macular Degeneration, Otitis Media, Other (See Below) Other HEENT History: Wears glasses. History of recurrent bilateral otitis media. Cardiovascular History: Reports: Arrhythmia, CAD, High Cholesterol, Hypertension, [place], PTCA, Stents, Other (See Below) Other Cardiovascular History: Acute non-STEMI on 11/12/19 with secondary brief runs of ventricular tachycardia. 90% stenosis of the diagonal of the LAD with 30% stenosis of the right coronary artery by heart catheterization. Short MT interval. Dyslipidemia currently diet controlled. Respiratory History: Reports: Intubation, Previous, Pulmonary Fibrosis, Other (See Below) Other Respiratory History: Possible pulmonary fibrosis by chest x-ray with no current therapy. Gastrointestinal History: Reports: Cholelithiasis, Chronic Constipation, GERD Genitourinary History: Reports: Hydronephrosis, Renal Calculus, Other (See Below) Other Genitourinary History: Known moderate bilateral nephrolithiasis and recurrent urolithiasis by CT scans and ultrasounds as below. Spontaneous passage of multiple urinary stones with previous left-sided episodes on 11/15/19, 06/20/18 and 03/04/18 with right-sided colic on 10/25/17 and 08/21/17. 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 Full term without co mplications during pregnancies or deliveries. SAB in first trimester requiring D&C as below. Musculoskeletal History: Reports: Arthritis, Back Pain, Chronic, Fracture, Osteoarthritis, Other (See Below) Other Musculoskeletal History: Right wrist fracture at age 15 Neurological History: Reports: Neuropathy, Peripheral, Other (See Below) Other Neuro History: Cauda equina syndrome with neurogenic bladder Psychiatric History: Reports: Addiction, Anxiety, Depression, Other (See Below) Other Psychiatric History: Illicit drug use as below. Chronic Narcotic use, chronic insomnia. Endocrine/Metabolic History: Reports: Obesity/BMI 30+, Other (See Below) Other Endocrine/Metabolic History: Hypomagnesemia. Hematologic History: Reports: Other (See Below) Other Hematologic History: Mild thrombocytosis. Immunologic History: Reports: None Oncologic (Cancer) History: Reports: Cervix, Other (See Below) Other Oncologic History: Multiple previous abnormal Pap smears of unknown type with resolution after cryotherapy 1999 Dermatologic History: Reports: Other (See Below) Other Dermatologic History: Acne - Infectious Disease History Infectious Disease History: Reports: Chicken Pox, Shingles - Past Surgical History Head Surgeries/Procedures: Reports: None HEENT Surgical History: Reports: Adenoidectomy, Myringotomy w Tube(s), Oral Surgery, Tonsillectomy, Other (See Below) Other HEENT Surgeries/Procedures: Tonsillectomy and adenoidectomy at age 16. [place] teeth extraction 2 with additional teeth extractions. Bilateral PE tubes child. Cardiovascular Surgical History: Reports: None, Coronary Artery Stent, Percutaneous Transluminal Angioplasty, Other (See Below) Other Cardiovascular Surgeries/Procedures: PTCA/stent 1 of the first agonal of the LAD on 11/12/19. Respiratory Surgical History: Reports: None GI Surgical History: Reports: Appendectomy, Cholecystectomy, Other (See Below) Other GI Surgeries/Procedures: Laparoscopic cholecystectomy on 06/10/17. Appendectomy at age 15. Female Surgical History: Reports: Section, Cervical Cryotherapy, Cystoscopy, D&C, Hysterectomy, Lithotripsy/ESWL, Tubal Ligation, Ureteral Stent, Other (See Below) Other Female Surgeries/Procedures: Hysterectomy on 01/02/17 secondary to dysfunctional uterine bleeding, 2 at full-term secondary to failure to progress. D&C secondary to SAB in first trimester. bilateral tubal ligation in 2007, recurrent lithotripsies with last left-sided lithotripsy in June 2016 with 2 previous lithotripsies on the left side and also left ureteral stent placement in 2008 with subsequent removal, cervical cryotherapy in 1999 secondary to atypical Pap smears as above Endocrine Surgical History: Reports: None Neurological Surgical History: Reports: None Musculoskeletal Surgical History: Reports: None Oncologic Surgical History: Reports: None Dermatological Surgical History: Reports: None - Past Imaging History Past Imaging History: Reports: Angiography (Heart catheterization on 11/12/19 with ejection fraction of 55% and findings as above.), Cardiac Echo (11/12/19), CAT Scan (Last CT of the abdomen and pelvis with contrast on 07/12/19 with previous evaluations on 08/21/17, and 06/27/16. CT scan of the abdomen and pelvis stone protocol on 11/14/19, 11/04/16 and 03/10/16 with bilateral nephrolithiasis but no evidence of urolithiasis or hydronephrosis, previous CT scan of the abdomen and pelvis on 06/27/16 positive for left-sided urolithiasis, CT of the lumbar spine on 03/10/16 with right-sided urolithiasis and mild hydronephrosis with additional osteoarthritic changes), HIDA Scan (06/09/17), Mammogram (Last mammogram on 06/03/16), MRI (MRI of the lumbar spine on 02/12/17 and 03/10/16.), Ultrasound (Abdominal ultrasound on 06/09/17. Renal ultrasound on 08/20/17 and 12/09/16. Left Renal ultrasound on 10/27/17. Left breast ultrasound on 06/03/16, pelvic ultrasound on 07/26/16) Social & Family History - Family History HEENT: Reports: Macular Degeneration, Other (See Below) Other HEENT Family History: Macular Degeneration in mother, maternal aunt, and maternal grandmother. Cardiac: Reports: Afib, High Cholesterol, Hypertension, Other (See Below) Other Cardiac Family History: Maternal aunt with atrial fibrillation. Paternal grandfather, mother, and maternal aunt with hypertension. Maternal grandfather with hyperlipidemia. Respiratory: Reports: COPD, Other (See Below) Other Respiratory Family Hisory: Maternal grandfather with COPD and history of tobacco use GI: Reports: GERD, Hepatitis, Other (See Below) Other GI Family History: Father with hepatitis C as below. Paternal uncle with H. pylori infection. : Reports: Renal Calculus, Other (See Below) Other Family History: Father and brother with urolithiasis. OBGYN: Reports: None Musculoskeletal: Reports: Arthritis, RA, Other (See Below) Other Musculoskeletal Family History: Maternal aunt with rheumatoid arthritis. Neurological: Reports: CVA, MS, Other (See Below) Other Neurological Family History: Paternal Grandfather with fatal CVA in his early 60s. Paternal aunts 2 with MS. Psychiatric: Reports: Anxiety, Depression, Other (See Below) Other Psychiatric Family History: Father with anxiety depression disorder and alcohol abuse. Mother with anxiety depression disorder. Endocrine/Metabolic: Reports: Diabetes, type II, IDDM, Other (See Below) Other Endocrine/Metabolic Family History: Maternal grandmother with IDDM. Parents with AODM. Hematologic: Reports: None Immunologic: Reports: None Dermatologic: Reports: None Oncologic: Reports: Liver, Lung, Metastatic, Pancreatic, Other (See Below) Other Oncologic Family History: Father with fatal liver cancer and hepatitis C likely secondary to alcohol abuse at age 53. Maternal grandmother with fatal pancreatic cancer at age 63. Paternal grandmother fatal lung cancer at age 66 with history of tobacco use. Metastatic disease in all the above cancers. Maternal aunt with unknown type of bone marrow cancer at age 57. - Tobacco Use Tobacco Use Status *Q: Current Every Day Tobacco User Years of Tobacco use: 22 Packs/Tins Daily: 0.2 Used Tobacco, but Quit: No - Caffeine Use Caffeine Use: Reports: None Other Caffeine Use: very rarely - Recreational Drug Use Recreational Drug Use: Yes Drug Use in Last 12 Months: Yes Recreational Drug Type: Reports: Methamphetamine Recreational Drug Use Frequency: Rarely - Living Situation & Occupation Living situation: Reports: Single, with Significant Other (And her 1 child from previous significant other relationships with another child not currently living with her). 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[place]) ED ROS GENERAL - Review of Systems Review Of Systems: See Below Constitutional: Reports: No Symptoms HEENT: Reports: No Symptoms Respiratory: Reports: No Symptoms Cardiovascular: Reports: Chest Pain GI/Abdominal: Reports: No Symptoms Musculoskeletal: Reports: No Symptoms Neurological: Reports: No Symptoms Psychiatric: Reports: No Symptoms ED EXAM, GENERAL - Physical Exam Exam: See Below Exam Limited By: No Limitations General Appearance: Moderate Distress Throat/Mouth: Normal Oropharynx Neck: Supple Respiratory/Chest: Lungs Clear Cardiovascular: Regular Rate, Rhythm GI/Abdominal: Soft, Non-Tender Extremities: Normal Inspection Neurological: Alert, Oriented Psychiatric: Normal Affect, Normal Mood Course - Vital Signs Last Recorded V/S: Last Vital Signs Temp 98.5 F 04/12/20 11:50 Pulse 92 04/12/20 11:50 Resp 18 04/12/20 11:50 BP 141/87 H 04/12/20 12:11 Pulse Ox 100 04/12/20 11:50 - Orders/Labs/Meds Orders: Active Orders 24 hr Category Date Time Status EKG Documentation Completion [RC] ASDIRECTED Care 04/12/20 11:56 Active Chest 1V Frontal [CR] Stat Exams 04/12/20 11:57 Taken Nitroglycerin/D5W [Nitroglycerin 25 MG/D5W 250 ML] Med 04/12/20 12:30 Active 25 mg in 250 ml IV TITRATE Sodium Chloride 0.9% [Saline Flush] Med 04/12/20 11:55 Active 10 ml FLUSH ASDIRECTED PRN Saline Lock Insert [OM.PC] Routine Oth 04/12/20 11:55 Ordered Medication Orders Nitroglycerin/Dextrose (Nitroglycerin 25 Mg/D5w 250 Ml) 25 mg in 250 mls @ 1.2 mls/hr IV TITRATE ALEIDA; Protocol Last Admin: 04/12/20 12:36 Dose: 2 mcg/min, 1.2 mls/hr Documented by: PETEY Sodium Chloride (Saline Flush) 10 ml FLUSH ASDIRECTED PRN PRN Reason: Keep Vein Open Last Admin: 04/12/20 12:31 Dose: 10 ml Documented by: PETEY Labs: Laboratory Tests 04/12/20 04/12/20 Range/Units 11:55 11:55 WBC 7.6 (4.0-10.2) K/uL RBC 4.16 (3.77-5.09) M/uL Hgb 11.9 (11.7-15.5) g/dL Hct 36.3 (34.0-46.0) % MCV 87.3 (84.0-98.0) fL MCH 28.6 (28.2-33.3) pg MCHC 32.8 (31.7-36.0) g/dL RDW 13.3 (11.2-14.1) % Plt Count 413 H (150-350) K/uL Neut % (Auto) 73.0 (45.0-80.0) % Lymph % (Auto) 19.4 (10.0-50.0) % [place] % (Auto) 7.2 (2.0-14.0) % Eos % (Auto) 0.3 (0.0-5.0) % Baso % (Auto) 0.1 (0.0-2.0) % Neut # (Auto) 5.56 (1.40-7.00) K/uL Lymph # (Auto) 1.48 (0.50-3.50) K/uL [place] # (Auto) 0.55 (0.00-1.00) K/uL Eos # (Auto) 0.02 (0.00-0.50) K/uL Baso # (Auto) 0.01 (0.00-0.20) K/uL Sodium 137 (136-145) mmol/L Potassium 4.2 (3.5-5.1) mmol/L Chloride 102 (98-107) mmol/L Carbon Dioxide 24.6 (21.0-32.0) mmol/L BUN 12 (7-18) mg/dL Creatinine 0.94 (0.51-1.17) mg/dL Est Cr Clr Drug Dosing TNP Estimated GFR (MDRD) > 60 mL/min Glucose 85 (74-106) mg/dL Calcium 9.1 (8.5-10.1) mg/dL Total Bilirubin 0.2 (0.2-1.0) mg/dL AST 28 (15-37) U/L ALT 43 (12-78) U/L Alkaline Phosphatase 87 (46-116) IU/L Troponin I 0.000 (0.000-0.056) ng/mL Total Protein 8.1 (6.4-8.2) g/dL Albumin 3.8 (3.4-5.0) g/dL Meds: Medications Generic Name Dose Route Start Last Admin Trade Name Freq PRN Reason Stop Dose Admin Nitroglycerin/Dextrose 25 mg in 250 mls @ 1.2 mls/hr 04/12/20 12:30 04/12/20 12:36 Nitroglycerin 25 Mg/D5w 250 Ml IV 2 mcg/min TITRATE ALEIDA 1.2 mls/hr Administration Protocol 2 MCG/MIN Sodium Chloride 10 ml 04/12/20 11:55 04/12/20 12:31 Saline Flush FLUSH 10 ml ASDIRECTED PRN Administration Keep Vein Open Discontinued Medications Generic Name Dose Route Start Last Admin Trade Name Freq PRN Reason Stop Dose Admin Aspirin 324 mg 04/12/20 12:07 04/12/20 12:10 Aspirin PO 04/12/20 12:08 324 mg ONETIME ONE Administration Morphine Sulfate 2 mg 04/12/20 13:12 04/12/20 13:17 Morphine IVPUSH 04/12/20 13:13 2 mg ONETIME ONE Administration Nitroglycerin 0.4 mg 04/12/20 12:08 04/12/20 12:11 Nitrostat SL 04/12/20 12:09 0.4 mg ONETIME ONE Administration Ondansetron HCl 8 mg 04/12/20 12:25 04/12/20 12:30 Zofran IVPUSH 04/12/20 12:26 8 mg ONETIME ONE Administration Ondansetron HCl Confirm 04/12/20 12:31 04/12/20 12:55 Zofran Administered 04/12/20 12:32 Not Given Dose 4 mg .ROUTE .[facility] - Re-Assessments/Exams Free Text/Narrative Re-Assessment/Exam: 04/12/20 13:24 See lab Lab and EKG without acute findings Pt given ASA and NTG Sl X 1 and pain resolved Pain recurred and pt given 2 nd NTG and pain resolved Pain recurred and pt started on NTG drip Pain resolved at NTG titrated to 5 D/W Dr Funes On-call hospitalist [facility] Will accept int transfer Transfer via EMS Departure - Departure Time of Disposition: 13:30 Disposition: DC/Tfer to Acute Hospital 02 Reason for Transfer *Q: Primary PCI Indicated Clinical Impression: Unstable angina Referrals: Dotty Villaseñor PA-C [Primary Care Provider] - Sepsis Event Note (ED) - Evaluation Sepsis Screening Result: No Definite Risk - Focused Exam Vital Signs: Vital Signs Temp Pulse Resp BP Pulse Ox 04/12/20 12:11 141/87 H 04/12/20 11:50 98.5 F 92 18 100 - My Orders Last 24 Hours: My Active Orders 04/12/20 11:55 Sodium Chloride 0.9% [Saline Flush] 10 ml FLUSH ASDIRECTED PRN Saline Lock Insert [OM.PC] Routine 04/12/20 11:56 EKG Documentation Completion [RC] ASDIRECTED 04/12/20 11:57 Chest 1V Frontal [CR] Stat 04/12/20 12:30 Nitroglycerin/D5W [Nitroglycerin 25 MG/D5W 250 ML] 25 mg in 250 ml IV TITRATE - Assessment/Plan Last 24 Hours: My Active Orders 04/12/20 11:55 Sodium Chloride 0.9% [Saline Flush] 10 ml FLUSH ASDIRECTED PRN Saline Lock Insert [OM.PC] Routine 04/12/20 11:56 EKG Documentation Completion [RC] ASDIRECTED 04/12/20 11:57 Chest 1V Frontal [CR] Stat 04/12/20 12:30 Nitroglycerin/D5W [Nitroglycerin 25 MG/D5W 250 ML] 25 mg in 250 ml IV TITRATE
[2020-04-12 13:50] VITALS: BP 131/76; PULSE 85
== END 2020-04-12 14:20 ==
LOC: LL.ED 11:50
DX: I20.0 Unstable angina (principal); I25.10 Atherosclerotic heart disease of native coronary artery without angina pectoris; I10 Essential (primary) hypertension; F41.9 Anxiety disorder, unspecified; F32.9 Major depressive disorder, single episode, unspecified; M19.90 Unspecified osteoarthritis, unspecified site; K21.9 Gastro-esophageal reflux disease without esophagitis; I25.2 Old myocardial infarction; E78.00 Pure hypercholesterolemia, unspecified; F17.210 Nicotine dependence, cigarettes, uncomplicated; Z79.82 Long term (current) use of aspirin; Z79.899 Other long term (current) drug therapy; Z88.0 Allergy status to penicillin; Z88.8 Allergy status to other drugs, medicaments and biological substances; Z88.1 Allergy status to other antibiotic agents
CPT/HCPCS: 36415; 71045; 80053; 84484; 85025; 93005; 96365; 96375; 99285-25; A9270-GY; J2270; J2405; J3490

== ENCOUNTER 2020-11-22 10:30 | Emergency (ER) | payer MEDICAID ==
[2020-11-22] MEDS ORDERED: Nitroglycerin 0.4 MG Tab.SL SL ONE (11:06)
[2020-11-22] MEDS ORDERED: Aspirin 81 MG Tab.Chew PO ONE (11:08)
[2020-11-22 11:20] LABS: CHLORIDE,CL 105 mmol/L (98-107); SODIUM,NA 143 mmol/L (136-145)
--- NOTE | 2020-11-22 11:46 | EDM.PDOC ---
ED HPI GENERAL MEDICAL PROBLEM - General Chief Complaint: Chest Pain Stated Complaint: Chest Pain Time Seen by Provider: 11/22/20 10:48 Source of Information: Reports: Patient - History of Present Illness INITIAL COMMENTS - FREE TEXT/NARRATIVE: Ines is a 40 y/o female who presents to the ER with chest pain. 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 She rated that pain 6/10 and took a Nitro that she had and the pain resolved. She reported the pain with midsternal and did not radiate. On arrival to the ER she reports the pain is back and she rates it 3/10. She thinks that some of this is due to the fact that there are only 2 employees at the [employer] where she works and she has been working 60 hours+ per week. She thinks she is just tried. She did have PTCA with stents x 1 placed in October 2019 and then a had another admit for chest pain in March 2020. She is sis supposed to she her Cna Gna tomorrow for a clinic appt. - Related Data Allergies Allergy/AdvReac Type Severity Reaction Status Date / Time amoxicillin Allergy Hives Verified 04/12/20 11:51 cephalexin [From Keflex] Allergy Hives Verified 04/12/20 11:51 erythromycin base Allergy Hives Verified 04/12/20 11:51 fluoxetine [From Prozac] Allergy Dizziness Verified 04/12/20 11:51 Penicillins Allergy Hives Verified 04/12/20 11:51 Home Meds: Home Meds Hydrochlorothiazide 25 mg PO BID 01/03/16 [History] Acetaminophen [Tylenol] 650 mg PO Q6HR PRN 07/09/19 [History] Aspirin 81 mg PO DAILY 11/14/19 [History] Nitroglycerin [Nitrostat] 0.4 mg SL ASDIRECTED PRN 11/14/19 [History] atorvaSTATin [Lipitor] 40 mg PO DAILY 11/14/19 [History] LORazepam [Ativan] 0.5 mg PO DAILY PRN 11/26/19 [History] Clopidogrel Bisulfate [Plavix] 1 tab PO DAILY 04/12/20 [History] Metoprolol Succinate [Toprol XL] 0.5 tab PO DAILY 04/12/20 [History] Montelukast [Singulair] 1 tab PO QPM 04/12/20 [History] Potassium Citrate [Potassium Citrate ER] 1 tab PO DAILY 04/12/20 [History] Past Medical History HEENT History: Reports: Impaired Vision, Macular Degeneration, Otitis Media, Other (See Below) Other HEENT History: Wears glasses. History of recurrent bilateral otitis media. Cardiovascular History: Reports: Arrhythmia, CAD, High Cholesterol, Hypertension, RI, PTCA, Stents, Other (See Below) Other Cardiovascular History: Acute non-STEMI on 11/12/19 with secondary brief runs of ventricular tachycardia. 90% stenosis of the diagonal of the LAD with 30% stenosis of the right coronary artery by heart catheterization. Short UT interval. Dyslipidemia currently diet controlled. Respiratory History: Reports: Intubation, Previous, Pulmonary Fibrosis, Other (See Below) Other Respiratory History: Possible pulmonary fibrosis by chest x-ray with no current therapy. Gastrointestinal History: Reports: Cholelithiasis, Chronic Constipation, GERD Genitourinary History: Reports: Hydronephrosis, Renal Calculus, Other (See Below) Other Genitourinary History: Known moderate bilateral nephrolithiasis and recurrent urolithiasis by CT scans and ultrasounds as below. Spontaneous passage of multiple urinary stones with previous left-sided episodes on 11/15/19, 06/20/18 and 03/04/18 with right-sided colic on 10/25/17 and 08/21/17. 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 Full term without complications during pregnancies or deliveries. SAB in first trimester requiring D&C as below. Musculoskeletal History: Reports: Arthritis, Back Pain, Chronic, Fracture, Osteoarthritis, Other (See Below) Other Musculoskeletal History: Right wrist fracture at age 15 Neurological History: Reports: Neuropathy, Peripheral, Other (See Below) Other Neuro History: Cauda equina syndrome with neurogenic bladder Psychiatric History: Reports: Addiction, Anxiety, Depression, Other (See Below) Other Psychiatric History: Illicit drug use as below. Chronic Narcotic use, chronic insomnia. Endocrine/Metabolic History: Reports: Obesity/BMI 30+, Other (See Below) Other Endocrine/Metabolic History: Hypomagnesemia. Hematologic History: Reports: Other (See Below) Other Hematologic History: Mild thrombocytosis. Immunologic History: Reports: None Oncologic (Cancer) History: Reports: Cervix, Other (See Below) Other Oncologic History: Multiple previous abnormal Pap smears of unknown type with resolution after cryotherapy 1999 Dermatologic History: Reports: Other (See Below) Other Dermatologic History: Acne - Infectious Disease History Infectious Disease History: Reports: Chicken Pox, Shingles - Past Surgical History Head Surgeries/Procedures: Reports: None HEENT Surgical History: Reports: Adenoidectomy, Myringotomy w Tube(s), Oral Surgery, Tonsillectomy, Other (See Below) Other HEENT Surgeries/Procedures: Tonsillectomy and adenoidectomy at age 16. Healy teeth extraction 2 with additional teeth extractions. Bilateral PE tubes child. Cardiovascular Surgical History: Reports: None, Coronary Artery Stent, Percutaneous Transluminal Angioplasty, Other (See Below) Other Cardiovascular Surgeries/Procedures: PTCA/stent 1 of the first agonal of the LAD on 11/12/19. Respiratory Surgical History: Reports: None GI Surgical History: Reports: Appendectomy, Cholecystectomy, Other (See Below) Other GI Surgeries/Procedures: Laparoscopic cholecystectomy on 06/10/17. Appendectomy at age 15. Female Surgical History: Reports: Section, Cervical Cryotherapy, Cystoscopy, D&C, Hysterectomy, Lithotripsy/ESWL, Tubal Ligation, Ureteral Stent, Other (See Below) Other Female Surgeries/Procedures: Hysterectomy on 01/02/17 secondary to dysfunctional uterine bleeding, 2 at full-term secondary to failure to progress. D&C secondary to SAB in first trimester. bilateral tubal ligation in 2007, recurrent lithotripsies with last left-sided lithotripsy in June 2016 with 2 previous lithotripsies on the left side and also left ureteral stent placement in 2008 with subsequent removal, cervical cryotherapy in 1999 secondary to atypical Pap smears as above Endocrine Surgical History: Reports: None Neurological Surgical History: Reports: None Musculoskeletal Surgical History: Reports: None Oncologic Surgical History: Reports: None Dermatological Surgical History: Reports: None - Past Imaging History Past Imaging History: Reports: Angiography (Heart catheterization on 11/12/19 with ejection fraction of 55% and findings as above.), Cardiac Echo (11/12/19), CAT Scan (Last CT of the abdomen and pelvis with contrast on 07/12/19 with previous evaluations on 08/21/17, and 06/27/16. CT scan of the abdomen and pelvis stone protocol on 11/14/19, 11/04/16 and 03/10/16 with bilateral nephrolithiasis but no evidence of urolithiasis or hydronephrosis, previous CT scan of the abdomen and pelvis on 06/27/16 positive for left-sided urolithiasis, CT of the lumbar spine on 03/10/16 with right-sided urolithiasis and mild hydronephrosis with additional osteoarthritic changes), HIDA Scan (06/09/17), Mammogram (Last mammogram on 06/03/16), MRI (MRI of the lumbar spine on 02/12/17 and 03/10/16.), Ultrasound (Abdominal ultrasound on 06/09/17. Renal ultrasound on 08/20/17 and 12/09/16. Left Renal ultrasound on 10/27/17. Left breast ultrasound on 06/03/16, pelvic ultrasound on 07/26/16) Social & Family History - Family History HEENT: Reports: Macular Degeneration, Other (See Below) Other HEENT Family History: Macular Degeneration in mother, maternal aunt, and maternal grandmother. Cardiac: Reports: Afib, High Cholesterol, Hypertension, Other (See Below) Other Cardiac Family History: Maternal aunt with atrial fibrillation. Paternal grandfather, mother, and maternal aunt with hypertension. Maternal grandfather with hyperlipidemia. Respiratory: Reports: COPD, Other (See Below) Other Respiratory Family Hisory: Maternal grandfather with COPD and history of tobacco use GI: Reports: GERD, Hepatitis, Other (See Below) Other GI Family History: Father with hepatitis C as below. Paternal uncle with H. pylori infection. : Reports: Renal Calculus, Other (See Below) Other Family History: Father and brother with urolithiasis. OBGYN: Reports: None Musculoskeletal: Reports: Arthritis, RA, Other (See Below) Other Musculoskeletal Family History: Maternal aunt with rheumatoid arthritis. Neurological: Reports: CVA, MS, Other (See Below) Other Neurological Family History: Paternal Grandfather with fatal CVA in his early 60s. Paternal aunts 2 with MS. Psychiatric: Reports: Anxiety, Depression, Other (See Below) Other Psychiatric Family History: Father with anxiety depression disorder and alcohol abuse. Mother with anxiety depression disorder. Endocrine/Metabolic: Reports: Diabetes, type II, IDDM, Other (See Below) Other Endocrine/Metabolic Family History: Maternal grandmother with IDDM. Parents with AODM. Hematologic: Reports: None Immunologic: Reports: None Dermatologic: Reports: None Oncologic: Reports: Liver, Lung, Metastatic, Pancreatic, Other (See Below) Other Oncologic Family History: Father with fatal liver cancer and hepatitis C likely secondary to alcohol abuse at age 53. Maternal grandmother with fatal pancreatic cancer at age 63. Paternal grandmother fatal lung cancer at age 66 with history of tobacco use. Metastatic disease in all the above cancers. Maternal aunt with unknown type of bone marrow cancer at age 57. - Caffeine Use Caffeine Use: Reports: None Other Caffeine Use: very rarely - Living Situation & Occupation Living situation: Reports: Single, with Significant Other (And her 1 child from previous significant other relationships with another child not currently living with her). 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[place]) Review of Systems - Review of Systems Review Of Systems: See Below Constitutional: Reports: No Symptoms Eyes: Reports: No Symptoms Ears: Reports: No Symptoms Nose: Reports: No Symptoms Mouth/Throat: Reports: No Symptoms Respiratory: Reports: No Symptoms Cardiovascular: Reports: Chest Pain GI/Abdominal: Reports: No Symptoms Genitourinary: Reports: No Symptoms Musculoskeletal: Reports: No Symptoms Skin: Reports: No Symptoms Neurological: Reports: No Symptoms Psychiatric: Reports: No Symptoms ED EXAM, GENERAL - Physical Exam Exam: See Below General Appearance: Alert, WD/WN, No Apparent Distress (Adult female) Eye Exam: Bilateral Eye: PERRL Ears: Normal External Exam, Normal Canal, Hearing Grossly Normal, Normal TMs Nose: Normal Inspection, Normal Mucosa, No Blood Throat/Mouth: Normal Inspection, Normal Lips, Normal Voice Head: Atraumatic, Normocephalic Neck: Normal Inspection, Supple, Non-Tender Respiratory/Chest: No Respiratory Distress, Lungs Clear, Chest Non-Tender Cardiovascular: Normal Peripheral Pulses, Regular Rate, Rhythm, No Edema, No JVD, No Murmur GI/Abdominal: Normal Bowel Sounds, Soft (Female) Exam: Deferred Rectal (Female) Exam: Deferred Back Exam: Normal Inspection, Full Range of Motion Extremities: Normal Inspection, Normal Range of Motion, No Pedal Edema, Normal Capillary Refill Neurological: Alert, Oriented, CN II-XII Intact, Normal Cognition, No Motor/Sensory Deficits Psychiatric: Normal Affect, Normal Mood Skin Exam: Warm, Dry, Intact, Normal Color, No Rash #1 Interpretation EKG Date: 11/22/20 Time: 10:42 Rhythm: NSR Rate (Beats/Min): 76 [place]: Normal P-Wave: Present QRS: Normal ST-T: Normal QT: Normal Comparison: No Change EKG Interpretation Comments: Normal Sinus Rhythm Course - Vital Signs Text/Narrative:: 1049 The patient was seen by the TABLE GAMES MANAGER. Labs, EKG done. She was given a Nitro 0.4ml SL for the 3/10 chest pain. Also given ASA 81mg po x 3 since she had one today. Will await labs. 1140 Reports pain is gone and now resting. Labs reviewed. Note Troponin=0.00, CBC neg, CMP Ygmyoa=022 otherwise all neg. Will allow patient to rest and then recheck Troponin in 3 hours. Advised to let staff know of nay recurring chest pain. 1415 3 hour troponin level=0.00. Patient remains pain free. JHONATAN discussed with patient the need fro serial troponin levels. She is not wanting to stay for observation. Will consult Cardiology. [address] [facility] contacted. Dr Jaquez, drier transfer car operator manager of exhibitions and collections, was consulted and case presented. She advised serial Troponins and further cardiology workup. Advised Dr Jaquez that patient is not wanting to stay for further care. She advises if we do a 6 hour Troponin and it is negative, we can send the patient home and then have her keep her follow up appt tomorrow with Cardiology in [place]. Discussed cardiology recommendations with the patient. She was still anxious to leave without further labs. JHONATAN advised would need to send her with signing out AMA. Reviewed risks, benefits, and alternative to current care with the patient. Her questions were answered and then she still wanted to sign out AMA. AMA This patient has elected to leave against medical advice. In my opinion, the patient has capacity to leave AMA. The patient is clinically sober, free from distracting injury, appears to have intact insight and judgment and reason, and in my opinion has capacity to make decisions. I explained to the patient that her symptoms may represent a myocardial infarction or unstable angina and the patient verbalized understanding of my concerns. I had a discussion with the patient about their workup and results, and that they may still have an RI or myocardial ischemia despite labs and EKGs being negative so far. I informed the patient that the next step in diagnosis and treatment would be observation for further troponin levels and a formal cardiology consult, and they verbalized understanding of this as well. I explained the risks of leaving without further workup or treatment, which included reasonably foreseeable complications such as , serious injury, permanent disability. I also offered alternatives to departing AMA such as assigning the patient a different provider or an alternate workup pathway. The patient is refusing any further care and is leaving against medical advice. I am unable to convince the patient to stay. I have asked them to return as soon as possible to complete their evaluation, and also explained that they were welcome to return to the ER for further evaluation whenever they choose. I have asked the patient to follow up with their primary doctor as soon as possible. I have answered all her questions. Patient signed AMA paperwork. Last Recorded V/S: Last Vital Signs Temp 36.6 C 11/22/20 10:30 Pulse 78 11/22/20 12:00 Resp 18 11/22/20 12:00 BP 115/68 11/22/20 12:00 Pulse Ox 100 11/22/20 12:00 - Orders/Labs/Meds Orders: Active Orders 24 hr Category Date Time Status EKG Documentation Completion [RC] ASDIRECTED Care 11/22/20 10:36 Active Labs: Laboratory Tests 11/22/20 11/22/20 11/22/20 Range/Units 10:55 10:55 13:40 WBC 5.2 (4.0-10.2) K/uL RBC 4.11 (3.77-5.09) M/uL Hgb 12.0 (11.7-15.5) g/dL Hct 35.6 (34.0-46.0) % MCV 86.6 (84.0-98.0) fL MCH 29.2 (28.2-33.3) pg MCHC 33.7 (31.7-36.0) g/dL RDW 12.5 (11.2-14.1) % Plt Count 416 H (150-350) K/uL Neut % (Auto) 61.1 (45.0-80.0) % Lymph % (Auto) 31.7 (10.0-50.0) % Saunders % (Auto) 6.0 (2.0-14.0) % Eos % (Auto) 1.0 (0.0-5.0) % Baso % (Auto) 0.2 (0.0-2.0) % Neut # (Auto) 3.15 (1.40-7.00) K/uL Lymph # (Auto) 1.63 (0.50-3.50) K/uL Saunders # (Auto) 0.31 (0.00-1.00) K/uL Eos # (Auto) 0.05 (0.00-0.50) K/uL Baso # (Auto) 0.01 (0.00-0.20) K/uL Sodium 143 (136-145) mmol/L Potassium 3.5 (3.5-5.1) mmol/L Chloride 105 (98-107) mmol/L Carbon Dioxide 26.6 (21.0-32.0) mmol/L BUN 16 (7-18) mg/dL Creatinine 0.91 (0.51-1.17) mg/dL Est Cr Clr Drug Dosing TNP Estimated GFR (MDRD) > 60 mL/min Glucose 116 H (70-99) mg/dL Calcium 8.5 (8.5-10.1) mg/dL Magnesium 1.8 (1.8-2.4) mg/dL Total Bilirubin 0.1 L (0.2-1.0) mg/dL AST 19 (15-37) U/L ALT 38 (12-78) U/L Alkaline Phosphatase 82 (46-116) IU/L Troponin I 0.000 0.000 (0.000-0.056) ng/mL Total Protein 7.0 (6.4-8.2) g/dL Albumin 3.8 (3.4-5.0) g/dL Meds: Medications Discontinued Medications Generic Name Dose Route Start Last Admin Trade Name Freq PRN Reason Stop Dose Admin Aspirin 243 mg 11/22/20 11:08 11/22/20 11:18 Aspirin 81 Mg Tab.Chew PO 11/22/20 11:09 243 mg ONETIME ONE Administration Nitroglycerin 0.4 mg 11/22/20 11:06 11/22/20 11:18 Nitroglycerin 0.4 Mg Tab.Sl SL 11/22/20 11:07 0.4 mg ONETIME ONE Administration Departure - Departure Time of Disposition: 14:56 Disposition: Against Medical Advice 07 Condition: Good Clinical Impression: Hx of myocardial infarction Chest pain Qualifiers: Chest pain type: unspecified Qualified Code(s): R07.9 - Chest pain, unspecified - Discharge Information Referrals: Dotty Villaseñor PA-C [Primary Care Provider] - Forms: ED Department Discharge, Refusal of Care AMA Additional Instructions: -Pt left AMA and signed forms -Keep your previously scheduled cardiology appt that is tomorrow -Return to the ER with any chest pain or any other concerns Sepsis Event Note (ED) - Focused Exam Vital Signs: Vital Signs Temp Pulse Resp BP BP Pulse Ox 11/22/20 12:00 78 18 115/68 100 11/22/20 11:45 76 17 108/72 100 11/22/20 11:30 72 18 109/65 100 11/22/20 11:18 117/72 11/22/20 11:15 69 16 117/72 100 11/22/20 11:00 74 16 110/68 100 11/22/20 10:45 78 17 119/68 100 11/22/20 10:30 36.6 C 82 18 121/71 100 - My Orders Last 24 Hours: My Active Orders 11/22/20 10:36 EKG Documentation Completion [RC] ASDIRECTED - Assessment/Plan Last 24 Hours: My Active Orders 11/22/20 10:36 EKG Documentation Completion [RC] ASDIRECTED
[2020-11-22 15:24] VITALS: BP 104/69; PULSE 75
== END 2020-11-22 15:00 | disposition left against medical advice (07) ==
LOC: LL.ED 10:30
DX: R07.2 Precordial pain (principal); R07.89 Other chest pain; I25.2 Old myocardial infarction; I25.10 Atherosclerotic heart disease of native coronary artery without angina pectoris; E78.00 Pure hypercholesterolemia, unspecified; I10 Essential (primary) hypertension; E66.9 Obesity, unspecified; Z68.30 Body mass index [BMI] 30.0-30.9, adult; Z88.0 Allergy status to penicillin; Z88.1 Allergy status to other antibiotic agents; Z79.82 Long term (current) use of aspirin; Z79.02 Long term (current) use of antithrombotics/antiplatelets; Z79.899 Other long term (current) drug therapy
CPT/HCPCS: 36415; 80053; 83735; 84484; 85025; 93005; 93010; 99284; 99285-25; A9270-GY

== ENCOUNTER 2020-11-25 06:52 | Emergency (ER) | payer MEDICAID ==
[2020-11-25] MEDS ORDERED: Nitroglycerin 0.4 MG Tab.SL SL ONE (07:00)
[2020-11-25] MEDS ORDERED: Aspirin 81 MG Tab.Chew PO ONE (07:02)
[2020-11-25] MEDS ORDERED: Morphine 2 MG/ML SYRINGE IVPUSH ONE ×2 (07:35→08:02)
--- NOTE | 2020-11-25 07:35 | EDM.PDOC ---
ED HPI GENERAL MEDICAL PROBLEM - General Chief Complaint: Chest Pain Stated Complaint: Chest Pain Time Seen by Provider: 11/25/20 07:22 Source of Information: Reports: Patient History Limitations: Reports: No Limitations - History of Present Illness INITIAL COMMENTS - FREE TEXT/NARRATIVE: Patient comes to ER with chest pain. Left sided. Radiates to left neck and left arm. Present since around 4:30am. Improved with Nitro but did not resolve. Has had several Nitro prior to arrival. Was here a few days ago with chest pain and had negative initial Troponins. Refused to stay for a 6 hour draw and left AMA. Was seen by Cardiology the next day. Started on Imdur. Patient has also been having issues with dizziness that has been worked up at [facility]/unknown cause. Is currently dizzy now. No report of new injury/illness/fever. No other acute pain complaint. No SOB. Very anxious. No diaphoresis. Denies other HEENT/Resp/CV/GI//Neuro changes. - Related Data Allergies Allergy/AdvReac Type Severity Reaction Status Date / Time amoxicillin Allergy Hives Verified 11/25/20 06:54 cephalexin [From Keflex] Allergy Hives Verified 11/25/20 06:54 erythromycin base Allergy Hives Verified 11/25/20 06:54 fluoxetine [From Prozac] Allergy Dizziness Verified 11/25/20 06:54 Penicillins Allergy Hives Verified 11/25/20 06:54 Home Meds: Home Meds Hydrochlorothiazide 25 mg PO Q12HR 01/03/16 [History] Acetaminophen [Tylenol] 650 mg PO Q6HR PRN 07/09/19 [History] Aspirin 81 mg PO DAILY 11/14/19 [History] Nitroglycerin [Nitrostat] 0.4 mg SL ASDIRECTED PRN 11/14/19 [History] atorvaSTATin [Lipitor] 40 mg PO DAILY 11/14/19 [History] LORazepam [Ativan] 0.5 mg PO DAILY PRN 11/26/19 [History] Metoprolol Succinate [Toprol XL] 12.5 mg PO DAILY 04/12/20 [History] Montelukast [Singulair] 1 tab PO BEDTIME 04/12/20 [History] Potassium Citrate [Potassium Citrate ER] 2 tab PO DAILY 04/12/20 [History] Isosorbide Mononitrate [Isosorbide Mononitrate ER] 30 mg PO DAILY 11/25/20 [History] Mv-Min/Iron/Folic/Calcium/Vitk [Women's Daily Formula Tablet] 1 tab PO DAILY 11/25/20 [History] Past Medical History HEENT History: Reports: Impaired Vision, Macular Degeneration, Otitis Media, Other (See Below) Other HEENT History: Wears glasses. History of recurrent bilateral otitis media. Cardiovascular History: Reports: Arrhythmia, CAD, High Cholesterol, Hypertension, NV, PTCA, Stents, Other (See Below) Other Cardiovascular History: Acute non-STEMI on 11/12/19 with secondary brief runs of ventricular tachycardia. 90% stenosis of the diagonal of the LAD with 30% stenosis of the right coronary artery by heart catheterization. Short LA interval. Dyslipidemia currently diet controlled. Respiratory History: Reports: Intubation, Previous, Pulmonary Fibrosis, Other (See Below) Other Respiratory History: Possible pulmonary fibrosis by chest x-ray with no current therapy. Gastrointestinal History: Reports: Cholelithiasis, Chronic Constipation, GERD Genitourinary History: Reports: Hydronephrosis, Renal Calculus, Other (See Below) Other Genitourinary History: Known moderate bilateral nephrolithiasis and recurrent urolithiasis by CT scans and ultrasounds as below. Spontaneous passage of multiple urinary stones with previous left-sided episodes on 11/15/19, 06/20 and 03/04/18 with right-sided colic on 10/25/17 and 08/21/17. Recurrent bilateral urolithiasis since 2005 with history of mild right-sided hydronephrosis on 07/12/19, 03/10/16 and recurrent lithotripsies as below; neurogenic bladder as below; CART PUSHER History: Reports: Dysfunctional Uterine Bleeding, Fibroids, Polycystic Ovaries, , Spontaneous Other CART PUSHER History: Recurrent left-sided ovarian cyst, fibrocystic breast disease, dysmenorrhea: Surgical menopause as below. Full term without complications during pregnancies or deliveries. SAB in first trimester requiring D&C as below. Musculoskeletal History: Reports: Arthritis, Back Pain, Chronic, Fracture, Osteoarthritis, Other (See Below) Other Musculoskeletal History: Right wrist fracture at age 15 Neurological History: Reports: Neuropathy, Peripheral, Other (See Below) Other Neuro History: Cauda equina syndrome with neurogenic bladder Psychiatric History: Reports: Addiction, Anxiety, Depression, Other (See Below) Other Psychiatric History: Illicit drug use as below. Chronic Narcotic use, chronic insomnia. Endocrine/Metabolic History: Reports: Obesity/BMI 30+, Other (See Below) Other Endocrine/Metabolic History: Hypomagnesemia. Hematologic History: Reports: Other (See Below) Other Hematologic History: Mild thrombocytosis. Immunologic History: Reports: None Oncologic (Cancer) History: Reports: Cervix, Other (See Below) Other Oncologic History: Multiple previous abnormal Pap smears of unknown type with resolution after cryotherapy 1999 Dermatologic History: Reports: Other (See Below) Other Dermatologic History: Acne - Infectious Disease History Infectious Disease History: Reports: Chicken Pox, Shingles - Past Surgical History Head Surgeries/Procedures: Reports: None HEENT Surgical History: Reports: Adenoidectomy, Myringotomy w Tube(s), Oral Surgery, Tonsillectomy, Other (See Below) Other HEENT Surgeries/Procedures: Tonsillectomy and adenoidectomy at age 16. [place] teeth extraction 2 with additional teeth extractions. Bilateral PE tubes child. Cardiovascular Surgical History: Reports: None, Coronary Artery Stent, Percutaneous Transluminal Angioplasty, Other (See Below) Other Cardiovascular Surgeries/Procedures: PTCA/stent 1 of the first agonal of the LAD on 11/12/19. Respiratory Surgical History: Reports: None GI Surgical History: Reports: Appendectomy, Cholecystectomy, Other (See Below) Other GI Surgeries/Procedures: Laparoscopic cholecystectomy on 06/10/17. Appendectomy at age 15. Female Surgical History: Reports: Section, Cervical Cryotherapy, Cystoscopy, D&C, Hysterectomy, Lithotripsy/ESWL, Tubal Ligation, Ureteral Stent, Other (See Below) Other Female Surgeries/Procedures: Hysterectomy on 01/02/17 secondary to dysfunctional uterine bleeding, 2 at full-term secondary to failure to progress. D&C secondary to SAB in first trimester. bilateral tubal ligation in 2007, recurrent lithotripsies with last left-sided lithotripsy in June 2016 with 2 previous lithotripsies on the left side and also left ureteral stent placement in 2008 with subsequent removal, cervical cryotherapy in 1999 secondary to atypical Pap smears as above Endocrine Surgical History: Reports: None Neurological Surgical History: Reports: None Musculoskeletal Surgical History: Reports: None Oncologic Surgical History: Reports: None Dermatological Surgical History: Reports: None - Past Imaging History Past Imaging History: Reports: Angiography (Heart catheterization on 11/12/19 with ejection fraction of 55% and findings as above.), Cardiac Echo (11/12/19), CAT Scan (Last CT of the abdomen and pelvis with contrast on 07/12/19 with previous evaluations on 08/21/17, and 06/27/16. CT scan of the abdomen and pelvis stone protocol on 11/14/19, 11/04/16 and 03/10/16 with bilateral nephrolithiasis but no evidence of urolithiasis or hydronephrosis, previous CT scan of the abdomen and pelvis on 06/27/16 positive for left-sided urolithiasis, CT of the lumbar spine on 03/10/16 with right-sided urolithiasis and mild hydronephrosis with additional osteoarthritic changes), HIDA Scan (06/09/17), Mammogram (Last mammogram on 06/03/16), MRI (MRI of the lumbar spine on 02/12/17 and 03/10/16.), Ultrasound (Abdominal ultrasound on 06/09/17. Renal ultrasound on 08/20/17 and 12/09/16. Left Renal ultrasound on 10/27/17. Left breast ultrasound on 06/03/16, pelvic ultrasound on 07/26/16) Social & Family History - Family History HEENT: Reports: Macular Degeneration, Other (See Below) Other HEENT Family History: Macular Degeneration in mother, maternal aunt, and maternal grandmother. Cardiac: Reports: Afib, High Cholesterol, Hypertension, Other (See Below) Other Cardiac Family History: Maternal aunt with atrial fibrillation. Paternal grandfather, mother, and maternal aunt with hypertension. Maternal grandfather with hyperlipidemia. Respiratory: Reports: COPD, Other (See Below) Other Respiratory Family Hisory: Maternal grandfather with COPD and history of tobacco use GI: Reports: GERD, Hepatitis, Other (See Below) Other GI Family History: Father with hepatitis C as below. Paternal uncle with H. pylori infection. : Reports: Renal Calculus, Other (See Below) Other Family History: Father and brother with urolithiasis. OBGYN: Reports: None Musculoskeletal: Reports: Arthritis, RA, Other (See Below) Other Musculoskeletal Family History: Maternal aunt with rheumatoid arthritis. Neurological: Reports: CVA, MS, Other (See Below) Other Neurological Family History: Paternal Grandfather with fatal CVA in his early 60s. Paternal aunts 2 with MS. Psychiatric: Reports: Anxiety, Depression, Other (See Below) Other Psychiatric Family History: Father with anxiety depression disorder and alcohol abuse. Mother with anxiety depression disorder. Endocrine/Metabolic: Reports: Diabetes, type II, IDDM, Other (See Below) Other Endocrine/Metabolic Family History: Maternal grandmother with IDDM. Parents with AODM. Hematologic: Reports: None Immunologic: Reports: None Dermatologic: Reports: None Oncologic: Reports: Liver, Lung, Metastatic, Pancreatic, Other (See Below) Other Oncologic Family History: Father with fatal liver cancer and hepatitis C likely secondary to alcohol abuse at age 53. Maternal grandmother with fatal pancreatic cancer at age 63. Paternal grandmother fatal lung cancer at age 66 with history of tobacco use. Metastatic disease in all the above cancers. Maternal aunt with unknown type of bone marrow cancer at age 57. - Caffeine Use Caffeine Use: Reports: None Other Caffeine Use: very rarely - Living Situation & Occupation Living situation: Reports: Single, with Significant Other (And her 1 child from previous significant other relationships with another child not currently living with her). 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 ED EXAM, GENERAL - Physical Exam Exam: See Below Exam Limited By: No Limitations General Appearance: Anxious, Obese Eye Exam: Bilateral Eye: EOMI, PERRL Ears: Hearing Grossly Normal Ear Exam: Bilateral Ear: Auricle Normal Nose: No: Nasal Deformity, Nasal Swelling, Nasal Drainage Throat/Mouth: Normal Lips, Normal Voice, No Airway Compromise Head: Atraumatic, Normocephalic Neck: Supple Respiratory/Chest: No Respiratory Distress, Lungs Clear, Normal Breath Sounds, No Accessory Muscle Use, Chest Non-Tender Cardiovascular: Normal Peripheral Pulses, Regular Rate, Rhythm, No Edema, No Murmur GI/Abdominal: Soft, Non-Tender, No Distention (Female) Exam: Deferred Rectal (Female) Exam: Deferred Back Exam: No: CVA Tenderness (L), CVA Tenderness (R) Extremities: Normal Range of Motion, No Pedal Edema, Normal Capillary Refill Neurological: Alert, Oriented, Normal Cognition, No Motor/Sensory Deficits Psychiatric: Anxious Skin Exam: Warm, Dry, Intact, Normal Color #1 Interpretation EKG Date: 11/25/20 Time: 07:22 Rhythm: NSR Rate (Beats/Min): 86 [place]: Normal P-Wave: Present QRS: Normal ST-T: Normal QT: Prolonged Comparison: Change From Previous EKG (Prolonged QT noted today) Course - Vital Signs Last Recorded V/S: Last Vital Signs Temp 36.6 C 11/25/20 08:10 Pulse 86 11/25/20 08:10 Resp 22 H 11/25/20 08:10 BP 113/73 11/25/20 08:10 Pulse Ox 100 11/25/20 08:10 - Orders/Labs/Meds Orders: Active Orders 24 hr Category Date Time Status EKG Documentation Completion [RC] ASDIRECTED Care 11/25/20 07:06 Active Chest 1V Frontal [CR] Stat Exams 11/25/20 07:05 Taken Sodium Chloride 0.9% [Saline Flush] Med 11/25/20 08:00 Active 10 ml FLUSH ASDIRECTED PRN Medication Orders Sodium Chloride (Sodium Chloride 0.9% 10 Ml Syringe) 10 ml FLUSH ASDIRECTED PRN PRN Reason: Keep Vein Open Last Admin: 11/25/20 08:02 Dose: 10 ml Documented by: Admin: 11/25/20 07:38 Dose: 10 ml Documented by: LACIE Labs: Laboratory Tests 11/25/20 11/25/20 11/25/20 Range/Units 07:20 07:20 07:20 WBC 7.9 (4.0-10.2) K/uL RBC 4.21 (3.77-5.09) M/uL Hgb 12.2 (11.7-15.5) g/dL Hct 35.9 (34.0-46.0) % MCV 85.3 (84.0-98.0) fL MCH 29.0 (28.2-33.3) pg MCHC 34.0 (31.7-36.0) g/dL RDW 12.5 (11.2-14.1) % Plt Count 464 H (150-350) K/uL Neut % (Auto) 63.8 (45.0-80.0) % Lymph % (Auto) 27.8 (10.0-50.0) % [place] % (Auto) 7.0 (2.0-14.0) % Eos % (Auto) 1.1 (0.0-5.0) % Baso % (Auto) 0.3 (0.0-2.0) % Neut # (Auto) 5.03 (1.40-7.00) K/uL Lymph # (Auto) 2.19 (0.50-3.50) K/uL [place] # (Auto) 0.55 (0.00-1.00) K/uL Eos # (Auto) 0.09 (0.00-0.50) K/uL Baso # (Auto) 0.02 (0.00-0.20) K/uL PT 9.1 L (9.5-12.0) SEC INR 0.9 APTT 26.0 (24.5-32.8) SEC D-Dimer, Quantitative (0-400) ng/mL Sodium 143 (136-145) mmol/L Potassium 3.4 L (3.5-5.1) mmol/L Chloride 103 (98-107) mmol/L Carbon Dioxide 22.7 (21.0-32.0) mmol/L BUN 20 H (7-18) mg/dL Creatinine 0.85 (0.51-1.17) mg/dL Est Cr Clr Drug Dosing 84.01 mL/min Estimated GFR (MDRD) > 60 mL/min Glucose 157 H (70-99) mg/dL Hemoglobin A1c (4.3-5.7) % Lactic Acid (0.4-2.0) mmol/L Calcium 8.9 (8.5-10.1) mg/dL Magnesium 1.6 L (1.8-2.4) mg/dL Total Bilirubin 0.1 L (0.2-1.0) mg/dL AST 48 H (15-37) U/L ALT 87 H (12-78) U/L Alkaline Phosphatase 116 (46-116) IU/L Creatine Kinase 175 (26-308) U/L Troponin I 0.002 (0.000-0.056) ng/mL NT-Pro-B Natriuret Pep 20 (0-125) pg/mL Total Protein 7.0 (6.4-8.2) g/dL Albumin 3.5 (3.4-5.0) g/dL TSH, Ultra Sensitive 1.353 (0.358-3.740) mIU/mL Specimen Type Urine Color Urine Appearance Urine pH (5.0-9.0) Ur Specific [place] (1.005-1.030) Urine Protein (NEGATIVE) mg/dL Urine Glucose (UA) (NEGATIVE) mg/dL Urine Ketones (NEGATIVE) mg/dL Urine Occult Blood (NEGATIVE) Urine Nitrite (NEGATIVE) Urine Bilirubin (NEGATIVE) Urine Urobilinogen (0.2-1.0) E.U./dL Ur Leukocyte Esterase (NEGATIVE) Urine RBC /HPF Urine WBC /HPF Ur Epithelial Cells /LPF Urine Bacteria (NONE TO FEW) /HPF Urine Opiates Screen (NEGATIVE) Ur Buprenorphine Scrn (NEGATIVE) Ur Oxycodone Screen (NEGATIVE) Ur EDDP (Meth Metab) (NEGATIVE) Ur Barbiturates Screen (NEGATIVE) Ur Tricyclics Screen (NEGATIVE) Ur Amphetamine Screen (NEGATIVE) U Methamphetamines Scrn (NEGATIVE) Urine MDMA Screen (NEGATIVE) U Benzodiazepines Scrn (NEGATIVE) U Cocaine Metab Screen (NEGATIVE) U Marijuana (THC) Screen (NEGATIVE) 11/25/20 11/25/20 11/25/20 Range/Units 07:20 07:20 07:20 WBC (4.0-10.2) K/uL RBC (3.77-5.09) M/uL Hgb (11.7-15.5) g/dL Hct (34.0-46.0) % MCV (84.0-98.0) fL MCH (28.2-33.3) pg MCHC (31.7-36.0) g/dL RDW (11.2-14.1) % Plt Count (150-350) K/uL Neut % (Auto) (45.0-80.0) % Lymph % (Auto) (10.0-50.0) % [place] % (Auto) (2.0-14.0) % Eos % (Auto) (0.0-5.0) % Baso % (Auto) (0.0-2.0) % Neut # (Auto) (1.40-7.00) K/uL Lymph # (Auto) (0.50-3.50) K/uL [place] # (Auto) (0.00-1.00) K/uL Eos # (Auto) (0.00-0.50) K/uL Baso # (Auto) (0.00-0.20) K/uL PT (9.5-12.0) SEC INR APTT (24.5-32.8) SEC D-Dimer, Quantitative 118 (0-400) ng/mL Sodium (136-145) mmol/L Potassium (3.5-5.1) mmol/L Chloride (98-107) mmol/L Carbon Dioxide (21.0-32.0) mmol/L BUN (7-18) mg/dL Creatinine (0.51-1.17) mg/dL Est Cr Clr Drug Dosing mL/min Estimated GFR (MDRD) mL/min Glucose (70-99) mg/dL Hemoglobin A1c 5.5 (4.3-5.7) % Lactic Acid 2.9 H (0.4-2.0) mmol/L Calcium (8.5-10.1) mg/dL Magnesium (1.8-2.4) mg/dL Total Bilirubin (0.2-1.0) mg/dL AST (15-37) U/L ALT (12-78) U/L Alkaline Phosphatase (46-116) IU/L Creatine Kinase (26-308) U/L Troponin I (0.000-0.056) ng/mL NT-Pro-B Natriuret Pep (0-125) pg/mL Total Protein (6.4-8.2) g/dL Albumin (3.4-5.0) g/dL TSH, Ultra Sensitive (0.358-3.740) mIU/mL Specimen Type Urine Color Urine Appearance Urine pH (5.0-9.0) Ur Specific [place] (1.005-1.030) Urine Protein (NEGATIVE) mg/dL Urine Glucose (UA) (NEGATIVE) mg/dL Urine Ketones (NEGATIVE) mg/dL Urine Occult Blood (NEGATIVE) Urine Nitrite (NEGATIVE) Urine Bilirubin (NEGATIVE) Urine Urobilinogen (0.2-1.0) E.U./dL Ur Leukocyte Esterase (NEGATIVE) Urine RBC /HPF Urine WBC /HPF Ur Epithelial Cells /LPF Urine Bacteria (NONE TO FEW) /HPF Urine Opiates Screen (NEGATIVE) Ur Buprenorphine Scrn (NEGATIVE) Ur Oxycodone Screen (NEGATIVE) Ur EDDP (Meth Metab) (NEGATIVE) Ur Barbiturates Screen (NEGATIVE) Ur Tricyclics Screen (NEGATIVE) Ur Amphetamine Screen (NEGATIVE) U Methamphetamines Scrn (NEGATIVE) Urine MDMA Screen (NEGATIVE) U Benzodiazepines Scrn (NEGATIVE) U Cocaine Metab Screen (NEGATIVE) U Marijuana (THC) Screen (NEGATIVE) 11/25/20 11/25/20 Range/Units 07:34 07:34 WBC (4.0-10.2) K/uL RBC (3.77-5.09) M/uL Hgb (11.7-15.5) g/dL Hct (34.0-46.0) % MCV (84.0-98.0) fL MCH (28.2-33.3) pg MCHC (31.7-36.0) g/dL RDW (11.2-14.1) % Plt Count (150-350) K/uL Neut % (Auto) (45.0-80.0) % Lymph % (Auto) (10.0-50.0) % [place] % (Auto) (2.0-14.0) % Eos % (Auto) (0.0-5.0) % Baso % (Auto) (0.0-2.0) % Neut # (Auto) (1.40-7.00) K/uL Lymph # (Auto) (0.50-3.50) K/uL [place] # (Auto) (0.00-1.00) K/uL Eos # (Auto) (0.00-0.50) K/uL Baso # (Auto) (0.00-0.20) K/uL PT (9.5-12.0) SEC INR APTT (24.5-32.8) SEC D-Dimer, Quantitative (0-400) ng/mL Sodium (136-145) mmol/L Potassium (3.5-5.1) mmol/L Chloride (98-107) mmol/L Carbon Dioxide (21.0-32.0) mmol/L BUN (7-18) mg/dL Creatinine (0.51-1.17) mg/dL Est Cr Clr Drug Dosing mL/min Estimated GFR (MDRD) mL/min Glucose (70-99) mg/dL Hemoglobin A1c (4.3-5.7) % Lactic Acid (0.4-2.0) mmol/L Calcium (8.5-10.1) mg/dL Magnesium (1.8-2.4) mg/dL Total Bilirubin (0.2-1.0) mg/dL AST (15-37) U/L ALT (12-78) U/L Alkaline Phosphatase (46-116) IU/L Creatine Kinase (26-308) U/L Troponin I (0.000-0.056) ng/mL NT-Pro-B Natriuret Pep (0-125) pg/mL Total Protein (6.4-8.2) g/dL Albumin (3.4-5.0) g/dL TSH, Ultra Sensitive (0.358-3.740) mIU/mL Specimen Type Urinvoid Urine Color Yellow Urine Appearance Slightly cloudy Urine pH 5.5 (5.0-9.0) Ur Specific [place] 1.025 (1.005-1.030) Urine Protein Negative (NEGATIVE) mg/dL Urine Glucose (UA) Negative (NEGATIVE) mg/dL Urine Ketones Negative (NEGATIVE) mg/dL Urine Occult Blood Moderate H (NEGATIVE) Urine Nitrite Negative (NEGATIVE) Urine Bilirubin Negative (NEGATIVE) Urine Urobilinogen 0.2 (0.2-1.0) E.U./dL Ur Leukocyte Esterase Negative (NEGATIVE) Urine RBC 10-20 H /HPF Urine WBC 0-5 /HPF Ur Epithelial Cells Many H /LPF Urine Bacteria Few (NONE TO FEW) /HPF Urine Opiates Screen Negative (NEGATIVE) Ur Buprenorphine Scrn Negative (NEGATIVE) Ur Oxycodone Screen Negative (NEGATIVE) Ur EDDP (Meth Metab) Negative (NEGATIVE) Ur Barbiturates Screen Negative (NEGATIVE) Ur Tricyclics Screen Negative (NEGATIVE) Ur Amphetamine Screen Positive H (NEGATIVE) U Methamphetamines Scrn Positive H (NEGATIVE) Urine MDMA Screen Positive H (NEGATIVE) U Benzodiazepines Scrn Negative (NEGATIVE) U Cocaine Metab Screen Negative (NEGATIVE) U Marijuana (THC) Screen Positive H (NEGATIVE) Meds: Medications Generic Name Dose Route Start Last Admin Trade Name Freq PRN Reason Stop Dose Admin Sodium Chloride 10 ml 11/25/20 08:00 11/25/20 08:02 Sodium Chloride 0.9% 10 Ml Syringe FLUSH 10 ml ASDIRECTED PRN Administration Keep Vein Open Discontinued Medications Generic Name Dose Route Start Last Admin Trade Name Alessandro PRN Reason Stop Dose Admin Aspirin 324 mg 11/25/20 07:02 11/25/20 07:27 Aspirin 81 Mg Tab.Chew PO 11/25/20 07:03 324 mg ONETIME ONE Administration Magnesium Sulfate/Dextrose 1 100 mls @ 100 mls/hr 11/25/20 08:03 gm/ Premix IV 11/25/20 09:02 ONETIME ONE Isosorbide Mononitrate 30 mg 11/25/20 08:05 Isosorbide Mononitrate 30 Mg Tab.Er PO 11/25/20 08:06 ONETIME ONE Lorazepam 1 mg 11/25/20 07:55 11/25/20 08:02 Lorazepam 2 Mg/Ml Sdv IVPUSH 11/25/20 07:56 1 mg ONETIME ONE Administration Meclizine HCl 25 mg 11/25/20 07:43 11/25/20 07:47 Meclizine 25 Mg Tab PO 11/25/20 07:44 25 mg ONETIME ONE Administration Morphine Sulfate 2 mg 11/25/20 07:35 11/25/20 07:38 Morphine 2 Mg/Ml Syringe IVPUSH 11/25/20 07:36 2 mg ONETIME ONE Administration Morphine Sulfate 2 mg 11/25/20 08:02 Morphine 2 Mg/Ml Syringe IVPUSH 11/25/20 08:03 ONETIME ONE Nitroglycerin 0.4 mg 11/25/20 07:00 11/25/20 07:12 Nitroglycerin 0.4 Mg Tab.Sl SL 11/25/20 07:01 0.4 mg ONETIME ONE Administration - Re-Assessments/Exams Free Text/Narrative Re-Assessment/Exam: 11/25/20 08:17 Chest Xray/EKG overall unremarkable. Given Nitro/pain improved but did not resolve. Given MS and further improvement obtained/pain down to a 3. Meclizine given for dizziness. Initial Troponin negative. Patient extremely anxious, Ativan ordered. Free Text/Narrative Re-Assessment/Exam: 11/25/20 09:06 Patient's pain complaint completely resolved after Ativan. Sleeping. WBC unremarkable. Mag 1.6 and replacement ordered. Lactic 2.9 AST 48/ALT 87 Troponin/BNP/DDimer negative. Call placed to [facility] for consultation. Drug screen results obtained. + for Meth/Amphet/MDMA/THC Patient also positive for Meth/Amphet last summer both here and at [facility]. No interim drug screens performed. Call placed to [facility] to see if any other drug screens performed at their facility over this timeframe. They noted one drug screen performed March 2020 and it was also + for Meth/Amphet. Went in to visit with patient at this time. Told patient about + screen and how it was imperative that she stop using illicit drugs especially in light of her cardiac disease. Patient flat out denied any use of meth or MDMA. Said it might be due to the person that she lives with. It was emphasized to patient that it would be hard to get a false positive in a test, and that she had been coming up positive for meth and other drugs both here and at [facility] over the last year. Deleterious effects of drug use, particularly of meth's cardiac effects, was again emphasized. Patient advised we were waiting for call back from [facility] and that we were planning on obtaining another troponin in 4 hours. Several minutes later patient's mother came out of room and said that patient had taken the IV out and was getting dressed and planning to leave. Patient then was seen to exit ER and walk out the door/exited building. She also left AMA several days ago when seen in ER. Mom advised that we would be happy to have patient return to the ER and complete the cardiac workup that had been initiated/including performing serial troponins. After patient left, from [facility] returned out call. [facility] informed patient had eloped. Departure - Departure Time of Disposition: 08:50 Disposition: Eloped 07 Condition: Undetermined Clinical Impression: Methamphetamine addiction, Illicit drug use, continuous Chest pain Qualifiers: Chest pain type: unspecified Qualified Code(s): R07.9 - Chest pain, unspecified - Discharge Information Referrals: Dotty Villaseñor PA-C [Primary Care Provider] - Forms: ED Department Discharge Sepsis Event Note (ED) - Focused Exam Vital Signs: Vital Signs Temp Pulse Resp BP BP Pulse Ox 11/25/20 08:10 36.6 C 86 22 H 113/73 100 11/25/20 07:48 86 21 H 113/68 100 11/25/20 07:41 90 20 114/61 99 11/25/20 07:25 88 20 108/52 L 100 11/25/20 07:12 111/65 11/25/20 07:03 101 H 21 H 107/66 100 11/25/20 06:52 37.0 C 86 19 111/65 100 - My Orders Last 24 Hours: My Active Orders 11/25/20 07:05 Chest 1V Frontal [CR] Stat 11/25/20 07:06 EKG Documentation Completion [RC] ASDIRECTED 11/25/20 08:00 Sodium Chloride 0.9% [Saline Flush] 10 ml FLUSH ASDIRECTED PRN - Assessment/Plan Last 24 Hours: My Active Orders 11/25/20 07:05 Chest 1V Frontal [CR] Stat 11/25/20 07:06 EKG Documentation Completion [RC] ASDIRECTED 11/25/20 08:00 Sodium Chloride 0.9% [Saline Flush] 10 ml FLUSH ASDIRECTED PRN
[2020-11-25] MEDS: Sodium Chloride 0.9% 10 ML Syringe FLUSH PRN ×2 (07:38→08:02)
[2020-11-25] MEDS ORDERED: Meclizine 25 MG Tab PO ONE (07:43)
[2020-11-25] MEDS ORDERED: LORazepam 2 MG/ML SDV IVPUSH ONE (07:55)
[2020-11-25 07:58] LABS: CHLORIDE,CL 103 mmol/L (98-107); SODIUM,NA 143 mmol/L (136-145)
[2020-11-25] MEDS ORDERED: Isosorbide Mononitrate 30 MG Tab.ER PO ONE (08:05)
[2020-11-25 08:17] LABS: BARBITURATE SCREEN,URINE NEGATIVE (NEGATIVE); BENZODIAZEPINES SCREEN,URINE NEGATIVE (NEGATIVE); EDDP,URINE SCREEN NEGATIVE (NEGATIVE); TCA SCREEN,URINE NEGATIVE (NEGATIVE); THC SCREEN,URINE 50 NG/ML POSITIVE (NEGATIVE)
[2020-11-25 08:25] LABS: BUPRENORPHINE SCREEN,URINE NEGATIVE (NEGATIVE)
[2020-11-25 08:32] LABS: HEMOGLOBIN A1C 5.5 % (4.3-5.7)
[2020-11-25 10:59] VITALS: BP 118/70; PULSE 89
== END 2020-11-25 08:50 | disposition left against medical advice (07) ==
LOC: LL.ED 06:52
DX: R07.9 Chest pain, unspecified (principal); F15.20 Other stimulant dependence, uncomplicated; I25.10 Atherosclerotic heart disease of native coronary artery without angina pectoris; E78.00 Pure hypercholesterolemia, unspecified; I10 Essential (primary) hypertension; I25.2 Old myocardial infarction; G62.9 Polyneuropathy, unspecified; M19.90 Unspecified osteoarthritis, unspecified site; Z95.5 Presence of coronary angioplasty implant and graft; Z79.82 Long term (current) use of aspirin; Z79.899 Other long term (current) drug therapy; Z88.1 Allergy status to other antibiotic agents; Z88.0 Allergy status to penicillin; Z88.8 Allergy status to other drugs, medicaments and biological substances
CPT/HCPCS: 36415; 71045; 80053; 80305-QW; 81001; 82550; 83036; 83605; 83735; 83880; 84443; 84484; 85025; 85379; 85610; 85730; 93005; 93010; 96374; 96375; 99284; 99285-25; A9270-GY; J2060; J2270